=== PATIENT | female | born 1945 | race Caucasian/White ===

== ENCOUNTER 2016-03-29 01:28 | Inpatient (IN) | payer OTHER ==
--- NOTE | 2016-03-27 10:46 | History & Physical Pre-Op ---
General Information and HPI History of Present Illness: anatoly presents for scheduling laparoscopic cholecystectomy. She previously underwent percutaneous drainage of her gallbladder due to underlying comorbid problems. She has since convalesced and has been cleared by cardiology to undergo laparoscopic cholecystectomy. she also complains of increasing size of an incisional hernia just above the umbilicus. There is no nausea vomiting or change to bowel function. In regards to her gallbladder she continues to get intermittent epigastric abdominal pain following greasy meals. Operation was initially scheduled for February but was rescheduled due to medicall illness. Allergies/Medications Allergies: Coded Allergies: enalapril (Intermediate, PERSITENT COUGH. 06/28/15) Home Med list Atorvastatin Calcium (Lipitor) 40 MG TABLET 1 TAB PO DAILY CHOLESTEROL ( Reported) Cetirizine HCl (Zyrtec) 10 MG TABLET 1 TAB PO DAILY ALLERGIES (Reported) Furosemide (Lasix) 20 MG TABLET 1 TAB PO DAILY WATER RETENTION (Reported) Gabapentin (Gabapentin Tab 600MG) 600 MG TAB 2 TAB PO TID NEUROPATHY ( Reported) Insulin Aspart, Recombinant (Novolog) 100 U/ML MERE 0 UNITS SC TIDAC GLUCOSE CONTROL (Reported) BLOOD SUGAR # OF UNITS < 80 NONE 80-150 NONE 151-200 4 UNITS 201-250 6 UNITS 251-300 8 UNITS 301-350 10 UNITS 351-400 12 UNITS >400 14 UNITS and call Insulin Detemir (Levemir) 100 UNIT/1 ML VIAL 15 UNITS SQ AT BEDTIME diabetes Patient was previously on 25 units Levemir at bedtime. Dosage decreased due to hypoglycemia. Have provider increase Levemir dose based on the Accu-Cheks levels Lactobacillus Acidophilus (Probiotic) 1 EACH CAPSULE 1 CAP PO BID SUPPLEMENT (Reported) Levothyroxine Sodium (Synthroid) 50 MCG TABLET 1 TAB PO DAILY AC THYROID HEALTH (Reported) Lisinopril 10 MG TAB 1 TAB PO DAILY BLOOD PRESSURE (Reported) Metformin Hydochloride (Glucophage) 500 MG TABLET 1 TAB PO BID DIABETES ( Reported) Metoprolol Tartrate 50 MG TABLET 50 MG PO BID afib Multivitamin (Multivitamins) 1 EACH CAPSULE 1 TAB PO DAILY SUPPLEMENT ( Reported) Multivitamin With Minerals (Hair, Skin & Nails) 1 EACH TABLET 1 TAB PO DAILY HAIR AND NAILS (Reported) Nateglinide (Starlix) 120 MG TAB 1 TAB PO TIDAC DIABETES (Reported) Omeprazole 20 MG CAPSULE.DR 40 MG PO DAILY AC GERD Sennosides/Docusate Sodium (Senna S Tablet) 1 EACH TABLET 1 TAB PO BID CONSTIPATION (Reported) Past History Medical History Neurological: peripheral neuropathy EENT: allergies, hearing loss Cardiovascular: hypertension, hyperlipidemia, systolic CHF, mitral valve prolapse recent endocarditis Group G strep mitral valve endocarditis Respiratory: NONE Gastrointestinal: constipation, SLOW PERISTALSIS Hepatic: cholecystitis Renal: chronic kidney disease, urinary incontinence Musculoskeletal: chronic back pain, decubitis ulcer, falls, osteoarthritis, spinal stenosis, OSTEOMYELITIS Psychiatric: NONE Endocrine: diabetes, hypothyroidism, obesity Blood Disorders: NONE Cancer(s): NONE 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 , Age 56; Cause: Acute leukemia. Leukemia BROTHER, ; Cause: Heart attack. FATHER (hx colon polyps). , Age 70; Cause: CHF (congestive heart failure ). Psychosocial History Who Do You Live With? spouse (at ECF), self Services at Home Nursing Primary Language: Bengali Living Will? claims DNR/DNI, but Ok to intubate for temporary measures Power of Screen Tender/HCP? no Functional Ability ADLs Independent: dressing, eating, toileting, bathing. Ambulation: cane IADLs Independent: shopping, housework, finances, food prep, telephone, transportation , medication admin. Review of Systems Review of Systems: Patient reports change in appetite but reports no abdominal pain, no vomiting, no vomiting blood, no diarrhea, no constipation, no rectal bleeding, and no history of GERD. She reports muscle weakness but reports no muscle aches, no arthralgias/joint pain, and no back pain. She reports no fatigue, no fever, no night sweats, no significant weight gain, no significant weight loss, and no exercise intolerance. She reports no abnormal moles, no jaundice, no hives, no eczema, and no rashes. She reports no hearing loss, no ear pain, no sneezing, no frequent nosebleeds, no nose/sinus problems, no bleeding gums, no snoring, no dry mouth, no mouth ulcers, no oral abnormalities, no teeth problems, no headaches, and no sore throat. She reports no swollen glands and no neck stiffness. She reports no cough, no wheezing, no shortness of breath, and no coughing up blood. She reports no chest pain, no arm pain on exertion, no shortness of breath when lying down, no palpitations, and no leg swelling. She reports no incontinence, no difficulty urinating, no hematuria, and no increased frequency. She reports no gynecologic complaints. Exam & Diagnostic Data Physical Exam: Patient is a 70-year-old female. Constitutional: General Appearance: healthy-appearing and obese. Level of Distress: no acute distress. Ambulation: ambulating normally. Head: Head: normocephalic and atraumatic. Neck: Neck: supple, trachea midline, no masses, and full range of motion. Thyroid: no enlargement or nodules and non-tender. Lymph Nodes: no cervical LAD, supraclavicular LAD, axillary LAD, or inguinal LAD. Cardiovascular: Heart Auscultation: normal S1 and S2, no rubs or gallops, and regular rate and rhythm and murmur. Lungs: Respiratory effort: no dyspnea. Percussion: no dullness, flatness, or hyperresonance. Auscultation: no wheezing, rales/crackles, or rhonchi and breath sounds normal, good air movement, and clear to auscultation. Back: Thoracolumbar Appearance: normal curvature. Abdomen: Inspection and Palpation: no guarding, masses, rebound tenderness, or CVA tenderness and soft, non-distended, and epigastric tenderness. Bowel Sounds: normal. Liver: non-tender and no hepatomegaly. Spleen: non-tender and no splenomegaly. Hernia: incisional (reducible epigastric incisional hernia as well as separate umbilical defect). Skin: Inspection and palpation: no rash, lesions, ulcer, induration, nodules, jaundice, or abnormal nevi and good turgor. Musculoskeletal:: Extremities: no cyanosis, edema, varicosities, or palpable cord. Motor Strength and Tone: normal tone and motor strength. Joints, Bones, and Muscles: no contractures, malalignment, tenderness, or bony abnormalities and normal movement of all extremities; multiple missing digits of the bilateral hands. Protective boot right foot. Psychiatric: Insight: good judgement and insight. Mental Status: normal mood and affect and active and alert. Orientation: to time, place, and person. Memory: recent memory normal and remote memory normal. Assessment/Plan Assessment/Plan: Incisional hernia - She inquires re: concurrent laparoscopic incisional hernia repair. It is possible to combine these operations but only if cholecystectomy proceeds without contamination, otherwise the risk of mesh infection is too great. K43.2: Incisional hernia without obstruction or gangrene Cholecystitis - resolved status post percutaneous drainage. Recommend laparoscopic cholecystectomy. she's cleared by cardiology to undergo general anesthesia. They recommended keeping her overnight for monitoring on telemetry postoperatively. K81.0: Acute cholecystitis Discussion Notes Discussed outpatient laparoscopic cholecystectomy under general anesthesia. Discussed the side effects of cholecystectomy including diarrhea. Discussed the recovery period and complications including bleeding, infection, conversion to open and bile duct injury requiring reconstruction. Discussed the pathophysiology of hernias and the need for mesh repair. He understands the permanent nature of mesh. Discussed the risks of surgery including recurrence of the hernia, bleeding and infection. He understands that if mesh infection occurs, removal will necessary. He understands the need for general anesthesia. As Ranked By This Provider Problem List: 1. Acute cholecystitis
[~2016-03-29] VITALS: Ht 157.5 cm; Wt 90.7 kg
[~2016-03-29 01:28] MED LIST: ACETAMINOPHEN/O1 TAB PO; ASPIRIN EC81 M1 PO; AUGMENTIN 875 M1 TAB PO; BACTRIM DS TAB1 EACH PO; CHILDREN'S ASPI81 M1 PO; CLARITIN10 MG PO; COLACE100 M1 PO; COLACE100 MG PO; DESITIN CLEAR O99 GM TOP; GABAPENTIN TAB600 MG PO; GAS-X80 M1 PO; GLUCOPHAGE500 M1 PO; GLUCOPHAGE500 MG PO; HAIR, SKIN & N1 EACH PO; HYDRODIURIL 5050 MG PO; LASIX20 M1 PO; LEVEMIR100 U/ML SC; LEVEMIR100 UNIT/1 SQ; LIDODERM1 EACH TOP; LIPITOR40 M1 PO; LISINOPRIL10 MG PO; MAGNESIUM400 M1 PO; METOPROLOL TART50 M1 PO; MORPHINE SULFAT15 M4 PO; MUCINEX600 M1 PO; MULTIVITAMINS1 EAC8 PO; NOVOLOG100 U/ML SC; NYSTATIN15 G1 TOP; OMEPRAZOLE20 M2 PO; OMEPRAZOLE40 M1 PO; PERCOCET 325 MG1 TA2 PO; PROBIOTIC1 EACH PO; ROXICODONE5 M1 PO; SENNA S TABLET1 EACH PO; STARLIX120 MG PO; SYNTHROID0.05 MG PO; SYNTHROID50 MCG PO; TYLENOL #31 TAB PO; UNASYN 1.5 GM1.5 GM IV; UNASYN 3 GM VIAL3 GM IV; VANCO 1 GR1 GM/250 M IV; VITAMIN A & D56.7 GM TOP; ZYRTEC10 M3 PO
--- NOTE | 2016-03-29 15:11 | Operative Report ---
Operative/Inv Procedure Report Surgery Date: 03/29/16 Name of Procedure: 1. Laparoscopic converted to open cholecystectomy 2. Open incarcerated incisional hernia repair with primary closure Pre-Operative Diagnosis: Acute cholecystitis Incarcerated incisional hernia Post-Operative Diagnosis: Same same Estimated Blood Loss: less than 50ml Surgeon/Senior Biostatistician: RETA LAZARO,RENE Diaz/Edu KHAN Anesthesia: general endotracheal tube Implants: None Drains: 15 Dominican Kash-Bush round right upper quadrant Specimens: Gallbladder fragments Microbiology: Gallbladder Fluid for culture Operative Indication: Patient presents for in overall cholecystectomy after percutaneous drainage for severe acute cholecystitis. She has a growing and symptomatic incisional hernia which will be repaired concurrently Operative/Procedure Note Note: After consent patient brought to the operating room and laid supine. Gen. anesthesia was obtained and her abdomen was prepped and draped. We gained access through a supraumbilical port site, 10 mm. A longitudinal incision after local anesthesia was made. Came down to the fascia and grasped with Odalis's and a fasciotomy created sharply. Stay suture placed and a blunt Norman port was placed. Pneumoperitoneum was achieved. 3, 5 mm ports were placed in the right upper quadrant after local anesthesia instilled. There were numerous adhesions to the liver which are taken down with cautery and blunt dissection. The gallbladder was very difficult to identify. There is a fibrotic rind overlying it. Were able to peel it off painstakingly with cautery and blunt dissection. The gallbladder appeared to be gangrenous still. Eventually we're able to peel some the omentum off of it and in doing so opened up the gallbladder. There was creamy purulence emanating from it and the specimen was sent for culture. Removal to peel off the adhesions anteriorly. This was done with cautery and blunt dissection. At this point we attempted to dissect the triangle of Calot. Unfortunately there was severe fibrosis around the triangle making dissection prohibitive. There was Calot's node identified but no artery. We could not identify the duct. We attempted to find the duct from inside the gallbladder but or and able to do so. I then attempted to take the gallbladder off top down in it similar to an open fashion. This resulted in severe bruising and hemorrhage from the liver bed. Since we couldn't safely take it out laparoscopically and converted to an open operation. An incision was made and right upper quadrant to encompass the port sites. We came through the subcutaneous tissue fascia and muscle with cautery. [place] retraction was then attained. Packs are placed appeared delivered to bring the edge down. The gallbladder was then grasped and taken off of the liver bed with cautery. Again we couldn't identify major structures. We found what appeared to be the cystic duct from the inside. And removed all the gallbladder and left the cystic duct alone. I then suture ligated the cystic duct orifice with 3-0 Vicryl. Wound was then irrigated with saline. Hemostasis achieved with cautery and Surgicel. A 15 round Kash-Bush drain was then placed and secured to the skin with 2-0 nylon. The packs were removed and the fascia closed in 2 layers with 0 Maxon suture, running fashion. The subcutaneous tissues tissues were irrigated with saline and skin closed with sydni. The epigastric port site fascia was then closed with 0 Vicryl suture. Skin closed with sydni. Since there was contamination with active infection the gallbladder I felt that repair of her incisional hernia should not be performed with mesh due to the high incidence of mesh infection. However given the symptomatically nature of her hernia and her fragile medical status I felt that an attempt at repair should be made so that another operation could be avoided. So elected to repair the incisional hernia site in open fashion with primary closure. We made an incision in the periumbilical region came down to subcutaneous tissues tissues with cautery. There were 2 fascial defects one at the umbilicus and one superior to it both were dissected with cautery and the fascia between them connected. Were then able to reduce the contents back in the perineal cavity. The fascial edges were then excised of attenuated tissue with cutting cautery. We then closed the fascial defect with a running 0 Maxon suture. Wound was irrigated with saline and skin closed with sydni. Sterile dressings were applied. Sponge and needle counts are correct Findings: Severe chronic cholecystitis with purulence CC: Juan R CAN MD; JESSICA LAZARO,JOSE A
--- NOTE | 2016-03-29 15:34 | Admission Core Measures ---
Admission Meds I reviewed the following Meds: Current Medications Sig/Vandana Start time Last Medication Dose Stop Time Status Admin Atorvastatin Calcium 40 MG DAILY 03/30 1000 AC (Lipitor) Cefazolin Sodium 2,000 MG ONCE 03/29 0000 NR (Kefzol-Ancef Inj) 03/29 2359 Furosemide 20 MG DAILY 03/30 1000 AC (Lasix) Gabapentin 1,200 MG TID 03/29 1600 AC (Neurontin) Levothyroxine Sodium 0.05 MG DAILY AC 03/30 0700 AC (Synthroid) Lisinopril 10 MG DAILY 03/30 1000 AC (Prinivil) Loratadine 10 MG DAILY 03/30 1000 AC (Claritin) Metoprolol Tartrate 50 MG BID 03/29 2200 AC (Lopressor) Multivitamins 1 TAB DAILY 03/30 1000 AC (Theragran Vitamins) Omeprazole 40 MG DAILY AC 03/30 0700 AC (Prilosec) Senna/Docusate Sodium 1 TAB BID 03/29 2200 AC (Senokot S) Acute Coronary Syndrome Inclusion Criteria ACS Diagnosis No Inpatient Core Measures LDL Reminder: If No, please order W/I first 24hr of stay Congestive Heart Failure Inclusion Criteria CHF Diagnosis No Cerebrovascular accident Inclusion Criteria CVA/TIA Diagnosis No Inpatient Core Measures Bedside Swallow Eval Reminder: If BSE failed, place ST order Antithrombotic Reminder: Order Antithrombotic Medication by end of day 2 Antithrombotic Reminder: Document Reason Antithrombotic Not ordered by end of day 2 AFIB/Flutter Reminder: If Present, add to problem list AFIB/Flutter Reminder: Order Anticoag Medication for pts with AFIB/Flutter Atherosclerosis Reminder: If Present, add to problem list LDL Reminder: If No, please order W/I first 24hr of stay PT Order Reminder: If No, please order Venous thromboembolism Inpatient Core Measures VTE Risk Factors: Age > 40, Surgery VTE Prophylaxis Ordered Inpt Mec & Pharm No Mech VTE prophylaxis d/t No contraindications No VTE Pharm Prophylaxis d/t No contraindications Inclusion Criteria - Per Current guidelines, there needs to be overlap - treatment for the first 5 days of Warfarin therapy. - Parenteral Anticoagulation (IV or SC) needs to be - given along with Warfarin therapy. VTE Diagnosis No VTE Type NONE VTE Confirmed by (Test) NONE Problem List As ranked by this Provider includes Assessment & Plan 1. S/P cholecystectomy HOME MEDS Home Med List Atorvastatin Calcium (Lipitor) 40 MG TABLET 1 TAB PO DAILY CHOLESTEROL ( Reported) Cetirizine HCl (Zyrtec) 10 MG TABLET 1 TAB PO DAILY ALLERGIES (Reported) Furosemide (Lasix) 20 MG TABLET 1 TAB PO DAILY WATER RETENTION (Reported) Gabapentin (Gabapentin Tab 600MG) 600 MG TAB 2 TAB PO TID NEUROPATHY ( Reported) Insulin Aspart, Recombinant (Novolog) 100 U/ML MERE 0 UNITS SC TIDAC GLUCOSE CONTROL (Reported) Insulin Detemir (Levemir) 100 UNIT/1 ML VIAL 15 UNITS SQ AT BEDTIME diabetes Lactobacillus Acidophilus (Probiotic) 1 EACH CAPSULE 1 CAP PO BID SUPPLEMENT (Reported) Levothyroxine Sodium (Synthroid) 50 MCG TABLET 1 TAB PO DAILY AC THYROID HEALTH (Reported) Lisinopril 10 MG TAB 1 TAB PO DAILY BLOOD PRESSURE (Reported) Metformin Hydochloride (Glucophage) 500 MG TABLET 1 TAB PO BID DIABETES ( Reported) Metoprolol Tartrate 50 MG TABLET 50 MG PO BID afib Multivitamin (Multivitamins) 1 EACH CAPSULE 1 TAB PO DAILY SUPPLEMENT ( Reported) Multivitamin With Minerals (Hair, Skin & Nails) 1 EACH TABLET 1 TAB PO DAILY HAIR AND NAILS (Reported) Nateglinide (Starlix) 120 MG TAB 1 TAB PO TIDAC DIABETES (Reported) Omeprazole 20 MG CAPSULE.DR 40 MG PO DAILY AC GERD Sennosides/Docusate Sodium (Senna S Tablet) 1 EACH TABLET 1 TAB PO BID CONSTIPATION (Reported)
[2016-03-30 01:13] VITALS: BP 122/67
[2016-03-30 07:41] LABS: ABSOLUTE BASOPHIL COUNT 0 /CUMM (0.0-0.2); ABSOLUTE EOSINOPHIL COUNT 0 /CUMM (0.0-0.7); ABSOLUTE GRANULOCYTE CT 12.3 /CUMM (1.4-6.5); ABSOLUTE LYMPH COUNT 1.3 /CUMM (1.2-3.4); ABSOLUTE MONOCYTE COUNT 1.5 /CUMM (0.10-0.60); BASOPHIL % 0.1 % (0.0-2.0); EOSINOPHIL % 0 % (0-5); GRANULOCYTE % 81.4 % (42.2-75.2); HEMATOCRIT 33.6 % (37-47); MEAN CORPUSCULAR HGB CONC 32.5 G/DL (33.0-37.0); MEAN CORPUSCULAR VOLUME 80.1 FL (81.0-99.0); PLATELET COUNT 304 /CUMM (130-400); RBC DISTRIBUTION WIDTH 20.4 % (11.5-14.5); RED BLOOD CELL CT 4.19 /CUMM (4.20-5.40); WHITE BLOOD CELL COUNT 15.2 /CUMM (4.8-10.8)
[2016-03-30 08:00] VITALS: BP 120/60
--- NOTE | 2016-03-30 08:38 | Cons- Cardiology ---
General Information and HPI Consulting Request Date of Consult: 03/30/16 Requested By: RETA LAZARO,RENE Diaz Reason for Consult: Assistance with management of cardiac issues Source of Information: patient, old records Exam Limitations: no limitations History of Present Illness: The patient is a 70-year-old complicated, white female who is well-known to me. The patient is now day #1 post open cholecystectomy. From a cardiac standpoint, the patient has been stable recently. She does have a history of prior mitral valve endocarditis. Her mitral valve function, however, has remained reasonably normal. She has had no recent cardiac symptoms. As far as I can see, she seems to tolerate the surgery well. She has had no evidence of any arrhythmias since the procedure. This morning, she is sitting in a chair with no cardiac symptoms. She is tearful. Allergies/Medications Allergies: Coded Allergies: enalapril (Intermediate, PERSITENT COUGH. 06/28/15) Home Med List: Atorvastatin Calcium (Lipitor) 40 MG TABLET 1 TAB PO DAILY CHOLESTEROL ( Reported) Cetirizine HCl (Zyrtec) 10 MG TABLET 1 TAB PO DAILY ALLERGIES (Reported) Furosemide (Lasix) 20 MG TABLET 1 TAB PO DAILY WATER RETENTION (Reported) Gabapentin (Gabapentin Tab 600MG) 600 MG TAB 2 TAB PO TID NEUROPATHY ( Reported) Insulin Aspart, Recombinant (Novolog) 100 U/ML MERE 0 UNITS SC TIDAC GLUCOSE CONTROL (Reported) BLOOD SUGAR # OF UNITS < 80 NONE 80-150 NONE 151-200 4 UNITS 201-250 6 UNITS 251-300 8 UNITS 301-350 10 UNITS 351-400 12 UNITS >400 14 UNITS and call Insulin Detemir (Levemir) 100 UNIT/1 ML VIAL 15 UNITS SQ AT BEDTIME diabetes Patient was previously on 25 units Levemir at bedtime. Dosage decreased due to hypoglycemia. Have provider increase Levemir dose based on the Accu-Cheks levels Lactobacillus Acidophilus (Probiotic) 1 EACH CAPSULE 1 CAP PO BID SUPPLEMENT (Reported) Levothyroxine Sodium (Synthroid) 50 MCG TABLET 1 TAB PO DAILY AC THYROID HEALTH (Reported) Lisinopril 10 MG TAB 1 TAB PO DAILY BLOOD PRESSURE (Reported) Metformin Hydochloride (Glucophage) 500 MG TABLET 1 TAB PO BID DIABETES ( Reported) Metoprolol Tartrate 50 MG TABLET 50 MG PO BID afib Multivitamin (Multivitamins) 1 EACH CAPSULE 1 TAB PO DAILY SUPPLEMENT ( Reported) Multivitamin With Minerals (Hair, Skin & Nails) 1 EACH TABLET 1 TAB PO DAILY HAIR AND NAILS (Reported) Nateglinide (Starlix) 120 MG TAB 1 TAB PO TIDAC DIABETES (Reported) Omeprazole 20 MG CAPSULE.DR 40 MG PO DAILY AC GERD Sennosides/Docusate Sodium (Senna S Tablet) 1 EACH TABLET 1 TAB PO BID CONSTIPATION (Reported) Past History Medical History Blood Transfusion Hx: Yes Neurological: peripheral neuropathy EENT: allergies, hearing loss Cardiovascular: hypertension, hyperlipidemia, systolic CHF, mitral valve prolapse recent endocarditis Group G strep mitral valve endocarditis Respiratory: NONE Gastrointestinal: constipation, SLOW PERISTALSIS Hepatic: cholecystitis Renal: chronic kidney disease, urinary incontinence Musculoskeletal: chronic back pain, decubitis ulcer, falls, osteoarthritis, spinal stenosis, OSTEOMYELITIS Psychiatric: NONE Endocrine: diabetes, hypothyroidism, obesity Blood Disorders: NONE Cancer(s): NONE 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 , Age 56; Cause: Acute leukemia. Leukemia BROTHER, ; Cause: Heart attack. FATHER (hx colon polyps). , Age 70; Cause: CHF (congestive heart failure ). Psychosocial History Where Do You Live? Home Who Do You Live With? spouse (at ECF), self Services at Home: Nursing Primary Language: Kyrgyz Smoking Status: Never Smoked Living Will? claims DNR/DNI, but Ok to intubate for temporary measures Power of Fructose Loader/HCP? no Functional Ability ADLs Independent: dressing, eating, toileting, bathing. Ambulation: cane IADLs Independent: shopping, housework, finances, food prep, telephone, transportation , medication admin. Exam & Diagnostic Data Vital Signs and I&O Vital Signs Date Time Temp Pulse Resp B/P Pulse O2 O2 Flow FiO2 Ox Delivery Rate 03/30 0113 67 20 122/67 93 03/29 2214 77 132/70 Intake & Output 03/30 1600 03/30 0800 03/30 0000 03/29 1600 03/29 0800 03/29 0000 Intake Total 910 Output Total 455 210 Balance 455 -210 Intake, IV 850 Intake, Oral 60 Output, 5 10 Drainage Output, Urine 450 200 Patient 200 lb Weight Labs/Ammon Results: Laboratory Tests 03/30 0615 Chemistry Sodium (137 - 145 mmol/L) 142 Potassium (3.5 - 5.1 mmol/L) 5.1 Chloride (98 - 107 mmol/L) 100 Carbon Dioxide (22 - 30 mmol/L) 29 Anion Gap (5 - 16) 13 BUN (7 - 17 mg/dL) 35 H Creatinine (0.5 - 1.0 mg/dL) 1.1 H Estimated GFR (>60 ml/min) 49 L BUN/Creatinine Ratio (7 - 25 %) 31.8 H Hematology CBC w Diff NO MAN DIFF REQ WBC (4.8 - 10.8 /CUMM) 15.2 H RBC (4.20 - 5.40 /CUMM) 4.19 L Hgb (12.0 - 16.0 G/DL) 10.9 L Hct (37 - 47 %) 33.6 L MCV (81.0 - 99.0 FL) 80.1 L MCH (27.0 - 31.0 PG) 26.0 L RDW (11.5 - 14.5 %) 20.4 H Plt Count (130 - 400 /CUMM) 304 MPV (7.4 - 10.4 FL) 8.0 Gran % (42.2 - 75.2 %) 81.4 H Lymphocytes % (20.5 - 51.1 %) 8.6 L Monocytes % (1.7 - 9.3 %) 9.9 H Eosinophils % (0 - 5 %) 0 Basophils % (0.0 - 2.0 %) 0.1 Absolute Granulocytes (1.4 - 6.5 /CUMM) 12.3 H Absolute Lymphocytes (1.2 - 3.4 /CUMM) 1.3 Absolute Monocytes (0.10 - 0.60 /CUMM) 1.5 H Absolute Eosinophils (0.0 - 0.7 /CUMM) 0 Absolute Basophils (0.0 - 0.2 /CUMM) 0 PUBS MCHC (33.0 - 37.0 G/DL) 32.5 L Assessment/Plan Assessment/Plan Assessment: 1. Day one post cholecystectomy 2. History of mitral valve disease with prior mitral valve endocarditis 3. History of prior elevated troponin. 4. Potential 5. Hyperlipidemia 6. Hypothyroidism 7. Diabetes Recommendations: -Continue as per the medical and surgical teams. -If the patient remained stable and without arrhythmias for 24-36 hours, I believe she can be safely transferred to the general medical floor at that time. -Please check ECG today and again in the morning. -Further plans after the above. Consult Acknowledgment - Thank you for your consult request.
--- NOTE | 2016-03-30 09:36 | PN- General Surgery ---
ROXANN WOLFE 03/30/16 0932: Subjective Subjective: Late entry: POD #1 s/p lap converted to open cholecystectomy. Resting comfortably in bed. Minimal complaints of pain (only when moving). No CP/SOB, N/V, F/C. Ambulating with assistance. Objective Vital Signs and I&Os Vital Signs Date Time Temp Pulse Resp B/P Pulse O2 O2 Flow FiO2 Ox Delivery Rate 04/01 0843 69 138/80 04/01 0843 69 138/80 04/01 0833 97.9 69 18 128/72 94 Room Air 03/31 2353 98.2 68 18 102/60 93 Room Air 03/31 2116 70 98/60 03/31 1555 98.1 68 18 110/60 96 Intake & Output 04/01 1600 04/01 0800 04/01 0000 03/31 1600 03/31 0000 Intake Total 130 490 240 50 410 Output Total 350 Balance 130 490 240 50 60 Intake, IV 10 10 10 Intake, Oral 120 480 240 50 400 Number 0 Bowel Movements Output, Urine 350 Core Measures/Miscellaneous Venous Thromboembolism VTE Prophylaxis Ordered Inpt Mech & Pharm VTE Diagnosis: No VTE Type: NONE VTE Confirmed by (Test): NONE RETA LAZARO,RENE Diaz 03/31/16 0740: Objective Vital Signs and I&Os Vital Signs Date Time Temp Pulse Resp B/P Pulse O2 O2 Flow FiO2 Ox Delivery Rate 03/31 0053 98.2 69 20 120/62 93 Room Air 03/31 0000 Room Air 03/30 2249 69 100/50 03/30 1530 97.5 69 20 118/60 94 Room Air 03/30 0854 126/80 03/30 0853 126/80 03/30 0800 97.6 68 20 120/60 96 Room Air Intake & Output 03/31 0800 03/31 0000 03/30 1600 03/30 0800 03/30 0000 03/29 1600 Intake Total 410 1320 910 Output Total 350 800 455 210 Balance 60 520 455 -210 Intake, IV 10 600 850 Intake, Oral 400 720 60 Number 0 Bowel Movements Output, 5 10 Drainage Output, Urine 350 800 450 200 Patient 200 lb Weight Physical Exam: looks well. drain with scant bloody output Assessment/Plan Assessment/Plan pod 1 open susan and incisional hernia repair. doing well. advance diet. d/c 1-2 days pending clinical course. Core Measures/Miscellaneous Venous Thromboembolism VTE Risk Factors: Acute medical illness, Age > 40, Obesity VTE Contraindications: No Contraindications Beta Jazzmine Is Beta Jazzmine a Home Med? No Antibiotics Is Patient on Antibiotics? No
--- NOTE | 2016-03-30 10:28 | Patient Discharge Instructions ---
Discharge Instructions General Discharge Information You were seen/treated for: CHOLECYSTITIS You had these procedures: CHOLECYSTECTOMY Watch for these problems: INCREASED PAIN, REDNESS OR DRAINAGE FROM INCISION, FEVER GREATER THAN 101F, CHEST PAIN OR SHORTNESS OF BREATH Other wound care: YOUR DRAIN SITE MAY DRAIN SOME CLEAR TO SLIGHTLY BLOOD TINGED FLUID; THIS IS NORMAL. COVER WITH GAUZE AND CHANGE NEEDED UNTIL THE AREA IS NOT DRAINING ANYMORE. Diet Continue normal diet: Yes Activity Full Activity/No Limits: No Activity Self Limited: Yes Pounds, do NOT lift more than: 10 Acute Coronary Syndrome Inclusion Criteria At DC or during hospital stay patient has or had the following: ACS DIAGNOSIS No Discharge Core Measures Meds if any: Prescribed or Continued at Discharge Meds if any: NOT Prescribed or Continued at Discharge Congestive Heart Failure Inclusion Criteria At DC or during hospital stay patient has or had the following: CHF DIAGNOSIS No Discharge Core Measures Meds if any: Prescribed or Continued at Discharge Meds if any: NOT Prescribed or Continued at Discharge Cerebrovascular accident Inclusion Criteria At DC or during hospital stay patient has or had the following: CVA/TIA Diagnosis No Discharge Core Measures Meds if any: Prescribed or Continued at Discharge Meds if any: NOT Prescribed or Continued at Discharge Venous thromboembolism Inclusion Criteria VTE Diagnosis No VTE Type NONE VTE Confirmed by (Test) NONE Discharge Core Measures - Per Current guidelines, there needs to be overlap - treatment for the first 5 days of Warfarin therapy. - If discharged on Warfarin prior to 5 days of - overlap therapy, the patient will need to be - assessed for post discharge needs including - *Post discharge parental anticoagulation - *Warfarin and/or parental anticoagulation education - *Follow up date to check INR post discharge At least 5 days overlap therapy as Inpatient No Meds if any: Prescribed or Continued at Discharge Note: Overlap Therapy is Warfarin and Anticoagulant Meds if any: NOT Prescribed or Continued at Discharge
[2016-03-30 15:30] VITALS: BP 118/60
--- NOTE | 2016-03-30 20:21 | NUR ---
03/30/161933 PATIENT HAD 6 BEATS OF V-TACH RECORDED ON TELEMETRY, PATIENT ALERT AND ORIENTED, C/O ABD PAIN 09/25, BP 90/50, HR 66 NSR, RR 18 SPO2 95% ON RA, AFEBRILE. PATIENT DENIES SOB OR CP. RESTYNG IN CHAIR. SURGICAL BILL GUTIERREZ NOTIFIED, NO FURTHER INTERVENTIONS ORDERED AT THIS TIME, WILL CONTINUE TO MONITOR.
--- NOTE | 2016-03-30 20:54 | Event Note ---
Event Note Event Note: I was called by nursing staff because the patient had a 6 beat run of V. tach. The patient's vital signs remained stable and the patient was asymptomatic at the time. The case was discussed with Myah Isaac MD who recommended continuous telemetry monitoring and recheck electrolytes, troponin, and another echocardiogram in the morning.
[2016-03-31 00:53] VITALS: BP 120/62
[2016-03-31 08:00] LABS: ABSOLUTE BASOPHIL COUNT 0 /CUMM (0.0-0.2); ABSOLUTE EOSINOPHIL COUNT 0.3 /CUMM (0.0-0.7); ABSOLUTE GRANULOCYTE CT 6.3 /CUMM (1.4-6.5); ABSOLUTE LYMPH COUNT 1.6 /CUMM (1.2-3.4); ABSOLUTE MONOCYTE COUNT 0.9 /CUMM (0.10-0.60); BASOPHIL % 0.4 % (0.0-2.0); EOSINOPHIL % 3.3 % (0-5); GRANULOCYTE % 68.4 % (42.2-75.2); HEMATOCRIT 31.3 % (37-47); MEAN CORPUSCULAR HGB CONC 32.2 G/DL (33.0-37.0); MEAN CORPUSCULAR VOLUME 80.7 FL (81.0-99.0); PLATELET COUNT 276 /CUMM (130-400); RED BLOOD CELL CT 3.89 /CUMM (4.20-5.40); WHITE BLOOD CELL COUNT 9.2 /CUMM (4.8-10.8)
[2016-03-31 08:22] VITALS: BP 134/72
--- NOTE | 2016-03-31 09:51 | PN- General Surgery ---
See Addendum Subjective Subjective: No complaints. Tolerating clears. No nausea. No flatus or bm yet. 6 beat run of vtach last night - aware and coming to see her this morning. She's out of bed to chair. Admits to baseline shortness of breath with ambulation related to her pre-existing chf. No chest pains. No dizziness. No shortness of breath at rest. Voiding well. She seems to believe she should be on antibiotics despite multiple conversations with respect to her not needing it since the source has been removed. Objective Vital Signs and I&Os Vital Signs Date Time Temp Pulse Resp B/P Pulse O2 O2 Flow FiO2 Ox Delivery Rate 03/31 0906 75 120/66 03/31 0906 75 120/66 03/31 0822 97.7 71 16 134/72 94 Room Air 03/31 0053 98.2 69 20 120/62 93 Room Air 03/31 0000 Room Air 03/30 2249 69 100/50 03/30 1530 97.5 69 20 118/60 94 Room Air Intake & Output 03/31 1600 03/31 0800 03/31 0000 03/30 1600 03/30 0800 03/30 0000 Intake Total 50 410 1320 910 Output Total 350 800 455 210 Balance 50 60 520 455 -210 Intake, IV 10 600 850 Intake, Oral 50 400 720 60 Number 0 Bowel Movements Output, 5 10 Drainage Output, Urine 350 800 450 200 Patient 200 lb Weight Physical Exam: General - alert & oriented x 3. out of bed to chair. no acute distress. Lungs - clear bilaterally. Cardiac - s1s2 Abdomen - soft. bowel sounds appreciated. scant serosang drainage in MEET drain. no evidence of bile. dressings changed. incisions approximated with sydni. no erythema or exudates. Extremities - warm b/l. calves soft and nontender b/l. Assessment/Plan Assessment/Plan This 70 year old white female with multiple medical problems is POD#2 s/p laparoscopic converted to open cholecystectomy and open incarcerated incisional hernia repair with primary closure for acute cholecystitis and incarcerated incisional hernia tolerating clears. ?awaiting return of bowel function to advance diet pain controlled with tylenol#3 hep sc - dvt ppx f/u labs replete mag d/c echo. f/u ekg (d/w ) dressings changed ?remove MEET drain will d/w Core Measures/Miscellaneous Venous Thromboembolism VTE Risk Factors: Acute medical illness, Age > 40, Obesity VTE Contraindications: No Contraindications VTE Prophylaxis Ordered Inpt Mech & Pharm VTE Diagnosis: No VTE Type: NONE VTE Confirmed by (Test): NONE Beta Jazzmine Is Beta Jazzmine a Home Med? No Antibiotics Is Patient on Antibiotics? No
--- NOTE | 2016-03-31 13:09 | NUR ---
WOUND CARE: REPLACEMENT OF TCC EZ PER REQUEST OF DR CALLE - PT TOLERATED PROCEDURE WELL - STAGE 4 PRESSURE INJURY LEFT HEEL 3X3 CM PRESENT ON ADMISSION HEALING WELL WITHOUT EVIDENCE OF NECROTIC TISSUE - IMPROVEMENT NOTED SINCE PRIOR ASSESSMENT AT [facility] ADMISSION RECOMMENDATION: F/U AT [facility] SUNDAY FOR CAST REPLACEMENT PLEASE
[2016-03-31] MEDS ORDERED: TYLENOL WITH C1 EACH PO (14:32)
[2016-03-31 15:55] VITALS: BP 110/60
--- NOTE | 2016-03-31 16:56 | PN- Cardiology ---
Subjective Subjective: Doing well with no CV symptoms noted. Episode of brief non sustained VT and SVT noted on monitor overnight. Objective Vital Signs and I&Os Vital Signs Date Time Temp Pulse Resp B/P Pulse O2 O2 Flow FiO2 Ox Delivery Rate 03/31 1555 98.1 68 18 110/60 96 03/31 0906 75 120/66 03/31 0906 75 120/66 03/31 0822 97.7 71 16 134/72 94 Room Air 03/31 0053 98.2 69 20 120/62 93 Room Air 03/31 0000 Room Air 03/30 2249 69 100/50 Intake & Output 03/31 1600 03/31 0800 03/31 0000 03/30 1600 03/30 0800 03/30 0000 Intake Total 240 50 410 1320 910 Output Total 350 800 455 210 Balance 240 50 60 520 455 -210 Intake, IV 10 600 850 Intake, Oral 240 50 400 720 60 Number 0 Bowel Movements Output, 5 10 Drainage Output, Urine 350 800 450 200 Patient 200 lb Weight Current Medications: Current Medications Sig/Vandana Start time Last Medication Dose Route Stop Time Status Admin Alprazolam 0.5 MG TID PRN 03/29 2044 AC PO 04/05 2043 Atorvastatin Calcium 40 MG DAILY 03/30 1000 AC 03/31 PO 0906 Furosemide 20 MG DAILY 03/30 1000 AC 03/31 PO 0907 Gabapentin 1,200 MG TID 03/29 2199 AC 03/31 PO 0906 Heparin Sodium 5,000 UNIT Q8 03/29 2199 AC 03/31 (Porcine) SC 1402 Insulin Human Regular 0 TIDAC/HS 03/30 1200 AC 03/31 SC 1222 Levothyroxine Sodium 0.05 MG DAILY AC 03/30 0700 AC 03/31 PO 0619 Lisinopril 10 MG DAILY 03/30 1000 AC 03/31 PO 0906 Loratadine 10 MG DAILY 03/30 1000 AC 03/31 PO 0907 Magnesium Sulfate 1 GM ONCE ONE 03/31 0945 DC 03/31 Dextrose/Water 100 ML IV 03/31 1344 1114 Metoprolol Tartrate 50 MG BID 03/29 2200 AC 03/31 PO 0906 Morphine Sulfate 2 MG Q3P PRN 03/30 0815 AC 03/30 IV 0854 Multivitamins 1 TAB DAILY 03/30 1000 AC 03/31 PO 0906 Omeprazole 40 MG DAILY AC 03/30 0700 AC 03/31 PO 0619 Ondansetron HCl 4 MG Q6P PRN 03/29 2044 AC IV Polyethylene Glycol 17 GM DAILY 03/30 1000 AC 03/31 PO 0907 Promethazine HCl 12.5 MG Q6P PRN 03/29 2044 AC IV 04/05 1529 Ramelteon 8 MG AT BEDTIME NEED.. 03/29 2044 PO Senna/Docusate Sodium 1 TAB BID 03/29 2200 AC 03/31 PO 0906 Results Last 48 Hrs of Labs/Mics: Laboratory Tests 03/31/16 0600: Anion Gap 11, Estimated GFR 49 L, BUN/Creatinine Ratio 32.7 H, Phosphorus 3.9, Magnesium 1.7, Troponin I < 0.01, CBC w Diff NO MAN DIFF REQ, RBC 3.89 L, MCV 80.7 L, MCH 26.0 L, RDW 20.0 H, MPV 8.0, Gran % 68.4, Lymphocytes % 17.8 L, Monocytes % 10.1 H, Eosinophils % 3.3, Basophils % 0.4, Absolute Granulocytes 6.3, Absolute Lymphocytes 1.6, Absolute Monocytes 0.9 H, Absolute Eosinophils 0.3, Absolute Basophils 0, PUBS MCHC 32.2 L 03/30/16 0615: Anion Gap 13, Estimated GFR 49 L, BUN/Creatinine Ratio 31.8 H, CBC w Diff NO MAN DIFF REQ, RBC 4.19 L, MCV 80.1 L, MCH 26.0 L, RDW 20.4 H, MPV 8.0, Gran % 81.4 H, Lymphocytes % 8.6 L, Monocytes % 9.9 H, Eosinophils % 0, Basophils % 0.1, Absolute Granulocytes 12.3 H, Absolute Lymphocytes 1.3, Absolute Monocytes 1.5 H, Absolute Eosinophils 0, Absolute Basophils 0, PUBS MCHC 32.5 L Assessment/Plan Assessment/Plan Assessment: 1. Day one post cholecystectomy 2. History of mitral valve disease with prior mitral valve endocarditis 3. History of prior elevated troponin. 4. Potential 5. Hyperlipidemia 6. Hypothyroidism 7. Diabetes 8. Non sustained SVT and VT REcommendations. -Continue current medication regimen -Replete magnesium -Check followup labs in AM -Discharge planning as per surgery -Followup with me 4-6 week post discharge Continue telemetry? Yes
[2016-03-31 23:53] VITALS: BP 102/60
[2016-04-01 07:47] LABS: ABSOLUTE BASOPHIL COUNT 0 /CUMM (0.0-0.2); ABSOLUTE EOSINOPHIL COUNT 0.3 /CUMM (0.0-0.7); ABSOLUTE LYMPH COUNT 1.3 /CUMM (1.2-3.4); ABSOLUTE MONOCYTE COUNT 0.8 /CUMM (0.10-0.60); BASOPHIL % 0.4 % (0.0-2.0); EOSINOPHIL % 3.9 % (0-5); GRANULOCYTE % 70.5 % (42.2-75.2); HEMATOCRIT 30.2 % (37-47); MEAN CORPUSCULAR HGB 25.9 PG (27.0-31.0); MEAN CORPUSCULAR HGB CONC 32.3 G/DL (33.0-37.0); MEAN CORPUSCULAR VOLUME 80.3 FL (81.0-99.0); PLATELET COUNT 292 /CUMM (130-400); RBC DISTRIBUTION WIDTH 19.5 % (11.5-14.5); RED BLOOD CELL CT 3.76 /CUMM (4.20-5.40); WHITE BLOOD CELL COUNT 8.5 /CUMM (4.8-10.8)
[2016-04-01 08:33] VITALS: BP 128/72
--- NOTE | 2016-04-01 08:48 | PN- General Surgery ---
See Addendum Subjective Subjective: POD #3 s/p lap converted to open cholecystectomy. Voiding spontaneously. Tolerating a regular diet. Passing flatus, yet to have BM and concerned about it as she has a motility issue at home. Ambulating well. Objective Vital Signs and I&Os Vital Signs Date Time Temp Pulse Resp B/P Pulse O2 O2 Flow FiO2 Ox Delivery Rate 04/01 0843 69 138/80 04/01 0843 69 138/80 04/01 0833 97.9 69 18 128/72 94 Room Air 03/31 2353 98.2 68 18 102/60 93 Room Air 03/31 2116 70 98/60 03/31 1555 98.1 68 18 110/60 96 03/31 0906 75 120/66 03/31 0906 75 120/66 Intake & Output 04/01 1600 04/01 0800 04/01 0000 03/31 1600 03/31 0800 03/31 0000 Intake Total 130 490 240 50 410 Output Total 350 Balance 130 490 240 50 60 Intake, IV 10 10 10 Intake, Oral 120 480 240 50 400 Number 0 Bowel Movements Output, Urine 350 Physical Exam: Gen: AAox3 in NAD Cor: S1+S2+ Lungs: CTA alec Abd: soft, NT, ND, +BS x4. Incisional dressings removed. Incisions intact with sydni. No erythema or drainage noted from incisions. Drain site intact, no drainage. Results Last 48 Hours of Labs: Laboratory Tests 04/01 03/31 0635 0600 Chemistry Sodium (137 - 145 mmol/L) 140 140 Potassium (3.5 - 5.1 mmol/L) 5.0 4.8 Chloride (98 - 107 mmol/L) 99 101 Carbon Dioxide (22 - 30 mmol/L) 30 28 Anion Gap (5 - 16) 12 11 BUN (7 - 17 mg/dL) 41 H 36 H Creatinine (0.5 - 1.0 mg/dL) 1.2 H 1.1 H Estimated GFR (>60 ml/min) 45 L 49 L BUN/Creatinine Ratio (7 - 25 %) 34.2 H 32.7 H Phosphorus (2.5 - 4.5 mg/dL) 3.9 Magnesium (1.6 - 2.3 mg/dL) 1.7 1.7 Troponin I (< 0.11 ng/ml) < 0.01 Hematology CBC w Diff NO MAN DIFF REQ NO MAN DIFF REQ WBC (4.8 - 10.8 /CUMM) 8.5 9.2 RBC (4.20 - 5.40 /CUMM) 3.76 L 3.89 L Hgb (12.0 - 16.0 G/DL) 9.7 L 10.1 L Hct (37 - 47 %) 30.2 L 31.3 L MCV (81.0 - 99.0 FL) 80.3 L 80.7 L MCH (27.0 - 31.0 PG) 25.9 L 26.0 L RDW (11.5 - 14.5 %) 19.5 H 20.0 H Plt Count (130 - 400 /CUMM) 292 276 MPV (7.4 - 10.4 FL) 8.0 8.0 Gran % (42.2 - 75.2 %) 70.5 68.4 Lymphocytes % (20.5 - 51.1 %) 15.9 L 17.8 L Monocytes % (1.7 - 9.3 %) 9.3 10.1 H Eosinophils % (0 - 5 %) 3.9 3.3 Basophils % (0.0 - 2.0 %) 0.4 0.4 Absolute Granulocytes (1.4 - 6.5 /CUMM) 6.0 6.3 Absolute Lymphocytes (1.2 - 3.4 /CUMM) 1.3 1.6 Absolute Monocytes (0.10 - 0.60 /CUMM) 0.8 H 0.9 H Absolute Eosinophils (0.0 - 0.7 /CUMM) 0.3 0.3 Absolute Basophils (0.0 - 0.2 /CUMM) 0 0 PUBS MCHC (33.0 - 37.0 G/DL) 32.3 L 32.2 L Assessment/Plan Assessment/Plan A: POD #3 s/p lap converted to open cholecystectomy; AVSS. Plan: Dulcolax 20 mg x1 OOB and ambulate as tolerated. Leave dressings to abdomen off. Likely d/c today. Will discuss with fashion design professor surgeon. Core Measures/Miscellaneous Venous Thromboembolism VTE Risk Factors: Acute medical illness, Age > 40, Obesity VTE Contraindications: No Contraindications VTE Prophylaxis Ordered Inpt Mech & Pharm VTE Diagnosis: No VTE Type: NONE VTE Confirmed by (Test): NONE Beta Jazzmine Is Beta Jazzmine a Home Med? No Antibiotics Is Patient on Antibiotics? No
[2016-04-01 16:08] VITALS: BP 142/78
--- NOTE | 2016-04-01 16:18 | PN- Cardiology ---
Subjective Subjective: No complaints. Admits to chronic dyspnea on exertion, but states that she is at her baseline. Denies any chest discomfort or palpitations. On telemetry she has been in sinus rhythm with acceptable heart rates and no further significant ventricular/supraventricular dysrhythmias. Objective Vital Signs and I&Os Vital Signs Date Time Temp Pulse Resp B/P Pulse O2 O2 Flow FiO2 Ox Delivery Rate 04/01 0843 69 138/80 04/01 0843 69 138/80 04/01 0833 97.9 69 18 128/72 94 Room Air 03/31 2353 98.2 68 18 102/60 93 Room Air 03/31 2116 70 98/60 Intake & Output 04/01 1600 04/01 0800 04/01 0000 03/31 1600 03/31 0000 Intake Total 480 130 490 240 50 410 Output Total 350 Balance 480 130 490 240 50 60 Intake, IV 10 10 10 Intake, Oral 480 120 480 240 50 400 Number 1 0 Bowel Movements Output, Urine 350 Physical Exam: Well-developed, morbidly obese elderly female in no acute distress. Vital signs: See above. Lungs: Few crackles at the bases otherwise clear. Heart: S1, S2 with grade 1-2/6 systolic murmur. No gallop or rub appreciated. Extremities: Trace edema on right. Bandaged left lower extremity. Assessment/Plan Assessment/Plan Ms. Shafer is a morbidly obese 70-year-old female with a history of mitral valve disease with previous infective endocarditis, history of previous troponin I elevation, hypertension, dyslipidemia, hypothyroidism, diabetes mellitus who is hemodynamically and clinically stable postoperative day #3 laparoscopic converted to open cholecystectomy for acute cholecystitis (2016); open incarcerated incisional hernia repair with primary closure. Her cardiac rhythm has been stable and the plan is for discharge to home today for further outpatient evaluation and management with her attending rigger third (Myah Isaac M.D.). Continue telemetry? No (can discontinue telemetry.)
--- NOTE | 2016-04-12 10:14 | Surgical Discharge Summary ---
Visit Information Visit Dates Admission Date: 03/29/16 Discharge Date: 04/01/16 History of Present Illness Chief Complaint: cholecystitis and incisional hernia Medical History Blood Transfusion Hx: Yes Neurological: peripheral neuropathy EENT: allergies, hearing loss Cardiovascular: hypertension, hyperlipidemia, systolic CHF, mitral valve prolapse recent endocarditis Group G strep mitral valve endocarditis Respiratory: NONE Gastrointestinal: constipation, SLOW PERISTALSIS Hepatic: cholecystitis Renal: chronic kidney disease, urinary incontinence Musculoskeletal: chronic back pain, decubitis ulcer, falls, osteoarthritis, spinal stenosis, OSTEOMYELITIS Psychiatric: NONE Endocrine: diabetes, hypothyroidism, obesity Blood Disorders: NONE Cancer(s): NONE METAL SORTER/Reproductive: endometriosis Other Medical Hx: diabetic foot nonhealing ulcers History of MRSA: Yes History of VRE: No History of CDIFF: No Isolation History: Contact Pneumonia Vaccine: 10/09/14 Influenza Vaccine: 12/18/15 Surgical History Pertinent Surgical History: cholecystectomy, hernia repair-incisional, hip replacement (right ), hysterectomy, 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 , Age 56; Cause: Acute leukemia. Leukemia BROTHER, ; Cause: Heart attack. FATHER (hx colon polyps). , Age 70; Cause: CHF (congestive heart failure ). Psychosocial History Where Do You Live? Home Who Do You Live With? Patient/Self Services at Home: Nursing What is Your Primary Language? Yi Review of Systems: not assessed at discharge Hospital Course Course Attending Physician: RETA LAZARO,RENE Diaz Primary Care Physician: JESSICA LAZARO,[facility] Course: admitted to surgical survice after undergoing open cholecystectomy with incisional hernia repair. Short lived ileus. Diet initiated and advanced. Monitored on telemetry without complication and discharged to home. Allergies: Coded Allergies: enalapril (Intermediate, PERSITENT COUGH. 06/28/15) Significant Procedures: open cholecystectomy with open incisional hernia repair. Disposition Summary Disposition Principal Diagnosis: chronic cholecystitis Additional Diagnosis: incisional hernia Discharge Disposition: home or self care Discharge Instructions General Discharge Information Code Status: Full Code Patient's Diet: regular Patient's Activity: no lifting Follow-Up Instructions/Appts: 2 weeks Medications at Discharge Discharge Medications: Continue taking these medications: Atorvastatin Calcium (Lipitor) 40 MG TABLET 1 Tablet ORAL DAILY Comments: Last Taken:04/01/16 Time:9 AM Gabapentin (Gabapentin Tab 600MG) 600 MG TAB 2 Tablet ORAL THREE TIMES DAILY Qty = 30 Comments: Last Taken: 07/03/15 Time: 1:22P.M Nateglinide (Starlix) 120 MG TAB 1 Tablet ORAL 3 TIMES DAILY BEFORE MEALS Qty = 30 Comments: NOT GIVEN IN HOSPITAL Lisinopril (Lisinopril) 10 MG TAB 1 Tablet ORAL DAILY Qty = 30 Comments: Last Taken: 06/12/15 Time: 9:30 AM NOT GIVEN THIS ADMISSION Insulin Aspart, Recombinant (Novolog) 100 U/ML MERE 0 Units Inject into fatty tissue 3 TIMES DAILY BEFORE MEALS Instructions: BLOOD SUGAR # OF UNITS < 80 NONE 80-150 NONE 151-200 4 UNITS 201-250 6 UNITS 251-300 8 UNITS 301-350 10 UNITS 351-400 12 UNITS >400 14 UNITS and call MD Comments: Last Taken: 07/03/15 Time: 11:42A.M Cetirizine HCl (Zyrtec) 10 MG TABLET 1 Tablet ORAL DAILY Comments: Last Taken:NOT GIVEN IN THE HOSPITAL Time: Levothyroxine Sodium (Synthroid) 50 MCG TABLET 1 Tablet ORAL DAILY BEFORE BREAKFAST Comments: Last Taken:04/01/16 Time:7 AM Sennosides/Docusate Sodium (Senna S Tablet) 1 EACH TABLET 1 Tablet ORAL TWICE DAILY Qty = 30 Comments: Last Taken: 12/16/15 Time: 10:10P.M Insulin Detemir (Levemir) 100 UNIT/1 ML VIAL 15 Units SUB-Q AT BEDTIME Days = 30 Instructions: Patient was previously on 25 units Levemir at bedtime. Dosage decreased due to hypoglycemia. Have provider increase Levemir dose based on the Accu-Cheks levels Comments: Last Taken:12/16/15 Time:2200 Lactobacillus Acidophilus (Probiotic) 1 EACH CAPSULE 1 Capsule ORAL TWICE DAILY Comments: did not take in hospital Multivitamin (Multivitamins) 1 EACH CAPSULE 1 Tablet ORAL DAILY Comments: Last Taken:04/01/16 Time:9 AM Metoprolol Tartrate (Metoprolol Tartrate) 50 MG TABLET 50 Milligram ORAL TWICE DAILY Qty = 60 Comments: Last Taken:04/01/16 Time:0900 Omeprazole (Omeprazole) 20 MG CAPSULE.DR 40 Milligram ORAL DAILY BEFORE BREAKFAST Qty = 30 Comments: Last Taken:04/01/16 Time:0700 Multivitamin With Minerals (Hair, Skin & Nails) 1 EACH TABLET 1 Tablet ORAL DAILY Furosemide (Lasix) 20 MG TABLET 1 Tablet ORAL DAILY Comments: Last Taken:04/01/16 Time:9 AM Metformin Hydochloride (Glucophage) 500 MG TABLET 1 Tablet ORAL TWICE DAILY Start taking the following new medications: Tylenol With Codeine (Tylenol With Codeine #3 Tablet) 300 MG-30 MG TABLET 1-2 Tablet ORAL EVERY 4-6 HOURS NEEDED as needed for pain control Qty = 30 No Refills Instructions: take as directed. do not combine with tylenol. Copies To: JESSICA LAZARO,JOSE A
[2016-07-17] MEDS ORDERED: BETHANECHOL CHL25 M1 PO (11:43)
[2016-07-17] MEDS ORDERED: MIRALAX17 G1 PO (11:43)
== END 2016-04-01 16:45 | disposition home health service (06) | DRG 415 ==
LOC: CANRESERV → ENRESERVTM → ENRESERVDT → STS 01:28 → PACUH 12:40 → ENPENDDIS 12:40 → 1NO 12:40 → CANBEDREQ 15:19 → EDBEDREQ 15:29 → 1NO 19:42
PROVIDERS: Physician Assistant; Physician Assistant Surgical; ADMIT Surgery
DX: K81.0 Acute cholecystitis (principal); I13.0 Hypertensive heart and chronic kidney disease with heart failure and stage 1 through stage 4 chronic kidney disease, or unspecified chronic kidney disease; E11.42 Type 2 diabetes mellitus with diabetic polyneuropathy; I50.22 Chronic systolic (congestive) heart failure; K43.0 Incisional hernia with obstruction, without gangrene; I47.1 Supraventricular tachycardia; N18.9 Chronic kidney disease, unspecified; Z79.84 Long term (current) use of oral hypoglycemic drugs; E78.5 Hyperlipidemia, unspecified; I34.1 Nonrheumatic mitral (valve) prolapse; E03.9 Hypothyroidism, unspecified; E66.9 Obesity, unspecified; Z68.36 Body mass index [BMI] 36.0-36.9, adult
CPT/HCPCS: 1NP; 36415; 82436; 87147; 88304; 93005; 93010; J0131; J0690; J1644; J2405; J2550

== ENCOUNTER 2016-07-18 04:27 | Inpatient (IN) | payer OTHER ==
--- NOTE | 2016-07-17 13:28 | History & Physical Pre-Op ---
General Information and HPI History of Present Illness: Dayan is a 70-year-old diabetic with a history of a nonhealing ulcer to the plantar aspect of her left heel. The patient has a history of osteomyelitis to her left heel, with recent imaging suggesting either persistence or recurrent episode of bone infection. At this point, the patient was unwilling to consider a below-knee amputation and would like one further attempt at limb salvage. Allergies/Medications Allergies: Coded Allergies: enalapril (Intermediate, PERSITENT COUGH. 06/28/15) Home Med list Atorvastatin Calcium (Lipitor) 40 MG TABLET 1 TAB PO DAILY CHOLESTEROL ( Reported) Bethanechol Chloride 25 MG TABLET 1 TAB PO BID URINARY INCONTINENCE (Reported ) Cetirizine HCl (Zyrtec) 10 MG TABLET 1 TAB PO DAILY ALLERGIES (Reported) Gabapentin (Gabapentin Tab 600MG) 600 MG TAB 2 TAB PO TID NEUROPATHY ( Reported) Lactobacillus Acidophilus (Probiotic) 1 EACH CAPSULE 1 CAP PO BID SUPPLEMENT (Reported) Levothyroxine Sodium (Synthroid) 50 MCG TABLET 1 TAB PO DAILY AC THYROID HEALTH (Reported) Metformin Hydochloride (Glucophage) 500 MG TABLET 1 TAB PO BID DIABETES ( Reported) Metoprolol Tartrate 50 MG TABLET 50 MG PO BID afib Multivitamin (Multivitamins) 1 EACH CAPSULE 1 TAB PO DAILY SUPPLEMENT ( Reported) Multivitamin With Minerals (Hair, Skin & Nails) 1 EACH TABLET 1 TAB PO DAILY HAIR AND NAILS (Reported) Nateglinide (Starlix) 120 MG TAB 1 TAB PO TIDAC DIABETES (Reported) Omeprazole 20 MG CAPSULE.DR 40 MG PO DAILY AC GERD Polyethylene Glycol 3350 (Miralax) 17 GRAM POWD.PACK 1 PAC PO DAILY OPIOD CONSTIPATION (Reported) dissolve in water Sennosides/Docusate Sodium (Senna S Tablet) 1 EACH TABLET 1 TAB PO BID CONSTIPATION (Reported) Tylenol With Codeine (Tylenol With Codeine #3 Tablet) 300 MG-30 MG TABLET 1-2 TAB PO Q4-6 PRN PRN pain control take as directed. do not combine with tylenol. 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 , Age 56; Cause: Acute leukemia. Leukemia BROTHER, ; Cause: Heart attack. FATHER (hx colon polyps). , Age 70; Cause: CHF (congestive heart failure ). Psychosocial History Who Do You Live With? spouse (at ECF), self Services at Home Nursing Primary Language: Albanian Living Will? claims DNR/DNI, but Ok to intubate for temporary measures Power of Master Merchandiser/HCP? no Functional Ability ADLs Independent: dressing, eating, toileting, bathing. Ambulation: cane IADLs Independent: shopping, housework, finances, food prep, telephone, transportation , medication admin. Review of Systems Review of Systems: Unremarkable except for that noted in history of present illness Exam & Diagnostic Data Physical Exam: Lungs clear bilaterally. Heart sounds rate and rhythm regular. Lower extremity physical exam demonstrates intact pedal pulses bilaterally. Both dorsalis pedis and posterior tibial arteries are palpable bilaterally. Patient with a sensory deficit noted to the plantar foot in a moccasin type distribution. Patient noted to have a 3 cm x 4 cm Fonseca grade 3 ulceration to the plantar foot. There is hyperkeratosis surrounding a mixed granular and fibrotic wound bed. No probing or undermining identified. Minimal serous drainage noted. Assessment/Plan Assessment/Plan: Left heel osteomyelitis. A lengthy discussion reviewing both surgical and conservative options was held the patient at bedside and the patient elects to go forward with surgery despite the risks. As Ranked By This Provider Problem List: 1. Osteomyelitis Attending MD Review Statement Attending Statement Attending MD Statement: examined this patient
[~2016-07-18] VITALS: Ht 157.5 cm; Wt 103.9 kg
[~2016-07-18 04:27] MED LIST changes: +BETHANECHOL CHL25 M1 PO; +MIRALAX17 G1 PO; +TYLENOL WITH C1 EACH PO
--- NOTE | 2016-07-18 11:24 | Operative Report ---
Operative/Inv Procedure Report Surgery Date: 07/18/16 Name of Procedure: 1 open incision and drainage deep to the D fashion with exposure of the flexor tendon and tendon sheath multiple sites left heel 2 debridement of infected left calcaneus 3 intraoperative administration of ankle block anesthesia 4 excisional debridement Pre-Operative Diagnosis: 1 open necrotic wound left heel 2 osteomyelitis left heel 3 diabetic peripheral neuropathy Post-Operative Diagnosis: The same Estimated Blood Loss: less than 50ml Surgeon/Retail Center Receptionist: ALLIE CALLE DPM Anesthesia: moderate sedation, block Operative/Procedure Note Note: After obtaining informed consent the patient was brought to the operating room and placed on the operating table in the supine position. The patient isn't securely fastened to the operating table utilizing safety belt. After administration of IV sedation, 10 mL of 0.5% Marcaine plain was infiltrated about the patient's left ankle. Left foot and ankle then scrubbed prepped and draped in usual aseptic manner. Attention directed plantar aspect the left heel where a full-thickness Fonseca grade 3 ulceration was identified. A 15 blade was utilized sharply revised skin margins. The dissection was then carried down deep to the fashion with exposure of the flexor tendon and tendon sheath multiple sites, both proximally and distally. All necrotic nonviable infected tissue sharply evacuated from the wound bed. Dissection was then carried down to the periosteum overlying the calcaneus was incised reflected. A rongeur and curet was utilized to debride the calcaneus of all necrotic bone. Specimen was harvested for both microbiologic and pathologic inspection. Nipple was then irrigated with 3 L normal sterile saline fissure 50,000 units of bacitracin. This the foot was redraped and the surgeon's top gloves were changed clean gloves. Any bleeding vessels identified were cauterized or ligated as encountered. Nipple was then packed with iodoform and 3-0 nylon retention sutures were placed. The foot was then dressed with 4 x 4's EBD pad Kerlix and an Buzz wrap. The patient was noted tolerate both procedure and anesthesia well and the patient was transported from the operating room to recovery with vital signs stable.
--- NOTE | 2016-07-18 13:03 | Cons- Medical ---
MARILOU MUNOZ 07/18/16 1302: General Information and HPI Consulting Request Date of Consult: 07/18/16 Requested By: ALLIE CALLE DPM Reason for Consult: DM, HL, Diatolic heart failure Source of Information: patient Exam Limitations: no limitations History of Present Illness: Ms. Shafer [id number] female with past medical history of multiple comorbidities including hypertension, hyperlipidemia, diabetes mellitus, systolic congestive heart failure, mitral valve prolapse, previous endocarditis 2/2 to group G streptococcal, paroxysmal atrial fibrillation not on anticoagulation, previous cholecystitis, chronic kidney disease, osteoarthritis, spinal stenosis, hypothyroidism, previous osteomyelitis status post amputation of the second and third digit of the right hand was seen by podiatry for nonhealing ulcer to the plantar aspect of the left heel, with recent imaging suggesting either persistent or recurrent episode of bone infection. She is now status post open incision and drainage of the necrotic left heel wound, with debridement of the infected left calcaneus, which most likely secondary to diabetic peripheral neuropathy. Allergies/Medications Allergies: Coded Allergies: enalapril (Intermediate, PERSITENT COUGH. 06/28/15) Home Med List: Atorvastatin Calcium (Lipitor) 40 MG TABLET 1 TAB PO DAILY CHOLESTEROL ( Reported) Bethanechol Chloride 25 MG TABLET 1 TAB PO BID URINARY INCONTINENCE (Reported ) Cetirizine HCl (Zyrtec) 10 MG TABLET 1 TAB PO DAILY ALLERGIES (Reported) Gabapentin (Gabapentin Tab 600MG) 600 MG TAB 2 TAB PO TID NEUROPATHY ( Reported) Lactobacillus Acidophilus (Probiotic) 1 EACH CAPSULE 1 CAP PO BID SUPPLEMENT (Reported) Levothyroxine Sodium (Synthroid) 50 MCG TABLET 1 TAB PO DAILY AC THYROID HEALTH (Reported) Metformin Hydochloride (Glucophage) 500 MG TABLET 1 TAB PO BID DIABETES ( Reported) Metoprolol Tartrate 50 MG TABLET 50 MG PO BID afib Multivitamin (Multivitamins) 1 EACH CAPSULE 1 TAB PO DAILY SUPPLEMENT ( Reported) Multivitamin With Minerals (Hair, Skin & Nails) 1 EACH TABLET 1 TAB PO DAILY HAIR AND NAILS (Reported) Nateglinide (Starlix) 120 MG TAB 1 TAB PO TIDAC DIABETES (Reported) Omeprazole 20 MG CAPSULE.DR 40 MG PO DAILY AC GERD Polyethylene Glycol 3350 (Miralax) 17 GRAM POWD.PACK 1 PAC PO DAILY OPIOD CONSTIPATION (Reported) dissolve in water Sennosides/Docusate Sodium (Senna S Tablet) 1 EACH TABLET 1 TAB PO BID CONSTIPATION (Reported) Tylenol With Codeine (Tylenol With Codeine #3 Tablet) 300 MG-30 MG TABLET 1-2 TAB PO Q4-6 PRN PRN pain control take as directed. do not combine with tylenol. Current Medications: Current Medications Sig/Vandana Start time Last Medication Dose Route Stop Time Status Admin Ampicillin Sodium/ 3,000 MG Q6H 07/18 1400 AC Sulbactam Sodium IV Sodium Chloride 100 ML Atorvastatin Calcium 40 MG 1700 07/18 1700 AC PO Bethanechol Chloride 25 MG BID 07/18 2200 AC PO Gabapentin 600 MG Q8 07/18 1400 AC PO Heparin Sodium 5,000 UNIT Q8 07/18 2200 AC (Porcine) SC Levothyroxine Sodium 0.05 MG DAILY AC 07/19 0700 AC PO Loratadine 10 MG DAILY 07/19 1000 AC PO Metformin HCl 500 MG 0800,1700 07/18 1700 AC PO Nateglinide 120 MG TIDAC 07/18 1700 AC PO Omeprazole 20 MG DAILY AC 07/19 0700 AC PO Review of Systems Review of Systems Constitutional: Reports: see HPI. Denies: chills, diaphoresis, fever, malaise. EENTM: Denies: blurred vision, double vision, visual changes, eye pain. Cardiovascular: Denies: chest pain, edema, orthopena, palpitations. Respiratory: Denies: cough, hemoptysis, orthopnea, short of breath. GI: Reports: no symptoms. Genitourinary: Reports: no symptoms. Musculoskeletal: Reports: joint pain, joint swelling. Denies: back pain, gout, muscle pain, muscle stiffness. Skin: Reports: no symptoms. Neurological/Psychological: Reports: no symptoms. Hematologic/Endocrine: Reports: no symptoms. All Other Systems: Reviewed and Negative Past History Medical History Neurological: peripheral neuropathy EENT: allergies, hearing loss Cardiovascular: hypertension, hyperlipidemia, systolic CHF, mitral valve prolapse recent endocarditis Group G strep mitral valve endocarditis Respiratory: NONE Gastrointestinal: constipation, SLOW PERISTALSIS Hepatic: cholecystitis Renal: chronic kidney disease, urinary incontinence Musculoskeletal: chronic back pain, decubitis ulcer, falls, osteoarthritis, spinal stenosis, OSTEOMYELITIS Psychiatric: NONE Endocrine: diabetes, hypothyroidism, obesity Blood Disorders: NONE Cancer(s): NONE 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 , Age 56; Cause: Acute leukemia. Leukemia BROTHER, ; Cause: Heart attack. FATHER (hx colon polyps). , Age 70; Cause: CHF (congestive heart failure ). Psychosocial History Who Do You Live With? spouse (at ECF), self Services at Home: Nursing Primary Language: Malagasy Living Will? claims DNR/DNI, but Ok to intubate for temporary measures Power of Clinical Account Executive/HCP? no Functional Ability ADLs Independent: dressing, eating, toileting, bathing. Ambulation: cane IADLs Independent: shopping, housework, finances, food prep, telephone, transportation , medication admin. Exam & Diagnostic Data Last 24 Hrs of Vital Signs/I&O stable. Physical Exam General Appearance: well developed/nourished, no apparent distress, alert, awake Head: atraumatic, normal appearance Eyes: Right: PERRL, EOMI. Ears, Nose, Throat: normal pharynx Neck: normal inspection, supple Respiratory: normal breath sounds Cardiovascular: regular rate/rhythm Peripheral Pulses: 2+ radial (R), 2+ radial (L) Gastrointestinal: normal bowel sounds, soft, non-tender, chronic constipation Back: normal inspection Extremities: dressing present around left heel Neurologic/Psych: awake, alert, oriented x 3 Last 24 Hrs of Labs/Ammon: none Assessment/Plan Assessment/Plan In summary this is a 70-year-old female with past medical history of hypertension, hyperlipidemia, diabetes mellitus, systolic congestive heart failure, mitral valve prolapse, previous endocarditis secondary to group G streptococcal infection, paroxysmal atrial fibrillation on anticoagulation, previous cholecystitis, chronic kidney disease, osteoarthritis, spinal stenosis, hypothyroidism, previous osteomyelitis, now status post open incision and drainage of the left necrotic heel wound with debridement of the infected left calcaneus. Medicine was consulted for management of the chronic medical issues. List along with assessment and plan. Problem #1 history of hyperlipidemia. * Continue statin 40 mg daily. Problem #2 history of hypothyroidism. * Continue Synthroid 50 g daily. Problem #3 diabetes mellitus. * Hold diabetic medications. * Continue NovoLog sliding scale. * Continue monitoring fingerstick back and chest. * Consistent carbohydrate diet. * LEvemir at home dosage in am. * Ct gabapentin for tmrw Problem #4 HTN. * continue metoprolol 50 twice a day. Problem #5 GERD. * Continue proton pump inhibitors, resolved at home dosage for gastroesophageal reflux disease. * Ct oxybutinin from am tmrw for incontinence Pain management, tylenol #3 works better. DVT prophylaxis of the time. Consult Acknowledgment - Thank you for your consult request. YE LAZARO,[facility] 07/18/16 1458: Assessment/Plan Consult Acknowledgment - Thank you for your consult request. Attending MD Review Statement Attending Statement Attending MD Statement: examined this patient, discuss w/resident/PA/TEST WORKER, agreed w/resident/PA/TEST WORKER, reviewed EMR data (avail)
[2016-07-18 15:07] VITALS: BP 136/70
--- NOTE | 2016-07-18 19:30 | PN- Att Addend ---
Attending Addendum Attending Brief Note 70-year-old white female with many comorbidities. Patient is a diabetic dealing with a nonhealing ulcer in the left heel, seeing Dr. Altamirano podiatry frequently being treated but this hasn't improved her patient comes in and had a biopsy and drainage of the area. Will check the cultures the patient on Unasyn IV to continue local care of the wound monitor blood sugars closely and other lab tests appreciate my need some other treatments see the resident's note treatment was discussed with them Current Medications Sig/Vandana Start time Last Medication Dose Route Stop Time Status Admin Ampicillin Sodium/ 3,000 MG Q6H 07/18 1400 AC 07/18 Sulbactam Sodium IV 1525 Sodium Chloride 100 ML Atorvastatin Calcium 40 MG 1700 07/18 1700 AC 05 PO 1713 Bethanechol Chloride 25 MG BID 07/18 2200 AC PO Bethanechol Chloride 25 MG BID 07/18 2200 CAN PO Gabapentin 600 MG Q8 07/18 1400 AC 07/18 PO 1525 Heparin Sodium 5,000 UNIT Q8 07/18 2200 AC (Porcine) SC Insulin Aspart 0 TIDAC 07/18 1700 AC SC Levothyroxine Sodium 0.05 MG DAILY AC 07/19 0700 AC PO Loratadine 10 MG DAILY 07/19 1000 AC PO Metformin HCl 500 MG 0800,1700 07/18 1700 CAN PO Metoprolol Tartrate 50 MG BID 07/18 2200 AC PO Nateglinide 120 MG TIDAC 07/18 1700 CAN PO Omeprazole 20 MG DAILY AC 07/19 0700 AC PO Omeprazole 40 MG DAILY AC 07/19 0700 CAN PO Polyethylene Glycol 17 GM DAILY 07/19 1000 AC PO Senna/Docusate Sodium 1 TAB BID 07/18 2200 AC PO Microbiology Date/Time Procedure - Status Source Growth 07/18 1040 Gross Specimen Examination - RES EXTREMITIE 07/18 1040 Gram Stain - RES EXTREMITIE Vital Signs Date Time Temp Pulse Resp B/P B/P Pulse O2 O2 Flow FiO2 Mean Ox Delivery Rate 07/18 1507 98.0 70 20 136/70 96 Room Air 07/18 1336 Room Air Room Air Intake & Output 07/18 1600 07/18 0800 05/ 0000 Intake Total 200 Output Total Balance 200 Intake, IV 0 Intake, Oral 200 Patient 230 lb Weight Weight Reported by Patient Measurement Method
[2016-07-18 22:17] VITALS: BP 134/70
[2016-07-19 06:45] VITALS: BP 140/70
--- NOTE | 2016-07-19 09:47 | PN- Medicine Consult ---
Assessment/Plan Assessment/Plan Assessment: I have seen and examined the patient today morning, she seems to be doing fine, no new complaints, slept well overnight, vitals stable, status post surgery day 1 today. Plan: Ellen is a 70-year-old female with past medical history of hypertension, hyperlipidemia, diabetes mellitus, systolic congestive heart failure, mitral valve prolapse, previous endocarditis secondary to group G streptococcal infection, paroxysmal atrial fibrillation on anticoagulation, previous cholecystitis, chronic kidney disease, osteoarthritis, spinal stenosis, hypothyroidism, previous osteomyelitis, now status post open incision and drainage of the left necrotic heel wound with debridement of the infected left calcaneus. Medicine was consulted for management of the chronic medical issues. List along with assessment and plan. Problem #1 history of hyperlipidemia. * Continue statin 40 mg daily. Problem #2 history of hypothyroidism. * Continue Synthroid 50 g daily. Problem #3 diabetes mellitus. * Hold diabetic medications. * Continue NovoLog sliding scale. * Continue monitoring fingerstick back and chest. * Consistent carbohydrate diet. * LEvemir at 15 units in am * Ct gabapentin for tmrw Problem #4 HTN. * continue metoprolol 50 twice a day. Problem #5 GERD. * Continue proton pump inhibitors, resolved at home dosage for gastroesophageal reflux disease. * Ct oxybutinin from am tmrw for incontinence. Problem #6 chronic constipation. * Continue MiraLAX, Colace and senna when necessary as the patient takes these combination at home and this is what works for her. Pain management, tylenol #3 works better. DVT prophylaxis of the time. Problem List: 1. Diabetes mellitus 2. Dyslipidemia 3. Osteomyelitis 4. Hypertension Subjective Subjective: I have seen and examined the patient today, sitting on the chair relaxing,, complain of constipation and states that she takes MiraLAX senna and Colace at home will give her the same regimen while in the hospital, no other complaints. Patient is status post surgery day 1 today. Review of Systems Constitutional: Reports: see HPI. Objective Last 24 Hrs of Vital Signs/I&O Vital Signs Date Time Temp Pulse Resp B/P B/P Pulse O2 O2 Flow FiO2 Mean Ox Delivery Rate 07/19 0645 98.4 67 20 140/70 93 Room Air 07/18 2218 70 134/70 05 2217 98.0 71 20 134/70 95 Room Air 05 1507 98.0 70 20 136/70 96 Room Air 07/18 1336 Room Air Room Air Intake & Output 07/19 1600 05/ 0800 05/ 0000 Intake Total 240 1130 Output Total Balance 240 1130 Intake, IV 130 Intake, Oral 240 1000 Physical Exam General Appearance: alert, awake Head: atraumatic, normal appearance Cardiovascular: regular rate/rhythm Respiratory: normal breath sounds, chest non-tender Peripheral Pulses: 2+ radial (R), 2+ radial (L) Abdomen: normal bowel sounds, soft, non-tender Extremities: dressing present around left heel, dry Current Medications: Current Medications Sig/Vandana Start time Last Medication Dose Route Stop Time Status Admin Ampicillin Sodium/ 3,000 MG Q6H 05/ 1400 AC 05 Sulbactam Sodium IV 0855 Sodium Chloride 100 ML Atorvastatin Calcium 40 MG 1700 07/18 1700 AC 05/ PO 1713 Bethanechol Chloride 25 MG BID 07/18 2200 AC / PO 0900 Bethanechol Chloride 25 MG BID 07/18 2200 CAN PO Gabapentin 600 MG Q8 / 1400 AC 05/ PO 0553 Heparin Sodium 5,000 UNIT Q8 07/18 2200 AC (Porcine) SC Hydromorphone HCl 2 MG .STK-MED ONE 07/18 1300 DC IM 05/ 1301 Insulin Aspart 0 TIDAC 07/18 1700 AC SC Insulin Detemir 15 UNITS QAM 07/19 1000 AC SC Levothyroxine Sodium 0.05 MG DAILY AC 07/19 0700 AC 05/ PO 0552 Loratadine 10 MG DAILY 07/19 1000 AC PO Metformin HCl 500 MG 0800,1700 07/18 1700 CAN PO Metoprolol Tartrate 50 MG BID / 2200 AC /03 PO 0858 Nateglinide 120 MG TIDAC 07/18 1700 CAN PO Omeprazole 20 MG DAILY AC 07/19 0700 AC 07/19 PO 0553 Omeprazole 40 MG DAILY AC 07/19 0700 CAN PO Polyethylene Glycol 17 GM DAILY 07/19 1000 AC 05/ PO 0900 Senna/Docusate Sodium 1 TAB BID 07/18 2200 AC 07/19 PO 0859 Results Last 24 Hrs Lab/Ammon Results: Microbiology 07/18 104 EXTREMITIE: Gross Specimen Examination - RES 07/19 1039 EXTREMITIE: Gram Stain - RES
--- NOTE | 2016-07-19 10:00 | PN- Att Addend ---
Attending Addendum Attending Brief Note Sitting in the chair with legs elevated. Having some pain in that foot. Biosense are stable she's had febrile no major changes on physical will check cultures. Check with Dr. Altamirano to see if he has to check the wound. Will restart her insulin, monitor her sugars and also put her back on her bowel regimen with history of constipation and analgesic use. Current Medications Sig/Vandana Start time Last Medication Dose Route Stop Time Status Admin Ampicillin Sodium/ 3,000 MG Q6H 07/18 1400 AC 07/19 Sulbactam Sodium IV 0855 Sodium Chloride 100 ML Atorvastatin Calcium 40 MG 1700 07/18 1700 AC 07/18 PO 1713 Bethanechol Chloride 25 MG BID 07/18 2200 AC 07/19 PO 0900 Bethanechol Chloride 25 MG BID 07/18 2200 CAN PO Docusate Sodium 100 MG DAILY NEEDED PRN 07/19 1000 AC PO Gabapentin 600 MG Q8 07/18 1400 AC 07/19 PO 0553 Heparin Sodium 5,000 UNIT Q8 07/18 2200 AC (Porcine) SC Hydromorphone HCl 2 MG .STK-MED ONE 07/18 1300 DC IM 07/18 1301 Insulin Aspart 0 TIDAC 07/18 1700 AC SC Insulin Detemir 15 UNITS QAM 07/19 1000 AC SC Levothyroxine Sodium 0.05 MG DAILY AC 07/19 0700 AC 07/19 PO 0552 Loratadine 10 MG DAILY 07/19 1000 AC PO Metformin HCl 500 MG 0800,1700 07/18 1700 CAN PO Metoprolol Tartrate 50 MG BID 07/18 2200 AC 07/19 PO 0858 Nateglinide 120 MG TIDAC 07/18 1700 CAN PO Omeprazole 20 MG DAILY AC 07/19 0700 AC 07/19 PO 0553 Omeprazole 40 MG DAILY AC 07/19 0700 CAN PO Polyethylene Glycol 17 GM DAILY 07/19 1000 AC 07/19 PO 0900 Senna/Docusate Sodium 1 TAB BID 07/18 2200 AC 07/19 PO 0859 Microbiology Date/Time Procedure - Status Source Growth 07/18 1040 Gross Specimen Examination - RES EXTREMITIE 07/18 1040 Gram Stain - RES EXTREMITIE Vital Signs Date Time Temp Pulse Resp B/P B/P Pulse O2 O2 Flow FiO2 Mean Ox Delivery Rate 07/19 644 98.4 67 20 140/70 93 Room Air
[2016-07-19 14:12] VITALS: BP 122/70
--- NOTE | 2016-07-19 17:08 | Cons- Infect Disease ---
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 She was taken to the OR on July 18 for debridement of the left calcaneus. She was placed on Unasyn postoperatively, which has been continued. She has been afebrile since admission. Her white blood cell count on admission was 12,000 and has not been repeated. She does report mild pain in the left heel but is otherwise without complaints. Allergies/Medications Allergies: Coded Allergies: enalapril (Intermediate, PERSITENT COUGH. 06/28/15) Home Med List: Atorvastatin Calcium (Lipitor) 40 MG TABLET 1 TAB PO DAILY CHOLESTEROL ( Reported) Bethanechol Chloride 25 MG TABLET 1 TAB PO BID URINARY INCONTINENCE (Reported ) Cetirizine HCl (Zyrtec) 10 MG TABLET 1 TAB PO DAILY ALLERGIES (Reported) Gabapentin (Gabapentin Tab 600MG) 600 MG TAB 2 TAB PO TID NEUROPATHY ( Reported) Lactobacillus Acidophilus (Probiotic) 1 EACH CAPSULE 1 CAP PO BID SUPPLEMENT (Reported) Levothyroxine Sodium (Synthroid) 50 MCG TABLET 1 TAB PO DAILY AC THYROID HEALTH (Reported) Metformin Hydochloride (Glucophage) 500 MG TABLET 1 TAB PO BID DIABETES ( Reported) Metoprolol Tartrate 50 MG TABLET 50 MG PO BID afib Multivitamin (Multivitamins) 1 EACH CAPSULE 1 TAB PO DAILY SUPPLEMENT ( Reported) Multivitamin With Minerals (Hair, Skin & Nails) 1 EACH TABLET 1 TAB PO DAILY HAIR AND NAILS (Reported) Nateglinide (Starlix) 120 MG TAB 1 TAB PO TIDAC DIABETES (Reported) Omeprazole 20 MG CAPSULE.DR 40 MG PO DAILY AC GERD Polyethylene Glycol 3350 (Miralax) 17 GRAM POWD.PACK 1 PAC PO DAILY OPIOD CONSTIPATION (Reported) dissolve in water Sennosides/Docusate Sodium (Senna S Tablet) 1 EACH TABLET 1 TAB PO BID CONSTIPATION (Reported) Tylenol With Codeine (Tylenol With Codeine #3 Tablet) 300 MG-30 MG TABLET 1-2 TAB PO Q4-6 PRN PRN pain control take as directed. do not combine with tylenol. 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 , Age 56; Cause: Acute leukemia. Leukemia BROTHER, ; Cause: Heart attack. FATHER (hx colon polyps). , Age 70; Cause: CHF (congestive heart failure ). Psychosocial History Where Do You Live? Home Who Do You Live With? spouse (at [facility]CF), self Services at Home: Nursing Primary Language: Tam[place] Smoking Status: Never Smoked Living Will? claims DNR/DNI, but Ok to intubate for temporary measures Power of Tarp Repairer/HCP? no Functional Ability ADLs Independent: dressing, eating, toileting, bathing. Ambulation: cane IADLs Independent: shopping, housework, finances, food prep, telephone, transportation , medication admin. Review of Systems Review of Systems All Other Systems: Reviewed and Negative Exam & Diagnostic Data Last 24 Hrs of Vital Signs/I&O Vital Signs Date Time Temp Pulse Resp B/P B/P Pulse O2 O2 Flow FiO2 Mean Ox Delivery Rate 07/19 1412 98.2 62 20 122/70 95 Room Air 07/19 0645 98.4 67 20 140/70 93 Room Air 07/18 2218 70 134/70 05/ 2217 98.0 71 20 134/70 95 Room Air Intake & Output 07/19 1600 07/19 0800 07/19 0000 Intake Total 723 384 2697 Output Total Balance 410 237 0223 Intake, IV 200 130 Intake, Oral 242 623 1657 Physical Exam Other Physical Findings: She is awake and alert in no acute distress. She is afebrile. Skin reveals no rash. HEENT exam is negative. Neck is supple with no adenopathy. Lungs crackles at the left base. Heart regular rhythm with no murmur. Abdomen is soft, nontender with positive bowel sounds. Back no CVA tenderness. Extremities status post amputations of the left third finger, right second finger and partial right third finger; left foot dressing intact; mild erythema of the left leg, with minimal tenderness to palpation; right foot with no ulcerations; no cyanosis, clubbing or edema of the right leg. Neuro neuropathy both feet. Last 24 Hours of Lab Results: CBC July 17 reveals a white blood cell count 12,000, H&H 11 and 35 and platelet count 323,000 Chemistries July 17 revealed a BUN/creatinine 30 and 1.2 Last 24 Hours of Ammon Results: OR culture July 18 labeled left heel bone positive for scant growth of gram- negative rods and moderate growth of gram-positive cocci Diagnostic Data Recent Imaging Findings: Chest x-ray July 17 stable mild cardiomegaly with no acute pulmonary infiltrate Assessment/Plan Assessment/Plan Impression: This is a 70-year-old woman with diabetes, peripheral neuropathy and peripheral vascular disease, with a chronic osteomyelitis of the left heel, treated with a 4 week course of IV antibiotics over one year prior to admission, with nonhealing of the wound, admitted on July 17, after an MRI revealed changes consistent with osteomyelitis, for further debridement and another course of IV antibiotics for osteomyelitis. It is doubtful that she will heal this wound and suspect that she will require a BKA, which has been recommended to her in the past. She was apparently evaluated by Vascular surgery in the past, and reevaluation may be helpful to determine if her vascular status can be optimized. She was placed empirically on Unasyn, which can be continued pending OR cultures, but suspect that her culture may reveal organisms resistant to this antibiotic. Suggestion: 1. Consider Vascular surgery reevaluation 2. Follow-up OR cultures 3. Further management of her left heel wound, with reconsideration of BKA, particularly if she does not heal, per Podiatry 4. Can continue Unasyn 3 g IV every 6 hours pending above Consult Acknowledgment - Thank you for your consult request.
--- NOTE | 2016-07-19 17:27 | PN- Podiatry ---
Subjective Subjective: Patient seen at bedside with no new complaints. Patient denies nausea vomiting fever chills. Objective Vital Signs and I&Os Vital Signs Date Time Temp Pulse Resp B/P B/P Pulse O2 O2 Flow FiO2 Mean Ox Delivery Rate 07/19 1412 98.2 62 20 122/70 95 Room Air 07/19 0645 98.4 67 20 140/70 93 Room Air 07/18 2218 70 134/70 / 2217 98.0 71 20 134/70 95 Room Air Intake & Output 07/19 1600 07/19 0800 07/19 0000 07/18 1600 07/18 0800 07/18 0000 Intake Total 887 548 6546 200 Output Total Balance 267 363 4068 200 Intake, IV 200 130 0 Intake, Oral 481 729 2537 200 Patient 230 lb Weight Weight Reported by Patient Measurement Method Physical Exam: Dressing left foot clean dry and intact. No strikethrough identified. No pain with deep palpation bilateral lower extremity's. Assessment/Plan Assessment/Plan Left heel osteomyelitis. Follow-up cultures and sensitivities. Patient will likely require PICC line placed through interventional radiology. Patient to the OR Sunday for revision and closure versus wound VAC. Core Measures/Miscellaneous Venous Thromboembolism VTE Risk Factors: Age > 40, Immobility, paresis, Surgery VTE Contraindications: No Contraindications VTE Diagnosis: No Beta Jazzmine Is Beta Jazzmine a Home Med? No Antibiotics Is Patient on Antibiotics? Yes If Yes: infection Attending MD Review Statement Attending Statement Attending MD Statement: examined this patient
[2016-07-19 22:48] VITALS: BP 138/60
[2016-07-20 06:14] VITALS: BP 142/88
--- NOTE | 2016-07-20 08:10 | PN- Medicine Consult ---
Assessment/Plan Assessment/Plan Assessment: I have seen and examined the patient today morning, she seems to be doing fine, no new complaints, slept well overnight, vitals stable, status post debridement, to go to OR for revision again tomorrow. Plan: Ellen is a 70-year-old female with past medical history of hypertension, hyperlipidemia, diabetes mellitus, systolic congestive heart failure, mitral valve prolapse, previous endocarditis secondary to group G streptococcal infection, paroxysmal atrial fibrillation on anticoagulation, previous cholecystitis, chronic kidney disease, osteoarthritis, spinal stenosis, hypothyroidism, previous osteomyelitis, now status post open incision and drainage of the left necrotic heel wound with debridement of the infected left calcaneus. Medicine was consulted for management of the chronic medical issues. List along with assessment and plan. Problem #1 history of hyperlipidemia. * Continue statin 40 mg daily. Problem #2 history of hypothyroidism. * Continue Synthroid 50 g daily. Problem #3 diabetes mellitus. * Hold diabetic medications. * Continue NovoLog sliding scale. * Continue monitoring fingerstick back and chest. * Consistent carbohydrate diet. * LEvemir at 15 units in am * Ct gabapentin for tmrw Problem #4 HTN. * continue metoprolol 50 twice a day. Problem #5 GERD. * Continue proton pump inhibitors, resolved at home dosage for gastroesophageal reflux disease. * Ct oxybutinin from am tmrw for incontinence. Problem #6 chronic constipation. * Continue MiraLAX, Colace and senna when necessary as the patient takes these combination at home and this is what works for her. Pain management, tylenol #3 works better. DVT prophylaxis of the time. Subjective Subjective: I have seen and examined the patient today morning.She is doign well, no pain, no new complaints. Review of Systems Constitutional: Reports: see HPI. Objective Last 24 Hrs of Vital Signs/I&O Vital Signs Date Time Temp Pulse Resp B/P B/P Pulse O2 O2 Flow FiO2 Mean Ox Delivery Rate 07/20 1404 98.0 61 20 120/68 94 07/20 0614 98.2 65 20 142/88 93 Room Air 07/19 2248 98.6 66 18 138/60 94 Room Air 07/19 2129 138/60 Intake & Output 07/20 1600 07/20 0800 07/20 0000 Intake Total 390 450 Output Total Balance 390 450 Intake, IV 150 Intake, Oral 240 450 Number 1 Bowel Movements Physical Exam General Appearance: well developed/nourished, no apparent distress, alert Head: atraumatic, normal appearance Neck: normal inspection Cardiovascular: regular rate/rhythm Respiratory: normal breath sounds, chest non-tender, no respiratory distress Peripheral Pulses: 2+ radial (R), 2+ radial (L) Abdomen: normal bowel sounds, soft, non-tender Back: normal inspection Extremities: normal inspection Current Medications: Current Medications Sig/Vandana Start time Last Medication Dose Route Stop Time Status Admin Ampicillin Sodium/ 3,000 MG Q6H 05/ 1400 AC 05/04 Sulbactam Sodium IV 1407 Sodium Chloride 100 ML Atorvastatin Calcium 40 MG 1700 05/ 1700 AC 05/03 PO 1753 Bethanechol Chloride 25 MG BID 07/18 2200 AC 07/20 PO 0825 Docusate Sodium 100 MG DAILY NEEDED PRN 07/19 1000 AC 05 PO 2136 Gabapentin 600 MG Q8 05/ 1400 AC 05/ PO 1407 Heparin Sodium 5,000 UNIT Q8 / 2200 AC 07/19 (Porcine) SC 1333 Insulin Aspart 0 TIDAC 07/18 1700 AC 07/20 SC 1203 Insulin Detemir 15 UNITS QAM / 1000 AC 07/20 SC 0826 Levothyroxine Sodium 0.05 MG DAILY AC 07/19 0700 AC 07/20 PO 0525 Loratadine 10 MG DAILY 07/19 1000 AC PO Lorazepam 1 MG AT BEDTIME 07/19 2030 DC 07/19 PO 07/19 2031 2214 Metoprolol Tartrate 50 MG BID 07/18 2200 AC 07/20 PO 0826 Omeprazole 20 MG DAILY AC 07/19 0700 AC 07/20 PO 0525 Polyethylene Glycol 17 GM DAILY 07/19 1000 AC 07/20 PO 0826 Senna/Docusate Sodium 1 TAB BID 07/18 2200 AC 07/20 PO 0826 Results Last 24 Hrs Lab/Ammon Results: ..
--- NOTE | 2016-07-20 08:54 | PN- Podiatry ---
Subjective Subjective: Patient seen at bedside with no new complaints. Patient denies nausea vomiting fever chills. Objective Vital Signs and I&Os Vital Signs Date Time Temp Pulse Resp B/P B/P Pulse O2 O2 Flow FiO2 Mean Ox Delivery Rate 07/20 613 98.2 65 20 142/88 93 Room Air 07/19 2248 98.6 66 18 138/60 94 Room Air 07/19 2129 138/60 07/19 1412 98.2 62 20 122/70 95 Room Air Intake & Output 07/20 0807/20 0000 07/19 1600 07/19 0807/19 0000 Intake Total 390 450 094 841 6267 Output Total Balance 390 450 568 147 9283 Intake, IV 150 200 130 Intake, Oral 240 450 897 586 0775 Number 1 Bowel Movements Physical Exam: Dressing left foot clean dry and intact. No strikethrough identified. No pain with deep palpation bilateral lower extremity's. Assessment/Plan Assessment/Plan Left heel osteomyelitis. Patient to the OR tomorrow for revision and closure versus wound VAC. Patient will require PICC line placement with IR. Core Measures/Miscellaneous Venous Thromboembolism VTE Risk Factors: Age > 40, Immobility, paresis, Surgery VTE Contraindications: No Contraindications VTE Diagnosis: No Beta Jazzmine Is Beta Jazzmine a Home Med? No Antibiotics Is Patient on Antibiotics? Yes If Yes: infection Attending MD Review Statement Attending Statement Attending MD Statement: examined this patient
--- NOTE | 2016-07-20 12:34 | PN- Att Addend ---
Attending Addendum Attending Brief Note Patient sitting in the chair, vital signs are stable has no fever. No major changes on physical with Dr. Altamirano check the wound. It seemed clean at this time. Culture results noted patient to return to the OR in the near future. Patient also needs a PICC line for continued antibiotic treatment. We'll monitor labs and sugars. Continue IV antibiotics. Current Medications Sig/Vandana Start time Last Medication Dose Route Stop Time Status Admin Ampicillin Sodium/ 3,000 MG Q6H 05/ 1400 AC 05 Sulbactam Sodium IV 0825 Sodium Chloride 100 ML Atorvastatin Calcium 40 MG 1700 / 1700 AC 05/03 PO 1753 Bethanechol Chloride 25 MG BID 07/18 2200 AC 07/20 PO 0825 Docusate Sodium 100 MG DAILY NEEDED PRN 07/19 1000 AC 07/19 PO 2136 Gabapentin 600 MG Q8 / 1400 AC / PO 0525 Heparin Sodium 5,000 UNIT Q8 07/18 2200 AC 07/19 (Porcine) SC 1333 Insulin Aspart 0 TIDAC 07/18 1700 AC 07/20 SC 1203 Insulin Detemir 15 UNITS QAM 07/19 1000 AC 05/ SC 0826 Levothyroxine Sodium 0.05 MG DAILY AC 07/19 0700 AC 07/20 PO 0525 Loratadine 10 MG DAILY 07/19 1000 AC PO Lorazepam 1 MG AT BEDTIME 07/19 2030 DC / PO 07/19 2031 2214 Metoprolol Tartrate 50 MG BID / 2200 AC 07/20 PO 0826 Omeprazole 20 MG DAILY AC 07/19 0700 AC 07/20 PO 0525 Patient Medication 1 ED .STK-MED ONE 07/19 1359 DC Teaching ED 07/19 1400 Polyethylene Glycol 17 GM DAILY / 1000 AC 05/04 PO 0826 Senna/Docusate Sodium 1 TAB BID 07/18 2200 AC 07/20 PO 0826 Vital Signs Date Time Temp Pulse Resp B/P B/P Pulse O2 O2 Flow FiO2 Mean Ox Delivery Rate 07/20 613 98.2 65 20 142/88 93 Room Air
[2016-07-20 14:04] VITALS: BP 120/68
--- NOTE | 2016-07-20 14:26 | PN- Infect Dx ---
Subjective Subjective: Afebrile. She notes minimal discomfort in the left foot. Objective Last 24 Hrs of Vital Signs/I&O Vital Signs Date Time Temp Pulse Resp B/P B/P Pulse O2 O2 Flow FiO2 Mean Ox Delivery Rate 07/20 1404 98.0 61 20 120/68 94 / 0614 98.2 65 20 142/88 93 Room Air 07/19 2248 98.6 66 18 138/60 94 Room Air 07/19 2129 138/60 Intake & Output 07/20 1600 07/20 0800 07/20 0000 Intake Total 390 450 Output Total Balance 390 450 Intake, IV 150 Intake, Oral 240 450 Number 1 Bowel Movements Physical Exam Other Physical Findings: She appears comfortable in no acute distress Extremities left foot dressing intact Results Last 24 Hours of Lab Results: No labs from today Last 24 Hours of Ammon Results: OR culture left heel May 2 positive for Enterococcus, Proteus resistant to Gentamicin and Staph aureus sensitivities pending Assessment/Plan Impression: Stable status post debridement of the left calcaneus 2 days ago for chronic osteomyelitis, which appears to be polymicrobial, with Enterococcus, Proteus and Staph aureus isolated from the OR culture. She remains afebrile on Unasyn, which can be continued pending final OR cultures. She is scheduled for a return to the OR in the a.m. for revision with possible placement of a wound VAC. She will require a PICC in anticipation of a four-week course of IV antibiotics though, as discussed and previously noted, am not convinced that her infection will heal and suspect she will ultimately require a BKA. Suggestion: 1. Vascular surgery reevaluation 2. Follow-up final OR culture 3. Repeat CBC in the a.m. 4. Await return to the OR in the a.m. 5. Will need to pursue a PICC 6. Continue Unasyn pending above
[2016-07-20 22:00] VITALS: BP 146/76
[2016-07-21 06:58] VITALS: BP 152/68
--- NOTE | 2016-07-21 08:37 | PN- Medicine Consult ---
See Addendum Assessment/Plan Assessment/Plan Assessment: I have seen and examined the patient today morning, she seems to be doing fine, no new complaints, slept well overnight, vitals stable, status post debridement, to go to OR for revision again today, she is NPO, therefore will hold long acting insulin and will change novologue to novolin. 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 Medicine was consulted for management of the chronic medical issues alongwith DM.She is to go ot OR for revision again today. List along with assessment and plan. Problem #1 history of hyperlipidemia. * Continue statin 40 mg daily. Problem #2 history of hypothyroidism. * Continue Synthroid 50 g daily. Problem #3 diabetes mellitus. * Hold diabetic medications. * Change novologue to novolin as she is NPO to go to OR today. * Continue monitoring fingerstick Q6 ( chage ot q6 from tidac /HS) * Hold levemir at 15 units in am * Ct gabapentin for tmrw * Once patient is eating again, will need to change FS to tidac /hs, restart levemir at 15 units Qam and change novolin to novolgue. Problem #4 HTN. * continue metoprolol 50 twice a day. Problem #5 GERD. * Continue proton pump inhibitors, resolved at home dosage for gastroesophageal reflux disease. * Ct oxybutinin. Problem #6 chronic constipation. * Continue MiraLAX, Colace and senna when necessary as the patient takes these combination at home and this is what works for her. Problem #7 LEft heel osteomyelitis s/p debridement. * OR cx growing - proteus ,mostly sensitive, only resistant to gentamycin, moderate staph aureud and light enterococci, sensitivities pending * Ct iv unasyn pending final Cx. Pain management, tylenol #3 works better. DVT prophylaxis of the time. Problem List: 1. Diabetes mellitus 2. Dyslipidemia 3. Incontinence 4. Osteomyelitis 5. Chronic kidney disease 6. Pain management 7. DVT prophylaxis 8. Hypothyroidism Subjective Subjective: I have seen and examined the patient today morning, She was lying on the bed comfortable, npo for repeat ORtoday, couldnot have conversation as her daughter wasn't around and she doesnot speak brazilian, but she didnot have any discomfort, pain.vitals have mostly been stable.FS noted to 188,166. Review of Systems Constitutional: Reports: see HPI. Objective Last 24 Hrs of Vital Signs/I&O Vital Signs Date Time Temp Pulse Resp B/P B/P Pulse O2 O2 Flow FiO2 Mean Ox Delivery Rate 07/21 0810 88 150/70 05/ 0658 99.0 64 18 152/68 91 Room Air 05/ 2200 98.4 68 20 146/76 94 Room Air 07/20 2104 68 146/76 05/ 1404 98.0 61 20 120/68 94 Intake & Output / 1600 / 0800 05/05 0000 Intake Total 100 600 Output Total 300 Balance 100 300 Intake, IV 100 Intake, Oral 0 600 Number 2 Bowel Movements Output, Drainage Output, Urine 300 Physical Exam General Appearance: well developed/nourished, no apparent distress, alert, awake Head: atraumatic, normal appearance Cardiovascular: regular rate/rhythm Respiratory: normal breath sounds Peripheral Pulses: 2+ radial (R), 2+ radial (L) Abdomen: normal bowel sounds, soft, non-tender Current Medications: Current Medications Sig/Vandana Start time Last Medication Dose Route Stop Time Status Admin Ampicillin Sodium/ 3,000 MG Q6H 05/02 1400 AC 05/ Sulbactam Sodium IV 0810 Sodium Chloride 100 ML Atorvastatin Calcium 40 MG 1700 05/02 1700 AC 05/04 PO 1601 Bethanechol Chloride 25 MG BID 05/ 2200 AC 05/05 PO 0812 Dextrose/Sodium 1,000 ML Q13H / 0600 AC 05/05 Chloride IV 0608 Docusate Sodium 100 MG DAILY NEEDED PRN 05/03 1000 AC 05/03 PO 2136 Gabapentin 600 MG Q8 05/02 1400 AC 05/05 PO 0608 Heparin Sodium 5,000 UNIT Q8 05/02 2200 AC 05/03 (Porcine) SC 1333 Insulin Aspart 0 Q6 /04 2359 DC 05 SC 0609 Insulin Aspart 0 TIDAC 05/ 1700 DC 05/04 SC 1203 Insulin Detemir 15 UNITS QAM 07/19 1000 DC 07/20 SC 0826 Insulin Human Regular 0 Q6 07/21 1200 AC SC Levothyroxine Sodium 0.05 MG DAILY AC 07/19 0700 AC 07/21 PO 0608 Loratadine 10 MG DAILY 07/19 1000 AC PO Metoprolol Tartrate 50 MG BID 07/18 2200 AC 07/21 PO 0810 Omeprazole 20 MG DAILY AC 07/19 0700 AC 07/21 PO 0608 Polyethylene Glycol 17 GM DAILY 07/19 1000 AC 07/20 PO 0826 Senna/Docusate Sodium 1 TAB BID 07/18 2200 AC 07/20 PO 2101 Results Last 24 Hrs Lab/Ammon Results: ..
--- NOTE | 2016-07-21 10:58 | PN- Infect Dx ---
Subjective Subjective: Afebrile without complaints Objective Last 24 Hrs of Vital Signs/I&O Vital Signs Date Time Temp Pulse Resp B/P B/P Pulse O2 O2 Flow FiO2 Mean Ox Delivery Rate 07/21 0810 88 150/70 07/21 0658 99.0 64 18 152/68 91 Room Air 07/20 2200 98.4 68 20 146/76 94 Room Air 07/20 2104 68 146/76 05 1404 98.0 61 20 120/68 94 Intake & Output 07/21 1600 07/21 0800 07/21 0000 Intake Total 100 600 Output Total 300 Balance 100 300 Intake, IV 100 Intake, Oral 0 600 Number 2 Bowel Movements Output, Drainage Output, Urine 300 Physical Exam Other Physical Findings: She appears comfortable in no acute distress Extremities left foot dressing intact Results Last 24 Hours of Lab Results: No labs from today Last 24 Hours of Ammon Results: OR culture left heel bone May 2 positive for Proteus resistant to Gentamicin, Enterococcus sensitive to Ampicillin and MRSA Assessment/Plan Impression: Stable status post debridement of the left calcaneus 3 days ago for chronic osteomyelitis, 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 She remains afebrile on Unasyn, but, given the culture results, her antibiotics will need to be changed. She is scheduled for a return to the OR later today for wound revision with possible placement of a wound VAC. She will require a PICC in anticipation of a four-week course of IV antibiotics though, as discussed and previously noted, am not convinced that her infection will heal and suspect she will ultimately require a BKA. Suggestion: 1. Vascular surgery reevaluation 2. Repeat CBC 3. Will need a baseline ESR and x-ray of the left heel postop 4. Await return to the OR later today 5. Would pursue placement of a PICC 6. Discontinue Unasyn 7. Begin Vancomycin 1.25 g IV every 24 hours and Ciprofloxacin 750 mg po every 12 hours to plan on a four-week course of treatment from today (until August 18) 8. Will need a weekly CBC, ESR, BUN/creatinine and Vancomycin trough level
[2016-07-21 12:42] LABS: ABSOLUTE BASOPHIL COUNT 0 /CUMM (0.0-0.2); ABSOLUTE EOSINOPHIL COUNT 0.3 /CUMM (0.0-0.7); ABSOLUTE GRANULOCYTE CT 7.8 /CUMM (1.4-6.5); ABSOLUTE LYMPH COUNT 1.1 /CUMM (1.2-3.4); ABSOLUTE MONOCYTE COUNT 0.7 /CUMM (0.10-0.60); BASOPHIL % 0.3 % (0.0-2.0); EOSINOPHIL % 2.8 % (0-5); GRANULOCYTE % 78.3 % (42.2-75.2); MEAN CORPUSCULAR HGB CONC 32.5 G/DL (33.0-37.0); MEAN CORPUSCULAR VOLUME 83.1 FL (81.0-99.0); MEAN PLATELET VOLUME 7.7 FL (7.4-10.4); PLATELET COUNT 392 /CUMM (130-400); RBC DISTRIBUTION WIDTH 17.7 % (11.5-14.5); RED BLOOD CELL CT 3.85 /CUMM (4.20-5.40); WHITE BLOOD CELL COUNT 9.9 /CUMM (4.8-10.8)
[2016-07-21 14:38] VITALS: BP 146/72
--- NOTE | 2016-07-21 14:40 | RADIOLOGY REPORT ---
EXAMINATION: XR PORTABLE CHEST CLINICAL INFORMATION: Status post PICC line placement. COMPARISON: Chest done on 07/17/2016. TECHNIQUE: Portable frontal view of the chest was obtained. FINDINGS: Interval placement of a right-sided PICC line is noted with its tip seen projecting in the region of the cavoatrial junction. Both lung baldwin are symmetrically expanded and appear clear. The cardiomediastinal silhouette is mildly enlarged, unchanged. There is no pleural effusion present. Osteoarthrosis is noted at both shoulders (right greater than left). The visualized upper abdomen is unremarkable. IMPRESSION: Interval placement of a right-sided PICC line with its tip seen projecting at the cavoatrial junction.
--- NOTE | 2016-07-21 20:43 | Operative Report ---
Operative/Inv Procedure Report Surgery Date: 07/21/16 Name of Procedure: 1 open incision and drainage deep to the D fashion with exposure of the flexor tendon and tendon sheath multiple sites left foot 2 debridement of necrotic infected bone left heel 3 intraoperative administration of ankle block anesthesia 4 excisional debridement Pre-Operative Diagnosis: 1 open necrotic wound left foot 2 osteomyelitis left foot 3 diabetic peripheral neuropathy Post-Operative Diagnosis: The same Estimated Blood Loss: less than 50ml Surgeon/Certified Surgical Tech/First Assistant: ALLIE CALLE DPM Anesthesia: moderate sedation, block Operative/Procedure Note Note: After obtaining informed consent the patient was brought to the operating room and placed on the operating table in the supine position. The patient was then securely fastened to the operating table utilizing safety belt. After administration of IV sedation, 10 mL of 0.5% Marcaine plain was infiltrated about the patient's left ankle. The left foot and ankle then scrubbed prepped and draped in usual aseptic manner. A 15 blade was utilized to sharply revise the skin margins. Dissection was then carried down deep to the D fashion with exposure of the flexor tendon and tendon sheath multiple sites left heel. All necrotic nonviable infected tissue sharply evacuated from the wound bed. Any necrotic bone identified centrally was debrided with a curet toleration and a rongeur. Nipple was then irrigated with 3 L normal sterile saline fissure 50, 000 units of bacitracin. Following this the foot was redraped and the surgeon's top gloves were changed clean gloves. Any bleeding vessels identified were cauterized or ligated as encountered. Nipple was then packed with Gelfoam and topical thrombin to achieve hemostasis. The foot was then dressed with 4 x 4's Kerlix and Coban. Patient was noted tolerate both procedure and anesthesia well and the patient was transported from the operating room to recovery with vital signs stable.
[2016-07-22 06:33] VITALS: BP 146/68
[2016-07-22 08:46] LABS: ABSOLUTE BASOPHIL COUNT 0.1 /CUMM (0.0-0.2); ABSOLUTE EOSINOPHIL COUNT 0.4 /CUMM (0.0-0.7); ABSOLUTE GRANULOCYTE CT 8.2 /CUMM (1.4-6.5); ABSOLUTE LYMPH COUNT 0.8 /CUMM (1.2-3.4); ABSOLUTE MONOCYTE COUNT 0.4 /CUMM (0.10-0.60); BASOPHIL % 0.6 % (0.0-2.0); EOSINOPHIL % 3.6 % (0-5); GRANULOCYTE % 82.9 % (42.2-75.2); HEMATOCRIT 28.6 % (37-47); MEAN CORPUSCULAR HGB 27.1 PG (27.0-31.0); MEAN CORPUSCULAR HGB CONC 32.4 G/DL (33.0-37.0); MEAN CORPUSCULAR VOLUME 83.9 FL (81.0-99.0); MEAN PLATELET VOLUME 8.1 FL (7.4-10.4); PLATELET COUNT 332 /CUMM (130-400); RBC DISTRIBUTION WIDTH 18.5 % (11.5-14.5); RED BLOOD CELL CT 3.41 /CUMM (4.20-5.40); WHITE BLOOD CELL COUNT 9.9 /CUMM (4.8-10.8)
--- NOTE | 2016-07-22 12:08 | PN- Podiatry ---
Subjective Subjective: Patient at bedside with no new complaints. Patient denies nausea vomiting fever chills. Objective Vital Signs and I&Os Vital Signs Date Time Temp Pulse Resp B/P B/P Pulse O2 O2 Flow FiO2 Mean Ox Delivery Rate 07/22 857 68 146/80 07/22 0633 98.5 65 20 146/68 92 07/21 2154 78 146/60 07/21 1438 98.1 62 20 146/72 93 Room Air Intake & Output 07/22 0807/22 0000 07/21 1600 07/21 0807/21 0000 Intake Total 500 925 720 100 600 Output Total 500 600 300 Balance 500 425 120 100 300 Intake, IV 20 600 600 100 Intake, Oral 480 325 120 0 600 Number 2 Bowel Movements Output, Drainage Output, Urine 500 600 300 Patient 229 lb Weight Physical Exam: Dressing left foot clean dry and intact. No strikethrough identified. No pain with deep palpation bilateral lower extremities. Assessment/Plan Assessment/Plan Left heel osteomyelitis. Will place wound VAC at bedside tomorrow. Anticipate discharge early next week. Core Measures/Miscellaneous Venous Thromboembolism VTE Risk Factors: Age > 40, Immobility, paresis, Surgery VTE Contraindications: No Contraindications VTE Diagnosis: No Beta Jazzmine Is Beta Jazzmine a Home Med? No Antibiotics Is Patient on Antibiotics? Yes If Yes: infection
[2016-07-22 15:27] VITALS: BP 130/70
--- NOTE | 2016-07-22 17:02 | PN- Att Addend ---
Attending Addendum Attending Brief Note Patient had podiatry surgical procedure yesterday by Dr. Altamirano. Also has a PICC line now for her antibiotic treatment vital signs are stable no fever and no major changes on physical her to continue antibiotic therapy as per ID and podiatry. Monitor labs patient will get the VAC to the wound 24 TOTALS 05/ 0000 05/ 0000 Intake Total 1745 1440 Output Total 1100 550 Balance 645 890 Intake, IV 1300 150 Intake, Oral 445 1290 Number 2 1 Bowel Movements Output, Drainage Output, Urine 1100 550 Current Medications Sig/Vandana Start time Last Medication Dose Route Stop Time Status Admin Atorvastatin Calcium 40 MG 1700 / 1700 AC 07/20 PO 1601 Bethanechol Chloride 25 MG BID 07/18 2200 AC 07/22 PO 0859 Ciprofloxacin 750 MG Q12 07/21 1230 AC 07/22 PO 07/25 1229 0859 Dextrose/Sodium 1,000 ML Q13H 07/21 0600 DC 07/21 Chloride IV 1934 Docusate Sodium 100 MG DAILY NEEDED PRN / 1000 AC 07/19 PO 2136 Fentanyl Citrate 100 MCG .STK-MED ONE 07/21 1909 DC IM 07/21 191 Gabapentin 600 MG Q8 / 1400 AC 07/22 PO 1412 Heparin Sodium 5,000 UNIT Q8 07/18 2200 AC 07/19 (Porcine) SC 1333 Insulin Aspart 0 TIDAC 07/22 0800 AC 07/22 SC 1412 Insulin Aspart 0 Q6 07/21 2359 CAN SC Insulin Human Regular 0 Q6 / 1200 DC 07/21 SC 1257 Levothyroxine Sodium 0.05 MG DAILY AC 07/19 0700 AC 07/22 PO 0541 Loratadine 10 MG DAILY 07/19 1000 AC / PO 0858 Metoprolol Tartrate 50 MG BID 07/18 2200 AC 07/22 PO 0858 Midazolam HCl 2 MG .STK-MED ONE 07/21 1909 DC IM 07/21 191 Omeprazole 20 MG DAILY AC 07/19 0700 AC 05/ PO 0541 Polyethylene Glycol 17 GM DAILY / 1000 AC 05/ PO 0858 Senna/Docusate Sodium 1 TAB BID 07/18 2200 AC / PO 0858 Vancomycin HCl 1,250 MG Q24H / 1200 AC 05/06 Sodium Chloride 250 ML IV 1250 Laboratory Tests 07/22/16 0540: Anion Gap 12, Estimated GFR 41 L, BUN/Creatinine Ratio 28.5 H, CBC w Diff NO MAN DIFF REQ, RBC 3.41 L, MCV 83.9, MCH 27.1, RDW 18.5 H, MPV 8.1, Gran % 82.9 H, Lymphocytes % 8.4 L, Monocytes % 4.5, Eosinophils % 3.6, Basophils % 0.6, Absolute Granulocytes 8.2 H, Absolute Lymphocytes 0.8 L, Absolute Monocytes 0.4, Absolute Eosinophils 0.4, Absolute Basophils 0.1, PUBS MCHC 32.4 L, ESR Westergren 96 H 07/21/16 1228: ESR Westergren 122 H 07/21/16 1228: CBC w Diff NO MAN DIFF REQ, RBC 3.85 L, MCV 83.1, MCH 27.0, RDW 17.7 H, MPV 7.7, Gran % 78.3 H, Lymphocytes % 11.3 L, Monocytes % 7.3, Eosinophils % 2.8, Basophils % 0.3, Absolute Granulocytes 7.8 H, Absolute Lymphocytes 1.1 L, Absolute Monocytes 0.7 H, Absolute Eosinophils 0.3, Absolute Basophils 0, PUBS MCHC 32.5 L
[2016-07-22 22:52] VITALS: BP 138/70
[2016-07-23 06:51] VITALS: BP 152/70
[2016-07-23 14:32] VITALS: BP 147/68
[2016-07-23 22:41] VITALS: BP 130/60
[2016-07-24 06:34] VITALS: BP 140/64
[2016-07-24 08:45] LABS: ABSOLUTE BASOPHIL COUNT 0.1 /CUMM (0.0-0.2); ABSOLUTE EOSINOPHIL COUNT 0.4 /CUMM (0.0-0.7); ABSOLUTE LYMPH COUNT 1.8 /CUMM (1.2-3.4); ABSOLUTE MONOCYTE COUNT 0.8 /CUMM (0.10-0.60); BASOPHIL % 0.6 % (0.0-2.0); EOSINOPHIL % 3.6 % (0-5); GRANULOCYTE % 70.2 % (42.2-75.2); HEMATOCRIT 30.3 % (37-47); MEAN CORPUSCULAR HGB 26.9 PG (27.0-31.0); MEAN CORPUSCULAR HGB CONC 32.4 G/DL (33.0-37.0); MEAN PLATELET VOLUME 7.9 FL (7.4-10.4); PLATELET COUNT 381 /CUMM (130-400); RBC DISTRIBUTION WIDTH 18.1 % (11.5-14.5); RED BLOOD CELL CT 3.65 /CUMM (4.20-5.40)
--- NOTE | 2016-07-24 10:50 | PN- Att Addend ---
Attending Addendum Attending Brief Note Patient sitting in the chair no new complaints vital signs are stable no fever. The leg redness has decreased so is the swelling patient waiting for the VAC, and then might be able to go home with home care unit she states has some irritation in the coccyx area from sitting, will address that before she goes home too. Continue the IV antibiotics Current Medications Sig/Vandana Start time Last Medication Dose Route Stop Time Status Admin Atorvastatin Calcium 40 MG 1700 05 1700 AC 07/23 PO 1848 Bethanechol Chloride 25 MG BID 07/18 2200 AC 07/24 PO 0859 Ciprofloxacin 750 MG Q12 07/21 1230 AC 07/24 PO 07/25 1229 0859 Docusate Sodium 100 MG DAILY NEEDED PRN 07/19 1000 AC 07/19 PO 2136 Gabapentin 600 MG Q8 07/18 1400 AC 07/24 PO 0617 Heparin Sodium 5,000 UNIT Q8 07/18 2200 AC 07/23 (Porcine) SC 2253 Insulin Aspart 0 TIDAC 07/22 0800 AC 07/23 SC 1849 Insulin Detemir 15 UNITS QAM 07/24 1000 AC 07/24 SC 0900 Levothyroxine Sodium 0.05 MG DAILY AC 07/19 0700 AC 07/24 PO 0617 Loratadine 10 MG DAILY 07/19 1000 AC 07/23 PO 0949 Metoprolol Tartrate 50 MG BID 07/18 2200 AC 07/24 PO 0903 Omeprazole 20 MG DAILY AC 07/19 0700 AC 07/24 PO 0617 Polyethylene Glycol 17 GM DAILY 07/19 1000 AC 07/24 PO 0858 Senna/Docusate Sodium 1 TAB BID 07/18 2200 AC 07/24 PO 0859 Sodium Chloride 1,000 ML Q13H 07/24 0745 AC IV 07/24 2044 Vancomycin HCl 1,250 MG Q24H 07/21 1200 AC 07/23 Sodium Chloride 250 ML IV 1405 Laboratory Tests 07/24/16 0815: Anion Gap 11, Estimated GFR 49 L, BUN/Creatinine Ratio 29.1 H, CBC w Diff NO MAN DIFF REQ, RBC 3.65 L, MCV 83.0, MCH 26.9 L, RDW 18.1 H, MPV 7.9, Gran % 70.2, Lymphocytes % 18.0 L, Monocytes % 7.6, Eosinophils % 3.6, Basophils % 0.6 , Absolute Granulocytes 7.0 H, Absolute Lymphocytes 1.8, Absolute Monocytes 0.8 H, Absolute Eosinophils 0.4, Absolute Basophils 0.1, PUBS MCHC 32.4 L
--- NOTE | 2016-07-24 14:07 | PN- Infect Dx ---
Subjective Subjective: Afebrile. She notes minimal discomfort in the left foot. Objective Last 24 Hrs of Vital Signs/I&O Vital Signs Date Time Temp Pulse Resp B/P B/P Pulse O2 O2 Flow FiO2 Mean Ox Delivery Rate 07/24 902 63 163/82 07/24 0634 98.2 56 20 140/64 95 07/23 2252 60 130/60 07/23 2241 98.5 59 21 130/60 94 Room Air 07/23 1432 97.8 68 20 147/68 97 Room Air 07/23 1405 60 147/68 Intake & Output 07/24 1600 07/24 0800 07/24 0000 Intake Total 480 Output Total 500 Balance 480 -500 Intake, Oral 480 Number 2 Bowel Movements Output, Urine 500 Physical Exam Other Physical Findings: She appears comfortable in no acute distress Extremities left foot dressing intact; PICC in the right upper extremity with no inflammation at the site Results Last 24 Hours of Lab Results: Laboratory Tests 07/24 814 Chemistry Sodium (137 - 145 mmol/L) 141 Potassium (3.5 - 5.1 mmol/L) 4.6 Chloride (98 - 107 mmol/L) 104 Carbon Dioxide (22 - 30 mmol/L) 26 Anion Gap (5 - 16) 11 BUN (7 - 17 mg/dL) 32 H Creatinine (0.5 - 1.0 mg/dL) 1.1 H Estimated GFR (>60 ml/min) 49 L BUN/Creatinine Ratio (7 - 25 %) 29.1 H Hematology CBC w Diff NO MAN DIFF REQ WBC (4.8 - 10.8 /CUMM) 10.0 RBC (4.20 - 5.40 /CUMM) 3.65 L Hgb (12.0 - 16.0 G/DL) 9.8 L Hct (37 - 47 %) 30.3 L MCV (81.0 - 99.0 FL) 83.0 MCH (27.0 - 31.0 PG) 26.9 L RDW (11.5 - 14.5 %) 18.1 H Plt Count (130 - 400 /CUMM) 381 MPV (7.4 - 10.4 FL) 7.9 Gran % (42.2 - 75.2 %) 70.2 Lymphocytes % (20.5 - 51.1 %) 18.0 L Monocytes % (1.7 - 9.3 %) 7.6 Eosinophils % (0 - 5 %) 3.6 Basophils % (0.0 - 2.0 %) 0.6 Absolute Granulocytes (1.4 - 6.5 /CUMM) 7.0 H Absolute Lymphocytes (1.2 - 3.4 /CUMM) 1.8 Absolute Monocytes (0.10 - 0.60 /CUMM) 0.8 H Absolute Eosinophils (0.0 - 0.7 /CUMM) 0.4 Absolute Basophils (0.0 - 0.2 /CUMM) 0.1 PUBS MCHC (33.0 - 37.0 G/DL) 32.4 L Last 24 Hours of Ammon Results: No new cultures Assessment/Plan Impression: Stable status post further debridement of the left calcaneus 3 days ago for chronic polymicrobial osteomyelitis, with Enterococcus, Proteus and MRSA isolated from the initial OR culture. She remains afebrile with white blood cell count now normal on Vancomycin and Ciprofloxacin. Suggestion: 1. Vascular surgery reevaluation 2. Baseline postop x-ray of the left heel 3. Vancomycin trough level with her next dose 4. Continue Vancomycin and Cipro to plan on a four-week course of treatment ( until August 18) 5. Will need a weekly CBC, ESR, BUN/creatinine and Vancomycin trough level
[2016-07-24 14:19] VITALS: BP 161/85; BP 162/68
--- NOTE | 2016-07-24 18:18 | PN- Podiatry ---
Subjective Subjective: Patient at bedside with no new complaints. Patient denies nausea vomiting fever chills. Objective Vital Signs and I&Os Vital Signs Date Time Temp Pulse Resp B/P B/P Pulse O2 O2 Flow FiO2 Mean Ox Delivery Rate 07/24 1419 98.1 56 20 162/68 98 Room Air 07/24 0903 63 163/82 07/24 0634 98.2 56 20 140/64 95 07/23 2252 60 130/60 07/23 2241 98.5 59 21 130/60 94 Room Air Intake & Output 07/24 1600 07/24 0800 07/24 0000 07/23 1600 07/23 0800 07/23 0000 Intake Total 480 2110 480 480 Output Total 500 600 Balance 480 -500 1510 480 480 Intake, IV 250 Intake, Oral 480 1860 480 480 Number 2 0 Bowel Movements Output, Urine 500 600 Physical Exam: 4 cm x 6 cm Fonseca grade 4 ulceration noted to the plantar left heel. No cellulitis noted. Minimal serous drainage identified. Some minimal granulation tissue noted at the margins. Assessment/Plan Assessment/Plan Left heel osteomyelitis. Continue IV antibiotics per ID recommendations. Wound VAC place left heel. Nonweightbearing left lower extremity. Core Measures/Miscellaneous Venous Thromboembolism VTE Risk Factors: Age > 40, Immobility, paresis, Surgery VTE Contraindications: No Contraindications VTE Diagnosis: No Beta Jazzmine Is Beta Jazzmine a Home Med? No Antibiotics Is Patient on Antibiotics? Yes If Yes: infection Attending MD Review Statement Attending Statement Attending MD Statement: examined this patient
[2016-07-24 23:20] VITALS: BP 134/62
[2016-07-25 06:11] VITALS: BP 138/64
--- NOTE | 2016-07-25 07:42 | Event Note ---
Event Note Event Note: Baseline Left knee postop xray was ordered twice but was cancelled per Dr lovett, will touch base with DR lovett for the reason to cancel. Addendum Disucssed with Dr lovett. The patient was not stable enough postop for the xray. Will get one today.
--- NOTE | 2016-07-25 07:44 | Patient Discharge Instructions ---
Discharge Instructions General Discharge Information Special Instructions: Continue Vancomycin and Cipro to plan on a four-week course of treatment (until August 18) You Will need a weekly CBC, ESR, BUN/creatinine and Vancomycin trough level Acute Coronary Syndrome Inclusion Criteria At DC or during hospital stay patient has or had the following: ACS DIAGNOSIS No Discharge Core Measures Meds if any: Prescribed or Continued at Discharge Meds if any: NOT Prescribed or Continued at Discharge Congestive Heart Failure Inclusion Criteria At DC or during hospital stay patient has or had the following: CHF DIAGNOSIS No Discharge Core Measures Meds if any: Prescribed or Continued at Discharge Meds if any: NOT Prescribed or Continued at Discharge Cerebrovascular accident Inclusion Criteria At DC or during hospital stay patient has or had the following: CVA/TIA Diagnosis No Discharge Core Measures Meds if any: Prescribed or Continued at Discharge Meds if any: NOT Prescribed or Continued at Discharge Venous thromboembolism Inclusion Criteria VTE Diagnosis No VTE Type NONE VTE Confirmed by (Test) NONE Discharge Core Measures - Per Current guidelines, there needs to be overlap - treatment for the first 5 days of Warfarin therapy. - If discharged on Warfarin prior to 5 days of - overlap therapy, the patient will need to be - assessed for post discharge needs including - *Post discharge parental anticoagulation - *Warfarin and/or parental anticoagulation education - *Follow up date to check INR post discharge At least 5 days overlap therapy as Inpatient No Meds if any: Prescribed or Continued at Discharge Note: Overlap Therapy is Warfarin and Anticoagulant Meds if any: NOT Prescribed or Continued at Discharge
--- NOTE | 2016-07-25 10:07 | PN- Att Addend ---
Attending Addendum Attending Brief Note Patient in the chair, no new complaints the VAC suctioning small amounts of fluid urine she is a febrile, no other changes on physical. PICC line in place IV antibiotics continue. Arrangements being made for special equipment needed for home once this is available there was start disposition plans. Current Medications Sig/Vandana Start time Last Medication Dose Route Stop Time Status Admin Atorvastatin Calcium 40 MG 1700 05/02 1700 AC 05/08 PO 1653 Bethanechol Chloride 25 MG BID 07/18 2200 AC 07/25 PO 0931 Ciprofloxacin 750 MG Q12 07/21 1230 AC 05/ PO 05 1229 0931 Docusate Sodium 100 MG DAILY NEEDED PRN 07/19 1000 AC 07/19 PO 2136 Gabapentin 600 MG Q8 07/18 1400 AC 07/25 PO 0601 Heparin Sodium 5,000 UNIT Q8 07/18 2200 AC 07/25 (Porcine) SC 0601 Insulin Aspart 0 TIDAC 07/22 0800 AC 07/25 SC 0912 Insulin Detemir 15 UNITS QAM 07/24 1000 AC 07/24 SC 0900 Levothyroxine Sodium 0.05 MG DAILY AC 07/19 0700 AC 07/25 PO 0601 Loratadine 10 MG DAILY 07/19 1000 AC / PO 0949 Metoprolol Tartrate 50 MG BID 07/18 2200 AC 07/25 PO 0929 Omeprazole 20 MG DAILY AC 07/19 0700 AC / PO 0601 Polyethylene Glycol 17 GM DAILY / 1000 AC / PO 0928 Senna/Docusate Sodium 1 TAB BID 07/18 2200 AC 07/25 PO 0929 Sodium Chloride 1,000 ML Q13H / 0745 DC IV 07/24 2044 Vancomycin HCl 1,250 MG Q24H / 1200 AC / Sodium Chloride 250 ML IV 1231 Vital Signs Date Time Temp Pulse Resp B/P B/P Pulse O2 O2 Flow FiO2 Mean Ox Delivery Rate 07/25 928 52 138/64 07/25 0611 97.6 52 20 138/64 97 Room Air
--- NOTE | 2016-07-25 12:07 | PN- Medicine Consult ---
Assessment/Plan Assessment/Plan Assessment: I have seen and examined the patient today morning, she seems to be doing fine, no new complaints, slept well overnight, vitals stable. 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 Medicine was consulted for management of the chronic medical issues alongwith DM.She is to go ot OR for revision again today. List along with assessment and plan. Problem #1 history of hyperlipidemia. * Continue statin 40 mg daily. Problem #2 history of hypothyroidism. * Continue Synthroid 50 g daily. Problem #3 diabetes mellitus. * Hold diabetic medications. * Ct novlogue SS. * Continue monitoring fingerstick TIDAC.HS * Ct levemir at 15 units in am * Ct gabapentin * On d/c restart oral antdiabetic medications. Problem #4 HTN. * continue metoprolol 50 twice a day. Problem #5 GERD. * Continue proton pump inhibitors, resolved at home dosage for gastroesophageal reflux disease. * Ct oxybutinin. Problem #6 chronic constipation. * Continue MiraLAX, Colace and senna when necessary as the patient takes these combination at home and this is what works for her. Problem #7 LEft heel osteomyelitis s/p debridement. * Ct cipro and vanco per ID. Pain management, tylenol #3 works better. DVT prophylaxis of the time. Problem List: 1. Osteomyelitis Subjective Subjective: I have seen and examined the patient today morning, she seems to be doing fine, no new complaints, slept well overnight, vitals stable, status post debridement. Review of Systems Constitutional: Reports: see HPI. Objective Last 24 Hrs of Vital Signs/I&O Vital Signs Date Time Temp Pulse Resp B/P B/P Pulse O2 O2 Flow FiO2 Mean Ox Delivery Rate 07/25 0929 52 138/64 07/25 0611 97.6 52 20 138/64 97 Room Air 07/24 2320 98.1 62 18 134/62 95 Room Air 07/24 2124 65 140/72 07/24 1419 98.1 56 20 162/68 98 Room Air Intake & Output 07/25 1600 05/ 0800 05/ 0000 Intake Total 300 420 Output Total 430 400 Balance -130 20 Intake, IV 300 300 Intake, Oral 120 Number 2 Bowel Movements Output, 30 Drainage Output, Urine 400 400 Physical Exam General Appearance: well developed/nourished, no apparent distress, alert, awake Head: atraumatic, normal appearance Cardiovascular: regular rate/rhythm Respiratory: normal breath sounds, chest non-tender Peripheral Pulses: 2+ radial (R), 2+ radial (L) Abdomen: normal bowel sounds, soft, non-tender, no organomegaly Back: normal inspection Current Medications: Current Medications Sig/Vandana Start time Last Medication Dose Route Stop Time Status Admin Atorvastatin Calcium 40 MG 1700 07/18 1700 AC 07/24 PO 1653 Bethanechol Chloride 25 MG BID 07/18 2200 AC 07/25 PO 0931 Ciprofloxacin 750 MG Q12 07/21 1230 AC 07/25 PO 05 1229 0931 Docusate Sodium 100 MG DAILY NEEDED PRN 07/19 1000 AC 07/19 PO 2136 Gabapentin 600 MG Q8 / 1400 AC 07/25 PO 0601 Heparin Sodium 5,000 UNIT Q8 07/18 2200 AC 07/25 (Porcine) SC 0601 Insulin Aspart 0 TIDAC 07/22 0800 AC 07/25 SC 0912 Insulin Detemir 15 UNITS QAM 07/24 1000 AC 07/25 SC 1040 Levothyroxine Sodium 0.05 MG DAILY AC 07/19 0700 AC 07/25 PO 0601 Loratadine 10 MG DAILY 07/19 1000 AC 07/23 PO 0949 Metoprolol Tartrate 50 MG BID 07/18 2200 AC 07/25 PO 0929 Omeprazole 20 MG DAILY AC 07/19 0700 AC / PO 0601 Polyethylene Glycol 17 GM DAILY / 1000 AC 07/25 PO 0928 Senna/Docusate Sodium 1 TAB BID 07/18 2200 AC 07/25 PO 0929 Sodium Chloride 1,000 ML Q13H 07/24 0745 DC IV 07/24 2044 Vancomycin HCl 1,250 MG Q24H 05/05 1200 DC 05/ Sodium Chloride 250 ML IV 1231 Vitamin A/Vitamin D 1 AURELIA BID 07/25 1152 AC TOP Results Last 24 Hrs Lab/Ammon Results: .. ..
--- NOTE | 2016-07-25 12:52 | PN- Podiatry ---
Subjective Subjective: Patient seen at bedside with no new complaints. Patient denies nausea vomiting fever chills. Patient denies left foot pain. Objective Vital Signs and I&Os Vital Signs Date Time Temp Pulse Resp B/P B/P Pulse O2 O2 Flow FiO2 Mean Ox Delivery Rate 07/25 928 52 138/64 07/25 0611 97.6 52 20 138/64 97 Room Air 07/24 2320 98.1 62 18 134/62 95 Room Air 07/24 2124 65 140/72 07/24 1419 98.1 56 20 162/68 98 Room Air Intake & Output 07/25 1600 07/25 0807/25 0000 07/24 1600 07/24 0000 Intake Total 427 737 7435 480 Output Total 430 400 500 Balance -316 45 2301 480 -500 Intake, IV 300 300 400 Intake, Oral 120 1860 480 Number 2 0 2 Bowel Movements Output, 30 Drainage Output, Urine 400 400 500 Physical Exam: Dressing left foot clean dry and intact. Wound VAC in place to left heel, with approximately 25 mL of serosanguineous drainage noted to the canister. No pain with deep palpation bilateral lower extremities. Assessment/Plan Assessment/Plan Left heel osteomyelitis. Continue IV antibiotics per ID recommendations. Continue negative pressure wound therapy. Strict nonweightbearing left lower extremity. Will change wound VAC at bedside tomorrow. Core Measures/Miscellaneous Venous Thromboembolism VTE Risk Factors: Age > 40, Immobility, paresis, Surgery VTE Contraindications: No Contraindications VTE Diagnosis: No Beta Jazzmine Is Beta Jazzmine a Home Med? No Antibiotics Is Patient on Antibiotics? Yes If Yes: infection
[2016-07-25 14:20] VITALS: BP 163/68
--- NOTE | 2016-07-25 15:54 | RADIOLOGY REPORT ---
EXAMINATION: XR CALCANEUS, LEFT CLINICAL INFORMATION: Baseline x-ray post op. Osteomyelitis. COMPARISON: Left foot films dated 06/12/2016. TECHNIQUE: Lateral and axial views of the left calcaneus were obtained. FINDINGS: Again seen is marked deformity and likely osteotomy involving the posterior calcaneus. The calcaneal margins appear irregular and indistinct. There is now some radiopaque density seen projected over the calcaneus on the lateral view, likely related to packing material. An overlying large skin ulceration, diffuse soft tissue swelling, and single cutaneous staple are noted. Prominent vascular calcifications are also seen in the distal ankle and foot. Marked osteopenia is seen. The ankle joint on the lateral view appears unremarkable. No significant ankle joint effusion is seen. No acute fracture or dislocation is noted. IMPRESSION: 1. Irregular margins of the calcaneus are noted status post osteotomy. Associated packing material is seen, obscuring assessment. 2. Overlying subcutaneous deep ulcer and cutaneous vascular calcifications again seen.
[2016-07-25 22:40] VITALS: BP 132/70
[2016-07-26 05:04] VITALS: BP 136/80
[2016-07-26 06:50] VITALS: BP 128/58
[2016-07-26] MEDS ORDERED: VANCOMYCIN1 GM/1001 IV (08:20)
[2016-07-26] MEDS ORDERED: CIPROFLOXACIN250 M1 PO (08:20)
--- NOTE | 2016-07-26 08:27 | PN- Medicine Consult ---
See Addendum Assessment/Plan Assessment/Plan Assessment: I have seen and examined the patient today morning, she seems to be doing fine, no new complaints, slept well overnight, vitals stable. 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 Medicine was consulted for management of the chronic medical issues alongwith DM.She is to go ot OR for revision again today. 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 2.H/o DM 3.H/O HLD 4.H/O hypothyroidism 5.H/O HTN Plan Patient has no complaints Remained afebrile on IV antibiotics through the PICC line Plan is to continue PO ciprofloxacin and IV vancomycin for a total of 4 more weeks((until August 18) Postop he's x-ray showsIrregular margins of the calcaneus, no evidence of chronic osteomyelitis. ACCU checks well controlled with Levemir 15 units and NovoLog sliding scale Continue with Synthroid Continue with other hypertensive medications pAIN C.W TYELONOL Weekly CBC and ESR with vanco trough levels DVT PPX at all times Problem List: 1. Cellulitis Subjective Subjective: Patient has no complaints. She is awake alert oriented in no distress. Pain well controlled Review of Systems Constitutional: Reports: see HPI. Objective Last 24 Hrs of Vital Signs/I&O Vital Signs Date Time Temp Pulse Resp B/P B/P Pulse O2 O2 Flow FiO2 Mean Ox Delivery Rate 07/26 0650 97.5 57 20 128/58 95 Room Air 07/26 0504 98.3 93 18 136/80 98 Nasal Cannula 07/25 2241 60 132/60 07/25 2240 98.5 60 20 132/70 96 Room Air 07/25 1420 98.1 53 20 163/68 98 Room Air 07/25 0929 52 138/64 Intake & Output 05/10 1600 05/10 0800 05/ 0000 Intake Total 480 480 Output Total Balance 480 480 Intake, Oral 480 480 Physical Exam General Appearance: well developed/nourished, no apparent distress, alert, obese Head: atraumatic, normal appearance Ears, Nose, Throat: normal pharynx, normal ENT inspection, hearing grossly normal Extremities: normal inspection, no drainage or foul smelling Current Medications: Current Medications Sig/Vandana Start time Last Medication Dose Route Stop Time Status Admin Atorvastatin Calcium 40 MG 1700 05 1700 AC 07/25 PO 1649 Bethanechol Chloride 25 MG BID 07/18 2200 AC 07/25 PO 2241 Ciprofloxacin 750 MG Q12 07/25 2200 AC 07/25 PO 07/29 2158 2242 Ciprofloxacin 750 MG Q12 07/21 1230 DC 07/25 PO 07/25 1229 0931 Docusate Sodium 100 MG DAILY NEEDED PRN 07/19 1000 AC 07/19 PO 2136 Gabapentin 1,200 MG TID 07/25 2200 AC 07/25 PO 2240 Gabapentin 600 MG Q8 / 1400 DC 07/25 PO 1412 Heparin Sodium 5,000 UNIT Q8 07/18 2200 AC 07/26 (Porcine) SC 0638 Insulin Aspart 0 TIDAC 07/22 0800 AC 07/25 SC 0912 Insulin Detemir 15 UNITS QAM 07/24 1000 AC 07/25 SC 1040 Levothyroxine Sodium 0.05 MG DAILY AC 07/19 0700 AC 07/26 PO 0638 Loratadine 10 MG DAILY / 1000 AC 07/23 PO 0949 Metoprolol Tartrate 50 MG BID 07/18 2200 AC 07/25 PO 2241 Omeprazole 20 MG DAILY AC 07/19 0700 AC 07/26 PO 0638 Polyethylene Glycol 17 GM DAILY / 1000 AC / PO 0928 Senna/Docusate Sodium 1 TAB BID / 2200 AC 07/25 PO 2241 Vancomycin HCl 1,250 MG Q24H / 1330 AC 05/ Sodium Chloride 250 ML IV 1413 Vancomycin HCl 1,250 MG Q24H /05 1200 DC 05/ Sodium Chloride 250 ML IV 1527 Vitamin A/Vitamin D 1 AURELIA BID 07/25 1152 AC 07/25 TOP 2250 Results Last 24 Hrs Lab/Ammon Results: Laboratory Tests 07/25/16 1137: Vancomycin Trough 17.6
--- NOTE | 2016-07-26 13:03 | PN- Infect Dx ---
Subjective Subjective: Afebrile. She has minimal discomfort in the left foot. Objective Last 24 Hrs of Vital Signs/I&O Vital Signs Date Time Temp Pulse Resp B/P B/P Pulse O2 O2 Flow FiO2 Mean Ox Delivery Rate 07/26 0927 57 128/58 07/26 0650 97.5 57 20 128/58 95 Room Air 07/26 0504 98.3 93 18 136/80 98 Nasal Cannula 07/25 2241 60 132/60 07/25 2240 98.5 60 20 132/70 96 Room Air 07/25 1420 98.1 53 20 163/68 98 Room Air Intake & Output 07/26 1600 07/26 0800 07/26 0000 Intake Total 480 480 Output Total Balance 480 480 Intake, Oral 480 480 Physical Exam Other Physical Findings: She appears comfortable in no acute distress Extremities left foot wound VAC in place with no surrounding inflammation; PICC in the right upper extremity with no inflammation at the site Results Last 24 Hours of Lab Results: Laboratory Tests 07/25 1137 Toxicology Vancomycin Trough (10.0 - 20.0 ug/mL) 17.6 Last 24 Hours of Ammon Results: No new cultures Recent Imaging Studies: X-ray of the left heel July 25 reveals irregular margins of the calcaneus status post osteotomy Assessment/Plan Impression: Stable status post further debridement of the left calcaneus 5 days ago for chronic polymicrobial osteomyelitis, with Enterococcus, Proteus and MRSA isolated from the initial OR culture. She remains afebrile with white blood cell count normal on Vancomycin and Ciprofloxacin, with Vancomycin trough level therapeutic. Suggestion: 1. Vascular surgery reevaluation 2. Continue Vancomycin and Cipro to plan on a four-week course of treatment ( until August 18) 3. Will need a weekly CBC, ESR, BUN/creatinine and Vancomycin trough level
[2016-07-26 14:28] VITALS: BP 153/53
--- NOTE | 2016-07-26 18:03 | PN- Podiatry ---
Subjective Subjective: Patient seen at bedside with no new complaints. Patient denies nausea vomiting fever chills. Objective Vital Signs and I&Os Vital Signs Date Time Temp Pulse Resp B/P B/P Pulse O2 O2 Flow FiO2 Mean Ox Delivery Rate 07/26 1428 97.4 60 20 153/53 99 Room Air 07/26 0927 57 128/58 07/26 0650 97.5 57 20 128/58 95 Room Air 07/26 0504 98.3 93 18 136/80 98 Nasal Cannula 07/25 2241 60 132/60 07/25 2240 98.5 60 20 132/70 96 Room Air Intake & Output 07/26 1600 07/26 0800 07/26 0000 07/25 1600 07/25 0800 07/25 0000 Intake Total 480 480 980 300 420 Output Total 430 400 Balance 480 480 980 -130 20 Intake, IV 280 300 300 Intake, Oral 480 480 700 120 Number 1 2 Bowel Movements Output, 30 Drainage Output, Urine 400 400 Physical Exam: Dressing left foot clean dry and intact. Wound VAC in place with approximately 30 mL of serosanguineous drainage noted to the canister. No pain with deep palpation bilateral lower extremities. Assessment/Plan Assessment/Plan Left heel osteomyelitis. Continue IV antibiotics per ID recommendations. Continue negative pressure wound therapy. Continue strict nonweightbearing. Anticipate discharge tomorrow. Core Measures/Miscellaneous Venous Thromboembolism VTE Risk Factors: Age > 40, Immobility, paresis, Surgery VTE Contraindications: No Contraindications VTE Diagnosis: No Beta Jazzmine Is Beta Jazzmine a Home Med? No Antibiotics Is Patient on Antibiotics? Yes If Yes: infection Attending MD Review Statement Attending Statement Attending MD Statement: examined this patient
[2016-07-26 23:03] VITALS: BP 140/68
[2016-07-27 06:50] VITALS: BP 150/70
--- NOTE | 2016-07-27 12:21 | PN- Att Addend ---
See Addendum Attending Addendum Attending Brief Note Patient sitting in the chair VAC to the wound continues patient is a febrile no new changes on physical will monitor that right heel as an outpatient too, going home today on IV antibiotics and wound care and visiting nurses. Prescription for Tylenol No. 3 for pain were called into [facility] [place]. Continue antibiotics as per ID recommendations, needs close follow-up by podiatry and the wound Center. Intake & Output 07/27 1600 07/27 0800 07/27 0000 07/26 1600 07/26 0800 07/26 0000 Intake Total 129 878 1067 480 480 Output Total Balance 232 060 7524 480 480 Intake, IV 300 Intake, Oral 240 800 700 480 480 Number 1 1 Bowel Movements Current Medications Sig/Vandana Start time Last Medication Dose Route Stop Time Status Admin Atorvastatin Calcium 40 MG 1700 07/18 1700 AC 07/26 PO 1751 Bethanechol Chloride 25 MG BID 07/18 2200 AC 07/27 PO 1042 Ciprofloxacin 750 MG Q12 07/25 2200 AC 07/27 PO 07/29 2159 1041 Docusate Sodium 100 MG DAILY NEEDED PRN 07/19 1000 AC 07/19 PO 2136 Gabapentin 1,200 MG TID 07/25 2200 AC 07/27 PO 1043 Heparin Sodium 5,000 UNIT Q8 07/18 2200 AC 07/27 (Porcine) SC 0650 Insulin Aspart 0 TIDAC 07/22 0800 AC 07/25 SC 0912 Insulin Detemir 15 UNITS QAM 07/24 1000 AC 07/27 SC 1042 Levothyroxine Sodium 0.05 MG DAILY AC 07/19 0700 AC 07/27 PO 0650 Loratadine 10 MG DAILY 07/19 1000 AC 07/26 PO 0927 Metoprolol Tartrate 50 MG BID 07/18 2200 AC 07/27 PO 1043 Omeprazole 20 MG DAILY AC 07/19 0700 AC 07/27 PO 0650 Patient Medication 1 ED .STK-MED ONE 07/26 1402 MO Teaching ED 07/26 1403 Polyethylene Glycol 17 GM DAILY 07/19 1000 AC 07/27 PO 1044 Senna/Docusate Sodium 1 TAB BID 07/18 2200 AC 07/27 PO 1044 Vancomycin HCl 1,250 MG Q24H 07/25 1330 AC 07/26 Sodium Chloride 250 ML IV 1424 Vitamin A/Vitamin D 1 AURELIA BID 07/25 1152 AC 07/27 [facility] 1044
[2016-07-27 15:04] VITALS: BP 138/72
--- NOTE | 2016-07-28 08:44 | Surgical Discharge Summary ---
Visit Information Visit Dates Admission Date: 07/18/16 Discharge Date: 07/27/16 History of Present Illness Chief Complaint: Dayan is a 70-year-old diabetic female with a history of a long-standing nonhealing ulceration to her left heel. The patient was noted on MRI findings to have changes consistent with either a persistent or recurrent left heel osteomyelitis. Of note, the patient underwent a 4 week course of IV antibiotics to treat a left heel osteomyelitis last year. In the interim, the patient's left heel was noted to break down and despite an extended course of periodic debridement and total contact Casting she failed to heal. Medical History Neurological: peripheral neuropathy EENT: allergies, hearing loss Cardiovascular: CHF, hypertension, hyperlipidemia, systolic CHF, mitral valve prolapse Group G strep mitral valve endocarditis Respiratory: NONE Gastrointestinal: constipation, SLOW PERISTALSIS Hepatic: cholecystitis Renal: chronic kidney disease, urinary incontinence Musculoskeletal: chronic back pain, decubitis ulcer, falls, osteoarthritis, spinal stenosis, OSTEOMYELITIS left heel Psychiatric: NONE Endocrine: diabetes, hypothyroidism, obesity Blood Disorders: NONE Cancer(s): NONE TOP CLEANER/Reproductive: endometriosis Other Medical Hx: diabetic foot nonhealing ulcers History of MRSA: Yes History of VRE: No History of CDIFF: No Isolation History: Contact Pneumonia Vaccine: 10/09/14 Influenza Vaccine: 12/18/15 Surgical History Pertinent Surgical History: hip replacement (right ), hysterectomy, 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 , Age 56; Cause: Acute leukemia. Leukemia BROTHER, ; Cause: Heart attack. FATHER (hx colon polyps). , Age 70; Cause: CHF (congestive heart failure ). Psychosocial History Where Do You Live? Home Who Do You Live With? Patient/Self Services at Home: Nursing What is Your Primary Language? Beninese Review of Systems: Unremarkable except for that noted history of present illness Hospital Course Course Attending Physician: ALLIE CALLE DPM Primary Care Physician: JESSICA LAZARO,[place] Hospital Course: Dayan was admitted for staged debridements of her left heel, culture directed antibiotic coverage and PICC line placement. The patient tolerated both procedures well. She was stable and afebrile for the duration of her admission. Allergies: Coded Allergies: enalapril (Intermediate, PERSITENT COUGH. 06/28/15) Disposition Summary Disposition Principal Diagnosis: Left heel osteomyelitis Additional Diagnosis: Diabetic peripheral neuropathy Discharge Disposition: home or self care Discharge Instructions General Discharge Information Code Status: Full Code Patient's Diet: 2200 kcal ADA diet Patient's Activity: Strict nonweightbearing left lower extremity Follow-Up Instructions/Appts: Follow-up with Dr. Calle within 1 week of discharge Medications at Discharge Discharge Medications: Continue taking these medications: Atorvastatin Calcium (Lipitor) 40 MG TABLET 1 Tablet ORAL DAILY Comments: Last Taken: 07/27/16 Time: 4:00 PM Gabapentin (Gabapentin Tab 600MG) 600 MG TAB 2 Tablet ORAL THREE TIMES DAILY Qty = 30 Comments: Last Taken: 07/03/15 Time: 1:22P.M Nateglinide (Starlix) 120 MG TAB 1 Tablet ORAL 3 TIMES DAILY BEFORE MEALS Qty = 30 Comments: NOT GIVEN IN HOSPITAL Cetirizine HCl (Zyrtec) 10 MG TABLET 1 Tablet ORAL DAILY Comments: Last Taken:NOT GIVEN IN THE HOSPITAL Time: Levothyroxine Sodium (Synthroid) 50 MCG TABLET 1 Tablet ORAL DAILY BEFORE BREAKFAST Comments: Last Taken:07/27/16 Time:7 AM Sennosides/Docusate Sodium (Senna S Tablet) 1 EACH TABLET 1 Tablet ORAL TWICE DAILY Qty = 30 Comments: Last Taken: 07/27/16 Time: 10:45 am Lactobacillus Acidophilus (Probiotic) 1 EACH CAPSULE 1 Capsule ORAL TWICE DAILY Comments: did not take in hospital Multivitamin (Multivitamins) 1 EACH CAPSULE 1 Tablet ORAL DAILY Comments: Last Taken:04/01/16 Time:9 AM Metoprolol Tartrate (Metoprolol Tartrate) 50 MG TABLET 50 Milligram ORAL TWICE DAILY Qty = 60 Comments: Last Taken:07/27/16 Time:10:45 am Omeprazole (Omeprazole) 20 MG CAPSULE.DR 40 Milligram ORAL DAILY BEFORE BREAKFAST Qty = 30 Comments: Last Taken:04/01/16 Time:0700 Multivitamin With Minerals (Hair, Skin & Nails) 1 EACH TABLET 1 Tablet ORAL DAILY Comments: not given in hospital Metformin Hydochloride (Glucophage) 500 MG TABLET 1 Tablet ORAL TWICE DAILY Comments: not given in hospital Tylenol With Codeine (Tylenol With Codeine #3 Tablet) 300 MG-30 MG TABLET 1-2 Tablet ORAL EVERY 4-6 HOURS NEEDED as needed for pain control Qty = 30 Instructions: take as directed. do not combine with tylenol. Comments: Last Taken:07/27/16 Time:7:45 am Bethanechol Chloride (Bethanechol Chloride) 25 MG TABLET 1 Tablet ORAL TWICE DAILY Comments: Last Taken: 07/27/16 Time: 1030 AM Polyethylene Glycol 3350 (Miralax) 17 GRAM POWD.PACK 1 Packet ORAL DAILY Instructions: dissolve in water Comments: Last Taken:07/27/16 Time:7:00 am Start taking the following new medications: Ciprofloxacin HCl (Ciprofloxacin HCl) 250 MG TABLET 750 Milligram ORAL EVERY 12 HOURS Days = 28 No Refills Instructions: till 08/18 Comments: Last Taken:07/27/16 Time:10:40 am Vancomycin/0.9 % Sod Chloride (Vancomycin 1 G/100ML-0.9% NaCl) 1 GRAM/100 ML PLAST..BAG 1 G INTRAVEN DAILY Days = 28 No Refills Instructions: TILL 08/18 Comments: Last Taken:07/27/16 Time:12:30 pm Attending MD Review Statement Attending Statement Attending MD Statement: examined this patient
== END 2016-07-27 21:11 | disposition home health service (06) | DRG 629 ==
LOC: STS 04:27 → PACUH 11:15 → 2NB 11:15 → ENRESERV 11:48 → 2NB 13:12 → ENPENDDIS 07-27 08:51 → 2NB 07-27 21:11
PROVIDERS: Internal Medicine; ADMIT Podiatrist Foot & Ankle Surgery
PROC: 0QBM0ZZ Excision of Left Tarsal, Open Approach (ICD-10-PCS; principal; 2016-07-18)
PROC: 0QBM0ZZ Excision of Left Tarsal, Open Approach (ICD-10-PCS; 2016-07-21)
DX: E11.69 Type 2 diabetes mellitus with other specified complication (principal); L89.152 Pressure ulcer of sacral region, stage 2; E11.22 Type 2 diabetes mellitus with diabetic chronic kidney disease; E11.621 Type 2 diabetes mellitus with foot ulcer; I13.0 Hypertensive heart and chronic kidney disease with heart failure and stage 1 through stage 4 chronic kidney disease, or unspecified chronic kidney disease; I50.22 Chronic systolic (congestive) heart failure; E11.40 Type 2 diabetes mellitus with diabetic neuropathy, unspecified; L89.610 Pressure ulcer of right heel, unstageable; Z68.41 Body mass index [BMI] 40.0-44.9, adult; L97.429 Non-pressure chronic ulcer of left heel and midfoot with unspecified severity; I48.0 Paroxysmal atrial fibrillation; M86.172 Other acute osteomyelitis, left ankle and foot; M86.672 Other chronic osteomyelitis, left ankle and foot; E66.9 Obesity, unspecified; Z79.84 Long term (current) use of oral hypoglycemic drugs; E78.5 Hyperlipidemia, unspecified; I34.1 Nonrheumatic mitral (valve) prolapse; N18.9 Chronic kidney disease, unspecified; K59.09 Other constipation; K21.9 Gastro-esophageal reflux disease without esophagitis; E03.9 Hypothyroidism, unspecified
CPT/HCPCS: 2NBP; 87070; 87075; 87184; 73650-LT; 82436; 87147; 88304; 88307; C1769; J1642; J1644; J1815; J2001; J3370; J7040; J7042

== ENCOUNTER 2017-04-07 11:26 | Inpatient (IN) | payer OTHER ==
[~2017-04-07] VITALS: Ht 157.5 cm; Wt 108.9 kg
[~2017-04-07 11:26] MED LIST changes: +CIPROFLOXACIN250 M1 PO; -GABAPENTIN TAB600 MG PO; +GABAPENTIN600 M1 PO; +VANCOMYCIN1 GM/1001 IV
--- NOTE | 2017-04-07 12:04 | ED UPPER/LOWER EXTREMITY COMPL ---
History of Present Illness General Chief Complaint: Lower Extremity Problems Stated Complaint: LEFT LEG EDEMA X 1DAY Source: patient Exam Limitations: no limitations Vital Signs & Intake/Output Vital Signs & Intake/Output Vital Signs Date Time Temp Pulse Resp B/P B/P Pulse O2 O2 Flow FiO2 Mean Ox Delivery Rate 04/07 1605 98.6 76 16 144/80 95 Room Air 04/07 1128 98.8 73 18 152/79 97 Room Air Room Air Allergies Coded Allergies: enalapril (Intermediate, PERSITENT COUGH. 06/28/15) Reconcile Medications Alprazolam 0.5 MG TABLET 1 TAB PO PRN ANXIETY (Reported) Ascorbic Acid (Vitamin C) 1,000 MG TABLET 1 TAB PO DAILY SUPPLEMENT (Reported ) Atorvastatin Calcium (Lipitor) 40 MG TABLET 1 TAB PO DAILY CHOLESTEROL ( Reported) Cetirizine HCl (Zyrtec) 10 MG TABLET 1 TAB PO DAILY ALLERGIES (Reported) Cholecalciferol (Vitamin D3) (Vitamin D) (Unknown Strength) TABLET (Unknown Dose) PO DAILY SUPPLEMENT (Reported) Ciprofloxacin HCl 500 MG TABLET 1 TAB PO BID ANTIBIOTIC (Reported) Gabapentin 600 MG TABLET 2 TAB PO TID NEUROPATHY (Reported) Insulin Detemir (Levemir Flextouch) 100 UNIT/ML (3 ML) INSULN.PEN 20 UNIT SC QHS DM (Reported) Insulin NPH Human Isophane (Humulin N Kwikpen) 100 UNIT/ML (3 ML) INSULN.PEN DM (Reported) Levothyroxine Sodium (Synthroid) 50 MCG TABLET 1 TAB PO DAILY AC THYROID HEALTH (Reported) Magnesium Oxide (Magnesium) (Unknown Strength) CAPSULE (Unknown Dose) PO DAILY SUPPLEMENT (Reported) Metformin Hydochloride (Glucophage) 500 MG TABLET 1 TAB PO BID DIABETES ( Reported) Metoprolol Tartrate 50 MG TABLET 50 MG PO BID afib Multivitamin (Multivitamins) 1 EACH CAPSULE 1 TAB PO DAILY SUPPLEMENT ( Reported) Nateglinide (Starlix) 120 MG TABLET 1 TAB PO DAILY DM (Reported) Omeprazole 20 MG CAPSULE.DR 40 MG PO DAILY AC GERD Polyethylene Glycol 3350 (Miralax) 17 GRAM POWD.PACK 1 PAC PO DAILY OPIOD CONSTIPATION (Reported) dissolve in water Sennosides/Docusate Sodium (Senna S Tablet) 1 EACH TABLET 1 TAB PO BID CONSTIPATION (Reported) Tylenol With Codeine (Tylenol With Codeine #3 Tablet) 300 MG-30 MG TABLET 1-2 TAB PO Q4-6 PRN PRN pain control take as directed. do not combine with tylenol. Vitamin B Complex 1 EACH CAPSULE 1 CAP PO DAILY SUPPLEMENT (Reported) ZINC (Unknown Strength) TABLET (Unknown Dose) PO DAILY SUPPLEMENT (Reported) Triage Note: PT TO ED WITH C/O "MY LEFT FOOT AND LEG IS SWOLLEN, I HAVE A NON-HEALING ULCER FOREVER AND NOW I HAVE PAIN". PT IS A PATIENT OF THE WOUND CLINIC. FROM INNER LEFT FOOT UP TO GROIN Triage Nurses Notes Reviewed? yes Onset: Abrupt Duration: day(s):, constant, getting worse Timing: recent history Severity: moderate, severe Pain/Injury Location: Left: Leg. No Modifying Factors: none HPI: 71-year-old female comes into the emergency room with increased swelling and pain to left leg. Patient has a open wound on her left foot that's been a chronic issue being managed by the wound care center. She goes weekly and gets a cast placed. Patient has a remote history of fever of 102 the other day. She denies any other symptoms such as cough congestion runny nose. She has some increased swelling to her left lower leg and some redness spreading up her legs. (Pj Santoyo) Past History Travel History Traveled to [place] past 21 day No Medical History Any Pertinent Medical History? see below for history Neurological: peripheral neuropathy EENT: allergies, hearing loss Cardiovascular: CHF, hypertension, hyperlipidemia, systolic CHF, mitral valve prolapse Group G strep mitral valve endocarditis Respiratory: NONE Gastrointestinal: constipation, SLOW PERISTALSIS Hepatic: cholecystitis Renal: chronic kidney disease, urinary incontinence Musculoskeletal: chronic back pain, decubitis ulcer, falls, osteoarthritis, spinal stenosis, OSTEOMYELITIS left heel Psychiatric: NONE Endocrine: diabetes, hypothyroidism, obesity Blood Disorders: NONE Cancer(s): NONE AUTO TESTER/Reproductive: endometriosis Other Medical Hx: diabetic foot nonhealing ulcers History of MRSA: Yes History of VRE: No History of CDIFF: No Pneumonia Vaccine: 10/09/14 Influenza Vaccine: 12/18/15 Surgical History Surgical History: hip replacement (right ), hysterectomy, 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 , Age 56; Cause: Acute leukemia. Leukemia BROTHER, ; Cause: Heart attack. FATHER (hx colon polyps). , Age 70; Cause: CHF (congestive heart failure ). Hx Contributory? No (Pj Santoyo) Review of Systems Review of Systems Constitutional: Reports: no symptoms. EENTM: Reports: no symptoms. Respiratory: Reports: no symptoms. Cardiovascular: Reports: no symptoms. Gastrointestinal/Abdominal: Reports: no symptoms. Genitourinary: Reports: no symptoms. Musculoskeletal: Reports: see HPI. Skin: Reports: see HPI. Neurological/Psychological: Reports: no symptoms. Hematologic/Endocrine: Reports: no symptoms. Immunological: Reports: no symptoms. All Other Systems: Reviewed and Negative (Pj Santoyo) Physical Exam Physical Exam General Appearance: well developed/nourished, mild distress Head: atraumatic Eyes: Bilateral: normal appearance. Ears, Nose, Throat: normal ENT inspection, hearing grossly normal Neck: normal inspection Cardiovascular/Respiratory: no respiratory distress Back: normal inspection Leg Left: swelling, limited range of motion Foot Left: ERYTHEMA TO LEFT FOOT, OPEN WOUND BASE OF FOOT, NO PURULENT DRAINAGE APPRECIATED, ERYTHEMA SPREADS UP ANKLE, HOT TO TOUCH, Neurologic/Tendon: DECREASED SENSATION Skin: intact, normal color, warm/dry (Pj Santoyo) Progress Differential Diagnosis: arterial insufficiency, cellulitis, gout, septic arthritis, OSTEOMYELITIS, DVT Plan of Care: Orders Procedure Date/time Status Regular Diet 04/08 B Active CBC WITHOUT DIFFERENTIAL 04/08 0600 Active BASIC ELECTROLYTES PLUS BUN&CR 04/08 0600 Active Heart Healthy Diet 04/07 D Complete Pathway - chart 04/07 1615 Active Patient Data 04/07 1615 Active Code Status 04/07 1615 Active Patient Data 04/07 1612 Active FingerStick- Glucose 04/07 1524 Active Patient Data 04/07 1518 Active ED Holding Orders 04/07 1511 Active Admit to inpatient 04/07 1511 Active Vital Signs 04/07 1511 Active Code Status 04/07 1511 Complete BLOOD CULTURE 04/07 1203 Active LACTIC ACID 04/07 1203 Complete WESTERGREN SED RATE 04/07 1203 Complete C-REACTIVE PROTEIN 04/07 1203 Complete COMPREHENSIVE METABOLIC PANEL 04/07 1203 Complete CBC WITHOUT DIFFERENTIAL 04/07 1203 Complete House Staff 04/07 UNK Active Wound Care/Dressing 04/07 UNK Active VTE Mechanical Prophylaxis 04/07 UNK Active Vital Signs 04/07 UNK Active Intake & Output 04/07 UNK Active Elevate 04/07 UNK Active Activity/Ambulation 04/07 UNK Active Current Medications Sig/Vandana Start time Last Medication Dose Stop Time Status Admin Insulin Detemir 20 UNITS AT BEDTIME 04/07 2200 AC (Levemir) Insulin Aspart 0 TIDAC 04/07 1700 AC (NovoLOG) Levothyroxine Sodium 0.05 MG DAILY AC 04/07 1635 AC (Synthroid) Laboratory Tests 04/07/17 1503: Lactic Acid Cancelled 04/07/17 1205: Anion Gap 15, Estimated GFR 34 L, BUN/Creatinine Ratio 27.3 H, Glucose 227 H, Lactic Acid 1.7, Calcium 8.8, Total Bilirubin 0.3, AST 31, ALT 41, Alkaline Phosphatase 141 H, C-Reactive Prot, Quant > 9.0 H, Total Protein 6.5, Albumin 3.4 L, Globulin 3.1, Albumin/Globulin Ratio 1.1, CBC w Diff MAN DIFF ORDERED, RBC 4.19 L, MCV 87.5, MCH 28.0, RDW 16.4 H, MPV 8.7, Gran % 87.0 H, Lymphocytes % 5.9 L, Monocytes % 7.0, Eosinophils % 0, Basophils % 0.1, Absolute Granulocytes 15.0 H, Segmented Neutrophils 73, Band Neutrophils 14 H, Absolute Lymphocytes 1.0 L, Lymphocytes 6 L, Monocytes 7, Absolute Monocytes 1.2 H, Absolute Eosinophils 0, Absolute Basophils 0, Platelet Estimate ADEQUATE , Hypochromic-Microcytic 1+, Anisocytosis 1+, PUBS MCHC 32.0 L, ESR Westergren 76 H Microbiology 04/07 1220 BLOOD: Blood Culture - RECD 04/07 1204 BLOOD: Blood Culture - RECD Diagnostic Imaging: Viewed by Me: Radiology Read, Ultrasound. Discussed w/RAD: Radiology Read, Ultrasound. Radiology Impression: PATIENT: PHANI MESSINA PRESENT AGE: 71 PATIENT ACCOUNT NO: [id number] : 47 LOCATION: ER ORDERING PHYSICIAN: Pj KHAN SERVICE DATE: 04/07/17 EXAM TYPE : US - US-UNILATERAL VENOUS DOPPLER EXAMINATION: US TRIPLEX LOWER EXTREMITY, LEFT CLINICAL INFORMATION: Left leg pain, edema. COMPARISON: None TECHNIQUE: Color-flow triplex imaging with spectral analysis and compression Doppler were performed on the left lower extremity. FINDINGS: Respiratory variation, normal compression and augmented flow are noted throughout the left lower extremity. The visualized common femoral vein, superficial femoral vein, profunda femoral vein, popliteal vein and midcalf peroneal and posterior tibial venous segments show no evidence of deep venous thrombosis. There is no Reynoso's cyst. IMPRESSION : Normal triplex scan without evidence of deep venous thrombosis involving left the lower extremity. DICTATED BY: Cornell Rodriguez MD DATE/TIME DICTATED:04/07/171444 ACCESSORIES REPAIRER:YESSENIA DATE/TIME TRANSCRIBED:04/07/171444 CONFIDENTIAL, DO NOT COPY WITHOUT APPROPRIATE AUTHORIZATION. <Electronically signed in Other Vendor System> SIGNED BY: Cornell Rodriguez MD 04/07/179, PATIENT: PHANI MESSINA PRESENT AGE: 71 PATIENT ACCOUNT NO: [id number] : 47 LOCATION: [facility] ORDERING PHYSICIAN: Pj KHAN SERVICE DATE: 04/07/17 EXAM TYPE: RAD - XRY-FOOT COMPLETE, LEFT EXAMINATION: XR FOOT, LEFT CLINICAL INFORMATION: A 71-year-old female presented with open wound, redness. Suspected osteomyelitis. COMPARISON: Left foot done on 06/12/2016. TECHNIQUE: AP, lateral, and oblique views of the left foot. FINDINGS: Marked diffuse osteopenia is noted involving all the visualized bones, similar to prior study. Significant vascular, arterial calcifications are also noted, unchanged. Cortical irregularities, sclerosis as well as deformity of the plantar surface of the calcaneus are noted, may represent chronic osteomyelitis, similar to prior study. There is an overlying cutaneous ulcer identified. There is no soft tissue gas visualized. Overall, there is no significant change present. IMPRESSION: Stable radiographic appearance of the left foot, unchanged since 06/12/2016. DICTATED BY: Cornell Rodriguez MD DATE/TIME DICTATED:04/07/171247 ACCESSORIES REPAIRER:YESSENIA DATE/TIME TRANSCRIBED:01/20/ 18 / 1248 CONFIDENTIAL, DO NOT COPY WITHOUT APPROPRIATE AUTHORIZATION. < Electronically signed in Other Vendor System> SIGNED BY: Cornell Rodriguez MD 04/07/17 1311 (Pj Santoyo) Departure Departure Disposition: STILL A PATIENT Condition: Stable Clinical Impression Primary Impression: Cellulitis of left lower extremity Referrals: Luigi Mary MD (PCP/Family) Departure Forms: Customer Survey General Discharge Information Admission Note Spoke With: Luigi Mary MD Documentation of Exam: Documentation of any treatments & extenuating circumstances including Concerns Regarding Discharge (functional status, medication knowledge or non-compliance, living conditions, etc.) that warrant an admission rather than observation: Patient require IV antibiotics. Wound care consultation. Podiatry consultation. MRI of foot. Elevated white blood cell count. Elevated sedimentation rate. Intermittent fevers. Cellulitis is tracking up the left leg. She has been on oral antibiotics and failed outpatient treatment. (Pj Santoyo) PA/NEWSPAPER OR PERIODICAL EDITOR Co-Sign Statement Statement: ED Attending supervision documentation- [X] I saw and evaluated the patient. I have also reviewed all the pertinent lab results and diagnostic results. I agree with the findings and the plan of care as documented in the PA's/NEWSPAPER OR PERIODICAL EDITOR's documentation. [X] I have reviewed the ED Record and agree with the PA's/NEWSPAPER OR PERIODICAL EDITOR's documentation. [] Additions or exceptions (if any) to the PAs/NEWSPAPER OR PERIODICAL EDITOR's note and plan are summarized below: [ADMIT FOR IV ABX, CELLULITIS] (Antonio LAZARO,Chang Craig)
[2017-04-07] MEDS ORDERED: CIPROFLOXACIN500 M2 PO (12:12)
[2017-04-07] MEDS ORDERED: HUMULIN N100 UNIT/2 SC (12:13)
[2017-04-07] MEDS ORDERED: ALPRAZOLAM0.5 M4 PO (12:13)
[2017-04-07] MEDS ORDERED: LEVEMIR FL100 UNIT/1 SC (12:14)
[2017-04-07] MEDS ORDERED: STARLIX120 M1 PO (12:14)
[2017-04-07] MEDS ORDERED: VITAMIN B COMP1 EACH PO (12:15)
[2017-04-07] MEDS ORDERED: VITAMIN D1000 UNIT PO (12:15)
[2017-04-07] MEDS ORDERED: VITAMIN C1000 M4 PO (12:15)
[2017-04-07] MEDS ORDERED: ZINC50 M2 PO (12:16)
[2017-04-07] MEDS ORDERED: MAGNESIUM500 M2 PO (12:16)
[2017-04-07 12:30] LABS: ABSOLUTE BASOPHIL COUNT 0 /CUMM (0.0-0.2); ABSOLUTE EOSINOPHIL COUNT 0 /CUMM (0.0-0.7); ABSOLUTE MONOCYTE COUNT 1.2 /CUMM (0.10-0.60); BASOPHIL % 0.1 % (0.0-2.0); EOSINOPHIL % 0 % (0-5); HEMATOCRIT 36.6 % (37-47); MEAN CORPUSCULAR VOLUME 87.5 FL (81.0-99.0); MEAN PLATELET VOLUME 8.7 FL (7.4-10.4); PLATELET COUNT 227 /CUMM (130-400); RBC DISTRIBUTION WIDTH 16.4 % (11.5-14.5); RED BLOOD CELL CT 4.19 /CUMM (4.20-5.40); WHITE BLOOD CELL COUNT 17.3 /CUMM (4.8-10.8)
--- NOTE | 2017-04-07 13:11 | RADIOLOGY REPORT ---
EXAMINATION: XR FOOT, LEFT CLINICAL INFORMATION: A 71-year-old female presented with open wound, redness. Suspected osteomyelitis. COMPARISON: Left foot done on 06/12/2016. TECHNIQUE: AP, lateral, and oblique views of the left foot. FINDINGS: Marked diffuse osteopenia is noted involving all the visualized bones, similar to prior study. Significant vascular, arterial calcifications are also noted, unchanged. Cortical irregularities, sclerosis as well as deformity of the plantar surface of the calcaneus are noted, may represent chronic osteomyelitis, similar to prior study. There is an overlying cutaneous ulcer identified. There is no soft tissue gas visualized. Overall, there is no significant change present. IMPRESSION: Stable radiographic appearance of the left foot, unchanged since 06/12/2016.
--- NOTE | 2017-04-07 14:49 | ULTRASOUND REPORT ---
EXAMINATION: US TRIPLEX LOWER EXTREMITY, LEFT CLINICAL INFORMATION: Left leg pain, edema. COMPARISON: None TECHNIQUE: Color-flow triplex imaging with spectral analysis and compression Doppler were performed on the left lower extremity. FINDINGS: Respiratory variation, normal compression and augmented flow are noted throughout the left lower extremity. The visualized common femoral vein, superficial femoral vein, profunda femoral vein, popliteal vein and midcalf peroneal and posterior tibial venous segments show no evidence of deep venous thrombosis. There is no Reynoso's cyst. IMPRESSION: Normal triplex scan without evidence of deep venous thrombosis involving left the lower extremity.
--- NOTE | 2017-04-07 16:23 | History & Physical ---
General Information and HPI MD Statement: I have seen and personally examined PHANI MESSINA and documented this H&P. The patient is a 71 year old F who presented with a patient stated chief complaint of [erythema of the left leg]. 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 Patient started to feel weak for the past 1 week with increased tiredness. She had a chronic nonhealing wound on the left foot for which she follows with wound care every week and on Prilosec cast placement. Last she had a fever of 102 when she went to the wound center. She was started on Cipro 500 twice a day at the time by Dr. Altamirano and sent home. Next day she started noticing erythema over the left foot extending all through the groin region with increased swelling. She was concerned and called Dr. Mary recommended her to come to the ER. Review of systems is negative Patient is not compliant with her oral hypoglycemics and lab work. Kiln Setter is Dr. Isaac Allergies/Medications Allergies: Coded Allergies: enalapril (Intermediate, PERSITENT COUGH. 06/28/15) Home Med list Alprazolam 0.5 MG TABLET 1 TAB PO PRN ANXIETY (Reported) Ascorbic Acid (Vitamin C) 1,000 MG TABLET 1 TAB PO DAILY SUPPLEMENT (Reported ) Atorvastatin Calcium (Lipitor) 40 MG TABLET 1 TAB PO DAILY CHOLESTEROL ( Reported) Cetirizine HCl (Zyrtec) 10 MG TABLET 1 TAB PO DAILY ALLERGIES (Reported) Cholecalciferol (Vitamin D3) (Vitamin D) (Unknown Strength) TABLET (Unknown Dose) PO DAILY SUPPLEMENT (Reported) Ciprofloxacin HCl 500 MG TABLET 1 TAB PO BID ANTIBIOTIC (Reported) Gabapentin 600 MG TABLET 2 TAB PO TID NEUROPATHY (Reported) Insulin Detemir (Levemir Flextouch) 100 UNIT/ML (3 ML) INSULN.PEN 20 UNIT SC QHS DM (Reported) Insulin NPH Human Isophane (Humulin N Kwikpen) 100 UNIT/ML (3 ML) INSULN.PEN DM (Reported) Levothyroxine Sodium (Synthroid) 50 MCG TABLET 1 TAB PO DAILY AC THYROID HEALTH (Reported) Magnesium Oxide (Magnesium) (Unknown Strength) CAPSULE (Unknown Dose) PO DAILY SUPPLEMENT (Reported) Metformin Hydochloride (Glucophage) 500 MG TABLET 1 TAB PO BID DIABETES ( Reported) Metoprolol Tartrate 50 MG TABLET 50 MG PO BID afib Multivitamin (Multivitamins) 1 EACH CAPSULE 1 TAB PO DAILY SUPPLEMENT ( Reported) Nateglinide (Starlix) 120 MG TABLET 1 TAB PO DAILY DM (Reported) Omeprazole 20 MG CAPSULE.DR 40 MG PO DAILY AC GERD Polyethylene Glycol 3350 (Miralax) 17 GRAM POWD.PACK 1 PAC PO DAILY OPIOD CONSTIPATION (Reported) dissolve in water Sennosides/Docusate Sodium (Senna S Tablet) 1 EACH TABLET 1 TAB PO BID CONSTIPATION (Reported) Tylenol With Codeine (Tylenol With Codeine #3 Tablet) 300 MG-30 MG TABLET 1-2 TAB PO Q4-6 PRN PRN pain control take as directed. do not combine with tylenol. Vitamin B Complex 1 EACH CAPSULE 1 CAP PO DAILY SUPPLEMENT (Reported) ZINC (Unknown Strength) TABLET (Unknown Dose) PO DAILY SUPPLEMENT (Reported) Compliance With Home Meds: POOR Past History Travel History Traveled to [place] past 21 day No Medical History Neurological: peripheral neuropathy EENT: allergies, hearing loss Cardiovascular: CHF, hypertension, hyperlipidemia, systolic CHF, mitral valve prolapse Group G strep mitral valve endocarditis Respiratory: NONE Gastrointestinal: constipation, SLOW PERISTALSIS Hepatic: cholecystitis Renal: chronic kidney disease, urinary incontinence Musculoskeletal: chronic back pain, decubitis ulcer, falls, osteoarthritis, spinal stenosis, OSTEOMYELITIS left heel Psychiatric: NONE Endocrine: diabetes, hypothyroidism, obesity Blood Disorders: NONE Cancer(s): NONE 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 , Age 56; Cause: Acute leukemia. Leukemia BROTHER, ; Cause: Heart attack. FATHER (hx colon polyps). , Age 70; Cause: CHF (congestive heart failure ). Psychosocial History Where do you live? Home Who Do You Live With? self Services at Home: None Primary Language: Lebanese ETOH Use: denies use Illicit Drug Use: denies illicit drug use Power of Assembler Hydraulic Backhoe/HCP? no Functional Ability ADLs Independent: dressing, eating, toileting, bathing. Ambulation: cane IADLs Independent: shopping, housework, finances, food prep, telephone, transportation , medication admin. Review of Systems Review of Systems Constitutional: Reports: see HPI, malaise, weakness. EENTM: Reports: see HPI. Cardiovascular: Reports: see HPI. Respiratory: Reports: see HPI. GI: Reports: see HPI. Genitourinary: Reports: see HPI. Exam & Diagnostic Data Last 24 Hrs of Vital Signs/I&O Vital Signs Date Time Temp Pulse Resp B/P B/P Pulse O2 O2 Flow FiO2 Mean Ox Delivery Rate 04/07 1128 98.8 73 18 152/79 97 Room Air Room Air Intake & Output 04/07 1600 04/07 0800 04/07 0000 Intake Total Output Total Balance Patient 108.862 kg Weight Weight Reported by Patient Measurement Method Physical Exam General Appearance Alert, Oriented X3, Cooperative, No Acute Distress Skin erythema from the left foot extending TO the groin, upon pressing with the probe on the chronic left foot ulcer it hits the soft tissue Skin Temp/Moisture Exam: Warm/Dry Sepsis Skin Exam (color): Normal for Ethnicity HEENT Atraumatic, PERRLA Neck Supple, No JVD Cardiovascular Normal S1, Normal S2, systolic click Lungs Clear to Auscultation, Normal Air Movement Abdomen Normal Bowel Sounds, Soft, No Tenderness Neurological Normal Speech, Strength at 5/5 X4 Ext, Normal Tone Extremities No Clubbing, No Cyanosis, 2+ edema on the left leg, no edema on the right leg Vascular Normal Pulses, Pulses Symmetrical Body Front and Back (Adult) 1) Erythema with inflammation 2) Chronic left heel ulcer Last 24 Hrs of Labs/Ammon: Laboratory Tests 04/07/17 1503: Lactic Acid Cancelled 04/07/17 1205: Anion Gap 15, Estimated GFR 34 L, BUN/Creatinine Ratio 27.3 H, Glucose 227 H, Lactic Acid 1.7, Calcium 8.8, Total Bilirubin 0.3, AST 31, ALT 41, Alkaline Phosphatase 141 H, C-Reactive Prot, Quant > 9.0 H, Total Protein 6.5, Albumin 3.4 L, Globulin 3.1, Albumin/Globulin Ratio 1.1, CBC w Diff MAN DIFF ORDERED, RBC 4.19 L, MCV 87.5, MCH 28.0, RDW 16.4 H, MPV 8.7, Gran % 87.0 H, Lymphocytes % 5.9 L, Monocytes % 7.0, Eosinophils % 0, Basophils % 0.1, Absolute Granulocytes 15.0 H, Segmented Neutrophils 73, Band Neutrophils 14 H, Absolute Lymphocytes 1.0 L, Lymphocytes 6 L, Monocytes 7, Absolute Monocytes 1.2 H, Absolute Eosinophils 0, Absolute Basophils 0, Platelet Estimate ADEQUATE , Hypochromic-Microcytic 1+, Anisocytosis 1+, PUBS MCHC 32.0 L, ESR Westergren 76 H Microbiology 04/07 1220 BLOOD: Blood Culture - RECD 04/07 1205 BLOOD: Blood Culture - RECD Assessment/Plan Assessment: Patient is a 71-year-old noncompliant diabetic female with previous history of group G strep, MRSA osteomyelitis presented with sudden onset left leg erythema, fever, increased tiredness. Vital signs at admission are unremarkable, physical examination is significant for erythema extending from left heel till the left groin with swelling. Left lower extremity ulcer measuring 3.5 X 1 cm open area with surrounding chronic inflammation 4.5 and 3.5 cm. Labs are significant for white count of 17.3, ESR 76, CRP 9, lactic acid 1.7. Foot x-ray did show osteopenia with stable radiographic findings. Venous Doppler ruled out DVT. Differentials Nonpurulent Cellulitis of left lower extremity vs necrotizing fasciitis Osteomyelitis Deep vein thrombosis (ruled out by negative Dopplers) Plan Admitted to general medicine floor Left lower extremity edema with swelling - probable cellulitis/osteomyelitis Patient was given a single dose of Unasyn the ER. Started patient on Unasyn consult and probable streptococcal cellulitis. If her erythema progresses or white count worsens consider broadening. She comes to wound center every week. It is important to rule out osteomyelitis with an MRI on Sunday. In case if there are any signs of bone involvement we will proceed with debridement on Sunday. Follow-up with cultures. Uncontrolled diabetes mellitus Patient is noncompliant with her oral regimen. Reportedly, taking insulin. We will start the patient on insulin holding oral hypoglycemics. Continue Levemir 20 units at bedtime. Check HbA1c, urine microalbumin. History of hypothyroidism Continue levothyroxine 50 g daily History of hypertension Continue metoprolol tartrate 50 twice a day History of diabetic neuropathy Continue Neurontin 1200 mg 3 times a day History of ?GERD Continue Zyrtec, or malaise 40 mg daily DVT prophylaxis Subcutaneous heparin CODE STATUS DNR/DNI As Ranked By This Provider Problem List: 1. Diabetes mellitus 2. Open wound of left foot 3. Cellulitis of left lower extremity Core Measures/Misc (12/03) Acute Coronary Syndrome ACS Diagnosis: No Congestive Heart Failure Congestive Heart Failure Diagnosis No Cerebrovascular Accident CVA/TIA Diagnosis: No VTE (View Protocol) VTE Risk Factors Acute Medical Illness No Mechanical VTE Prophylaxis d/t N/A MechProphylax Ordered No VTE Pharm Prophylaxis d/t NA PharmProphylax ordered Sepsis (View protocol) Sepsis Present: No Resident Review Statement Resident Statement: examined this patient, discussed with recruiting internship, agreed with recruiting internship, discussed with family, reviewed EMR data (avail), discussed with nursing , discussed with case mgmt, reviewed images, amended to note
[2017-04-07 17:10] VITALS: BP 134/86
--- NOTE | 2017-04-07 17:54 | Admission Certification ---
Admission Certification Certification Statement - As attending physician, I certify that at the time of - admission, based on clinical presentation, severity of - symptoms, need for further diagnostic testing and - therapeutic interventions, and risk of adverse outcomes - without in-hospital treatment, in my clinical assessment, - this patient requires an acute hospital stay for a minimum - of two nights or longer. I have also considered psychsocial - factors such as support system, advanced age, financial - issues, cognitive issues, and failed out-patient treatments, - past re-admission history, safety of patient, and lack of - compliance as applicable. Specific rationale supporting this admission is: Left leg cellulitis, ulcer in leg pain, and had fever a few days ago
--- NOTE | 2017-04-07 17:59 | PN- Att Addend ---
Attending Addendum Attending Brief Note 71-year-old white female diabetic with several diabetic complications. And is not going for her routine blood work. That has been following with the wound Center couple of times a week has a cast which may change urine still treating an open ulcer in the left leg. The last time she went to the clinic stated she had a fever and apparently she had been on an antibiotic and patient called me this morning concerned that the leg was red and was painful To the thigh and I advised her to come to the emergency room he was check she had x-rays and she had an ultrasound which showed no DVT but the patient's white count is elevated 17,000 and elevated sedimentation rate patient was admitted will need IV antibiotics again, will check with infectious diseases to make sure we panic the proper one. Also check blood cultures. Also notify the wound Center so they can follow the patient was is in the hospital. Also in need to check her hemoglobin A1c and her microalbumin which hasn't been checked in a while Laboratory Tests 04/07/17 1503: Lactic Acid Cancelled 04/07/17 1205: Anion Gap 15, Estimated GFR 34 L, BUN/Creatinine Ratio 27.3 H, Glucose 227 H, Hemoglobin A1c Pending, Lactic Acid 1.7, Calcium 8.8, Total Bilirubin 0.3, AST 31, ALT 41, Alkaline Phosphatase 141 H, C-Reactive Prot, Quant > 9.0 H, Total Protein 6.5, Albumin 3.4 L, Globulin 3.1, Albumin/Globulin Ratio 1.1, CBC w Diff MAN DIFF ORDERED, RBC 4.19 L, MCV 87.5, MCH 28.0, RDW 16.4 H, MPV 8.7, Gran % 87.0 H, Lymphocytes % 5.9 L, Monocytes % 7.0, Eosinophils % 0, Basophils % 0.1, Absolute Granulocytes 15.0 H, Segmented Neutrophils 73, Band Neutrophils 14 H, Absolute Lymphocytes 1.0 L, Lymphocytes 6 L, Monocytes 7, Absolute Monocytes 1.2 H, Absolute Eosinophils 0, Absolute Basophils 0, Platelet Estimate ADEQUATE, Hypochromic-Microcytic 1+, Anisocytosis 1+, PUBS MCHC 32.0 L, ESR Westergren 76 H Vital Signs Date Time Temp Pulse Resp B/P B/P Pulse O2 O2 Flow FiO2 Mean Ox Delivery Rate 04/07 1605 98.6 76 16 144/80 95 Room Air 04/07 1128 98.8 73 18 152/79 97 Room Air Room Air Intake & Output 04/07 1600 Intake Total Output Total Balance Patient 240 lb Weight Weight Reported by Patient Measurement Method
[2017-04-07 23:27] VITALS: BP 116/62
[2017-04-08 06:15] VITALS: BP 114/64
[2017-04-08 08:23] LABS: ABSOLUTE BASOPHIL COUNT 0 /CUMM (0.0-0.2); ABSOLUTE EOSINOPHIL COUNT 0.2 /CUMM (0.0-0.7); ABSOLUTE GRANULOCYTE CT 10.1 /CUMM (1.4-6.5); ABSOLUTE LYMPH COUNT 1.2 /CUMM (1.2-3.4); ABSOLUTE MONOCYTE COUNT 1.5 /CUMM (0.10-0.60); BASOPHIL % 0.1 % (0.0-2.0); EOSINOPHIL % 1.6 % (0-5); GRANULOCYTE % 77.3 % (42.2-75.2); HEMATOCRIT 32.5 % (37-47); MEAN CORPUSCULAR HGB 28.5 PG (27.0-31.0); MEAN CORPUSCULAR HGB CONC 32.7 G/DL (33.0-37.0); MEAN CORPUSCULAR VOLUME 87.4 FL (81.0-99.0); MEAN PLATELET VOLUME 8.9 FL (7.4-10.4); PLATELET COUNT 210 /CUMM (130-400); RBC DISTRIBUTION WIDTH 17.2 % (11.5-14.5); RED BLOOD CELL CT 3.72 /CUMM (4.20-5.40); WHITE BLOOD CELL COUNT 13.1 /CUMM (4.8-10.8)
--- NOTE | 2017-04-08 10:07 | PN- Housestaff ---
Subjective Follow-up For: LEFT FOOT CELLULITIS Subjective: Patient states she is having some pain in the left foot and is scared about what will happen re: finding of osteomyelitis since she has had this problem before. other than this no concerns. patient was given probiotic bc recounts yeast infections when on abx. Review of Systems Constitutional: Reports: no symptoms. Respiratory: Reports: no symptoms. Gastrointestinal: Reports: no symptoms. Musculoskeletal: Reports: muscle pain. Skin: Reports: lesions. Objective Last 24 Hrs of Vital Signs/I&O Vital Signs Date Time Temp Pulse Resp B/P B/P Pulse O2 O2 Flow FiO2 Mean Ox Delivery Rate 04/08 1506 98.1 63 20 140/78 96 Room Air 04/08 1026 64 118/58 04/08 0615 98.6 63 20 114/64 94 04/08 0214 76 122/60 04/07 2327 98.3 71 20 116/62 95 Room Air 04/07 1710 98.7 84 18 134/86 97 Room Air Room Air Intake & Output 04/08 1600 04/08 0800 04/08 0000 Intake Total 720 360 Output Total 100 300 Balance -100 420 360 Intake, IV 600 120 Intake, Oral 120 240 Number 0 Bowel Movements Output, Urine 100 300 Patient 240 lb Weight Weight Reported by Patient Measurement Method Physical Exam General Appearance: Alert, Oriented X3, Cooperative Skin: No Rashes Cardiovascular: Regular Rate, Normal S1, Normal S2 Lungs: Clear to Auscultation Abdomen: Normal Bowel Sounds, Soft, No Tenderness Extremities: No Clubbing, No Cyanosis, Normal Pulses Current Medications: Current Medications Sig/Vandana Start time Last Medication Dose Route Stop Time Status Admin Acetaminophen 650 MG Q6P PRN 04/07 2129 AC PO Acetaminophen 1,000 MG Q6P PRN 04/07 213 AC IV Acetaminophen/ 1 TAB .STK-MED ONE 04/08 0018 DC Codeine Phosphate PO 04/08 0019 Acetaminophen/ 1 TAB ONCE ONE 04/07 2100 DC 04/08 Codeine Phosphate PO 04/07 2100 0027 Ampicillin Sodium/ 1,500 MG Q6H 04/07 2200 AC 04/08 Sulbactam Sodium IV 1026 Sodium Chloride 100 ML Ascorbic Acid 1,000 MG DAILY 04/08 1000 AC 04/08 PO 1027 Atorvastatin Calcium 40 MG DAILY@1700 04/07 1813 AC 04/07 PO 2105 Cholecalciferol 1,000 IU DAILY 04/08 1000 AC 04/08 PO 1026 Gabapentin 1,200 MG Q8 04/07 1757 AC 04/08 PO 1457 Heparin Sodium 5,000 UNIT Q8 04/07 2330 AC 04/08 (Porcine) SC 1457 Insulin Aspart 0 TIDAC 04/07 1700 AC 04/08 SC 1230 Insulin Detemir 20 UNITS AT BEDTIME 04/07 2200 AC 04/07 SC 2216 Lactobacillus 1 CAP BID 04/08 1107 AC 04/08 Acidophilus PO 1230 Levothyroxine Sodium 0.05 MG DAILY AC 04/07 1635 AC 04/08 PO 0639 Loratadine 10 MG DAILY 04/08 1000 AC 04/08 PO 1026 Magnesium Oxide 400 MG DAILY 04/08 1000 AC 04/08 PO 1027 Metoprolol Tartrate 50 MG BID 04/07 2330 AC 04/08 PO 1026 Multivitamins 1 TAB DAILY 04/08 1000 AC 04/08 PO 1027 Omeprazole 40 MG DAILY AC 04/08 0700 AC 04/08 PO 0639 Polyethylene Glycol 17 GM DAILY 04/08 1000 AC 04/08 PO 1027 Ramelteon 8 MG .STK-MED ONE 04/08 0017 DC PO 04/08 0018 Ramelteon 8 MG ONCE ONE 04/07 2100 DC 04/08 PO 04/07 2101 0027 Sodium Chloride 1,000 ML Q13H 04/07 2230 AC 04/08 IV 1457 Sodium Chloride 1,000 ML Q13H 04/07 2230 DC IV 04/08 1129 Last 24 Hrs of Lab/Ammon Results Last 24 Hrs of Labs/Mics: Laboratory Tests 04/08/17 0728: Anion Gap 13, Estimated GFR 34 L, BUN/Creatinine Ratio 29.3 H, CBC w Diff NO MAN DIFF REQ, RBC 3.72 L, MCV 87.4, MCH 28.5, RDW 17.2 H, MPV 8.9, Gran % 77.3 H, Lymphocytes % 9.5 L, Monocytes % 11.5 H, Eosinophils % 1.6, Basophils % 0.1, Absolute Granulocytes 10.1 H, Absolute Lymphocytes 1.2, Absolute Monocytes 1.5 H, Absolute Eosinophils 0.2, Absolute Basophils 0, PUBS MCHC 32.7 L 04/08/17 0025: Urinalysis MOD H, Urine Color YEL, Urine Clarity CLEAR, Urine pH 6.0, Ur Specific [place] >= 1.030, Urine Protein >=300 H, Urine Ketones NEG, Urine Nitrite NEG, Urine Bilirubin NEG, Urine Urobilinogen 0.2, Ur Leukocyte Esterase NEG, Ur Microscopic SEDIMENT EXAMINED, Urine RBC 5-10 H, Urine WBC 10-15 H, Ur Epithelial Cells MOD H, Urine Bacteria FEW H, Hyaline Casts RARE H, Urine Hemoglobin MOD H, Urine Glucose NEG Assessment/Plan Assessment: Assessment: Patient is a 71-year-old noncompliant diabetic female with previous history of group G strep, MRSA osteomyelitis presented with sudden onset left leg erythema, fever, increased tiredness. Vital signs at admission are unremarkable, physical examination is significant for erythema extending from left heel till the left groin with swelling. Left lower extremity ulcer measuring 3.5 X 1 cm open area with surrounding chronic inflammation 4.5 and 3.5 cm. Labs are significant for white count of 17.3, ESR 76, CRP 9, lactic acid 1.7. Foot x-ray did show osteopenia with stable radiographic findings. Venous Doppler ruled out DVT. Differentials Nonpurulent Cellulitis of left lower extremity Osteomyelitis Deep vein thrombosis (ruled out by negative Dopplers) Plan Admitted to general medicine floor Left lower extremity edema with swelling - probable cellulitis/osteomyelitis Patient was given a single dose of Unasyn the ER. Started patient on unasyn now day 2 for probable streptococcal cellulitis. If her erythema progresses or white count worsens (it is now better) consider broadening. She comes to wound center every week. It is important to rule out osteomyelitis with an MRI on Sunday. In case if there are any signs of bone involvement we will proceed with debridement on Sunday. Follow-up with blood cultures. LA normal. ESR high. PER ID: an MRI could be considered though it is unlikely to change her management. Given previous discussion with and recommendations from Podiatry feel that a left BKA will be necessary, but she continues to refuse this. PODIATRY TOMORROW [facility]G Uncontrolled diabetes mellitus Patient is noncompliant with her oral regimen. Reportedly, taking insulin. We will start the patient on insulin holding oral hypoglycemics. Continue Levemir 20 units at bedtime. -Check HbA1c: pending -urine microalbumin is high as well as u random total protein and prot/cr ratio. Cr. 1.5. BASELINE IS LOW 1.0's. UA also shows mod hb and some wbcs and few bacteria. pt has no urinary symptoms. blood glucose today was high at 272. -Patient should be on HETAL-I for proteinuria for high blood pressure instead of metoprolol? History of hypothyroidism Continue levothyroxine 50 g daily History of hypertension - MAYBE SWITCH TO HETAL-I/ARB? Continue metoprolol tartrate 50 twice a day History of diabetic neuropathy Continue Neurontin 1200 mg 3 times a day History of ?GERD Continue Zyrtec, or malaise 40 mg daily DVT prophylaxis Subcutaneous heparin CODE STATUS DNR/DNI Problem List: 1. Cellulitis of left lower extremity Pain Ratin Pain Location: LEFT FOOT Pain Goal: Pain 4 or less Pain Plan: PRN Tomorrow's Labs & Rationales: CBC BEP
--- NOTE | 2017-04-08 13:50 | Cons- Infect Disease ---
General Information and HPI Consulting Request Date of Consult: 04/08/17 Requested By: Luigi Mary MD Reason for Consult: Cellulitis of the left leg/nonhealing left heel wound Source of Information: patient, old records History of Present Illness: This is a 71-year-old woman with hypertension, CHF, mitral prolapse, with a history of Group G strep mitral valve endocarditis nearly 2 years prior to admission, diabetes, with a peripheral neuropathy and peripheral vascular disease, with a chronic, nonhealing left heel ulcer for nearly 2 years, treated with several courses of antibiotics for osteomyelitis, most recently 8 months prior to admission, at which time she was treated with a 4 week course of Vancomycin and Ciprofloxacin, for MRSA, Enterococcus and Proteus isolated from the bone culture, and debridement of the left calcaneus, with left BKA recommended several times by Podiatry but refused by patient and with continued treatment of the nonhealing ulcer by Podiatry as an outpatient since then, apparently begun on Ciprofloxacin 2 days prior to admission Podiatry after she was found to be febrile, admitted on April 07 after she presented to the emergency room with a one-week history of fatigue and a 2 day history of left foot and leg swelling and erythema, extending from the ankle to the groin, with chills. On admission she was afebrile. Laboratory data revealed a white blood cell count of 17,000, with 73 segs and 14 bands, BUN/creatinine 41 and 1.5, alkaline phosphatase 141. Urinalysis 5-10 RBCs/10-15 WBCs. X-ray of the left foot revealed cortical irregularities, sclerosis and a deformity of the plantar surface of the calcaneus, felt to possibly represent chronic osteomyelitis. Doppler of the left leg was negative for DVT. She was begun on Unasyn and has remained afebrile overnight. She has had no further chills and offers no other complaints at this time. Allergies/Medications Allergies: Coded Allergies: enalapril (Intermediate, PERSITENT COUGH. 06/28/15) Home Med List: Alprazolam 0.5 MG TABLET 1 TAB PO PRN ANXIETY (Reported) Ascorbic Acid (Vitamin C) 1,000 MG TABLET 1 TAB PO DAILY SUPPLEMENT (Reported ) Atorvastatin Calcium (Lipitor) 40 MG TABLET 1 TAB PO DAILY CHOLESTEROL ( Reported) Cetirizine HCl (Zyrtec) 10 MG TABLET 1 TAB PO DAILY ALLERGIES (Reported) Cholecalciferol (Vitamin D3) (Vitamin D) (Unknown Strength) TABLET (Unknown Dose) PO DAILY SUPPLEMENT (Reported) Ciprofloxacin HCl 500 MG TABLET 1 TAB PO BID ANTIBIOTIC (Reported) Gabapentin 600 MG TABLET 2 TAB PO TID NEUROPATHY (Reported) Insulin Detemir (Levemir Flextouch) 100 UNIT/ML (3 ML) INSULN.PEN 20 UNIT SC QHS DM (Reported) Insulin NPH Human Isophane (Humulin N Kwikpen) 100 UNIT/ML (3 ML) INSULN.PEN DM (Reported) Levothyroxine Sodium (Synthroid) 50 MCG TABLET 1 TAB PO DAILY AC THYROID HEALTH (Reported) Magnesium Oxide (Magnesium) (Unknown Strength) CAPSULE (Unknown Dose) PO DAILY SUPPLEMENT (Reported) Metformin Hydochloride (Glucophage) 500 MG TABLET 1 TAB PO BID DIABETES ( Reported) Metoprolol Tartrate 50 MG TABLET 50 MG PO BID afib Multivitamin (Multivitamins) 1 EACH CAPSULE 1 TAB PO DAILY SUPPLEMENT ( Reported) Nateglinide (Starlix) 120 MG TABLET 1 TAB PO DAILY DM (Reported) Omeprazole 20 MG CAPSULE.DR 40 MG PO DAILY AC GERD Polyethylene Glycol 3350 (Miralax) 17 GRAM POWD.PACK 1 PAC PO DAILY OPIOD CONSTIPATION (Reported) dissolve in water Sennosides/Docusate Sodium (Senna S Tablet) 1 EACH TABLET 1 TAB PO BID CONSTIPATION (Reported) Tylenol With Codeine (Tylenol With Codeine #3 Tablet) 300 MG-30 MG TABLET 1-2 TAB PO Q4-6 PRN PRN pain control take as directed. do not combine with tylenol. Vitamin B Complex 1 EACH CAPSULE 1 CAP PO DAILY SUPPLEMENT (Reported) ZINC (Unknown Strength) TABLET (Unknown Dose) PO DAILY SUPPLEMENT (Reported) Past History Travel History Traveled to [place] past 21 day No Medical History Blood Transfusion Hx: Yes Neurological: peripheral neuropathy EENT: allergies, hearing loss Cardiovascular: CHF, hypertension, hyperlipidemia, systolic CHF, mitral valve prolapse Group G strep mitral valve endocarditis, Group G strep endocarditis Respiratory: NONE Gastrointestinal: constipation, SLOW PERISTALSIS Hepatic: cholecystitis Renal: chronic kidney disease, urinary incontinence Musculoskeletal: chronic back pain, decubitis ulcer, falls, osteoarthritis, spinal stenosis, OSTEOMYELITIS left heel Psychiatric: NONE Endocrine: diabetes, hypothyroidism, obesity Blood Disorders: NONE Cancer(s): NONE COREMAKER BENCH/Reproductive: endometriosis Other Medical Hx: diabetic foot nonhealing ulcers History of MRSA: Yes History of VRE: No History of CDIFF: No Isolation History: Contact Pneumonia Vaccine: 10/09/14 Influenza Vaccine: 02/16/17 Surgical History Surgical History: cholecystectomy, hernia repair-incisional, hip replacement ( right ), hysterectomy, status post right second finger amputation s/p right partial 3rd finger amputation s/p left 3rd finger amputation, status post left heel calcanectomies Family History Relations & Conditions If Any: MOTHER ([facility] for sx gallstones). , Age 56; Cause: Acute leukemia. Leukemia BROTHER, ; Cause: Heart attack. FATHER (hx colon polyps). , Age 70; Cause: CHF (congestive heart failure ). Psychosocial History Where Do You Live? Home Who Do You Live With? self Services at Home: None Primary Language: Bangladeshi Smoking Status: Never Smoked ETOH Use: denies use Illicit Drug Use: denies illicit drug use Power of Aoc Director Intelligence Officer/HCP? no Functional Ability ADLs Independent: dressing, eating, toileting, bathing. Ambulation: cane IADLs Independent: shopping, housework, finances, food prep, telephone, transportation , medication admin. Review of Systems Review of Systems All Other Systems: Reviewed and Negative Exam & Diagnostic Data Last 24 Hrs of Vital Signs/I&O Vital Signs Date Time Temp Pulse Resp B/P B/P Pulse O2 O2 Flow FiO2 Mean Ox Delivery Rate 04/08 1026 64 118/58 04/08 0615 98.6 63 20 114/64 94 04/08 0214 76 122/60 04/07 2327 98.3 71 20 116/62 95 Room Air 04/07 1710 98.7 84 18 134/86 97 Room Air Room Air 04/07 1605 98.6 76 16 144/80 95 Room Air Intake & Output 04/08 1600 04/08 0800 04/08 0000 Intake Total 720 360 Output Total 300 Balance 420 360 Intake, IV 600 120 Intake, Oral 120 240 Number 0 Bowel Movements Output, Urine 300 Patient 240 lb Weight Weight Reported by Patient Measurement Method Physical Exam Other Physical Findings: Afebrile. She is awake and alert in no acute distress. Skin reveals no rash. HEENT negative. Neck is supple with no adenopathy. Lungs bibasilar crackles. Heart regular rhythm with no murmur. Abdomen is soft, nontender with positive bowel sounds. Back no CVA tenderness. Extremities left heel plantar ulcer, with purulent drainage, with erythema extending from the heel on the medial aspect of her leg towards the groin, slightly tender to palpation, with edema of the left lower extremity; status post amputation of the left third finger and right second finger and partial amputation of the right third finger. Neuro neuropathy both feet. Last 24 Hours of Lab Results: Laboratory Tests 04/08 04/08 0728 0025 Chemistry Sodium (137 - 145 mmol/L) 143 Potassium (3.5 - 5.1 mmol/L) 4.1 Chloride (98 - 107 mmol/L) 106 Carbon Dioxide (22 - 30 mmol/L) 24 Anion Gap (5 - 16) 13 BUN (7 - 17 mg/dL) 44 H Creatinine (0.5 - 1.0 mg/dL) 1.5 H Estimated GFR (>60 ml/min) 34 L BUN/Creatinine Ratio (7 - 25 %) 29.3 H Hematology CBC w Diff NO MAN DIFF REQ WBC (4.8 - 10.8 /CUMM) 13.1 H RBC (4.20 - 5.40 /CUMM) 3.72 L Hgb (12.0 - 16.0 G/DL) 10.6 L Hct (37 - 47 %) 32.5 L MCV (81.0 - 99.0 FL) 87.4 MCH (27.0 - 31.0 PG) 28.5 RDW (11.5 - 14.5 %) 17.2 H Plt Count (130 - 400 /CUMM) 210 MPV (7.4 - 10.4 FL) 8.9 Gran % (42.2 - 75.2 %) 77.3 H Lymphocytes % (20.5 - 51.1 %) 9.5 L Monocytes % (1.7 - 9.3 %) 11.5 H Eosinophils % (0 - 5 %) 1.6 Basophils % (0.0 - 2.0 %) 0.1 Absolute Granulocytes (1.4 - 6.5 /CUMM) 10.1 H Absolute Lymphocytes (1.2 - 3.4 /CUMM) 1.2 Absolute Monocytes (0.10 - 0.60 /CUMM) 1.5 H Absolute Eosinophils (0.0 - 0.7 /CUMM) 0.2 Absolute Basophils (0.0 - 0.2 /CUMM) 0 PUBS MCHC (33.0 - 37.0 G/DL) 32.7 L Urines Urinalysis MOD H Urine Color (YEL,AMB,STR) YEL Urine Clarity (CLEAR) CLEAR Urine pH (5.0 - 8.0) 6.0 Ur Specific [place] (1.001 - 1.035) >= 1.030 Urine Protein (NEG,<30 MG/DL) >=300 H Urine Ketones (NEG) NEG Urine Nitrite (NEG) NEG Urine Bilirubin (NEG) NEG Urine Urobilinogen (0.1 - 1.0 EU/dl) 0.2 Ur Leukocyte Esterase (NEG) NEG Ur Microscopic SEDIMENT EXAMINED Urine RBC (0 - 5 /HPF) 5-10 H Urine WBC (0 - 2 /HPF) 10-15 H Ur Epithelial Cells (NONE,FEW) MOD H Urine Bacteria (NEG/NONE) FEW H Hyaline Casts (0/LPF) RARE H Urine Hemoglobin (NEG) MOD H Urine Glucose (N MG/DL) NEG 04/07 1503 Chemistry Lactic Acid Cancelled Last 24 Hours of Ammon Results: Blood cultures 2 April 07 negative Diagnostic Data Recent Imaging Findings: X-ray of the left foot revealed cortical irregularities, sclerosis and a deformity of the plantar surface of the calcaneus, felt to possibly represent chronic osteomyelitis. Doppler of the left leg was negative for DVT. Assessment/Plan Assessment/Plan Impression: This is a 71-year-old woman with hypertension, CHF, diabetes, with a peripheral neuropathy and peripheral vascular disease, with a chronic, nonhealing left heel ulcer for nearly 2 years, treated with several courses of antibiotics for osteomyelitis, most recently 8 months prior to admission, with left BKA recommended several times by Podiatry but refused by patient, begun on Ciprofloxacin 2 days prior to admission for a fever, admitted on April 07 with a one-week history of fatigue and a 2 day history of left foot and leg swelling and erythema, found to be afebrile with a leukocytosis and with an x-ray of the left heel suggestive of chronic osteomyelitis. She appears to have a cellulitis of the left leg, which is presumably secondary to her nonhealing ulcer and which appears to be responding to Unasyn. She likely has chronic osteomyelitis but do not feel that another course of antibiotics is indicated unless her vascular status can be optimized. An MRI could be considered though it is unlikely to change her management. Given previous discussion with and recommendations from Podiatry feel that a left BKA will be necessary, but she continues to refuse this. Suggestion: 1. Await Podiatry evaluation 2. Vascular surgery evaluation 3. Could consider MRI of the left heel but would defer to Podiatry 4. Elevation of the left leg 5. Continue Unasyn Consult Acknowledgment - Thank you for your consult request.
[2017-04-08 15:06] VITALS: BP 140/78
--- NOTE | 2017-04-08 16:02 | PN- Att Addend ---
Attending Addendum Attending Brief Note Appreciate consultants input and recommendations patient is sitting in the chair, with elevated legs. Chronic ulcer in the foot was not checked but the redness in the lower extremity much less today maybe less swelling and less pain Patient is afebrile vital signs are stable with no other changes on physical exam White count is down to 13,100, blood cultures are negative so far IV Unasyn for now and follow infectious diseases recommendations, 24 TOTALS 04/08 0000 04/07 0000 Intake Total 360 Output Total Balance 360 Intake, IV 120 Intake, Oral 240 Number 0 Bowel Movements Patient 240 lb Weight Weight Reported by Patient Measurement Method Current Medications Sig/Vandana Start time Last Medication Dose Route Stop Time Status Admin Acetaminophen 650 MG Q6P PRN 04/07 2130 AC PO Acetaminophen 1,000 MG Q6P PRN 04/07 2130 AC IV Acetaminophen/ 1 TAB .STK-MED ONE 04/08 0018 DC Codeine Phosphate PO 04/08 0019 Acetaminophen/ 1 TAB ONCE ONE 04/07 2100 DC 04/08 Codeine Phosphate PO 04/07 2101 0027 Ampicillin Sodium/ 1,500 MG Q6H 04/07 2200 AC 04/08 Sulbactam Sodium IV 1026 Sodium Chloride 100 ML Ascorbic Acid 1,000 MG DAILY 04/08 1000 AC 04/08 PO 1027 Atorvastatin Calcium 40 MG DAILY@1700 04/07 1813 AC 04/07 PO 2105 Cholecalciferol 1,000 IU DAILY 04/08 1000 AC 04/08 PO 1026 Gabapentin 1,200 MG Q8 04/07 1757 AC 04/08 PO 1457 Heparin Sodium 5,000 UNIT Q8 04/07 2330 AC 04/08 (Porcine) SC 1457 Insulin Aspart 0 TIDAC 04/07 1700 AC 04/08 SC 1230 Insulin Detemir 20 UNITS AT BEDTIME 04/07 2200 AC 04/07 SC 2216 Lactobacillus 1 CAP BID 04/08 1107 AC 04/08 Acidophilus PO 1230 Levothyroxine Sodium 0.05 MG DAILY AC 04/07 1635 AC 04/08 PO 0639 Loratadine 10 MG DAILY 04/08 1000 AC 04/08 PO 1026 Magnesium Oxide 400 MG DAILY 04/08 1000 AC 04/08 PO 1027 Metoprolol Tartrate 50 MG BID 04/07 2330 AC 04/08 PO 1026 Multivitamins 1 TAB DAILY 04/08 1000 AC 04/08 PO 1027 Omeprazole 40 MG DAILY AC 04/08 0700 AC 04/08 PO 0639 Polyethylene Glycol 17 GM DAILY 04/08 1000 AC 04/08 PO 1027 Ramelteon 8 MG .STK-MED ONE 04/08 0017 DC PO 04/08 0018 Ramelteon 8 MG ONCE ONE 04/07 2100 DC 04/08 PO 04/07 2101 0027 Sodium Chloride 1,000 ML Q13H 04/07 2230 AC 04/08 IV 1457 Sodium Chloride 1,000 ML Q13H 04/07 2230 DC IV 04/08 1129 Laboratory Tests 04/08/17 0728: Anion Gap 13, Estimated GFR 34 L, BUN/Creatinine Ratio 29.3 H, CBC w Diff NO MAN DIFF REQ, RBC 3.72 L, MCV 87.4, MCH 28.5, RDW 17.2 H, MPV 8.9, Gran % 77.3 H, Lymphocytes % 9.5 L, Monocytes % 11.5 H, Eosinophils % 1.6, Basophils % 0.1, Absolute Granulocytes 10.1 H, Absolute Lymphocytes 1.2, Absolute Monocytes 1.5 H, Absolute Eosinophils 0.2, Absolute Basophils 0, PUBS MCHC 32.7 L 04/08/17 0025: Urinalysis MOD H, Urine Color YEL, Urine Clarity CLEAR, Urine pH 6.0, Ur Specific [place] >= 1.030, Urine Protein >=300 H, Urine Ketones NEG, Urine Nitrite NEG, Urine Bilirubin NEG, Urine Urobilinogen 0.2, Ur Leukocyte Esterase NEG, Ur Microscopic SEDIMENT EXAMINED, Urine RBC 5-10 H, Urine WBC 10-15 H, Ur Epithelial Cells MOD H, Urine Bacteria FEW H, Hyaline Casts RARE H, Urine Hemoglobin MOD H, Urine Glucose NEG 04/07/17 1503: Lactic Acid Cancelled 04/07/17 1205: Anion Gap 15, Estimated GFR 34 L, BUN/Creatinine Ratio 27.3 H, Glucose 227 H, Hemoglobin A1c Pending, Lactic Acid 1.7, Calcium 8.8, Total Bilirubin 0.3, AST 31, ALT 41, Alkaline Phosphatase 141 H, C-Reactive Prot, Quant > 9.0 H, Total Protein 6.5, Albumin 3.4 L, Globulin 3.1, Albumin/Globulin Ratio 1.1, CBC w Diff MAN DIFF ORDERED, RBC 4.19 L, MCV 87.5, MCH 28.0, RDW 16.4 H, MPV 8.7, Gran % 87.0 H, Lymphocytes % 5.9 L, Monocytes % 7.0, Eosinophils % 0, Basophils % 0.1, Absolute Granulocytes 15.0 H, Segmented Neutrophils 73, Band Neutrophils 14 H, Absolute Lymphocytes 1.0 L, Lymphocytes 6 L, Monocytes 7, Absolute Monocytes 1.2 H, Absolute Eosinophils 0, Absolute Basophils 0, Platelet Estimate ADEQUATE, Hypochromic-Microcytic 1+, Anisocytosis 1+, PUBS MCHC 32.0 L, ESR Westergren 76 H 04/07/17 0025: Ur Random Creatinine 104.0, Ur Random Microalbumin > 114.0 H, U Random Total Protein 340 H, Protein/Creatinin Ratio 3.2 H, U Cystine/Creat Ratio Vital Signs Date Time Temp Pulse Resp B/P B/P Pulse O2 O2 Flow FiO2 Mean Ox Delivery Rate 04/08 1506 98.1 63 20 140/78 96 Room Air 04/08 1026 64 118/58 04/08 0615 98.6 63 20 114/64 94 04/08 0214 76 122/60 04/07 2327 98.3 71 20 116/62 95 Room Air 04/07 1710 98.7 84 18 134/86 97 Room Air Room Air 04/07 1605 98.6 76 16 144/80 95 Room Air
[2017-04-08 21:57] VITALS: BP 132/78
[2017-04-09 06:41] VITALS: BP 144/66
--- NOTE | 2017-04-09 08:58 | Patient Discharge Instructions ---
Acute Coronary Syndrome Inclusion Criteria At DC or during hospital stay patient has or had the following: Discharge Core Measures Meds if any: Prescribed or Continued at Discharge Meds if any: NOT Prescribed or Continued at Discharge Congestive Heart Failure Inclusion Criteria At DC or during hospital stay patient has or had the following: Discharge Core Measures Meds if any: Prescribed or Continued at Discharge Meds if any: NOT Prescribed or Continued at Discharge Cerebrovascular accident Inclusion Criteria At DC or during hospital stay patient has or had the following: CVA/TIA Diagnosis No Discharge Core Measures Meds if any: Prescribed or Continued at Discharge Meds if any: NOT Prescribed or Continued at Discharge Venous thromboembolism Discharge Core Measures - Per Current guidelines, there needs to be overlap - treatment for the first 5 days of Warfarin therapy. - If discharged on Warfarin prior to 5 days of - overlap therapy, the patient will need to be - assessed for post discharge needs including - *Post discharge parental anticoagulation - *Warfarin and/or parental anticoagulation education - *Follow up date to check INR post discharge Meds if any: Prescribed or Continued at Discharge Note: Overlap Therapy is Warfarin and Anticoagulant Meds if any: NOT Prescribed or Continued at Discharge
--- NOTE | 2017-04-09 10:55 | RADIOLOGY REPORT ---
EXAMINATION: XR PORTABLE CHEST CLINICAL INFORMATION: Wheezing COMPARISON: 07/23/2016 TECHNIQUE: Portable frontal view of the chest was obtained. FINDINGS: Hypoinflation and central vascular congestion with no overt edema. No focal consolidation or pleural effusion. Stable cardiomediastinal silhouette. IMPRESSION: Central vascular congestion. Hypoinflation.
[2017-04-09 10:57] LABS: ABSOLUTE BASOPHIL COUNT 0 /CUMM (0.0-0.2); ABSOLUTE EOSINOPHIL COUNT 0.2 /CUMM (0.0-0.7); ABSOLUTE GRANULOCYTE CT 9.1 /CUMM (1.4-6.5); ABSOLUTE LYMPH COUNT 1.1 /CUMM (1.2-3.4); ABSOLUTE MONOCYTE COUNT 1.2 /CUMM (0.10-0.60); BASOPHIL % 0.1 % (0.0-2.0); EOSINOPHIL % 1.3 % (0-5); GRANULOCYTE % 78.7 % (42.2-75.2); HEMATOCRIT 32.8 % (37-47); MEAN CORPUSCULAR HGB 28.7 PG (27.0-31.0); MEAN CORPUSCULAR HGB CONC 32.8 G/DL (33.0-37.0); MEAN CORPUSCULAR VOLUME 87.5 FL (81.0-99.0); MEAN PLATELET VOLUME 8.9 FL (7.4-10.4); PLATELET COUNT 221 /CUMM (130-400); RBC DISTRIBUTION WIDTH 16.7 % (11.5-14.5); RED BLOOD CELL CT 3.74 /CUMM (4.20-5.40); WHITE BLOOD CELL COUNT 11.6 /CUMM (4.8-10.8)
--- NOTE | 2017-04-09 11:00 | PN- Att Addend ---
Attending Addendum Attending Brief Note Patient feeling better, vital signs are stable patient has no fever. Her leg the redness and the swelling has decreased with the chronic ulcer in the foot is about the same area no other changes on physical to continue the antibiotic treatment as per infectious diseases recommendations continue wound care of the ulcer, obtain an endocrine consultation regarding the use of metformin and some mild renal insufficiency and also the fact that she needs kidney protection and seems unable to take an HETAL inhibitor. Intake & Output 04/09 1600 04/09 0400 04/08 1600 04/08 0400 04/07 1600 04/07 0400 Intake Total 226 361 2217 360 Output Total 400 600 400 Balance 169 613 7451 360 Intake, IV 300 342 9097 120 Intake, Oral 240 480 840 240 Number 0 0 0 Bowel Movements Output, Urine 400 600 400 Patient 240 lb 240 lb Weight Weight Reported by Patient Reported by Patient Measurement Method Current Medications Sig/Vandana Start time Last Medication Dose Route Stop Time Status Admin Acetaminophen 650 MG Q6P PRN 04/07 2130 AC PO Acetaminophen 1,000 MG Q6P PRN 04/07 2130 AC IV Ampicillin Sodium/ 1,500 MG Q6H 04/07 2200 AC 04/09 Sulbactam Sodium IV 1021 Sodium Chloride 100 ML Ascorbic Acid 1,000 MG DAILY 04/08 1000 AC 04/09 PO 1021 Atorvastatin Calcium 40 MG DAILY@1700 04/07 1813 AC 04/08 PO 1750 Cholecalciferol 1,000 IU DAILY 04/08 1000 AC 04/09 PO 1021 Gabapentin 1,200 MG Q8 04/07 1757 AC 04/09 PO 0550 Heparin Sodium 5,000 UNIT Q8 04/07 2330 AC 04/09 (Porcine) SC 0551 Insulin Aspart 0 TIDAC 04/07 1700 AC 04/08 FL 1909 Insulin Detemir 20 UNITS AT BEDTIME 04/07 2200 AC 04/08 FL 2151 Lactobacillus 1 CAP BID 04/08 1107 AC 04/09 Acidophilus PO 1021 Levothyroxine Sodium 0.05 MG DAILY AC 04/07 1635 AC 04/09 PO 0550 Loratadine 10 MG DAILY 04/08 1000 AC 04/09 PO 1021 Magnesium Oxide 400 MG DAILY 04/08 1000 AC 04/09 PO 1021 Metoprolol Tartrate 50 MG BID 04/07 2330 AC 04/09 PO 1021 Multivitamins 1 TAB DAILY 04/08 1000 AC 04/09 PO 1021 Omeprazole 40 MG DAILY AC 04/08 0700 AC 04/09 PO 0550 Polyethylene Glycol 17 GM DAILY 04/08 1000 AC 04/09 PO 1020 Sodium Chloride 1,000 ML Q13H 04/07 2230 DC 04/09 IV 0413 Laboratory Tests 04/09/17 0745: CBC w Diff Pending, WBC Pending, RBC Pending, Hgb Pending, Hct Pending, MCV Pending, MCH Pending, RDW Pending, Plt Count Pending, MPV Pending, PUBS MCHC Pending 04/09/17 0735: Sodium Pending, Potassium Pending, Chloride Pending, Carbon Dioxide Pending, Anion Gap Pending, BUN Pending, Creatinine Pending, BUN/Creatinine Ratio Pending 04/08/17 0728: Anion Gap 13, Estimated GFR 34 L, BUN/Creatinine Ratio 29.3 H, CBC w Diff NO MAN DIFF REQ, RBC 3.72 L, MCV 87.4, MCH 28.5, RDW 17.2 H, MPV 8.9, Gran % 77.3 H, Lymphocytes % 9.5 L, Monocytes % 11.5 H, Eosinophils % 1.6, Basophils % 0.1, Absolute Granulocytes 10.1 H, Absolute Lymphocytes 1.2, Absolute Monocytes 1.5 H, Absolute Eosinophils 0.2, Absolute Basophils 0, PUBS MCHC 32.7 L 04/08/17 0025: Urinalysis MOD H, Urine Color YEL, Urine Clarity CLEAR, Urine pH 6.0, Ur Specific [place] >= 1.030, Urine Protein >=300 H, Urine Ketones NEG, Urine Nitrite NEG, Urine Bilirubin NEG, Urine Urobilinogen 0.2, Ur Leukocyte Esterase NEG, Ur Microscopic SEDIMENT EXAMINED, Urine RBC 5-10 H, Urine WBC 10-15 H, Ur Epithelial Cells MOD H, Urine Bacteria FEW H, Hyaline Casts RARE H, Urine Hemoglobin MOD H, Urine Glucose NEG 04/07/17 1503: Lactic Acid Cancelled 04/07/17 1205: Anion Gap 15, Estimated GFR 34 L, BUN/Creatinine Ratio 27.3 H, Glucose 227 H, Hemoglobin A1c 8.7 H, Lactic Acid 1.7, Calcium 8.8, Total Bilirubin 0.3, AST 31 , ALT 41, Alkaline Phosphatase 141 H, C-Reactive Prot, Quant > 9.0 H, Total Protein 6.5, Albumin 3.4 L, Globulin 3.1, Albumin/Globulin Ratio 1.1, CBC w Diff MAN DIFF ORDERED, RBC 4.19 L, MCV 87.5, MCH 28.0, RDW 16.4 H, MPV 8.7, Gran % 87.0 H, Lymphocytes % 5.9 L, Monocytes % 7.0, Eosinophils % 0, Basophils % 0.1, Absolute Granulocytes 15.0 H, Segmented Neutrophils 73, Band Neutrophils 14 H, Absolute Lymphocytes 1.0 L, Lymphocytes 6 L, Monocytes 7, Absolute Monocytes 1.2 H, Absolute Eosinophils 0, Absolute Basophils 0, Platelet Estimate ADEQUATE, Hypochromic-Microcytic 1+, Anisocytosis 1+, PUBS MCHC 32.0 L, ESR Westergren 76 H 04/07/17 0025: Ur Random Creatinine 104.0, Ur Random Microalbumin > 114.0 H, U Random Total Protein 340 H, Protein/Creatinin Ratio 3.2 H, U Cystine/Creat Ratio Microbiology 04/07 1220 BLOOD: Blood Culture - RES 04/07 1205 BLOOD: Blood Culture - RES Microbiology 04/07 122 BLOOD: Blood Culture - RES 04/07 120 BLOOD: Blood Culture - RES Vital Signs Date Time Temp Pulse Resp B/P B/P Pulse O2 O2 Flow FiO2 Mean Ox Delivery Rate 04/09 1021 144/74 04/09 0800 Room Air 04/09 0641 98.7 73 20 144/66 95 04/09 0000 Room Air 04/08 2157 97.9 70 20 132/78 96 Room Air 04/08 1506 98.1 63 20 140/78 96 Room Air
--- NOTE | 2017-04-09 11:17 | PN- Housestaff ---
Subjective Follow-up For: LEFT FOOT CELLULITIS Subjective: PATIENT HAS LESS PAIN. no complaints and no overnight events. Review of Systems Constitutional: Reports: no symptoms. Skin: Reports: lesions. Objective Last 24 Hrs of Vital Signs/I&O Vital Signs Date Time Temp Pulse Resp B/P B/P Pulse O2 O2 Flow FiO2 Mean Ox Delivery Rate 04/09 1523 98.4 93 18 144/60 93 04/09 1021 144/74 04/09 0800 Room Air 04/09 0641 98.7 73 20 144/66 95 04/09 0000 Room Air 04/08 2157 97.9 70 20 132/78 96 Room Air Intake & Output 04/09 1600 04/09 0800 04/09 0000 Intake Total 1250 840 985 Output Total 550 400 600 Balance 700 440 385 Intake, IV 250 600 505 Intake, Oral 1000 240 480 Number 0 0 0 Bowel Movements Output, Urine 550 400 600 Physical Exam General Appearance: Alert, Oriented X3, Cooperative, No Acute Distress Skin: left leg cellulitis well demarcated, subsiding. Skin Temp/Moisture Exam: Warm/Dry Cardiovascular: Regular Rate, Normal S1, Normal S2, No Murmurs Lungs: Clear to Auscultation, Normal Air Movement Abdomen: Normal Bowel Sounds, Soft, No Tenderness, No Hepatospenomegaly Neurological: Normal Speech Extremities: No Clubbing, No Cyanosis, Normal Pulses Current Medications: Current Medications Sig/Vandana Start time Last Medication Dose Route Stop Time Status Admin Acetaminophen 650 MG Q6P PRN 04/07 2130 AC PO Acetaminophen 1,000 MG Q6P PRN 04/07 2130 DC IV Acetaminophen/ 1 TAB Q6P PRN 04/09 1415 AC 04/09 Codeine Phosphate PO 1407 Ampicillin Sodium/ 1,500 MG Q6H 04/07 2200 AC 04/09 Sulbactam Sodium IV 1726 Sodium Chloride 100 ML Ascorbic Acid 1,000 MG DAILY 04/08 1000 AC 04/09 PO 1021 Atorvastatin Calcium 40 MG DAILY@1700 04/07 1813 AC 04/09 PO 1726 Cholecalciferol 1,000 IU DAILY 04/08 1000 AC 04/09 PO 1021 Gabapentin 1,200 MG Q8 04/07 1757 AC 04/09 PO 1316 Heparin Sodium 5,000 UNIT Q8 04/07 2330 AC 04/09 (Porcine) SC 1316 Insulin Aspart 0 TIDAC 04/07 1700 AC 04/09 SC 1225 Insulin Detemir 20 UNITS AT BEDTIME 04/07 2200 AC 04/08 SC 2151 Lactobacillus 1 CAP BID 04/08 1107 AC 04/09 Acidophilus PO 1021 Levothyroxine Sodium 0.05 MG DAILY AC 04/07 1635 AC 04/09 PO 0550 Loratadine 10 MG DAILY 04/08 1000 AC 04/09 PO 1021 Losartan Potassium 25 MG DAILY 04/09 1151 AC 04/09 PO 1225 Magnesium Oxide 400 MG DAILY 04/08 1000 AC 04/09 PO 1021 Metoprolol Tartrate 50 MG BID 04/07 2330 AC 04/09 PO 1021 Multivitamins 1 TAB DAILY 04/08 1000 AC 04/09 PO 1021 Omeprazole 40 MG DAILY AC 04/08 0700 AC 04/09 PO 0550 Polyethylene Glycol 17 GM DAILY 04/08 1000 AC 04/09 PO 1020 Sodium Chloride 1,000 ML Q13H 04/07 2230 DC 04/09 IV 0413 Last 24 Hrs of Lab/Ammon Results Last 24 Hrs of Labs/Mics: Laboratory Tests 04/09/17 1506: Hepatitis A IgM Ab Pending, Hep Bs Antigen Pending, Hep B Core IgM Ab Conf Pending, Hepatitis C Antibody Pending 04/09/17 0745: CBC w Diff NO MAN DIFF REQ, RBC 3.74 L, MCV 87.5, MCH 28.7, RDW 16.7 H, MPV 8.9, Gran % 78.7 H, Lymphocytes % 9.6 L, Monocytes % 10.3 H, Eosinophils % 1.3, Basophils % 0.1, Absolute Granulocytes 9.1 H, Absolute Lymphocytes 1.1 L, Absolute Monocytes 1.2 H, Absolute Eosinophils 0.2, Absolute Basophils 0, PUBS MCHC 32.8 L 04/09/17 0735: Anion Gap 17 H, Estimated GFR 37 L, BUN/Creatinine Ratio 28.6 H, Phosphorus 4.5 04/09/17 0600: Prot Electrophoresis Pending, Total Protein (PEP) Pending, Albumin % (PEP) Pending, Mdemw-5-Afgwhejvx Pending, Unnos-2-Jjhuwnwwe Pending, Pbac-3-Sdtzaeok Pending, Sakt-6-Fijzwzmy Pending, Gamma Globulins Pending, Abnorm Protein Band 1 Pending, Abnorm Protein Band 2 Pending, Abnorm Protein Band 3 Pending, Complement C3 Pending, Complement C4 Pending Assessment/Plan Assessment: Assessment: Patient is a 71-year-old noncompliant diabetic female with previous history of group G strep, MRSA osteomyelitis presented with sudden onset left leg erythema, fever, increased tiredness. Vital signs at admission are unremarkable, physical examination is significant for erythema extending from left heel till the left groin with swelling. Left lower extremity ulcer measuring 3.5 X 1 cm open area with surrounding chronic inflammation 4.5 and 3.5 cm. Labs are significant for white count of 17.3, ESR 76, CRP 9, lactic acid 1.7. Foot x-ray did show osteopenia with stable radiographic findings. Venous Doppler ruled out DVT. Differentials Nonpurulent Cellulitis of left lower extremity Osteomyelitis Deep vein thrombosis (ruled out by negative Dopplers) Plan Admitted to general medicine floor Left lower extremity edema with swelling - probable cellulitis/osteomyelitis Patient was given a single dose of Unasyn the ER. Started patient on unasyn now day 3 for QUESTIONABLE streptococcal cellulitis, CULTURES SO FAR NEGATIVE. If her erythema progresses or white count worsens (it is now better) consider broadening. She comes to wound center every week. Follow-up with blood cultures. LA normal. ESR high. MRI DONE TODAY SHOWED EVIDENCE OF OSTEOMYELITIS. PATIENT WILL GO TO OR TOMORROW FOR DEBRIDEMENT. vasc surgery consult placed ELEVATE LEG TYLENOL 3 FOR PAIN Uncontrolled diabetes mellitus Patient is noncompliant with her oral regimen. Reportedly, taking insulin. We will start the patient on insulin holding oral hypoglycemics. Continue Levemir 20 units at bedtime. -urine microalbumin is high as well as u random total protein and prot/cr ratio. Cr. 1.4. BASELINE IS LOW 1.0's. UA also shows mod hb and some wbcs and few bacteria. pt has no urinary symptoms. -urine 24 hour protein collection pending -Patient should be on HETAL-I for proteinuria for high blood pressure instead of metoprolol SO WAS PLACED ON ARB -ENDO CONSULT PLACED -hba1c 8.7 -f/u SPEP, C3, C4, HEP PANEL -PHOS 4.5 History of hypothyroidism Continue levothyroxine 50 g daily History of hypertension Continue metoprolol tartrate 50 twice a day ADDED LOSARTAN History of diabetic neuropathy Continue Neurontin 1200 mg 3 times a day History of ?GERD Continue Zyrtec, or malaise 40 mg daily DVT prophylaxis Subcutaneous heparin CODE STATUS DNR/DNI Problem List: 1. Cellulitis of left lower extremity Pain Ratin Pain Location: left leg Pain Goal: Pain 4 or less Pain Plan: tylenol 3 prn q6 Tomorrow's Labs & Rationales: cbc bep
--- NOTE | 2017-04-09 14:55 | PN- Infect Dx ---
Subjective Subjective: Afebrile. She notes some discomfort in the left heel. Objective Last 24 Hrs of Vital Signs/I&O Vital Signs Date Time Temp Pulse Resp B/P B/P Pulse O2 O2 Flow FiO2 Mean Ox Delivery Rate 04/09 1021 144/74 04/09 0800 Room Air 04/09 0641 98.7 73 20 144/66 95 04/09 0000 Room Air 04/08 2157 97.9 70 20 132/78 96 Room Air 04/08 1506 98.1 63 20 140/78 96 Room Air Intake & Output 04/09 1600 04/09 0800 04/09 0000 Intake Total 1250 840 985 Output Total 550 400 600 Balance 700 440 385 Intake, IV 250 600 505 Intake, Oral 1000 240 480 Number 0 0 0 Bowel Movements Output, Urine 550 400 600 Physical Exam Other Physical Findings: She appears comfortable in no acute distress Extremities decreased erythema of the left leg, with persistent swelling of both lower extremities, left greater than right; left foot dressing intact Results Last 24 Hours of Lab Results: Laboratory Tests 04/09 04/09 04/09 0745 0735 0600 Chemistry Sodium (137 - 145 mmol/L) 145 Potassium (3.5 - 5.1 mmol/L) 4.4 Chloride (98 - 107 mmol/L) 106 Carbon Dioxide (22 - 30 mmol/L) 22 Anion Gap (5 - 16) 17 H BUN (7 - 17 mg/dL) 40 H Creatinine (0.5 - 1.0 mg/dL) 1.4 H Estimated GFR (>60 ml/min) 37 L BUN/Creatinine Ratio (7 - 25 %) 28.6 H Prot Electrophoresis Pending Total Protein (PEP) Pending Albumin % (PEP) Pending Jxkmm-9-Dfjjptsns Pending Ijcjm-7-Irgytbihn Pending Egrs-1-Abhqbkma Pending Hnjo-3-Fkgvntfz Pending Gamma Globulins Pending Abnorm Protein Band 1 Pending Abnorm Protein Band 2 Pending Abnorm Protein Band 3 Pending Hematology CBC w Diff NO MAN DIFF REQ WBC (4.8 - 10.8 /CUMM) 11.6 H RBC (4.20 - 5.40 /CUMM) 3.74 L Hgb (12.0 - 16.0 G/DL) 10.7 L Hct (37 - 47 %) 32.8 L MCV (81.0 - 99.0 FL) 87.5 MCH (27.0 - 31.0 PG) 28.7 RDW (11.5 - 14.5 %) 16.7 H Plt Count (130 - 400 /CUMM) 221 MPV (7.4 - 10.4 FL) 8.9 Gran % (42.2 - 75.2 %) 78.7 H Lymphocytes % (20.5 - 51.1 %) 9.6 L Monocytes % (1.7 - 9.3 %) 10.3 H Eosinophils % (0 - 5 %) 1.3 Basophils % (0.0 - 2.0 %) 0.1 Absolute Granulocytes (1.4 - 6.5 /CUMM) 9.1 H Absolute Lymphocytes (1.2 - 3.4 /CUMM) 1.1 L Absolute Monocytes (0.10 - 0.60 /CUMM) 1.2 H Absolute Eosinophils (0.0 - 0.7 /CUMM) 0.2 Absolute Basophils (0.0 - 0.2 /CUMM) 0 PUBS MCHC (33.0 - 37.0 G/DL) 32.8 L Immunology Complement C3 Pending Complement C4 Pending Last 24 Hours of Ammon Results: Blood cultures April 07 negative Recent Imaging Studies: Chest x-ray April 09 central vascular congestion Assessment/Plan Impression: Improving, with temperatures remaining normal and white blood cell count continuing to decrease, on Unasyn now Day 2 of treatment for a left leg cellulitis secondary to a nonhealing ulcer on the left heel, which likely is secondary to chronic osteomyelitis. She is apparently scheduled for the OR in the a.m. but, given the fact that her wound has not healed despite several courses of antibiotics for osteomyelitis, am not inclined to commit her to another course. Of note a left BKA has been recommended on several occasions in the past, and she continues to refuse this. Suggestion: 1. Await OR in the a.m. for debridement of the left heel 2. Vascular surgery evaluation 3. Elevation of the left leg 4. Continue Unasyn
[2017-04-09 15:23] VITALS: BP 144/60
--- NOTE | 2017-04-09 17:17 | MRI REPORT ---
EXAMINATION: MRI FOOT, LEFT NONCONTRAST CLINICAL INFORMATION: Cellulitis with nonhealing wound on left foot. COMPARISON: 06/29/2016 TECHNIQUE: Multisequence multidimensional MR acquisition of the left hindfoot done without IV contrast. FINDINGS: There is soft tissue irregularity overlying the plantar aspect of the hindfoot at the level of the calcaneus. There is abnormal bone marrow signal within the plantar aspect of the calcaneus, demonstrating a focal cortical erosion with adjacent increased T2 signal and decreased T1 signal. There are no additional bone marrow signal abnormalities. Small amount of fluid at the ankle. There is a 0.4 cm intra-articular body at the anterior joint line of the ankle. Prominent spurring at the Achilles insertion to the calcaneus. Thickening of the Achilles tendon noted with no significant signal abnormality. The ankle tendons appear unremarkable along their course. No evidence of collection within the soft tissues. Diffuse soft tissue edema both superficially and within the deep musculature of the foot. IMPRESSION: Soft tissue defect overlying the plantar aspect of the hindfoot. Underlying erosion of the calcaneus with additional bone marrow signal changes, consistent with osteomyelitis. No fluid collection. Small intra-articular body at the anterior joint line of the ankle, similar to prior.
--- NOTE | 2017-04-09 19:18 | Cons- Vascular Surgery ---
General Information and HPI Consulting Request Date of Consult: 04/09/17 Requested By: Luigi Mary MD Reason for Consult: chronic osteo Left foot with recent cellulitis and non healing wound Source of Information: patient Exam Limitations: dressing over left ankle History of Present Illness: 71-year-old woman with a chronic, nonhealing left heel ulcer for nearly 2 years - treated with several courses of antibiotics for osteomyelitis as well as extensive wound care and debridements by podiatry. Left BKA recommended several times by Podiatry but refused by patient She has a history of hypertension, CHF, mitral prolapse, history of Group G strep mitral valve endocarditis nearly 2 years prior to admission, uncontrolled diabetes, with a peripheral neuropathy and peripheral vascular disease She presented to her PCP Dr Mary with an extending cellulitis from the left ankle to the groin and was from there sent to [facility] for evaluation. She was admitted and begun on unasyn and seen by ID. On admission she was afebrile with a wbc of 17k X-ray of the left foot revealed cortical irregularities, sclerosis and a deformity of the plantar surface of the calcaneus, felt to possibly represent chronic osteomyelitis. Doppler of the left leg was negative for DVT. Today she had an MRI which revealed: Soft tissue defect overlying the plantar aspect of the hindfoot. Underlying erosion of the calcaneus with additional bone marrow signal changes, consistent with osteomyelitis. No fluid collection. She is apparantly scheduled for further debridement by podiatry tomorrow although she isn't officially on the schedule at this time. She is NPO after midnight. Allergies/Medications Allergies: Coded Allergies: enalapril (Intermediate, PERSITENT COUGH. 06/28/15) Home Med List: Alprazolam 0.5 MG TABLET 1 TAB PO PRN ANXIETY (Reported) Ascorbic Acid (Vitamin C) 1,000 MG TABLET 1 TAB PO DAILY SUPPLEMENT (Reported ) Atorvastatin Calcium (Lipitor) 40 MG TABLET 1 TAB PO DAILY CHOLESTEROL ( Reported) Cetirizine HCl (Zyrtec) 10 MG TABLET 1 TAB PO DAILY ALLERGIES (Reported) Cholecalciferol (Vitamin D3) (Vitamin D) (Unknown Strength) TABLET (Unknown Dose) PO DAILY SUPPLEMENT (Reported) Gabapentin 600 MG TABLET 2 TAB PO TID NEUROPATHY (Reported) Insulin Detemir (Levemir Flextouch) 100 UNIT/ML (3 ML) INSULN.PEN 20 UNIT SC QHS DM (Reported) Insulin NPH Human Isophane (Humulin N Kwikpen) 100 UNIT/ML (3 ML) INSULN.PEN DM (Reported) Levothyroxine Sodium (Synthroid) 50 MCG TABLET 1 TAB PO DAILY AC THYROID HEALTH (Reported) Magnesium Oxide (Magnesium) (Unknown Strength) CAPSULE (Unknown Dose) PO DAILY SUPPLEMENT (Reported) Metformin Hydochloride (Glucophage) 500 MG TABLET 1 TAB PO BID DIABETES ( Reported) Metoprolol Tartrate 50 MG TABLET 50 MG PO BID afib Multivitamin (Multivitamins) 1 EACH CAPSULE 1 TAB PO DAILY SUPPLEMENT ( Reported) Nateglinide (Starlix) 120 MG TABLET 1 TAB PO DAILY DM (Reported) Omeprazole 20 MG CAPSULE.DR 40 MG PO DAILY AC GERD Polyethylene Glycol 3350 (Miralax) 17 GRAM POWD.PACK 1 PAC PO DAILY OPIOD CONSTIPATION (Reported) dissolve in water Sennosides/Docusate Sodium (Senna S Tablet) 1 EACH TABLET 1 TAB PO BID CONSTIPATION (Reported) Tylenol With Codeine (Tylenol With Codeine #3 Tablet) 300 MG-30 MG TABLET 1-2 TAB PO Q4-6 PRN PRN pain control take as directed. do not combine with tylenol. Vitamin B Complex 1 EACH CAPSULE 1 CAP PO DAILY SUPPLEMENT (Reported) ZINC (Unknown Strength) TABLET (Unknown Dose) PO DAILY SUPPLEMENT (Reported) Past History Medical History Blood Transfusion Hx: Yes Neurological: peripheral neuropathy EENT: allergies, hearing loss Cardiovascular: CHF, hypertension, hyperlipidemia, systolic CHF, mitral valve prolapse Group G strep mitral valve endocarditis Group G strep endocarditis Respiratory: NONE Gastrointestinal: constipation, SLOW PERISTALSIS Hepatic: cholecystitis Renal: chronic kidney disease, urinary incontinence Musculoskeletal: chronic back pain, decubitis ulcer, falls, osteoarthritis, spinal stenosis, OSTEOMYELITIS left heel Psychiatric: NONE Endocrine: diabetes, hypothyroidism, obesity Blood Disorders: NONE Cancer(s): NONE [employer]/Reproductive: endometriosis Other Medical Hx: diabetic foot nonhealing ulcers Surgical History Pertinent Surgical History: cholecystectomy, hernia repair-incisional, hip replacement (right ), hysterectomy, 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 , Age 56; Cause: Acute leukemia. Leukemia BROTHER, ; Cause: Heart attack. FATHER (hx colon polyps). , Age 70; Cause: CHF (congestive heart failure ). Psychosocial History Where Do You Live? Home Who Do You Live With? self Services at Home: None Primary Language: Kyrgyz Smoking Status: Never Smoked ETOH Use: denies use Illicit Drug Use: denies illicit drug use Power of Baker [employer]/HCP? no Functional Ability ADLs Independent: dressing, eating, toileting, bathing. Ambulation: cane IADLs Independent: shopping, housework, finances, food prep, telephone, transportation , medication admin. Exam & Diagnostic Data Vital Signs and I&O Vital Signs Date Time Temp Pulse Resp B/P B/P Pulse O2 O2 Flow FiO2 Mean Ox Delivery Rate 04/09 1523 98.4 93 18 144/60 93 04/09 1021 144/74 04/09 0800 Room Air 04/09 0641 98.7 73 20 144/66 95 04/09 0000 Room Air 04/08 2157 97.9 70 20 132/78 96 Room Air Intake & Output 04/09 1600 04/09 0800 04/09 0000 04/08 1600 04/08 0800 04/08 0000 Intake Total 1250 912 646 3189 720 360 Output Total 550 400 600 100 300 Balance 700 446 062 6482 420 360 Intake, IV 250 600 505 450 600 120 Intake, Oral 1000 240 480 720 120 240 Number 0 0 0 0 Bowel Movements Output, Urine 550 400 600 100 300 Patient 240 lb Weight Weight Reported by Patient Measurement Method Physical Exam: afebrile, vss General: alert and oriented times three Chest; clear anteriorly bilaterally Abd: soft, obese, good bs Ext: 2-3+ edema of LLE, there is a pen soto outlining the cellulitis from admission which is greatly improved. Cellulitis at this time is circumferential from the ankle to the mid calf. Nontender although she has chronic decreased sensation. THere is a dry dressing at the ankly which I am not removing as she is a podiatry patient with chronic wound care by them. Non palpable pulses although likely due to edema. Foot is warm with no cyanosis. Strong dopplerable pulse at DP. Assessment/Plan Assessment/Plan 71yo female with multiple medical issues including uncontrolled diabetes and PVD with a chronic non healing ulcer of the left ankle and chronic osteo. Now on unasyn with improvemend of the cellulitis and apparantly scheduled for further debridement tomorrow by podiatry. Discussed with Vascular surgery Dr Grigsby Recommend arterial duplex - non urgent - ordered for tomorrow Pt may need an angiogram in the future Further plan per medical team and podiatry Dr Will to see in am Consult Acknowledgment - Thank you for your consult request.
[2017-04-09 22:59] VITALS: BP 132/60
[2017-04-10 06:53] VITALS: BP 126/60
--- NOTE | 2017-04-10 07:39 | PN- Housestaff ---
Subjective Follow-up For: cellulitis osteomyelitis Subjective: patient feeling ok, still with pain in the left lower extremity. eager to go to surgery. Review of Systems Constitutional: Reports: no symptoms. Musculoskeletal: Reports: muscle pain. Skin: Reports: erythema. Objective Last 24 Hrs of Vital Signs/I&O Vital Signs Date Time Temp Pulse Resp B/P B/P Pulse O2 O2 Flow FiO2 Mean Ox Delivery Rate 04/10 0832 56 110/60 04/10 0832 56 110/60 04/10 0653 98.2 56 20 126/60 94 Room Air 04/09 2259 98.0 62 20 132/60 93 Room Air 04/09 2238 62 132/60 04/09 1523 98.4 93 18 144/60 93 Intake & Output 04/10 1600 04/10 0800 04/10 0000 Intake Total 200 Output Total 725 120 300 Balance -725 80 -300 Intake, IV 200 Output, Urine 725 120 300 Patient 250 lb Weight Weight Bed scale Measurement Method Physical Exam General Appearance: Alert, Oriented X3, Cooperative, No Acute Distress Skin: No Rashes, well demarcated lower left leg cellulitis that is receding since beginning antibiotics Cardiovascular: Regular Rate, Normal S1, Normal S2, No Murmurs Lungs: Clear to Auscultation, Normal Air Movement Abdomen: Normal Bowel Sounds, Soft, No Tenderness, No Hepatospenomegaly, No Masses Current Medications: Current Medications Sig/Vandana Start time Last Medication Dose Route Stop Time Status Admin Acetaminophen 650 MG Q6P PRN 04/07 2130 AC PO Acetaminophen/ 1 TAB Q6P PRN 04/09 1415 04/09 Codeine Phosphate PO 1407 Ampicillin Sodium/ 1,500 MG Q6H 04/07 2200 AC 04/10 Sulbactam Sodium IV 0938 Sodium Chloride 100 ML Ascorbic Acid 1,000 MG DAILY 04/08 1000 AC 04/09 PO 1021 Atorvastatin Calcium 40 MG DAILY@1700 04/07 1813 AC 04/09 PO 1726 Cholecalciferol 1,000 IU DAILY 04/08 1000 AC 04/09 PO 1021 Gabapentin 1,200 MG Q8 04/07 1757 AC 04/10 PO 0536 Heparin Sodium 5,000 UNIT Q8 04/07 2330 DC 04/10 (Porcine) SC 0535 Heparin Sodium/ 25,000 UNIT Q24H 04/10 1015 AC Dextrose IV Dextrose/Water 500 ML Insulin Aspart 0 TIDAC/HS 04/10 1700 AC SC Insulin Aspart 0 TIDAC 04/07 1700 DC 04/09 SC 1225 Insulin Detemir 20 UNITS AT BEDTIME 04/07 2200 AC 04/09 SC 2257 Insulin Human Regular 0 TIDAC/HS 04/10 1200 DC 04/10 SC 1205 Insulin Human Regular 4 UNITS .STK-MED ONE 04/10 0005 DC IV 04/10 0006 Insulin Human Regular 0 Q6 04/09 2359 DC 04/10 SC 0544 Lactobacillus 1 CAP BID 04/08 1107 AC 04/09 Acidophilus PO 2238 Levothyroxine Sodium 0.05 MG DAILY AC 04/07 1635 AC 04/10 PO 0535 Loratadine 10 MG DAILY 04/08 1000 AC 04/09 PO 1021 Losartan Potassium 25 MG DAILY 04/09 1151 AC 04/09 PO 1225 Magnesium Oxide 400 MG DAILY 04/08 1000 AC 04/09 PO 1021 Metoprolol Tartrate 50 MG BID 04/07 2330 AC 04/09 PO 2238 Multivitamins 1 TAB DAILY 04/08 1000 AC 04/09 PO 1021 Omeprazole 40 MG DAILY AC 04/08 0700 AC 04/10 PO 0536 Polyethylene Glycol 17 GM DAILY 04/08 1000 AC 04/09 PO 1020 Ramelteon 8 MG .STK-MED ONE 04/10 0006 DC PO 04/10 0007 Ramelteon 8 MG ONCE ONE 04/09 2345 DC 04/10 PO 04/09 2346 0006 Last 24 Hrs of Lab/Ammon Results Last 24 Hrs of Labs/Mics: Laboratory Tests 04/10/17 0720: Anion Gap 15, Estimated GFR 37 L, BUN/Creatinine Ratio 31.4 H, CBC w Diff NO MAN DIFF REQ, RBC 3.65 L, MCV 87.9, MCH 28.7, RDW 16.9 H, MPV 9.1, Gran % 75.2 , Lymphocytes % 11.5 L, Monocytes % 10.0 H, Eosinophils % 3.0, Basophils % 0.3 , Absolute Granulocytes 9.0 H, Absolute Lymphocytes 1.4, Absolute Monocytes 1.2 H, Absolute Eosinophils 0.4, Absolute Basophils 0, PUBS MCHC 32.6 L 04/09/17 1506: Hepatitis A IgM Ab NONREACTIVE, Hep Bs Antigen NONREACTIVE, Hep B Core IgM Ab Conf NONREACTIVE, Hepatitis C Antibody NONREACTIVE Assessment/Plan Assessment: Assessment: Patient is a 71-year-old noncompliant diabetic female with previous history of group G strep, MRSA osteomyelitis presented with sudden onset left leg erythema, fever, increased tiredness. Vital signs at admission are unremarkable, physical examination is significant for erythema extending from left heel till the left groin with swelling. Left lower extremity ulcer measuring 3.5 X 1 cm open area with surrounding chronic inflammation 4.5 and 3.5 cm. Labs are significant for white count of 17.3, ESR 76, CRP 9, lactic acid 1.7. Foot x-ray did show osteopenia with stable radiographic findings. Venous Doppler ruled out DVT. ARTERIAL DOPPLER TODAY SHOWED MILD PVD. Problems Nonpurulent Cellulitis of left lower extremity Osteomyelitis Plan Admitted to general medicine floor Left lower extremity edema with swelling - probable cellulitis/osteomyelitis Patient was given a single dose of Unasyn the ER. Started patient on unasyn now day 4 for QUESTIONABLE streptococcal cellulitis, CULTURES SO FAR NEGATIVE. If her erythema progresses or white count worsens (it is now better) consider broadening. She comes to wound center every week. Follow-up with blood cultures. LA normal. ESR high. MRI DONE yesterday SHOWED EVIDENCE OF OSTEOMYELITIS. PATIENT WILL GO TO OR today FOR DEBRIDEMENT. PATIENT WAS SET FOR SURGERY TODAY BUT WAS FOUND TO HAVE AFIB ON PRE-OP EKG. WE TRANSFERRED THE PATIENT TO TELE AND TALKED TO DR. CALLE WHO ADVISED TO POSTPONE SURGERY. DR. SANCHEZ WILL SEE PATIENT IN TELE. SHE HAS BEEN SEEN BY DR. CAN AND DALLIN IN THE PAST FOR SVT WHICH RESOLVED EACH TIME AND WAS NEVER TREATED BEAD TRIMMER. WE WILL HOLD OFF HEPARIN UNTIL HE SEES HER. [facility] surgery consult placed and suggested that we get arterial doppler which was ordered for today ELEVATE LEG TYLENOL 3 FOR PAIN Uncontrolled diabetes mellitus Patient is noncompliant with her oral regimen. Reportedly, taking insulin. We will start the patient on insulin holding oral hypoglycemics. Continue Levemir 20 units at bedtime. -urine microalbumin is high as well as u random total protein and prot/cr ratio. Cr. 1.4. BASELINE IS LOW 1.0's. UA also shows mod hb and some wbcs and few bacteria. pt has no urinary symptoms. -urine 24 hour protein collection STILL IN PROCESS. -Patient should be on HETAL-I for proteinuria for high blood pressure instead of metoprolol SO WAS PLACED ON ARB COUGH NOTED ON HETAL -ENDO CONSULT PLACED -hba1c 8.7 -f/u SPEP, C3, C4, PENDING - HEP PANEL NEG -PHOS 4.5 History of hypothyroidism Continue levothyroxine 50 g daily History of hypertension Continue metoprolol tartrate 50 twice a day ADDED LOSARTAN HOLDING COZAAR FOR LOW BP AND LOW HR THIS AM History of diabetic neuropathy Continue Neurontin 1200 mg 3 times a day History of ?GERD Continue Zyrtec, or malaise 40 mg daily DVT prophylaxis Subcutaneous heparin CODE STATUS DNR/DNI Problem List: 1. Cellulitis of left lower extremity 2. Osteomyelitis Pain Ratin Pain Location: LOWER LEFT LEG Pain Goal: Pain 4 or less Pain Plan: PRN TYLENOL 3 Tomorrow's Labs & Rationales: CBC BEP
[2017-04-10 09:04] LABS: ABSOLUTE BASOPHIL COUNT 0 /CUMM (0.0-0.2); ABSOLUTE EOSINOPHIL COUNT 0.4 /CUMM (0.0-0.7); ABSOLUTE LYMPH COUNT 1.4 /CUMM (1.2-3.4); ABSOLUTE MONOCYTE COUNT 1.2 /CUMM (0.10-0.60); BASOPHIL % 0.3 % (0.0-2.0); GRANULOCYTE % 75.2 % (42.2-75.2); HEMATOCRIT 32.1 % (37-47); MEAN CORPUSCULAR HGB 28.7 PG (27.0-31.0); MEAN CORPUSCULAR HGB CONC 32.6 G/DL (33.0-37.0); MEAN CORPUSCULAR VOLUME 87.9 FL (81.0-99.0); MEAN PLATELET VOLUME 9.1 FL (7.4-10.4); PLATELET COUNT 252 /CUMM (130-400); RBC DISTRIBUTION WIDTH 16.9 % (11.5-14.5); RED BLOOD CELL CT 3.65 /CUMM (4.20-5.40)
--- NOTE | 2017-04-10 11:06 | PN- Podiatry ---
Subjective Subjective: Patient seen at bedside with no new acute events overnight. Patient was, however, noted to have new onset atrial fibrillation with routine preoperative EKG. Discussed the findings with the patient and the medical team and decided to consult cardiology. We will tentatively schedule the patient for debridement tomorrow. Objective Vital Signs and I&Os Vital Signs Date Time Temp Pulse Resp B/P B/P Pulse O2 O2 Flow FiO2 Mean Ox Delivery Rate 04/10 0832 56 110/60 04/10 0832 56 110/60 04/10 0653 98.2 56 20 126/60 94 Room Air 04/09 2259 98.0 62 20 132/60 93 Room Air 04/09 2238 62 132/60 04/09 1523 98.4 93 18 144/60 93 Intake & Output 04/10 1600 04/10 0800 04/10 0000 04/09 1600 04/09 0800 04/09 0000 Intake Total 200 1250 840 985 Output Total 175 120 300 550 400 600 Balance -175 80 -300 700 440 385 Intake, IV 200 250 600 505 Intake, Oral 1000 240 480 Number 0 0 0 Bowel Movements Output, Urine 175 120 300 550 400 600 Physical Exam: Dressing left heel clean dry and intact. Assessment/Plan Assessment/Plan Suspected left calcaneal osteomyelitis. Patient nothing by mouth past midnight pending cardiology findings for OR tomorrow. Attending MD Review Statement Attending Statement Attending MD Statement: examined this patient
--- NOTE | 2017-04-10 13:05 | Cons- Endocrinology ---
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 At home, she was on Levemir 20 units daily, metformin 500 mg twice a day, starlix on some occasions and Humulin NPH according to the scale. In hospital, she has been NPO for procedure today. She received Levemir 20 units last night. Now she is on RISS every 6 hours. Her FSGs were 182, 148 and 131. Metformin was held due to elevated Cr of 1.4. Allergies/Medications Allergies: Coded Allergies: enalapril (Intermediate, PERSITENT COUGH. 06/28/15) Home Med List: Alprazolam 0.5 MG TABLET 1 TAB PO PRN ANXIETY (Reported) Ascorbic Acid (Vitamin C) 1,000 MG TABLET 1 TAB PO DAILY SUPPLEMENT (Reported ) Atorvastatin Calcium (Lipitor) 40 MG TABLET 1 TAB PO DAILY CHOLESTEROL ( Reported) Cetirizine HCl (Zyrtec) 10 MG TABLET 1 TAB PO DAILY ALLERGIES (Reported) Cholecalciferol (Vitamin D3) (Vitamin D) (Unknown Strength) TABLET (Unknown Dose) PO DAILY SUPPLEMENT (Reported) Gabapentin 600 MG TABLET 2 TAB PO TID NEUROPATHY (Reported) Insulin Detemir (Levemir Flextouch) 100 UNIT/ML (3 ML) INSULN.PEN 20 UNIT SC QHS DM (Reported) Insulin NPH Human Isophane (Humulin N Kwikpen) 100 UNIT/ML (3 ML) INSULN.PEN DM (Reported) Levothyroxine Sodium (Synthroid) 50 MCG TABLET 1 TAB PO DAILY AC THYROID HEALTH (Reported) Magnesium Oxide (Magnesium) (Unknown Strength) CAPSULE (Unknown Dose) PO DAILY SUPPLEMENT (Reported) Metformin Hydochloride (Glucophage) 500 MG TABLET 1 TAB PO BID DIABETES ( Reported) Metoprolol Tartrate 50 MG TABLET 50 MG PO BID afib Multivitamin (Multivitamins) 1 EACH CAPSULE 1 TAB PO DAILY SUPPLEMENT ( Reported) Nateglinide (Starlix) 120 MG TABLET 1 TAB PO DAILY DM (Reported) Omeprazole 20 MG CAPSULE.DR 40 MG PO DAILY AC GERD Polyethylene Glycol 3350 (Miralax) 17 GRAM POWD.PACK 1 PAC PO DAILY OPIOD CONSTIPATION (Reported) dissolve in water Sennosides/Docusate Sodium (Senna S Tablet) 1 EACH TABLET 1 TAB PO BID CONSTIPATION (Reported) Tylenol With Codeine (Tylenol With Codeine #3 Tablet) 300 MG-30 MG TABLET 1-2 TAB PO Q4-6 PRN PRN pain control take as directed. do not combine with tylenol. Vitamin B Complex 1 EACH CAPSULE 1 CAP PO DAILY SUPPLEMENT (Reported) ZINC (Unknown Strength) TABLET (Unknown Dose) PO DAILY SUPPLEMENT (Reported) Review of Systems Review of Systems Constitutional: Reports: see HPI. Cardiovascular: Denies: chest pain. Respiratory: Denies: short of breath. GI: Denies: abdominal pain. Genitourinary: Denies: dysuria. Skin: Reports: see HPI. Hematologic/Endocrine: Denies: polyuria, polydipsia. Past History Travel History Traveled to [place] past 21 day No Medical History Blood Transfusion Hx: Yes Neurological: peripheral neuropathy EENT: allergies, hearing loss Cardiovascular: CHF, hypertension, hyperlipidemia, systolic CHF, mitral valve prolapse Group G strep mitral valve endocarditis Group G strep endocarditis Respiratory: NONE Gastrointestinal: constipation, SLOW PERISTALSIS Hepatic: cholecystitis Renal: chronic kidney disease, urinary incontinence Musculoskeletal: chronic back pain, decubitis ulcer, falls, osteoarthritis, spinal stenosis, OSTEOMYELITIS left heel Psychiatric: NONE Endocrine: diabetes, hypothyroidism, obesity Blood Disorders: NONE Cancer(s): NONE FURNACE ATTENDANT/Reproductive: endometriosis Other Medical Hx: diabetic foot nonhealing ulcers Surgical History Surgical History: cholecystectomy, hernia repair-incisional, hip replacement ( right ), hysterectomy, status post right second finger amputation s/p right partial 3rd finger amputation s/p left 3rd finger amputation status post left heel calcanectomies Family History Relations & Conditions If Any: MOTHER ([facility] for sx gallstones). , Age 56; Cause: Acute leukemia. Leukemia BROTHER, ; Cause: Heart attack. FATHER (hx colon polyps). , Age 70; Cause: CHF (congestive heart failure ). Psychosocial History Where Do You Live? Home Who Do You Live With? self Services at Home: None Primary Language: Bengali Smoking Status: Never Smoked ETOH Use: denies use Illicit Drug Use: denies illicit drug use Power of Automatic Spinning Lathe Operator/HCP? no Functional Ability ADLs Independent: dressing, eating, toileting, bathing. Ambulation: cane IADLs Independent: shopping, housework, finances, food prep, telephone, transportation , medication admin. Exam & Diagnostic Data Last 24 Hrs of Vital Signs/I&O Vital Signs Date Time Temp Pulse Resp B/P B/P Pulse O2 O2 Flow FiO2 Mean Ox Delivery Rate 04/10 0832 56 110/60 04/10 0832 56 110/60 04/10 0653 98.2 56 20 126/60 94 Room Air 04/09 2259 98.0 62 20 132/60 93 Room Air 04/09 2238 62 132/60 04/09 1523 98.4 93 18 144/60 93 Intake & Output 04/10 1600 04/10 0800 04/10 0000 Intake Total 200 Output Total 175 120 300 Balance -175 80 -300 Intake, IV 200 Output, Urine 175 120 300 Physical Exam General Appearance: no apparent distress, obese Respiratory: decreased breath sounds (left base) Cardiovascular: regular rate/rhythm Gastrointestinal: non-tender, distention Extremities: swelling, tenderness (left LE) Labs/Ammon Results: Laboratory Tests 04/10 04/09 0720 1506 Chemistry Sodium (137 - 145 mmol/L) 143 Potassium (3.5 - 5.1 mmol/L) 4.6 Chloride (98 - 107 mmol/L) 106 Carbon Dioxide (22 - 30 mmol/L) 23 Anion Gap (5 - 16) 15 BUN (7 - 17 mg/dL) 44 H Creatinine (0.5 - 1.0 mg/dL) 1.4 H Estimated GFR (>60 ml/min) 37 L BUN/Creatinine Ratio (7 - 25 %) 31.4 H Hematology CBC w Diff NO MAN DIFF REQ WBC (4.8 - 10.8 /CUMM) 12.0 H RBC (4.20 - 5.40 /CUMM) 3.65 L Hgb (12.0 - 16.0 G/DL) 10.5 L Hct (37 - 47 %) 32.1 L MCV (81.0 - 99.0 FL) 87.9 MCH (27.0 - 31.0 PG) 28.7 RDW (11.5 - 14.5 %) 16.9 H Plt Count (130 - 400 /CUMM) 252 MPV (7.4 - 10.4 FL) 9.1 Gran % (42.2 - 75.2 %) 75.2 Lymphocytes % (20.5 - 51.1 %) 11.5 L Monocytes % (1.7 - 9.3 %) 10.0 H Eosinophils % (0 - 5 %) 3.0 Basophils % (0.0 - 2.0 %) 0.3 Absolute Granulocytes (1.4 - 6.5 /CUMM) 9.0 H Absolute Lymphocytes (1.2 - 3.4 /CUMM) 1.4 Absolute Monocytes (0.10 - 0.60 /CUMM) 1.2 H Absolute Eosinophils (0.0 - 0.7 /CUMM) 0.4 Absolute Basophils (0.0 - 0.2 /CUMM) 0 PUBS MCHC (33.0 - 37.0 G/DL) 32.6 L Serology Hepatitis A IgM Ab (NONREACTIVE) NONREACTIVE Hep Bs Antigen (NONREACTIVE) NONREACTIVE Hep B Core IgM Ab Conf (NONREACTIVE) NONREACTIVE Hepatitis C Antibody (NONREACTIVE) NONREACTIVE 04/09 04/09 04/09 0745 0735 0600 Chemistry Sodium (137 - 145 mmol/L) 145 Potassium (3.5 - 5.1 mmol/L) 4.4 Chloride (98 - 107 mmol/L) 106 Carbon Dioxide (22 - 30 mmol/L) 22 Anion Gap (5 - 16) 17 H BUN (7 - 17 mg/dL) 40 H Creatinine (0.5 - 1.0 mg/dL) 1.4 H Estimated GFR (>60 ml/min) 37 L BUN/Creatinine Ratio (7 - 25 %) 28.6 H Phosphorus (2.5 - 4.5 mg/dL) 4.5 Prot Electrophoresis Pending Total Protein (PEP) Pending Albumin % (PEP) Pending [id number] Pending Drghi-1-Wiloaaprb Pending [id number] Pending [id number] Pending Gamma Globulins Pending Abnorm Protein Band 1 Pending Abnorm Protein Band 2 Pending Abnorm Protein Band 3 Pending Hematology CBC w Diff NO MAN DIFF REQ WBC (4.8 - 10.8 /CUMM) 11.6 H RBC (4.20 - 5.40 /CUMM) 3.74 L Hgb (12.0 - 16.0 G/DL) 10.7 L Hct (37 - 47 %) 32.8 L MCV (81.0 - 99.0 FL) 87.5 MCH (27.0 - 31.0 PG) 28.7 RDW (11.5 - 14.5 %) 16.7 H Plt Count (130 - 400 /CUMM) 221 MPV (7.4 - 10.4 FL) 8.9 Gran % (42.2 - 75.2 %) 78.7 H Lymphocytes % (20.5 - 51.1 %) 9.6 L Monocytes % (1.7 - 9.3 %) 10.3 H Eosinophils % (0 - 5 %) 1.3 Basophils % (0.0 - 2.0 %) 0.1 Absolute Granulocytes (1.4 - 6.5 /CUMM) 9.1 H Absolute Lymphocytes (1.2 - 3.4 /CUMM) 1.1 L Absolute Monocytes (0.10 - 0.60 /CUMM) 1.2 H Absolute Eosinophils (0.0 - 0.7 /CUMM) 0.2 Absolute Basophils (0.0 - 0.2 /CUMM) 0 PUBS MCHC (33.0 - 37.0 G/DL) 32.8 L Immunology Complement C3 Pending Complement C4 Pending Assessment/Plan Assessment/Plan 71-year-old female with past medical history significant for diabetes type 2, chronic back pain, constipation, urinary incontinence, hypothyroidism, hypertension, osteomyelitis status post amputation 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 At home, she was on Levemir 20 units daily, metformin 500 mg twice a day, starlix on some occasions and Humulin NPH according to the scale. In hospital, she has been NPO for procedure today. She received Levemir 20 units last night. Now she is on RISS every 6 hours. Her FSGs were 182, 148 and 131. Metformin was held due to elevated Cr of 1.4. After she is back from procedure and when she is ready to eat, she will continue the Levemir 20 units daily at bedtime. I will start her on Novolog coverage before meals and Novolog coverage at bedtime; detail see the inpatient DM orders. will follow and adjust her DM regimen accordingly. Inpatient Diabetes Orders Before Each Meal: Bolus Insulin: Novolog < 80 mg/dl: no coverage 80-100 mg/dl: 4 units 101-120 mg/dl: 4 units 121-150 mg/dl: 4 units 151-200 mg/dl: 5 units 201-250 mg/dl: 6 units 251-300 mg/dl: 7 units 301-350 mg/dl: 8 units 351-400 mg/dl: 9 units > 400 mg/dl: 10 units Bedtime: Bolus Insulin: Novolog < 80 mg/dl: no coverage 80-100 mg/dl: no coverage 101-120 mg/dl: no coverage 121-150 mg/dl: no coverage 151-200 mg/dl: no coverage 201-250 mg/dl: no coverage 251-300 mg/dl: 2 units 301-350 mg/dl: 3 units 351-400 mg/dl: 4 units > 400 mg/dl: 5 units Consult Acknowledgment - Thank you for your consult request.
--- NOTE | 2017-04-10 13:30 | PN- Att Addend ---
Attending Addendum Attending Brief Note Patient overall feeling better with sitting in the chair. Was going to go for debridement of her foot but in the preop evaluation she had an EKG which showed atrial fibrillation, patient has no symptoms. Patient's vital signs otherwise are stable no fever the white count is 12,000. Patient will be transferred to telemetry, start heparin and have cardiology evaluate the patient so she can be cleared to go tomorrow for her debridement and otherwise continue antibiotic treatment as per Dr. Tiwari recommendations. Intake & Output 04/10 1600 04/10 0400 04/09 1600 04/09 0400 04/08 1600 04/08 0400 Intake Total 200 2090 985 1890 360 Output Total 295 300 950 600 400 Balance -95 -300 8615 050 5544 360 Intake, IV 200 496 370 2556 120 Intake, Oral 1240 480 840 240 Number 0 0 0 Bowel Movements Output, Urine 295 300 950 600 400 Patient 250 lb 240 lb Weight Weight Bed scale Reported by Patient Measurement Method Current Medications Sig/Vandana Start time Last Medication Dose Route Stop Time Status Admin Acetaminophen 650 MG Q6P PRN 04/07 2130 AC PO Acetaminophen 1,000 MG Q6P PRN 04/07 2130 DC IV Acetaminophen/ 1 TAB Q6P PRN 04/09 1415 AC 04/09 Codeine Phosphate PO 1407 Ampicillin Sodium/ 1,500 MG Q6H 04/07 2200 AC 04/10 Sulbactam Sodium IV 0938 Sodium Chloride 100 ML Ascorbic Acid 1,000 MG DAILY 04/08 1000 AC 04/09 PO 1021 Atorvastatin Calcium 40 MG DAILY@1700 04/07 1813 AC 04/09 PO 1726 Cholecalciferol 1,000 IU DAILY 04/08 1000 AC 04/09 PO 1021 Gabapentin 1,200 MG Q8 04/07 1757 AC 04/10 PO 0536 Heparin Sodium 5,000 UNIT Q8 04/07 2330 DC 04/10 (Porcine) SC 0535 Heparin Sodium/ 25,000 UNIT Q24H 04/10 1015 AC Dextrose IV Dextrose/Water 500 ML Insulin Aspart 0 TIDAC/HS 04/10 1700 AC SC Insulin Aspart 0 TIDAC 04/07 1700 DC 04/09 SC 1225 Insulin Detemir 20 UNITS AT BEDTIME 04/07 2200 AC 04/09 SC 2257 Insulin Human Regular 0 TIDAC/HS 04/10 1200 DC 04/10 RI 1205 Insulin Human Regular 4 UNITS .STK-MED ONE 04/10 0005 DC IV 04/10 0006 Insulin Human Regular 0 Q6 04/09 2359 PA 04/10 SC 0544 Lactobacillus 1 CAP BID 04/08 1107 AC 04/09 Acidophilus PO 2238 Levothyroxine Sodium 0.05 MG DAILY AC 04/07 1635 AC 04/10 PO 0535 Loratadine 10 MG DAILY 04/08 1000 AC 04/09 PO 1021 Losartan Potassium 25 MG DAILY 04/09 1151 AC 04/09 PO 1225 Magnesium Oxide 400 MG DAILY 04/08 1000 AC 04/09 PO 1021 Metoprolol Tartrate 50 MG BID 04/07 2330 AC 04/09 PO 2238 Multivitamins 1 TAB DAILY 04/08 1000 AC 04/09 PO 1021 Omeprazole 40 MG DAILY AC 04/08 0700 AC 04/10 PO 0536 Polyethylene Glycol 17 GM DAILY 04/08 1000 AC 04/09 PO 1020 Ramelteon 8 MG .STK-MED ONE 04/10 0006 DC PO 04/10 0007 Ramelteon 8 MG ONCE ONE 04/09 2345 PA 04/10 PO 04/09 2346 0006 Laboratory Tests 04/10/17 0720: Anion Gap 15, Estimated GFR 37 L, BUN/Creatinine Ratio 31.4 H, CBC w Diff NO MAN DIFF REQ, RBC 3.65 L, MCV 87.9, MCH 28.7, RDW 16.9 H, MPV 9.1, Gran % 75.2 , Lymphocytes % 11.5 L, Monocytes % 10.0 H, Eosinophils % 3.0, Basophils % 0.3 , Absolute Granulocytes 9.0 H, Absolute Lymphocytes 1.4, Absolute Monocytes 1.2 H, Absolute Eosinophils 0.4, Absolute Basophils 0, PUBS MCHC 32.6 L 04/09/17 1506: Hepatitis A IgM Ab NONREACTIVE, Hep Bs Antigen NONREACTIVE, Hep B Core IgM Ab Conf NONREACTIVE, Hepatitis C Antibody NONREACTIVE 04/09/17 0745: CBC w Diff NO MAN DIFF REQ, RBC 3.74 L, MCV 87.5, MCH 28.7, RDW 16.7 H, MPV 8.9, Gran % 78.7 H, Lymphocytes % 9.6 L, Monocytes % 10.3 H, Eosinophils % 1.3, Basophils % 0.1, Absolute Granulocytes 9.1 H, Absolute Lymphocytes 1.1 L, Absolute Monocytes 1.2 H, Absolute Eosinophils 0.2, Absolute Basophils 0, PUBS MCHC 32.8 L 04/09/17 0735: Anion Gap 17 H, Estimated GFR 37 L, BUN/Creatinine Ratio 28.6 H, Phosphorus 4.5 04/09/17 0600: Prot Electrophoresis Pending, Total Protein (PEP) Pending, Albumin % (PEP) Pending, [id number] Pending, [id number]-[id number] Pending, Wkzl-0-Enxpdwut Pending, Ahgl-5-Iwmtyadg Pending, Gamma Globulins Pending, Abnorm Protein Band 1 Pending, Abnorm Protein Band 2 Pending, Abnorm Protein Band 3 Pending, Complement C3 Pending, Complement C4 Pending 04/08/17 0728: Anion Gap 13, Estimated GFR 34 L, BUN/Creatinine Ratio 29.3 H, CBC w Diff NO MAN DIFF REQ, RBC 3.72 L, MCV 87.4, MCH 28.5, RDW 17.2 H, MPV 8.9, Gran % 77.3 H, Lymphocytes % 9.5 L, Monocytes % 11.5 H, Eosinophils % 1.6, Basophils % 0.1, Absolute Granulocytes 10.1 H, Absolute Lymphocytes 1.2, Absolute Monocytes 1.5 H, Absolute Eosinophils 0.2, Absolute Basophils 0, PUBS MCHC 32.7 L 04/08/17 0025: Urinalysis MOD H, Urine Color YEL, Urine Clarity CLEAR, Urine pH 6.0, Ur Specific [place] >= 1.030, Urine Protein >=300 H, Urine Ketones NEG, Urine Nitrite NEG, Urine Bilirubin NEG, Urine Urobilinogen 0.2, Ur Leukocyte Esterase NEG, Ur Microscopic SEDIMENT EXAMINED, Urine RBC 5-10 H, Urine WBC 10-15 H, Ur Epithelial Cells MOD H, Urine Bacteria FEW H, Hyaline Casts RARE H, Urine Hemoglobin MOD H, Urine Glucose NEG 04/07/17 1503: Lactic Acid Cancelled Vital Signs Date Time Temp Pulse Resp B/P B/P Pulse O2 O2 Flow FiO2 Mean Ox Delivery Rate 04/10 0832 56 110/60 04/10 0832 56 110/60 04/10 0653 98.2 56 20 126/60 94 Room Air 04/099 98.0 62 20 132/60 93 Room Air 04/098 62 132/60 04/09 1523 98.4 93 18 144/60 93 Also follow endocrine and recommendations.
--- NOTE | 2017-04-10 14:57 | Cons- Cardiology ---
General Information and HPI Consulting Request Date of Consult: 04/10/17 Requested By: Luigi Mary MD Reason for Consult: Atrial fibrillation History of Present Illness: The patient is a 71-year-old female with prior history of mitral valve endocarditis, diabetes mellitus, hypertension, and osteomyelitis who is followed by Dr. Isaac. She has a history of chronic nonhealing left heel ulcer for the past 2 years, which was treated with several courses of antibiotics for osteomyelitis, and multiple debridements. She presented with cellulitis extending from the left ankle to the left groin, and was admitted for IV antibiotic therapy. She is planned for debridement of the left foot, however an EKG which was performed for preoperative evaluation revealed atrial fibrillation which is a new finding for her. She has been noted admissions to have episodes of paroxysmal SVT and nonsustained ventricular tachycardia. She reports that she is feeling well from a cardiac standpoint. No chest pain. No palpitations. No diaphoresis. No orthopnea. No lightheadedness or dizziness. No nausea or vomiting. After the EKG showing atrial fibrillation, and she was transferred to telemetry, and she is now noted to be in sinus rhythm. Allergies/Medications Allergies: Coded Allergies: enalapril (Intermediate, PERSITENT COUGH. 06/28/15) Home Med List: Alprazolam 0.5 MG TABLET 1 TAB PO PRN ANXIETY (Reported) Ascorbic Acid (Vitamin C) 1,000 MG TABLET 1 TAB PO DAILY SUPPLEMENT (Reported ) Atorvastatin Calcium (Lipitor) 40 MG TABLET 1 TAB PO DAILY CHOLESTEROL ( Reported) Cetirizine HCl (Zyrtec) 10 MG TABLET 1 TAB PO DAILY ALLERGIES (Reported) Cholecalciferol (Vitamin D3) (Vitamin D) (Unknown Strength) TABLET (Unknown Dose) PO DAILY SUPPLEMENT (Reported) Gabapentin 600 MG TABLET 2 TAB PO TID NEUROPATHY (Reported) Insulin Detemir (Levemir Flextouch) 100 UNIT/ML (3 ML) INSULN.PEN 20 UNIT SC QHS DM (Reported) Insulin NPH Human Isophane (Humulin N Kwikpen) 100 UNIT/ML (3 ML) INSULN.PEN DM (Reported) Levothyroxine Sodium (Synthroid) 50 MCG TABLET 1 TAB PO DAILY AC THYROID HEALTH (Reported) Magnesium Oxide (Magnesium) (Unknown Strength) CAPSULE (Unknown Dose) PO DAILY SUPPLEMENT (Reported) Metformin Hydochloride (Glucophage) 500 MG TABLET 1 TAB PO BID DIABETES ( Reported) Metoprolol Tartrate 50 MG TABLET 50 MG PO BID afib Multivitamin (Multivitamins) 1 EACH CAPSULE 1 TAB PO DAILY SUPPLEMENT ( Reported) Nateglinide (Starlix) 120 MG TABLET 1 TAB PO DAILY DM (Reported) Omeprazole 20 MG CAPSULE.DR 40 MG PO DAILY AC GERD Polyethylene Glycol 3350 (Miralax) 17 GRAM POWD.PACK 1 PAC PO DAILY OPIOD CONSTIPATION (Reported) dissolve in water Sennosides/Docusate Sodium (Senna S Tablet) 1 EACH TABLET 1 TAB PO BID CONSTIPATION (Reported) Tylenol With Codeine (Tylenol With Codeine #3 Tablet) 300 MG-30 MG TABLET 1-2 TAB PO Q4-6 PRN PRN pain control take as directed. do not combine with tylenol. Vitamin B Complex 1 EACH CAPSULE 1 CAP PO DAILY SUPPLEMENT (Reported) ZINC (Unknown Strength) TABLET (Unknown Dose) PO DAILY SUPPLEMENT (Reported) Current Medications: Current Medications Sig/Vandana Start time Last Medication Dose Route Stop Time Status Admin Acetaminophen 650 MG Q6P PRN 04/07 2130 AC PO Acetaminophen/ 1 TAB Q6P PRN 04/09 1415 AC 04/09 Codeine Phosphate PO 1407 Ampicillin Sodium/ 1,500 MG Q6H 04/07 2200 AC 04/10 Sulbactam Sodium IV 0938 Sodium Chloride 100 ML Ascorbic Acid 1,000 MG DAILY 04/08 1000 AC 04/09 PO 1021 Atorvastatin Calcium 40 MG DAILY@1700 04/07 1813 AC 04/09 PO 1726 Cholecalciferol 1,000 IU DAILY 04/08 1000 AC 04/09 PO 1021 Gabapentin 1,200 MG Q8 04/07 1757 AC 04/10 PO 0536 Heparin Sodium 5,000 UNIT Q8 04/07 2330 DC 04/10 (Porcine) SC 0535 Heparin Sodium/ 25,000 UNIT Q24H 04/10 1015 AC Dextrose IV Dextrose/Water 500 ML Insulin Aspart 0 TIDAC/HS 04/10 1700 AC SC Insulin Aspart 0 TIDAC 04/07 1700 DC 04/09 SC 1225 Insulin Detemir 20 UNITS AT BEDTIME 04/07 2200 AC 04/09 SC 2257 Insulin Human Regular 0 TIDAC/HS 04/10 1200 DC 04/10 SC 1205 Insulin Human Regular 4 UNITS .STK-MED ONE 04/10 0005 DC IV 04/10 0006 Insulin Human Regular 0 Q6 04/09 2359 DC 04/10 SC 0544 Lactobacillus 1 CAP BID 04/08 1107 AC 04/09 Acidophilus PO 2238 Levothyroxine Sodium 0.05 MG DAILY AC 04/07 1635 AC 04/10 PO 0535 Loratadine 10 MG DAILY 04/08 1000 AC 04/09 PO 1021 Losartan Potassium 25 MG DAILY 04/09 1151 AC 04/09 PO 1225 Magnesium Oxide 400 MG DAILY 04/08 1000 AC 04/09 PO 1021 Metoprolol Tartrate 50 MG BID 04/07 2330 AC 04/09 PO 2238 Multivitamins 1 TAB DAILY 04/08 1000 AC 04/09 PO 1021 Omeprazole 40 MG DAILY AC 04/08 0700 AC 04/10 PO 0536 Polyethylene Glycol 17 GM DAILY 04/08 1000 AC 04/09 PO 1020 Ramelteon 8 MG .STK-MED ONE 04/10 0006 DC PO 04/10 0007 Ramelteon 8 MG ONCE ONE 04/09 2345 DC 04/10 PO 04/09 2346 0006 Review of Systems Review of Systems: No rash. No tremor. No melena. No hemoptysis. No hematemesis. All other systems were reviewed, and were noted to be negative. Past History Travel History Traveled to [place] past 21 day No Medical History Blood Transfusion Hx: Yes Neurological: peripheral neuropathy EENT: allergies, hearing loss Cardiovascular: CHF, hypertension, hyperlipidemia, systolic CHF, mitral valve prolapse Group G strep mitral valve endocarditis Group G strep endocarditis Respiratory: NONE Gastrointestinal: constipation, SLOW PERISTALSIS Hepatic: cholecystitis Renal: chronic kidney disease, urinary incontinence Musculoskeletal: chronic back pain, decubitis ulcer, falls, osteoarthritis, spinal stenosis, OSTEOMYELITIS left heel Psychiatric: NONE Endocrine: diabetes, hypothyroidism, obesity Blood Disorders: NONE Cancer(s): NONE 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 , Age 56; Cause: Acute leukemia. Leukemia BROTHER, ; Cause: Heart attack. FATHER (hx colon polyps). , Age 70; Cause: CHF (congestive heart failure ). Psychosocial History Where Do You Live? Home Who Do You Live With? self Services at Home: None Primary Language: Marshallese Smoking Status: Never Smoked ETOH Use: denies use Illicit Drug Use: denies illicit drug use Power of Rn Midwife/HCP? no Functional Ability ADLs Independent: dressing, eating, toileting, bathing. Ambulation: cane IADLs Independent: shopping, housework, finances, food prep, telephone, transportation , medication admin. Exam & Diagnostic Data Vital Signs and I&O Vital Signs Date Time Temp Pulse Resp B/P B/P Pulse O2 O2 Flow FiO2 Mean Ox Delivery Rate 04/10 831 56 110/60 04/10 08 56 110/60 04/10 0653 98.2 56 20 126/60 94 Room Air 04/09 2259 98.0 62 20 132/60 93 Room Air 04/09 2238 62 132/60 04/09 1523 98.4 93 18 144/60 93 Intake & Output 04/10 1600 04/10 0800 04/10 0000 04/09 1600 04/09 0800 04/09 0000 Intake Total 200 1250 840 985 Output Total 725 120 300 550 400 600 Balance -725 80 -300 700 440 385 Intake, IV 200 250 600 505 Intake, Oral 1000 240 480 Number 0 0 0 Bowel Movements Output, Urine 725 120 300 550 400 600 Patient 250 lb Weight Weight Bed scale Measurement Method Physical Exam: Gen: The patient is in no acute distress HEENT: Normal nose, ears, and oropharynx. Pupils equal bilaterally. Conjunctiva normal. Neck: Supple with no JVD, no masses, and no thyromegaly Lungs: Clear to auscultation with normal respiratory effort Heart: RRR, S1, S2, 2/6 systolic murmur at the apex. 1-2+ peripheral edema, 1+ pulses in the lower extremities bilaterally Abdomen: Soft, nontender, no masses. No hepatomegaly. No splenomegaly Extremities: No clubbing or cyanosis. Normal muscle strength in the upper and lower extremities Skin: Cellulitis of the left lower extremity as noted. Normal skin turgor. Neuro: Cranial nerves intact. Sensation intact Psych: Alert and oriented 3 with appropriate affect Labs/Ammon Results: Laboratory Tests 04/10 04/09 0720 1506 Chemistry Sodium (137 - 145 mmol/L) 143 Potassium (3.5 - 5.1 mmol/L) 4.6 Chloride (98 - 107 mmol/L) 106 Carbon Dioxide (22 - 30 mmol/L) 23 Anion Gap (5 - 16) 15 BUN (7 - 17 mg/dL) 44 H Creatinine (0.5 - 1.0 mg/dL) 1.4 H Estimated GFR (>60 ml/min) 37 L BUN/Creatinine Ratio (7 - 25 %) 31.4 H Hematology CBC w Diff NO MAN DIFF REQ WBC (4.8 - 10.8 /CUMM) 12.0 H RBC (4.20 - 5.40 /CUMM) 3.65 L Hgb (12.0 - 16.0 G/DL) 10.5 L Hct (37 - 47 %) 32.1 L MCV (81.0 - 99.0 FL) 87.9 MCH (27.0 - 31.0 PG) 28.7 RDW (11.5 - 14.5 %) 16.9 H Plt Count (130 - 400 /CUMM) 252 MPV (7.4 - 10.4 FL) 9.1 Gran % (42.2 - 75.2 %) 75.2 Lymphocytes % (20.5 - 51.1 %) 11.5 L Monocytes % (1.7 - 9.3 %) 10.0 H Eosinophils % (0 - 5 %) 3.0 Basophils % (0.0 - 2.0 %) 0.3 Absolute Granulocytes (1.4 - 6.5 /CUMM) 9.0 H Absolute Lymphocytes (1.2 - 3.4 /CUMM) 1.4 Absolute Monocytes (0.10 - 0.60 /CUMM) 1.2 H Absolute Eosinophils (0.0 - 0.7 /CUMM) 0.4 Absolute Basophils (0.0 - 0.2 /CUMM) 0 PUBS MCHC (33.0 - 37.0 G/DL) 32.6 L Serology Hepatitis A IgM Ab (NONREACTIVE) NONREACTIVE Hep Bs Antigen (NONREACTIVE) NONREACTIVE Hep B Core IgM Ab Conf (NONREACTIVE) NONREACTIVE Hepatitis C Antibody (NONREACTIVE) NONREACTIVE 04/09 04/09 04/09 0745 0735 0600 Chemistry Sodium (137 - 145 mmol/L) 145 Potassium (3.5 - 5.1 mmol/L) 4.4 Chloride (98 - 107 mmol/L) 106 Carbon Dioxide (22 - 30 mmol/L) 22 Anion Gap (5 - 16) 17 H BUN (7 - 17 mg/dL) 40 H Creatinine (0.5 - 1.0 mg/dL) 1.4 H Estimated GFR (>60 ml/min) 37 L BUN/Creatinine Ratio (7 - 25 %) 28.6 H Phosphorus (2.5 - 4.5 mg/dL) 4.5 Prot Electrophoresis Pending Total Protein (PEP) Pending Albumin % (PEP) Pending [id number] Pending Rigtk-[id number] Pending Sivu-9-Sxadmixp Pending Gtkh-6-Kuhttozz Pending Gamma Globulins Pending Abnorm Protein Band 1 Pending Abnorm Protein Band 2 Pending Abnorm Protein Band 3 Pending Hematology CBC w Diff NO MAN DIFF REQ WBC (4.8 - 10.8 /CUMM) 11.6 H RBC (4.20 - 5.40 /CUMM) 3.74 L Hgb (12.0 - 16.0 G/DL) 10.7 L Hct (37 - 47 %) 32.8 L MCV (81.0 - 99.0 FL) 87.5 MCH (27.0 - 31.0 PG) 28.7 RDW (11.5 - 14.5 %) 16.7 H Plt Count (130 - 400 /CUMM) 221 MPV (7.4 - 10.4 FL) 8.9 Gran % (42.2 - 75.2 %) 78.7 H Lymphocytes % (20.5 - 51.1 %) 9.6 L Monocytes % (1.7 - 9.3 %) 10.3 H Eosinophils % (0 - 5 %) 1.3 Basophils % (0.0 - 2.0 %) 0.1 Absolute Granulocytes (1.4 - 6.5 /CUMM) 9.1 H Absolute Lymphocytes (1.2 - 3.4 /CUMM) 1.1 L Absolute Monocytes (0.10 - 0.60 /CUMM) 1.2 H Absolute Eosinophils (0.0 - 0.7 /CUMM) 0.2 Absolute Basophils (0.0 - 0.2 /CUMM) 0 PUBS MCHC (33.0 - 37.0 G/DL) 32.8 L Immunology Complement C3 Pending Complement C4 Pending Diagnostic Data EKG Results EKG tracings are independently reviewed. EKG from 0956 today reveals atrial fibrillation with response of 105, left atrial hypertrophy, inferior infarct age undetermined EKG from 1259 today reveals normal sinus rhythm at 85 with super ventricular bigeminy, left atrial hypertrophy, inferior infarct age undetermined, possible anterior infarct age undetermined CXR Results Hypoinflation and central vascular congestion with no overt edema. No focal consolidation or pleural effusion. Stable cardiomediastinal silhouette. Other Results Left lower extremity venous Doppler study: Normal triplex scan without evidence of deep venous thrombosis involving left the lower extremity. Echocardiogram 10/20/15: 1. This was a technically difficult and limited examination due to the patient's body habitus 2. Moderate aortic sclerosis is present with minimal aortic insufficiency 3. Mitral leaflet thickening is present with moderate to severe anular calcification and mild to moderate mitral insufficiency with mild to moderate left atrial enlargement. No vegetative lesions were appreciated on this examination. 4. A very small pericardial effusion is present which is hemodynamically insignificant. 5. The left ventricular chamber size and systolic function are normal. Mild concentric hypertrophy is present with no obvious resting wall motion abnormalities. 6. The right heart structures are grossly normal but were not optimally visualized. Mild to moderate tricuspid insufficiency is present with minimal to mild pulmonic insufficiency and no evidence of pulmonary hypertension. 7. The patient's prior study was not available for comparison at the time of this reading. 8. If clinically indicated, a LIAT would be necessary to better exclude the possibility of vegetative lesions. Assessment/Plan Assessment/Plan The patient is a 71-year-old female with history of diabetes mellitus, hypertension, osteomyelitis, and prior history of mitral valve endocarditis. She presents with left lower extremity cellulitis and possible osteomyelitis, and is planned for debridement. An EKG was performed for preoperative evaluation which revealed atrial fibrillation with controlled ventricular rate. Atrial fibrillation is a new finding for her. She was transferred to telemetry, and she is now noted to be in sinus rhythm with frequent supraventricular ectopy. Recommendations: * IV heparin for stroke prevention given evidence of paroxysmal atrial fibrillation. The heparin may be held prior to surgery, and restarted postoperatively. Will consider changing to a NOAC prior to discharge * Echocardiogram * Continue current dose of metoprolol. If atrial fibrillation with rapid ventricular rate develops, then the metoprolol dose may be increased. * Consult Acknowledgment - Thank you for your consult request.
--- NOTE | 2017-04-10 15:16 | PN- Infect Dx ---
Subjective Subjective: Afebrile. She notes some discomfort in the left foot. She was moved to Telemetry because of new onset of atrial fibrillation on her preop EKG. Her surgery has been deferred. Objective Last 24 Hrs of Vital Signs/I&O Vital Signs Date Time Temp Pulse Resp B/P B/P Pulse O2 O2 Flow FiO2 Mean Ox Delivery Rate 04/10 0832 56 110/60 04/10 0832 56 110/60 04/10 0653 98.2 56 20 126/60 94 Room Air 04/09 2259 98.0 62 20 132/60 93 Room Air 04/09 2238 62 132/60 04/09 1523 98.4 93 18 144/60 93 Intake & Output 04/10 1600 04/10 0800 04/10 0000 Intake Total 200 Output Total 725 120 300 Balance -725 80 -300 Intake, IV 200 Output, Urine 725 120 300 Patient 250 lb Weight Weight Bed scale Measurement Method Physical Exam Other Physical Findings: She appears comfortable in no acute distress Extremities decreased erythema of the medial aspect of her left leg; bilateral lower extremity edema, left greater than right; left foot dressing intact Results Last 24 Hours of Lab Results: Laboratory Tests 04/10 0720 Chemistry Sodium (137 - 145 mmol/L) 143 Potassium (3.5 - 5.1 mmol/L) 4.6 Chloride (98 - 107 mmol/L) 106 Carbon Dioxide (22 - 30 mmol/L) 23 Anion Gap (5 - 16) 15 BUN (7 - 17 mg/dL) 44 H Creatinine (0.5 - 1.0 mg/dL) 1.4 H Estimated GFR (>60 ml/min) 37 L BUN/Creatinine Ratio (7 - 25 %) 31.4 H Hematology CBC w Diff NO MAN DIFF REQ WBC (4.8 - 10.8 /CUMM) 12.0 H RBC (4.20 - 5.40 /CUMM) 3.65 L Hgb (12.0 - 16.0 G/DL) 10.5 L Hct (37 - 47 %) 32.1 L MCV (81.0 - 99.0 FL) 87.9 MCH (27.0 - 31.0 PG) 28.7 RDW (11.5 - 14.5 %) 16.9 H Plt Count (130 - 400 /CUMM) 252 MPV (7.4 - 10.4 FL) 9.1 Gran % (42.2 - 75.2 %) 75.2 Lymphocytes % (20.5 - 51.1 %) 11.5 L Monocytes % (1.7 - 9.3 %) 10.0 H Eosinophils % (0 - 5 %) 3.0 Basophils % (0.0 - 2.0 %) 0.3 Absolute Granulocytes (1.4 - 6.5 /CUMM) 9.0 H Absolute Lymphocytes (1.2 - 3.4 /CUMM) 1.4 Absolute Monocytes (0.10 - 0.60 /CUMM) 1.2 H Absolute Eosinophils (0.0 - 0.7 /CUMM) 0.4 Absolute Basophils (0.0 - 0.2 /CUMM) 0 PUBS MCHC (33.0 - 37.0 G/DL) 32.6 L Last 24 Hours of Ammon Results: Blood cultures April 07 negative Recent Imaging Studies: MRI of the left foot April 09 reveals a soft tissue irregularity overlying the plantar aspect of the hindfoot at the level of the calcaneus, with abnormal bone marrow signal within the plantar aspect of the calcaneus, consistent with osteomyelitis Assessment/Plan Impression: Improved, with temperatures remaining normal and white blood cell count overall decreased on Unasyn now Day 3 of treatment for a left leg cellulitis secondary to a nonhealing ulcer on the left heel, with her MRI confirming the clinical and plain x-ray suspicion of osteomyelitis. She was scheduled for the OR today for debridement of the heel, but this has been deferred because of the new onset of atrial fibrillation. As her wound has not healed despite several courses of antibiotics for osteomyelitis, am not inclined to commit her to another course unless her vascular status can be improved. Of note a left BKA has been recommended on several occasions in the past, but she continues to refuse this. Suggestion: 1. Follow-up arterial Dopplers and await Vascular surgery evaluation 2. Await debridement of the left heel per Podiatry 3. Elevation of the left leg 4. Continue Unasyn
--- NOTE | 2017-04-10 15:21 | ULTRASOUND REPORT ---
EXAMINATION: US ARTERIAL DOPPLER LOWER EXTREMITY, LEFT CLINICAL INFORMATION: Non-healing ulcer. COMPARISON: 04/21/2015 CT abdomen pelvis 10/08/2015 TECHNIQUE: Left lower extremity duplex ultrasound was performed with velocity measurements and waveform analysis in the common femoral arteries, profunda femoris arteries, proximal mid and distal superficial femoral arteries, popliteal arteries and tibial vessels. This study was performed only at rest. FINDINGS: Velocities in cm/sec and phasicity as well as the presence of plaque are reported below. LEFT LEG: Common Femoral: 155 (211) cm/s Profunda Femoris: 61.6 (181) cm/s Proximal SFA: 158 cm/s, not measured previously Mid SFA: 149 (140) cm/s Distal SFA: 88.8 (114) cm/s Popliteal: 148 (280) cm/s Anterior Tibial: 74.5 (99) cm/s Doppler waveforms remain monophasic. IMPRESSION: Since the previous study, there appears to have been some improvement in appearances with decrease in the popliteal velocities indicating less of a degree of stenosis. Has this is patient undergone any interval therapy? CT angiography could be performed for better anatomic evaluation.
--- NOTE | 2017-04-10 15:32 | ULTRASOUND REPORT ---
EXAMINATION: US RETROPERITONEAL COMPLETE (RENAL) CLINICAL INFORMATION: Proteinuria. Uncontrolled diabetes.. COMPARISON: CT abdomen pelvis 11/05/2015 and abdominal ultrasound 08/15/2015 TECHNIQUE: Real-time imaging of the kidneys and bladder. Examination significantly limited secondary to patient body habitus and overlying bowel gas. FINDINGS: RIGHT KIDNEY: 9.8 x 5.6 x 5.6 cm (SAG x AP x TRV). The kidney is normal in size, contour, and echogenicity. Renal cortical thickness is within normal limits. Prominence of the midpole cortex is nonspecific but potentially represents a column of Jarod. No hydronephrosis. LEFT KIDNEY: 11.5 x 6.2 x 6.0 cm (SAG x AP x TRV). The kidney is normal in size, contour, and echogenicity. Renal cortical thickness is normal. No renal calculi or hydronephrosis. BLADDER: The bladder is decompressed and therefore cannot be evaluated. IMPRESSION: 1. Limited examination secondary to patient body habitus and overlying bowel gas. 2. No gross renal calculi or hydronephrosis of either kidney. Cross-sectional imaging would provide a more diagnostic evaluation of the kidneys given limitations from overlying bowel gas and large body habitus. 3. The bladder is decompressed and therefore cannot be evaluated.
--- NOTE | 2017-04-10 17:38 | PN- Vascular Surgery ---
Surgical Brief Attending Note Brief Attending Note: 71-year-old lady with long-standing left heel osteomyelitis was undergone multiple debridement and wound care by Dr. Altamirano. She was admitted with cellulitis of the left lower extremity. MRI was consistent with possible mild esophagitis left calcaneus. The plan was to go to the OR for debridement, but the patient was found to be in new A. fib. Cholagogic consultation was called. Vascular surgery was consulted regarding adequacy of blood flow to the left foot. She has palpable femoral pulses bilaterally. Arterial ultrasound did not show any evidence of significant arterial stenosis. The graft standard is a angiography of the left lower extremity. I will discuss timing of angiography with operating room tomorrow and plan accordingly once the patient is cleared from the medical/cardiac standpoint. Thank you
[2017-04-10 21:43] VITALS: BP 138/78
[2017-04-11 06:47] VITALS: BP 122/82
--- NOTE | 2017-04-11 07:27 | PN- Housestaff ---
Subjective Follow-up For: Cellulitis of left foot Complaints: no complaints Tele-Events Since Last Visit: Sinus rhythm, sinus bradycardia, heart rate ranging from 59-60 Subjective: Follow-up the patient today complains overnight, vital signs stable, patient is currently nothing by mouth awaiting her surgery today. Review of Systems Constitutional: Reports: no symptoms. Objective Last 24 Hrs of Vital Signs/I&O Vital Signs Date Time Temp Pulse Resp B/P B/P Pulse O2 O2 Flow FiO2 Mean Ox Delivery Rate 04/11 1434 98.2 55 20 160/70 96 Room Air 04/11 0953 122/80 04/11 0952 122/82 04/11 0647 98.4 60 18 122/82 95 Room Air 04/10 2155 64 138/78 04/10 2143 98.3 64 18 138 95 Room Air Intake & Output 04/11 1600 04/11 0800 04/11 0000 Intake Total 1000 700 200 Output Total 600 400 Balance 400 700 -200 Intake, IV 800 600 Intake, Oral 200 100 200 Number 1 Bowel Movements Output, Urine 600 400 Patient 107.671 kg 107.671 kg Weight Weight Chair scale Measurement Method Physical Exam General Appearance: Alert, Oriented X3, Cooperative, No Acute Distress, morbidly obese Other Physical Findings: Skin: No Rashes, well demarcated lower left leg cellulitis that is receding , dressing in situ Cardiovascular: Regular Rate, Normal S1, Normal S2, No Murmurs Lungs: Clear to Auscultation, Normal Air Movement Abdomen: Normal Bowel Sounds, Soft, No Tenderness Neuro: grossly intact Current Medications: Current Medications Sig/Vandana Start time Last Medication Dose Route Stop Time Status Admin Acetaminophen 650 MG Q6P PRN 04/07 2130 AC PO Acetaminophen/ 1 TAB Q6P PRN 04/09 1415 AC 04/09 Codeine Phosphate PO 1407 Ampicillin Sodium/ 1,500 MG Q6H 04/07 2200 AC 04/11 Sulbactam Sodium IV 0445 Sodium Chloride 100 ML Ascorbic Acid 1,000 MG DAILY 04/08 1000 AC 04/09 PO 1021 Atorvastatin Calcium 40 MG DAILY@1700 04/07 1813 04/10 PO 1802 Cholecalciferol 1,000 IU DAILY 04/08 1000 AC 04/09 PO 1021 Gabapentin 1,200 MG Q8 04/07 1757 AC 04/11 PO 0640 Heparin Sodium 5,000 UNIT Q8 04/07 2330 DC 04/10 (Porcine) PR 0535 Heparin Sodium/ 25,000 UNIT Q24H 04/10 1015 AC Dextrose IV Dextrose/Water 500 ML Insulin Aspart 0 TIDAC/HS 04/10 1700 DC SC 04/11 0000 Insulin Detemir 20 UNITS AT BEDTIME 04/07 2200 AC 04/10 SC 2153 Insulin Human Regular 0 Q6 04/11 0600 AC 04/11 PR 0640 Insulin Human Regular 0 TIDAC/HS 04/10 1200 DC 04/10 PR 1205 Insulin Human Regular 0 Q6 04/09 2359 DC 04/10 PR 0544 Lactobacillus 1 CAP BID 04/08 1107 AC 04/10 Acidophilus PO 2155 Levothyroxine Sodium 0.05 MG DAILY AC 04/07 1635 AC 04/11 PO 0640 Loratadine 10 MG DAILY 04/08 1000 AC 04/09 PO 1021 Losartan Potassium 25 MG DAILY 04/09 1151 AC 04/09 PO 1225 Magnesium Oxide 400 MG DAILY 04/08 1000 AC 04/09 PO 1021 Metoprolol Tartrate 50 MG BID 04/07 2330 AC 04/10 PO 2155 Multivitamins 1 TAB DAILY 04/08 1000 AC 04/09 PO 1021 Omeprazole 40 MG DAILY AC 04/08 0700 AC 04/11 PO 0640 Polyethylene Glycol 17 GM DAILY 04/08 1000 AC 04/09 PO 1020 Ramelteon 8 MG ONCE ONE 04/11 0245 DC 04/11 PO 04/11 0246 0250 Sodium Chloride 1,000 ML Q13H 04/11 0030 AC 04/11 IV 0033 Last 24 Hrs of Lab/Ammon Results Last 24 Hrs of Labs/Mics: Laboratory Tests 04/11/17 0615: Sodium Pending, Potassium Pending, Chloride Pending, Carbon Dioxide Pending, Anion Gap Pending, BUN Pending, Creatinine Pending, BUN/Creatinine Ratio Pending , CBC w Diff Pending, WBC Pending, RBC Pending, Hgb Pending, Hct Pending, MCV Pending, MCH Pending, RDW Pending, Plt Count Pending, MPV Pending, PUBS MCHC Pending 04/10/17 2253: Ur Random Creatinine 66.0, Urine Total Volume 1750 H, Urine Creatinine 1.2, Ur Total Protein 24 Hr Pending Assessment/Plan Assessment: Assessment: Patient is a 71-year-old noncompliant diabetic female with previous history of group G strep, MRSA osteomyelitis presented with sudden onset left leg erythema, fever, increased tiredness. Vital signs at admission are unremarkable, physical examination is significant for erythema extending from left heel till the left groin with swelling. Left lower extremity ulcer measuri ng 3.5 X 1 cm open area with surrounding chronic inflammation 4.5 and 3.5 cm. Labs are significant for white count of 17.3, ESR 76, CRP 9, lactic acid 1.7. Foot x-ray did show osteopenia with stable radiographic findings. Venous Doppler ruled out DVT. ARTERIAL DOPPLER TODAY SHOWED MILD PVD. Patient was initially admitted to the general medical floor and was transferred to telemetry floor on 04/10/2017 for the management of following issues: Left lower extremity edema with swelling - probable cellulitis/osteomyelitis * Radiologically proven osteomyelitis, currently on IV antibiotics * Currently nothing by mouth for debridement and bone biopsy/culture data today by podiatry service * We'll continue IV antibiotics until we get the results from bone biopsy * Continue to elevate leg, which she is not very compliant as she stays in her recliner most of the time * Adequate pain management. Paroxysmal atrial fibrillation Patient has paroxysmal atrial fibrillation, overnight was in sinus rhythm. Rate controlled. Patient was ordered IV heparin yesterday, but somehow it was not started until this morning. We are holding IV heparin prior to surgery, and will restart after the surgery. Uncontrolled diabetes mellitus * Patient is currently nothing by mouth thus has IV fluids with dextrose in it, with Accu-Cheks every 6 hours and regular insulin ordered. * Which is still diabetic diet, and Accu-Cheks, insulin 3 times a day /AC and at bedtime after the surgery Proteinuria: Patient is having nephrotic range proteinuria as evident from the protein/ creatinine ratio, workup pending. -urine 24 hour protein collection STILL IN PROCESS. -Patient should be on HETAL-I for proteinuria for high blood pressure instead of metoprolol SO WAS PLACED ON ARB COUGH NOTED ON HETAL -ENDO CONSULT PLACED -hba1c 8.7 -f/u SPEP, C3, C4, PENDING - HEP PANEL NEG -PHOS 4.5 History of hypothyroidism Continue levothyroxine 50 g daily History of hypertension Continue metoprolol tartrate 50 twice a day ADDED [place] History of diabetic neuropathy Continue Neurontin 1200 mg 3 times a day History of ?GERD Continue Zyrtec, or malaise 40 mg daily DVT prophylaxis: IV heparin for a fib CODE STATUS: DNR/DNI Problem List: 1. Osteomyelitis 2. Paroxysmal atrial fibrillation Pain Ratin Pain Location: leg Pain Goal: Pain 4 or less Pain Plan: prn Tomorrow's Labs & Rationales: CBC, BEP, f/u cx
[2017-04-11 08:00] LABS: ABSOLUTE BASOPHIL COUNT 0 /CUMM (0.0-0.2); ABSOLUTE EOSINOPHIL COUNT 0.3 /CUMM (0.0-0.7); ABSOLUTE LYMPH COUNT 1.3 /CUMM (1.2-3.4); ABSOLUTE MONOCYTE COUNT 0.9 /CUMM (0.10-0.60); BASOPHIL % 0 % (0.0-2.0); GRANULOCYTE % 81.6 % (42.2-75.2); HEMATOCRIT 32.2 % (37-47); MEAN CORPUSCULAR HGB 28.5 PG (27.0-31.0); MEAN CORPUSCULAR HGB CONC 32.5 G/DL (33.0-37.0); MEAN CORPUSCULAR VOLUME 87.8 FL (81.0-99.0); MEAN PLATELET VOLUME 8.9 FL (7.4-10.4); PLATELET COUNT 293 /CUMM (130-400); RBC DISTRIBUTION WIDTH 16.7 % (11.5-14.5); RED BLOOD CELL CT 3.67 /CUMM (4.20-5.40); WHITE BLOOD CELL COUNT 13.4 /CUMM (4.8-10.8)
--- NOTE | 2017-04-11 10:06 | PN- Student ---
Laura Estrada 04/11/17 0956: Subjective Subjective: 71 yo F hospital day 5 for cellulitis of L leg. PMHx of DM2, chronic back pain, constipation, urinary incontinence, hypothyroidism, HTN, and osteomyelitis s/p amuptation. Presented to ED with CC of non-healing L foot ulcer and erythema and pain that extended to the groin. Patient is currently NPO, she is due back in the OR today for further debridement. Patient states she did not sleep well last night but denies any headaches, dizziness, n/v, change of appetite, chest pain, SOB, or abdominal pain. Objective Objective: Vital Signs Date Time Temp Pulse Resp B/P B/P Pulse O2 O2 Flow FiO2 Mean Ox Delivery Rate 04/11 0953 122/80 04/11 0952 122/82 04/11 0647 98.4 60 18 122/82 95 Room Air 04/10 2155 64 138/78 04/10 2143 98.3 64 18 138/78 95 Room Air Intake & Output 04/11 1600 04/11 0800 04/11 0000 Intake Total 700 200 Output Total 400 Balance 700 -200 Intake, IV 600 Intake, Oral 100 200 Number 1 Bowel Movements Output, Urine 400 Patient 237 lb Weight Weight Chair scale Measurement Method Appearance: AxO, no acute distress Cardiovascular: RRR, systolic murmur 2/6 Pulmonary: Clear to asucultation Abdomen: PRotuberant abdomen with normoactive bowel sounds. Soft with no TTP or rigidity Skin: Areas of erythema on the left leg and thigh appear to be receding from previously drawn marker line. Area is still warm to the touch. Extremities: 3+ pitting edema bilaterally, no TTP of the calves bilaterally. 1+ distal pulses present. Results Results: Laboratory Tests 04/11/17 0615: Anion Gap 15, Estimated GFR 49 L, BUN/Creatinine Ratio 37.3 H, CBC w Diff NO MAN DIFF REQ, RBC 3.67 L, MCV 87.8, MCH 28.5, RDW 16.7 H, MPV 8.9, Gran % 81.6 H, Lymphocytes % 9.4 L, Monocytes % 7.0, Eosinophils % 2.0, Basophils % 0, Absolute Granulocytes 11.0 H, Absolute Lymphocytes 1.3, Absolute Monocytes 0.9 H, Absolute Eosinophils 0.3, Absolute Basophils 0, PUBS MCHC 32.5 L 04/10/17 2253: Ur Random Creatinine 66.0, Urine Total Volume 1750 H, Urine Creatinine 1.2, Ur Total Protein 24 Hr 2362.5 H 04/10/17 0720: Anion Gap 15, Estimated GFR 37 L, BUN/Creatinine Ratio 31.4 H, CBC w Diff NO MAN DIFF REQ, RBC 3.65 L, MCV 87.9, MCH 28.7, RDW 16.9 H, MPV 9.1, Gran % 75.2 , Lymphocytes % 11.5 L, Monocytes % 10.0 H, Eosinophils % 3.0, Basophils % 0.3 , Absolute Granulocytes 9.0 H, Absolute Lymphocytes 1.4, Absolute Monocytes 1.2 H, Absolute Eosinophils 0.4, Absolute Basophils 0, PUBS MCHC 32.6 L 04/09/17 1506: Hepatitis A IgM Ab NONREACTIVE, Hep Bs Antigen NONREACTIVE, Hep B Core IgM Ab Conf NONREACTIVE, Hepatitis C Antibody NONREACTIVE 04/09/17 0745: CBC w Diff NO MAN DIFF REQ, RBC 3.74 L, MCV 87.5, MCH 28.7, RDW 16.7 H, MPV 8.9, Gran % 78.7 H, Lymphocytes % 9.6 L, Monocytes % 10.3 H, Eosinophils % 1.3, Basophils % 0.1, Absolute Granulocytes 9.1 H, Absolute Lymphocytes 1.1 L, Absolute Monocytes 1.2 H, Absolute Eosinophils 0.2, Absolute Basophils 0, PUBS MCHC 32.8 L 04/09/17 0735: Anion Gap 17 H, Estimated GFR 37 L, BUN/Creatinine Ratio 28.6 H, Phosphorus 4.5 04/09/17 0600: Prot Electrophoresis Pending, Total Protein (PEP) Pending, Albumin % (PEP) Pending, [id number]-8-Cfwhhttfp Pending, Ufjbg-5-Iksgselue Pending, Qmaq-4-Ehsvhydj Pending, Topo-2-Msanhzmh Pending, Gamma Globulins Pending, Abnorm Protein Band 1 Pending, Abnorm Protein Band 2 Pending, Abnorm Protein Band 3 Pending, Complement C3 Pending, Complement C4 Pending Assessment/Plan Assessment: 71 yo F hospital day 5 for cellulitis of L leg. PMHx of DM2, chronic back pain, constipation, urinary incontinence, hypothyroidism, THN, and osteomyelitis s/p amuptation. Presented to ED with CC of non-healing L foot ulcer and erythema and pain that extended to the groin. Plan: Acute conditions 1. Celluliutis * Abx: Unasyn 1.5g q6h IV * Return to OR for debridement 2. DVT prophylaxis/Afib * Heparin 25,000 units daily 3. Constipation: Miralax 17 grams Chronic conditions 4. Uncontrolled DM2 (HbA1c = 8.7%) * Novolin q6 SC * Novolog TIDAC/HS sc * Levemir 60 u qHS * Diabetic neuropathy: Gabapentin 1.2g q8 PO 5. Hypothyroidism: Synthroid .05mg daily PO 6. HTN: * Metoprolol 50 mg BID PO * Losartan 25 mg daily PO 7. GERD: Omeprazole 40 mg PO daily 8. HLD: Atorvastatin 40 mg daily PO Sriram Christianson MD 04/11/17 9808: Resident Review Statement Resident Statement: amended to note Other Findings: DIAGNOSIS: radiologicall proven osteomyelitis of left foot, undergoing surgery today. atrial fib parosxysmal, on IV heparin, on hold for surgery. will restart after surgery.
--- NOTE | 2017-04-11 13:50 | PN- Cardiology ---
Subjective Subjective: Stable with no cardiac symptoms. Remains in sinus rhythm. Objective Vital Signs and I&Os Vital Signs Date Time Temp Pulse Resp B/P B/P Pulse O2 O2 Flow FiO2 Mean Ox Delivery Rate 04/11 0953 122/80 04/11 0952 122/82 04/11 0647 98.4 60 18 122/82 95 Room Air 04/10 2155 64 138/78 04/10 2143 98.3 64 18 138/78 95 Room Air Intake & Output 04/11 1600 04/11 0800 04/11 0000 04/10 1600 04/10 0800 04/10 0000 Intake Total 700 200 200 Output Total 400 725 120 300 Balance 700 -200 -725 80 -300 Intake, IV 600 200 Intake, Oral 100 200 Number 1 Bowel Movements Output, Urine 400 725 120 300 Patient 237 lb 250 lb Weight Weight Chair scale Bed scale Measurement Method Physical Exam: General Appearance: Alert, Oriented X3, Cooperative, No Acute Distress Skin: No Rashes, well demarcated lower left leg cellulitis that is receding since beginning antibiotics Cardiovascular: Regular Rate, Normal S1, Normal S2, 2/6 systolic murmur of mitral insufficiency Lungs: Clear to Auscultation,and percussion bilaterally Abdomen: Normal Bowel Sounds, Soft, No Tenderness, No Hepatospenomegaly, No Masses Current Medications: Current Medications Sig/Vandana Start time Last Medication Dose Route Stop Time Status Admin Acetaminophen 650 MG Q6P PRN 04/07 2130 AC PO Acetaminophen/ 1 TAB Q6P PRN 04/09 1415 AC 04/09 Codeine Phosphate PO 1407 Ampicillin Sodium/ 1,500 MG Q6H 04/07 2200 04/11 Sulbactam Sodium IV 1153 Sodium Chloride 100 ML Ascorbic Acid 1,000 MG DAILY 04/08 1000 AC 04/11 PO 0952 Atorvastatin Calcium 40 MG DAILY@1700 04/07 1813 AC 04/10 PO 1802 Cholecalciferol 1,000 IU DAILY 04/08 1000 04/11 PO 0952 Gabapentin 1,200 MG Q8 04/07 1757 AC 04/11 PO 1312 Heparin Sodium/ 25,000 UNIT Q24H 04/10 1015 AC 04/11 Dextrose IV 0808 Dextrose/Water 500 ML Insulin Aspart 0 TIDAC/HS 04/10 1700 DC SC 04/11 0000 Insulin Detemir 20 UNITS AT BEDTIME 04/07 2200 AC 04/10 WI 2153 Insulin Human Regular 0 Q6 04/11 0600 AC 04/11 SC 1240 Lactobacillus 1 CAP BID 04/08 1107 AC 04/11 Acidophilus PO 0952 Levothyroxine Sodium 0.05 MG DAILY AC 04/07 1635 AC 04/11 PO 0640 Loratadine 10 MG DAILY 04/08 1000 AC 04/11 PO 0952 Losartan Potassium 25 MG DAILY 04/09 1151 AC 04/11 PO 0953 Magnesium Oxide 400 MG DAILY 04/08 1000 AC 04/11 PO 0952 Metoprolol Tartrate 50 MG BID 04/07 2330 AC 04/11 PO 0952 Multivitamins 1 TAB DAILY 04/08 1000 AC 04/11 PO 0952 Omeprazole 40 MG DAILY AC 04/08 0700 AC 04/11 PO 0640 Polyethylene Glycol 17 GM DAILY 04/08 1000 AC 04/11 PO 0951 Ramelteon 8 MG ONCE ONE 04/11 0245 DC 04/11 PO 04/11 0246 0250 Sodium Chloride 1,000 ML Q13H 04/11 0030 AC 04/11 IV 0033 Results Last 48 Hrs of Labs/Mics: Laboratory Tests 04/11/17 0615: Anion Gap 15, Estimated GFR 49 L, BUN/Creatinine Ratio 37.3 H, CBC w Diff NO MAN DIFF REQ, RBC 3.67 L, MCV 87.8, MCH 28.5, RDW 16.7 H, MPV 8.9, Gran % 81.6 H, Lymphocytes % 9.4 L, Monocytes % 7.0, Eosinophils % 2.0, Basophils % 0, Absolute Granulocytes 11.0 H, Absolute Lymphocytes 1.3, Absolute Monocytes 0.9 H, Absolute Eosinophils 0.3, Absolute Basophils 0, PUBS MCHC 32.5 L 04/10/17 2253: Ur Random Creatinine 66.0, Urine Total Volume 1750 H, Urine Creatinine 1.2, Ur Total Protein 24 Hr 2362.5 H 04/10/17 0720: Anion Gap 15, Estimated GFR 37 L, BUN/Creatinine Ratio 31.4 H, CBC w Diff NO MAN DIFF REQ, RBC 3.65 L, MCV 87.9, MCH 28.7, RDW 16.9 H, MPV 9.1, Gran % 75.2 , Lymphocytes % 11.5 L, Monocytes % 10.0 H, Eosinophils % 3.0, Basophils % 0.3 , Absolute Granulocytes 9.0 H, Absolute Lymphocytes 1.4, Absolute Monocytes 1.2 H, Absolute Eosinophils 0.4, Absolute Basophils 0, PUBS MCHC 32.6 L 04/09/17 1506: Hepatitis A IgM Ab NONREACTIVE, Hep Bs Antigen NONREACTIVE, Hep B Core IgM Ab Conf NONREACTIVE, Hepatitis C Antibody NONREACTIVE Assessment/Plan Assessment/Plan Assessment: 1. Paroxysmal atrial fibrillation 2. Hypertension 3. Osteomyelitis/lower extremity cellulitis 4. 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 Recommendations: * IV heparin was not instituted when the patient arrived on telemetry monitoring. She is now on IV heparin which was started this morning. The IV heparin will have to be interrupted at the time of the surgical procedure. Depending on further discussions with podiatry, the patient should either be restarted on IV heparin post procedure or, possibly started on a novel anticoagulant at that time. * Echocardiogram pending * Continue current dose of metoprolol. If atrial fibrillation with rapid ventricular rate develops, then the metoprolol dose may be increased. Continue telemetry? Yes
--- NOTE | 2017-04-11 14:19 | PN- Att Addend ---
Attending Addendum Attending Brief Note Patient sitting in the chair. Seems in normal sinus rhythm today. Patient going to the OR for debridement of the foot today Her vital signs are stable she has no fever. Her last white count is 13,400 unit patient was started on heparin which will be held before the procedure. Continue antibiotic therapy as per infectious diseases and depending on the results of the tissue cultures. Intake & Output 04/11 1600 04/11 0400 04/10 1600 04/10 0400 04/09 1600 04/09 0400 Intake Total 700 720 024 7609 985 Output Total 400 845 300 950 600 Balance 700 -200 -645 -300 1140 385 Intake, IV 600 200 850 505 Intake, Oral 236 073 9831 480 Number 1 0 0 Bowel Movements Output, Urine 400 845 300 950 600 Patient 237 lb 250 lb Weight Weight Chair scale Bed scale Measurement Method Current Medications Sig/Vandana Start time Last Medication Dose Route Stop Time Status Admin Acetaminophen 650 MG Q6P PRN 04/07 2130 AC PO Acetaminophen/ 1 TAB Q6P PRN 04/09 1415 AC 04/09 Codeine Phosphate PO 1407 Ampicillin Sodium/ 1,500 MG Q6H 04/07 2200 AC 04/11 Sulbactam Sodium IV 1153 Sodium Chloride 100 ML Ascorbic Acid 1,000 MG DAILY 04/08 1000 AC 04/11 PO 0952 Atorvastatin Calcium 40 MG DAILY@1700 04/07 1813 AC 04/10 PO 1802 Cholecalciferol 1,000 IU DAILY 04/08 1000 AC 04/11 PO 0952 Gabapentin 1,200 MG Q8 04/07 1757 AC 04/11 PO 1312 Heparin Sodium/ 25,000 UNIT Q24H 04/10 1015 AC 04/11 Dextrose IV 0808 Dextrose/Water 500 ML Insulin Aspart 0 TIDAC/HS 04/10 1700 DC SC 04/11 0000 Insulin Detemir 20 UNITS AT BEDTIME 04/07 2200 AC 04/10 SC 2153 Insulin Human Regular 0 Q6 04/11 0600 AC 04/11 SC 1240 Lactobacillus 1 CAP BID 04/08 1107 AC 04/11 Acidophilus PO 0952 Levothyroxine Sodium 0.05 MG DAILY AC 04/07 1635 AC 04/11 PO 0640 Loratadine 10 MG DAILY 04/08 1000 AC 04/11 PO 0952 Losartan Potassium 25 MG DAILY 04/09 1151 AC 04/11 PO 0953 Magnesium Oxide 400 MG DAILY 04/08 1000 AC 04/11 PO 0952 Metoprolol Tartrate 50 MG BID 04/07 2330 AC 04/11 PO 0952 Multivitamins 1 TAB DAILY 04/08 1000 AC 04/11 PO 0952 Omeprazole 40 MG DAILY AC 04/08 0700 AC 04/11 PO 0640 Polyethylene Glycol 17 GM DAILY 04/08 1000 AC 04/11 PO 0951 Ramelteon 8 MG ONCE ONE 04/11 0245 DC 04/11 PO 04/11 0246 0250 Sodium Chloride 1,000 ML Q13H 04/11 0030 AC 04/11 IV 0033 Laboratory Tests 04/11/17 0615: Anion Gap 15, Estimated GFR 49 L, BUN/Creatinine Ratio 37.3 H, CBC w Diff NO MAN DIFF REQ, RBC 3.67 L, MCV 87.8, MCH 28.5, RDW 16.7 H, MPV 8.9, Gran % 81.6 H, Lymphocytes % 9.4 L, Monocytes % 7.0, Eosinophils % 2.0, Basophils % 0, Absolute Granulocytes 11.0 H, Absolute Lymphocytes 1.3, Absolute Monocytes 0.9 H, Absolute Eosinophils 0.3, Absolute Basophils 0, PUBS MCHC 32.5 L 04/10/17 2253: Ur Random Creatinine 66.0, Urine Total Volume 1750 H, Urine Creatinine 1.2, Ur Total Protein 24 Hr 2362.5 H 04/10/17 0720: Anion Gap 15, Estimated GFR 37 L, BUN/Creatinine Ratio 31.4 H, CBC w Diff NO MAN DIFF REQ, RBC 3.65 L, MCV 87.9, MCH 28.7, RDW 16.9 H, MPV 9.1, Gran % 75.2 , Lymphocytes % 11.5 L, Monocytes % 10.0 H, Eosinophils % 3.0, Basophils % 0.3 , Absolute Granulocytes 9.0 H, Absolute Lymphocytes 1.4, Absolute Monocytes 1.2 H, Absolute Eosinophils 0.4, Absolute Basophils 0, PUBS MCHC 32.6 L 04/09/17 1506: Hepatitis A IgM Ab NONREACTIVE, Hep Bs Antigen NONREACTIVE, Hep B Core IgM Ab Conf NONREACTIVE, Hepatitis C Antibody NONREACTIVE 04/09/17 0745: CBC w Diff NO MAN DIFF REQ, RBC 3.74 L, MCV 87.5, MCH 28.7, RDW 16.7 H, MPV 8.9, Gran % 78.7 H, Lymphocytes % 9.6 L, Monocytes % 10.3 H, Eosinophils % 1.3, Basophils % 0.1, Absolute Granulocytes 9.1 H, Absolute Lymphocytes 1.1 L, Absolute Monocytes 1.2 H, Absolute Eosinophils 0.2, Absolute Basophils 0, PUBS MCHC 32.8 L 04/09/17 0735: Anion Gap 17 H, Estimated GFR 37 L, BUN/Creatinine Ratio 28.6 H, Phosphorus 4.5 04/09/17 0600: Prot Electrophoresis Pending, Total Protein (PEP) Pending, Albumin % (PEP) Pending, [id number]-[id number] Pending, Ckxbb-3-Lucgyeiqb Pending, Pcuj-6-Mevagxmv Pending, Aulr-1-Dsewdsmx Pending, Gamma Globulins Pending, Abnorm Protein Band 1 Pending, Abnorm Protein Band 2 Pending, Abnorm Protein Band 3 Pending, Complement C3 Pending, Complement C4 Pending Vital Signs Date Time Temp Pulse Resp B/P B/P Pulse O2 O2 Flow FiO2 Mean Ox Delivery Rate 04/11 0953 122/80 04/11 0952 122/82 04/11 0647 98.4 60 18 122 95 Room Air 04/10 2154 64 13878 04/10 2142 98.3 64 18 95 Room Air
[2017-04-11 14:34] VITALS: BP 160/70
--- NOTE | 2017-04-11 16:29 | PN- Vascular Surgery ---
Surgical Brief Attending Note Brief Attending Note: The patient is tentatively on the OR schedule for left leg angiogram on Sunday if cleared from medical standpoint. Thank you
--- NOTE | 2017-04-11 17:50 | Operative Report ---
Operative/Inv Procedure Report Surgery Date: 04/11/17 Name of Procedure: 1 open incision and drainage deep to the deep fascia with exposure of the flexor tendon and tendon sheath multiple sites left heel 2 bone biopsy left calcaneus 3 intraoperative administration of ankle block anesthesia 4 excisional debridement Pre-Operative Diagnosis: 1 open necrotic wound left heel 2 osteomyelitis left heel Post-Operative Diagnosis: The same Estimated Blood Loss: less than 50ml Surgeon/[employer] Docent: ALLIE CALLE DPM Anesthesia: moderate sedation, block Operative/Procedure Note Note: After obtaining informed consent the patient was brought to the operating room and placed on the operating table in the supine position. The patient isn't securely fastened to the operating table utilizing safety belt. After administration of IV sedation, 10 mL of 0.5% Marcaine plain was obtained about the patient's left ankle. The left foot and ankle then scrubbed prepped and draped in usual aseptic manner. Attention directed the plantar heel, where a large full-thickness necrotic was identified. A 15 blade visualized sharply revised skin margins. Dissection was then carried down deep to the D fashion with exposure of the flexor tendon and tendon sheath multiple sites left heel. All necrotic nonviable infected tissue sharply evacuated from the wound bed. Necrotic bone was identified centrally and specimen was harvested for microbiologic inspection. Nipple was then irrigated with 3 L of normal sterile saline infusion 50,000 units of bacitracin. Bone this, the foot was redraped and the surgeon's top was changed clean gloves. Any bleeding vessels identified were cauterized or ligated as encountered. The wound was then packed with a wet -to-dry dressing followed by the application of 4 x 4's Kerlix and Buzz wrap. The patient was noted tolerate both procedure and anesthesia well and the patient was transported from the operating room to recovery with vital signs stable.
[2017-04-11 20:15] LABS: PTT 35 SEC (25-37)
[2017-04-11 22:32] VITALS: BP 140/78
[2017-04-12 03:18] LABS: PTT 113 SEC (25-37)
--- NOTE | 2017-04-12 07:43 | PN- Housestaff ---
Subjective Follow-up For: OM of L foot Complaints: no complaints Tele-Events Since Last Visit: sinus rhythm overnight Subjective: pt followed up today. post op d1. no complaints other than mild left foot discomfort. no cardiac events overnight. Review of Systems Constitutional: Reports: no symptoms. Objective Last 24 Hrs of Vital Signs/I&O Vital Signs Date Time Temp Pulse Resp B/P B/P Pulse O2 O2 Flow FiO2 Mean Ox Delivery Rate 04/12 1428 97.8 57 16 132/78 96 04/12 0906 140/82 04/12 0905 140/82 04/11 2232 97.7 60 20 140/78 95 Room Air Intake & Output 04/12 1600 04/12 0800 04/12 0000 Intake Total 750 520 370 Output Total 550 400 350 Balance 200 120 20 Intake, IV 350 400 250 Intake, Oral 400 120 120 Output, Urine 550 400 350 Physical Exam General Appearance: Alert, Oriented X3, Cooperative, No Acute Distress, morbidly obese Other Physical Findings: Skin: No Rashes, left leg has dressing in situ- no discharge/drainage/soakage Cardiovascular: Regular Rate, Normal S1, Normal S2, No Murmurs Lungs: Clear to Auscultation, Normal Air Movement Abdomen: Normal Bowel Sounds, Soft, No Tenderness Neuro: grossly intact Current Medications: Current Medications Sig/Vandana Start time Last Medication Dose Route Stop Time Status Admin Acetaminophen 650 MG Q6P PRN 04/07 2130 AC PO Acetaminophen/ 1 TAB Q6P PRN 04/09 1415 AC 04/12 Codeine Phosphate PO 1758 Alprazolam 0.5 MG ONCE ONE 04/11 2315 DC 04/12 PO 04/11 2316 0101 Ampicillin Sodium/ 3,000 MG Q6H 04/12 1730 AC Sulbactam Sodium IV Sodium Chloride 100 ML Ampicillin Sodium/ 1,500 MG Q6H 04/11 2330 DC 04/12 Sulbactam Sodium IV 04/12 1729 1605 Sodium Chloride 100 ML Ampicillin Sodium/ 1,500 MG Q6H 04/07 2200 DC 04/11 Sulbactam Sodium IV 1553 Sodium Chloride 100 ML Ascorbic Acid 1,000 MG DAILY 04/08 1000 AC 04/12 PO 0904 Atorvastatin Calcium 40 MG DAILY@1700 04/07 1813 AC 04/12 PO 1606 Cetirizine HCl 10 MG DAILY 04/13 1000 AC PO Cholecalciferol 1,000 IU DAILY 04/08 1000 AC 04/12 PO 0905 Gabapentin 1,200 MG Q8 04/07 1757 AC 04/12 PO 1331 Heparin Sodium 4,308 UNIT ONCE ONE 04/12 2044 DC (Porcine) IV 04/12 204 Heparin Sodium 5,000 UNIT .STK-MED ONE 04/12 1229 DC (Porcine) IV 04/12 1230 Heparin Sodium 5,000 UNIT .STK-MED ONE 04/12 1205 DC (Porcine) IV 04/12 1206 Heparin Sodium/ 25,000 UNIT Q24H 04/11 2000 AC 04/12 Dextrose IV 0527 Dextrose/Water 500 ML Heparin Sodium/ 25,000 UNIT Q24H 04/11 1730 CAN Dextrose IV Dextrose/Water 500 ML Insulin Aspart 0 TIDAC/HS 04/11 2100 AC 04/12 SC 1632 Insulin Detemir 20 UNITS AT BEDTIME 04/07 2200 04/11 [place] 2111 Lactobacillus 1 CAP BID 04/08 1107 AC 04/12 Acidophilus PO 0902 Levothyroxine Sodium 0.05 MG DAILY AC 04/07 1635 AC 04/12 PO 0525 Loratadine 10 MG DAILY 04/13 1000 AC PO Loratadine 10 MG DAILY 04/08 1000 ID 04/11 PO 0952 Losartan Potassium 25 MG DAILY 04/09 1151 AC 04/12 PO 0905 Magnesium Oxide 400 MG DAILY 04/08 1000 AC 04/12 PO 0904 Metoprolol Tartrate 50 MG BID 04/07 2330 AC 04/12 PO 0906 Multivitamins 1 TAB DAILY 04/08 1000 AC 04/12 PO 0904 Non-Formulary 0 SEE ADMIN CRITERIA 04/12 1930 CAN Medication ANY Non-Formulary 0 SEE ADMIN CRITERIA 04/12 1345 DC Medication ANY Omeprazole 40 MG DAILY AC 04/08 0700 AC 04/12 PO 0525 Polyethylene Glycol 17 GM DAILY 04/08 1000 AC 04/12 PO 0905 Last 24 Hrs of Lab/Ammon Results Last 24 Hrs of Labs/Mics: Laboratory Tests 04/12/17 1910: APTT 58 H 04/12/17 1215: Anion Gap 12, Estimated GFR 49 L, BUN/Creatinine Ratio 26.4 H, CBC w Diff NO MAN DIFF REQ, RBC 3.66 L, MCV 88.0, MCH 27.6, MCHC 31.4 L, RDW 16.6 H, MPV 8.7, Gran % 75.5 H, Lymphocytes % 12.8 L, Monocytes % 8.4, Eosinophils % 2.8, Basophils % 0.5, Absolute Granulocytes 10.2 H, Absolute Lymphocytes 1.7, Absolute Monocytes 1.1 H, Absolute Eosinophils 0.4, Absolute Basophils 0.1 04/12/17 1030: APTT 48 H 04/12/17 0235: APTT 113 *H Assessment/Plan Assessment: Assessment: Patient is a 71-year-old noncompliant diabetic female with previous history of group G strep, MRSA osteomyelitis presented with sudden onset left leg erythema, fever, increased tiredness. Vital signs at admission are unremarkable, physical examination is significant for erythema extending from left heel till the left groin with swelling. Left lower extremity ulcer measuri ng 3.5 X 1 cm open area with surrounding chronic inflammation 4.5 and 3.5 cm. Labs are significant for white count of 17.3, ESR 76, CRP 9, lactic acid 1.7. Foot x-ray did show osteopenia with stable radiographic findings. Venous Doppler ruled out DVT. ARTERIAL DOPPLER TODAY SHOWED MILD PVD. Patient was initially admitted to the general medical floor and was transferred to telemetry floor on 04/10/2017 for the management of following issues: Left lower extremity edema with swelling -cellulitis/osteomyelitis, post op d1 * Radiologically proven osteomyelitis, currently on IV antibiotics--changed from 1.5 gm q6 to 3 gm q6h per ID recs, post op d1 * We'll continue IV antibiotics until we get the results from bone biopsy/ culture * Continue to elevate leg, which she is not very compliant as she stays in her recliner most of the time * Adequate pain management. * plan for angiogram on Sunday. Paroxysmal atrial fibrillation Patient has paroxysmal atrial fibrillation, overnight was in sinus rhythm. Rate controlled. IV Heparin drip running, will discuss about correction anticoagulation. Uncontrolled diabetes mellitus * Patientis on diabetic diet, and Accu-Cheks, insulin 3 times a day /AC and at bedtime Proteinuria: Patient is having nephrotic range proteinuria as evident from the protein/ creatinine ratio, workup pending. -urine 24 hour protein -continue ARB -ENDO CONSULT PLACED -hba1c 8.7 -f/u SPEP, C3, C4, PENDING - HEP PANEL NEG -PHOS 4.5 History of hypothyroidism Continue levothyroxine 50 g daily History of hypertension Continue metoprolol tartrate 50 twice a day, and Losartan History of diabetic neuropathy Continue Neurontin 1200 mg 3 times a day History of ?allergy Continue loratidine, will substitute to cetrizine from home meds tomorrow DVT prophylaxis: IV heparin for a fib CODE STATUS: DNR/DNI Diet: Diabetic diet Problem List: 1. Osteomyelitis 2. Paroxysmal atrial fibrillation 3. Cellulitis Pain Ratin Pain Location: left leg Pain Goal: Pain 4 or less Pain Plan: prn Tomorrow's Labs & Rationales: CBC, BEP
--- NOTE | 2017-04-12 09:22 | PN- Student ---
Subjective Subjective: 71 yo F hospital day 6 for cellulits/osteomylelitis of the L leg. POD 1 from surgical debridement and bone biopsy, no complications. 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 Patient presented to ED with CC of erythema and pain that extended from the L heel to the groin, in addition to a chronic ulcer on the left leg. S/p surgery, L foot is packed with wet to dry dressing. Patient states she slept well last night and is tolerating consistent carb diet with no n/v. + flatus. Pain is well controlled, 0/10. Denies headache, dizziness, SOB, chest pain, abdominal pain. Objective Objective: Vital Signs Date Time Temp Pulse Resp B/P B/P Pulse O2 O2 Flow FiO2 Mean Ox Delivery Rate 04/12 0906 140/82 04/12 0905 140/82 04/11 2232 97.7 60 20 140/78 95 Room Air 04/11 2105 64 140/78 04/11 1434 98.2 55 20 160/70 96 Room Air Intake & Output 04/12 1600 04/12 0800 04/12 0000 Intake Total 520 370 Output Total 400 350 Balance 120 20 Intake, IV 400 250 Intake, Oral 120 120 Output, Urine 400 350 Apperance: Alert and oriented. No acute distress. Pulmonary: Clear to auscultation, no adventitious sounds present or accessory muscles of respiration in use Cardiovascular: RRR, systolic murmur (2/6) auscultated. No palpable thrill appreciated. Abdomen: Protuberant abdomen, normoactive bowel sounds. Soft, no TTP of the abdomen or rigidity. Extremities: L foot has a clean, dry, and intact dressing present. No drains currently in place. R leg has 3+ pitting edema. L leg 4+ pitting edema; residual erythema on left leg is diminishing. Current Medications Sig/Vandana Start time Last Medication Dose Route Stop Time Status Admin Acetaminophen 650 MG Q6P PRN 04/07 2129 AC PO Acetaminophen/ 1 TAB Q6P PRN 04/09 1415 AC 04/11 Codeine Phosphate PO 2108 Alprazolam 0.5 MG ONCE ONE 04/11 2314 DC 04/12 PO 01/24 2316 0101 Ampicillin Sodium/ 1,500 MG Q6H 04/11 2330 04/12 Sulbactam Sodium IV 0906 Sodium Chloride 100 ML Ampicillin Sodium/ 1,500 MG Q6H 04/07 2200 DC 04/11 Sulbactam Sodium IV 1553 Sodium Chloride 100 ML Ascorbic Acid 1,000 MG DAILY 04/08 1000 AC 04/12 PO 0904 Atorvastatin Calcium 40 MG DAILY@1700 04/07 1813 AC 04/11 PO 2101 Cholecalciferol 1,000 IU DAILY 04/08 1000 04/12 PO 0905 Fentanyl Citrate 100 MCG .STK-MED ONE 04/11 1652 DC IM 04/11 1653 Gabapentin 1,200 MG Q8 04/07 1757 04/12 PO 0525 Heparin Sodium 8,100 UNIT ONCE ONE 04/11 2100 DC 04/11 (Porcine) IV 04/11 2100 210 Heparin Sodium 10,000 UNIT .STK-MED ONE 04/11 2026 DC (Porcine) IV 04/11 2028 Heparin Sodium/ 25,000 UNIT Q24H 04/11 2000 04/12 Dextrose IV 0527 Dextrose/Water 500 ML Heparin Sodium/ 25,000 UNIT Q24H 04/11 1730 CAN Dextrose IV Dextrose/Water 500 ML Heparin Sodium/ 25,000 UNIT Q24H 04/10 1015 DC 04/11 Dextrose IV 0808 Dextrose/Water 500 ML Hydromorphone HCl 2 MG .STK-MED ONE 04/11 1809 DC IM 04/11 1810 Hydromorphone HCl 2 MG .STK-MED ONE 04/11 1802 DC IM 04/11 1803 Insulin Aspart 0 TIDAC/HS 04/11 2100 04/12 PA 0850 Insulin Detemir 20 UNITS AT BEDTIME 04/07 2200 04/11 PA 2111 Insulin Human Regular 0 Q6 04/11 0600 ME 04/11 PA 1240 Lactobacillus 1 CAP BID 04/08 1107 04/12 Acidophilus PO 0902 Levothyroxine Sodium 0.05 MG DAILY AC 04/07 1635 04/12 PO 0525 Loratadine 10 MG DAILY 04/08 1000 AC 04/11 PO 0952 Losartan Potassium 25 MG DAILY 04/09 1151 04/12 PO 0905 Magnesium Oxide 400 MG DAILY 04/08 1000 AC 04/12 PO 0904 Meperidine HCl 50 MG .STK-MED ONE 04/11 1802 DC IM 04/11 1803 Metoprolol Tartrate 50 MG BID 04/07 2330 AC 04/12 PO 0906 Midazolam HCl 2 MG .STK-MED ONE 04/11 1653 DC IM 04/11 1654 Multivitamins 1 TAB DAILY 04/08 1000 AC 04/12 PO 0904 Omeprazole 40 MG DAILY AC 04/08 0700 AC 04/12 PO 0525 Polyethylene Glycol 17 GM DAILY 04/08 1000 AC 04/12 PO 0905 Sodium Chloride 1,000 ML Q13H 04/11 0030 DC 04/11 IV 0033 Results Results: Laboratory Tests 04/12/17 1030: APTT Pending 04/12/17 0235: APTT 113 *H 04/11/17 1903: APTT 35 04/11/17 0615: Anion Gap 15, Estimated GFR 49 L, BUN/Creatinine Ratio 37.3 H, CBC w Diff NO MAN DIFF REQ, RBC 3.67 L, MCV 87.8, MCH 28.5, RDW 16.7 H, MPV 8.9, Gran % 81.6 H, Lymphocytes % 9.4 L, Monocytes % 7.0, Eosinophils % 2.0, Basophils % 0, Absolute Granulocytes 11.0 H, Absolute Lymphocytes 1.3, Absolute Monocytes 0.9 H, Absolute Eosinophils 0.3, Absolute Basophils 0, PUBS MCHC 32.5 L 04/10/17 2253: Ur Random Creatinine 66.0, Urine Total Volume 1750 H, Urine Creatinine 1.2, Ur Total Protein 24 Hr 2362.5 H 04/10/17 0720: Anion Gap 15, Estimated GFR 37 L, BUN/Creatinine Ratio 31.4 H, CBC w Diff NO MAN DIFF REQ, RBC 3.65 L, MCV 87.9, MCH 28.7, RDW 16.9 H, MPV 9.1, Gran % 75.2 , Lymphocytes % 11.5 L, Monocytes % 10.0 H, Eosinophils % 3.0, Basophils % 0.3 , Absolute Granulocytes 9.0 H, Absolute Lymphocytes 1.4, Absolute Monocytes 1.2 H, Absolute Eosinophils 0.4, Absolute Basophils 0, PUBS MCHC 32.6 L 04/09/17 1506: Hepatitis A IgM Ab NONREACTIVE, Hep Bs Antigen NONREACTIVE, Hep B Core IgM Ab Conf NONREACTIVE, Hepatitis C Antibody NONREACTIVE Microbiology 04/11 1719 EXTREMITIE: Gross Specimen Examination - RECD 04/11 1719 EXTREMITIE: Gram Stain - RECD Assessment/Plan Assessment: 71 yo F hospital day 6 for cellulits/osteomylelitis of the L leg. POD 1 from surgical debridement and bone biopsy, no complications. 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 Patient presented to ED with CC of erythema and pain that extended from the L heel to the groin, in addition to a chronic ulcer on the left leg. Plan: Plan: Acute conditions 1. Celluliutis/osteomyelitis * Dx: radiologically proven osteomyelitis of left foot * Abx: Unasyn 1.5g q6h IV (day 6) * Patient is tentatively on the OR schedule for L leg angiogram on Sunday if medically cleared * Pain Management: Acetominophen + Codeine (1 tab q 6hr PRN PO) and Acetominophen (650 mg q6h PRN PO) 2. DVT prophylaxis/Afib * Heparin 25,000 units daily (based on APTT) restarted after surgery 3. Diet: Consistent Carbohydrates restarted last night for dinner s/p surgery Chronic conditions 4. Uncontrolled DM2 (HbA1c = 8.7%) * Novolog TIDAC/HS sc (sliding scale) * Levemir 20 u qHS * Diabetic neuropathy: Gabapentin 1200 mg q8 PO 5. Hypothyroidism: Synthroid 50 g daily 6. HTN: * Metoprolol 50 mg BID PO * Losartan 25 mg daily PO 7. GERD: Omeprazole 40 mg PO daily 8. HLD: Atorvastatin 40 mg daily PO 9. Code Status: DNR/DNI
--- NOTE | 2017-04-12 10:30 | PN- Diabetes ---
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 At home, she was on Levemir 20 units daily, metformin 500 mg twice a day, starlix on some occasions and Humulin NPH according to the scale. Metformin was held due to elevated Cr of 1.4. She is on Levemir 20 units daily, Novolog coverage before meals and Novolog coverage at bedtime. Her FSGs were 99, 153 and 128. Plan: continue the current insulin regimen for now. monitor FSGs. will follow. Subjective Subjective: She feels okay this morning. Objective Last 24 Hrs of Vital Signs/I&O Vital Signs Date Time Temp Pulse Resp B/P B/P Pulse O2 O2 Flow FiO2 Mean Ox Delivery Rate 04/12 0906 140/82 04/12 0905 140/82 04/11 2232 97.7 60 20 140/78 95 Room Air 04/11 2105 64 140/78 04/11 1434 98.2 55 20 160/70 96 Room Air Intake & Output 04/12 1600 04/12 0800 04/12 0000 Intake Total 520 370 Output Total 400 350 Balance 120 20 Intake, IV 400 250 Intake, Oral 120 120 Output, Urine 400 350 Findings Pertinent Lab/Ammon Results: Laboratory Tests 04/12 04/11 0235 1903 Coagulation APTT (25 - 37 SEC) 113 *H 35
[2017-04-12 11:26] LABS: PTT 48 SEC (25-37)
--- NOTE | 2017-04-12 11:44 | ECHOCARDIOGRAM REPORT ---
PHANI MESSINA Age: 71 : 1945 Gender: F Exam Date: 04/11/2017 19:53 Exam Location: [place] Ht (in): 62 Wt (lb): 250 BSA: 2.30 BP: 122 / 82 Ordering Physician: Sriram Christianson MD Referring Physician: Myah Isaac MD Technologist: Linda العراقي [facility] Room Number: [id number] Indications: AFIB/FLUTTER Rhythm: Sinus Technical Quality: Fair, Technically difficult study FINDINGS Left Ventricle Normal size left ventricle. No obvious regional wall motion abnormalities. Left ventricular wall thickness increased. Normal left ventricular ejection fraction estimated at 55-60%. Abnormal relaxation filling pattern of the left ventricle for age (stage 1 diastolic dysfunction). Right Ventricle Right ventricular dilatation. Right Atrium Mild right atrial dilatation. Left Atrium Mild to moderate left atrial dilatation. Mitral Valve Mitral valve thickened. Severe mitral annular calcification. Mild- to-moderate mitral regurgitation. Aortic Valve Trileaflet aortic valve. Diffuse thickening (sclerosis) of the aortic valve cusps without reduced excursion. No aortic stenosis. No aortic regurgitation. Tricuspid Valve Tricuspid valve not well visualized, grossly normal. Mild tricuspid regurgitation. Right ventricular systolic pressure estimated to be elevated at 58 mmHg. Pulmonic Valve Pulmonic valve not well visualized, grossly normal. Pericardium No pericardial effusion. Great Vessels Aortic root and proximal ascending aorta not well visualized, grossly normal. CONCLUSIONS 1. This was a technically difficult examination. 2. Mild to moderate aortic sclerosis is present with no valvular stenosis or insufficiency. 3. Mitral leaflet thickening is present with moderate to severe anular calcification and fibrosis of the subvalvular chordal structures with mild mitral insufficiency with mild to moderate left atrial enlargement. 4. There is no pericardial fluid detected on this examination. 5. The left ventricualr chamber size and systolic function appear normal. Mild concentric LVH is present with mild diastolic dysfunction. 6. Mild enlargement of the right heart chambers is present with mild tricuspid isnufficiency and significant pulmonary hypertension with an estimated RV systolic pressure of 58 mmHg. Myah Isaac M.D. (Electronically Signed) Final Date: 12 April 2017 11:43 MEASUREMENTS (Male / Female) Normal Values 2D ECHO LV Diastolic Diameter PLAX 4.7 cm 4.2 - 5.9 / 3.9 - 5.3 cm LV Systolic Diameter PLAX 2.7 cm 2.1 - 4.0 cm LV Fractional Shortening PLAX 42.6 % 25 - 46 % LV Ejection Fraction 2D Teich 73.6 % IVS Diastolic Thickness 1.5 cm LVPW Diastolic Thickness 1.3 cm LV Relative Wall Thickness 0.6 RV Internal Dim ED PLAX 3.2 cm 1.9 - 3.8 cm LVOT Diameter 1.8 cm Aortic Root Diameter 2.5 cm LA Systolic Diameter LX 3.9 cm 3.0 - 4.0 / 2.7 - 3.8 cm Ascending Aorta Diameter 3.1 cm DOPPLER AV Peak Velocity 161.0 cm/s AV Peak Gradient 10.4 mmHg AV Mean Velocity 103.0 cm/s AV Mean Gradient 5.0 mmHg AV Velocity Time Integral 36.8 cm LVOT Peak Velocity 109.0 cm/s LVOT Peak Gradient 4.8 mmHg LVOT Mean Velocity 72.8 cm/s LVOT Mean Gradient 3.0 mmHg LVOT Velocity Time Integral 25.5 cm LVOT Stroke Volume 64.9 cm AV Area Cont Eq vti 1.8 cm AV Area Cont Eq pk 1.7 cm MV Peak Velocity 136.0 cm/s MV Peak Gradient 7.4 mmHg MV Mean Velocity 81.2 cm/s MV Mean Gradient 3.0 mmHg Mitral E Point Velocity 149.0 cm/s Mitral A Point Velocity 125.0 cm/s Mitral E to A Ratio 1.2 MV PHT Velocity 144.0 cm/s MV Deceleration [place] 453.0 cm/s MV Pressure Half Time 95.4 ms MV Area PHT 2.3 cm MV Deceleration Time 257.0 ms TR Peak Velocity 371.0 cm/s TR Peak Gradient 55.1 mmHg Right Atrial Pressure 5.0 mmHg Pulmonary Artery Systolic Pressu 60.1 mmHg Right Ventricular Systolic Press 60.1 mmHg PV Peak Velocity 116.0 cm/s PV Peak Gradient 5.4 mmHg PV Mean Velocity 77.2 cm/s PV Mean Gradient 3.0 mmHg PV Velocity Time Integral 28.2 cm LV E' Lateral Velocity 11.9 cm/s Mitral E to LV E' Lateral Ratio 12.5 LV E' Septal Velocity 7.5 cm/s Mitral E to LV E' Septal Ratio 19.8
--- NOTE | 2017-04-12 11:46 | PN- Infect Dx ---
Subjective Subjective: Afebrile. She notes some discomfort in the left heel and ankle. Objective Last 24 Hrs of Vital Signs/I&O Vital Signs Date Time Temp Pulse Resp B/P B/P Pulse O2 O2 Flow FiO2 Mean Ox Delivery Rate 04/12 0906 140/82 04/12 0905 140/82 04/11 2232 97.7 60 20 140/78 95 Room Air 04/11 2105 64 140/78 04/11 1434 98.2 55 20 160/70 96 Room Air Intake & Output 04/12 1600 04/12 0800 04/12 0000 Intake Total 520 370 Output Total 400 350 Balance 120 20 Intake, IV 400 250 Intake, Oral 120 120 Output, Urine 400 350 Physical Exam Other Physical Findings: She appears comfortable in no acute distress Extremities decreased erythema of the left leg; bilateral lower extremity edema, left greater than right, with left foot dressing intact Results Last 24 Hours of Lab Results: Laboratory Tests 04/12 04/12 04/11 1030 0235 1903 Coagulation APTT (25 - 37 SEC) 48 H 113 *H 35 Last 24 Hours of Ammon Results: OR culture April 11 labeled left foot bone pending Recent Imaging Studies: Arterial Doppler left lower extremity April 10 reveals improvement in the popliteal velocities, indicating a decrease in the stenosis, compared to her previous study Renal ultrasound April 10 negative Assessment/Plan Impression: Stable, with temperatures remaining normal though her white blood cell count is still mildly elevated on Unasyn now Day 5 of treatment for a left leg cellulitis secondary to a nonhealing ulcer on the left heel, status post bone biopsy and debridement yesterday. Her wound has not healed despite several courses of antibiotics for osteomyelitis, and a left BKA has been recommended on several occasions in the past; therefore am not inclined to commit her to another course of antibiotics unless her vascular status can be improved. She is apparently scheduled for an angiogram on April 16. Suggestion: 1. Await possible angiogram on April 16 2. Follow-up bone biopsy and culture 3. Elevation of the left leg 4. Increase Unasyn to 3 g IV every 6 hours pending above
--- NOTE | 2017-04-12 12:42 | PN- Att Addend ---
Attending Addendum Attending Brief Note Patient had debridement of the foot which is sitting in the chair with the elevated leg. The cellulitis is slowly improving. Patient is afebrile vital signs are stable no other new changes. Continue present treatment await biopsy culture reports. Vascular surgeon in evaluating patient will be going for an angiographic study in the next few days. Depending on the results continue management. Intake & Output 04/12 1600 04/12 0400 04/11 1600 04/11 0400 04/10 1600 04/10 0400 Intake Total 223 449 7237 200 200 Output Total 400 350 600 400 845 300 Balance 475 57 7119 -200 -645 -300 Intake, IV 784 131 6379 200 Intake, Oral 120 120 300 200 Number 1 Bowel Movements Output, Urine 400 350 600 400 845 300 Patient 237 lb 250 lb Weight Weight Chair scale Bed scale Measurement Method Current Medications Sig/Vandana Start time Last Medication Dose Route Stop Time Status Admin Acetaminophen 650 MG Q6P PRN 04/07 2130 AC PO Acetaminophen/ 1 TAB Q6P PRN 04/09 1415 AC 04/11 Codeine Phosphate PO 2108 Alprazolam 0.5 MG ONCE ONE 04/11 2315 DC 04/12 PO 04/11 231 0101 Ampicillin Sodium/ 1,500 MG Q6H 04/11 2330 AC 04/12 Sulbactam Sodium IV 0906 Sodium Chloride 100 ML Ampicillin Sodium/ 1,500 MG Q6H 04/07 2200 DC 04/11 Sulbactam Sodium IV 1553 Sodium Chloride 100 ML Ascorbic Acid 1,000 MG DAILY 04/08 1000 AC 04/12 PO 0904 Atorvastatin Calcium 40 MG DAILY@1700 04/07 1813 AC 04/11 PO 210 Cholecalciferol 1,000 IU DAILY 04/08 1000 AC 04/12 PO 0905 Fentanyl Citrate 100 MCG .STK-MED ONE 04/11 1652 DC IM 04/11 165 Gabapentin 1,200 MG Q8 04/07 1757 AC 04/12 PO 0525 Heparin Sodium 8,100 UNIT ONCE ONE 04/11 2100 DC 04/11 (Porcine) IV 04/11 Heparin Sodium 10,000 UNIT .STK-MED ONE 04/11 2026 DC (Porcine) IV 04/11 2027 Heparin Sodium/ 25,000 UNIT Q24H 04/11 2000 AC 04/12 Dextrose IV 0527 Dextrose/Water 500 ML Heparin Sodium/ 25,000 UNIT Q24H 04/11 1730 CAN Dextrose IV Dextrose/Water 500 ML Heparin Sodium/ 25,000 UNIT Q24H 04/10 1015 DC 04/11 Dextrose IV 0808 Dextrose/Water 500 ML Hydromorphone HCl 2 MG .STK-MED ONE 04/11 1809 DC IM 04/11 1810 Hydromorphone HCl 2 MG .STK-MED ONE 04/11 1802 DC IM 04/11 1803 Insulin Aspart 0 TIDAC/HS 04/11 2100 AC 04/12 SC 1230 Insulin Detemir 20 UNITS AT BEDTIME 04/07 2200 04/11 SC 2111 Insulin Human Regular 0 Q6 04/11 0600 DC 04/11 SC 1240 Lactobacillus 1 CAP BID 04/08 1107 AC 04/12 Acidophilus PO 0902 Levothyroxine Sodium 0.05 MG DAILY AC 04/07 1635 AC 04/12 PO 0525 Loratadine 10 MG DAILY 04/08 1000 AC 04/11 PO 0952 Losartan Potassium 25 MG DAILY 04/09 1151 AC 04/12 PO 0905 Magnesium Oxide 400 MG DAILY 04/08 1000 04/12 PO 0904 Meperidine HCl 50 MG .K-MED ONE 04/11 1802 DC IM 04/11 1803 Metoprolol Tartrate 50 MG BID 04/07 2330 AC 04/12 PO 0906 Midazolam HCl 2 MG .[facility]-MED ONE 04/11 1653 DC IM 04/11 1654 Multivitamins 1 TAB DAILY 04/08 1000 AC 04/12 PO 0904 Omeprazole 40 MG DAILY AC 04/08 0700 AC 04/12 PO 0525 Polyethylene Glycol 17 GM DAILY 04/08 1000 04/12 PO 0905 Sodium Chloride 1,000 ML Q13H 04/11 0030 DC 04/11 IV 0033 Laboratory Tests 04/12/17 1215: Sodium Pending, Potassium Pending, Chloride Pending, Carbon Dioxide Pending, Anion Gap Pending, BUN Pending, Creatinine Pending, BUN/Creatinine Ratio Pending , CBC w Diff Pending, WBC Pending, RBC Pending, Hgb Pending, Hct Pending, MCV Pending, MCH Pending, MCHC Pending, RDW Pending, Plt Count Pending, MPV Pending 04/12/17 1030: APTT 48 H 04/12/17 0235: APTT 113 *H 04/11/17 1903: APTT 35 04/11/17 0615: Anion Gap 15, Estimated GFR 49 L, BUN/Creatinine Ratio 37.3 H, CBC w Diff NO MAN DIFF REQ, RBC 3.67 L, MCV 87.8, MCH 28.5, RDW 16.7 H, MPV 8.9, Gran % 81.6 H, Lymphocytes % 9.4 L, Monocytes % 7.0, Eosinophils % 2.0, Basophils % 0, Absolute Granulocytes 11.0 H, Absolute Lymphocytes 1.3, Absolute Monocytes 0.9 H, Absolute Eosinophils 0.3, Absolute Basophils 0, PUBS MCHC 32.5 L 04/10/17 2253: Ur Random Creatinine 66.0, Urine Total Volume 1750 H, Urine Creatinine 1.2, Ur Total Protein 24 Hr 2362.5 H 04/10/17 0720: Anion Gap 15, Estimated GFR 37 L, BUN/Creatinine Ratio 31.4 H, CBC w Diff NO MAN DIFF REQ, RBC 3.65 L, MCV 87.9, MCH 28.7, RDW 16.9 H, MPV 9.1, Gran % 75.2 , Lymphocytes % 11.5 L, Monocytes % 10.0 H, Eosinophils % 3.0, Basophils % 0.3 , Absolute Granulocytes 9.0 H, Absolute Lymphocytes 1.4, Absolute Monocytes 1.2 H, Absolute Eosinophils 0.4, Absolute Basophils 0, PUBS MCHC 32.6 L 04/09/17 1506: Hepatitis A IgM Ab NONREACTIVE, Hep Bs Antigen NONREACTIVE, Hep B Core IgM Ab Conf NONREACTIVE, Hepatitis C Antibody NONREACTIVE Microbiology 04/11 1719 EXTREMITIE: Gross Specimen Examination - RECD 04/11 1719 EXTREMITIE: Gram Stain - RECD Microbiology 04/11 1719 EXTREMITIE: Gross Specimen Examination - RECD 04/11 1719 EXTREMITIE: Gram Stain - RECD Vital Signs Date Time Temp Pulse Resp B/P B/P Pulse O2 O2 Flow FiO2 Mean Ox Delivery Rate 04/12 0906 140/82 04/12 0905 140/82 04/11 2232 97.7 60 20 140/78 95 Room Air 04/11 2105 64 140/78 04/11 1434 98.2 55 20 160/70 96 Room Air
[2017-04-12 14:28] VITALS: BP 132/78
[2017-04-12 15:13] LABS: ABSOLUTE BASOPHIL COUNT 0.1 /CUMM (0.0-0.2); ABSOLUTE EOSINOPHIL COUNT 0.4 /CUMM (0.0-0.7); ABSOLUTE GRANULOCYTE CT 10.2 /CUMM (1.4-6.5); ABSOLUTE LYMPH COUNT 1.7 /CUMM (1.2-3.4); ABSOLUTE MONOCYTE COUNT 1.1 /CUMM (0.10-0.60); BASOPHIL % 0.5 % (0.0-2.0); EOSINOPHIL % 2.8 % (0-5); GRANULOCYTE % 75.5 % (42.2-75.2); HEMATOCRIT 32.2 % (37-47); MEAN CORPUSCULAR HGB 27.6 PG (27.0-31.0); MEAN CORPUSCULAR HGB CONC 31.4 G/DL (33.0-37.0); MEAN PLATELET VOLUME 8.7 FL (7.4-10.4); PLATELET COUNT 338 /CUMM (130-400); RBC DISTRIBUTION WIDTH 16.6 % (11.5-14.5); RED BLOOD CELL CT 3.66 /CUMM (4.20-5.40); WHITE BLOOD CELL COUNT 13.6 /CUMM (4.8-10.8)
--- NOTE | 2017-04-12 18:10 | PN- Cardiology ---
Subjective Subjective: The patient reports that she is feeling well. No chest pain. No shortness of breath. No palpitations. She is status post surgery. She remains in sinus rhythm on telemetry. Objective Vital Signs and I&Os Vital Signs Date Time Temp Pulse Resp B/P B/P Pulse O2 O2 Flow FiO2 Mean Ox Delivery Rate 04/12 1428 97.8 57 16 132/78 96 04/12 0906 140/82 04/12 0905 140/82 04/11 2232 97.7 60 20 140/78 95 Room Air 04/11 2105 64 140/78 Intake & Output 04/12 1600 04/12 0800 04/12 0000 04/11 1600 04/11 0800 04/11 0000 Intake Total 750 500 409 0820 700 200 Output Total 550 400 350 600 400 Balance 200 120 20 400 700 -200 Intake, IV 350 400 250 800 600 Intake, Oral 400 120 120 200 100 200 Number 1 Bowel Movements Output, Urine 550 400 350 600 400 Patient 237 lb 237 lb Weight Weight Chair scale Measurement Method Physical Exam: Gen: The patient is in no acute distress HEENT: Normal nose, ears, and oropharynx. Pupils equal bilaterally. Conjunctiva normal. Neck: Supple with no JVD, no masses, and no thyromegaly Lungs: Clear to auscultation with normal respiratory effort Heart: RRR, S1, S2, 2/6 systolic murmur at the apex. 1-2+ peripheral edema, 1+ pulses in the lower extremities bilaterally Abdomen: Soft, nontender, no masses. No hepatomegaly. No splenomegaly Extremities: No clubbing or cyanosis. Normal muscle strength in the upper and lower extremities Skin: Cellulitis of the left lower extremity as noted. Normal skin turgor. Neuro: Cranial nerves intact. Sensation intact Current Medications: Current Medications Sig/Vandana Start time Last Medication Dose Route Stop Time Status Admin Acetaminophen 650 MG Q6P PRN 04/07 2130 AC PO Acetaminophen/ 1 TAB Q6P PRN 04/09 1415 AC 04/12 Codeine Phosphate PO 1758 Alprazolam 0.5 MG ONCE ONE 04/11 2315 DC 04/12 PO 04/11 231 0101 Ampicillin Sodium/ 3,000 MG Q6H 04/12 1730 AC Sulbactam Sodium IV Sodium Chloride 100 ML Ampicillin Sodium/ 1,500 MG Q6H 04/11 2330 DC 04/12 Sulbactam Sodium IV 04/12 1729 1605 Sodium Chloride 100 ML Ampicillin Sodium/ 1,500 MG Q6H 04/07 2200 DC 04/11 Sulbactam Sodium IV 1553 Sodium Chloride 100 ML Ascorbic Acid 1,000 MG DAILY 04/08 1000 04/12 PO 0904 Atorvastatin Calcium 40 MG DAILY@1700 04/07 1813 AC 04/12 PO 1606 Cholecalciferol 1,000 IU DAILY 04/08 1000 04/12 PO 0905 Gabapentin 1,200 MG Q8 04/07 1757 04/12 PO 1331 Heparin Sodium 8,100 UNIT ONCE ONE 04/11 2100 DC 04/11 (Porcine) IV 04/11 2100 210 Heparin Sodium 10,000 UNIT .STK-MED ONE 04/11 2026 DC (Porcine) IV 04/11 202 Heparin Sodium/ 25,000 UNIT Q24H 04/11 2000 04/12 Dextrose IV 0527 Dextrose/Water 500 ML Heparin Sodium/ 25,000 UNIT Q24H 04/11 1730 CAN Dextrose IV Dextrose/Water 500 ML Hydromorphone HCl 2 MG .STK-MED ONE 04/11 1809 DC IM 04/11 1810 Insulin Aspart 0 TIDAC/HS 04/11 2100 04/12 IN 1632 Insulin Detemir 20 UNITS AT BEDTIME 04/07 2200 04/11 IN 2111 Insulin Human Regular 0 Q6 04/11 0600 UT 04/11 IN 1240 Lactobacillus 1 CAP BID 04/08 1107 04/12 Acidophilus PO 0902 Levothyroxine Sodium 0.05 MG DAILY AC 04/07 1635 04/12 PO 0525 Loratadine 10 MG DAILY 04/13 1000 PO Loratadine 10 MG DAILY 04/08 1000 UT 04/11 PO 0952 Losartan Potassium 25 MG DAILY 04/09 1151 04/12 PO 0905 Magnesium Oxide 400 MG DAILY 04/08 1000 AC 04/12 PO 0904 Metoprolol Tartrate 50 MG BID 04/07 2330 04/12 PO 0906 Multivitamins 1 TAB DAILY 04/08 1000 04/12 PO 0904 Non-Formulary 0 SEE ADMIN CRITERIA 04/12 1345 DC Medication ANY Omeprazole 40 MG DAILY AC 04/08 0700 AC 04/12 PO 0525 Polyethylene Glycol 17 GM DAILY 04/08 1000 04/12 PO 0905 Results Last 48 Hrs of Labs/Mics: Laboratory Tests 04/12/17 1215: Anion Gap 12, Estimated GFR 49 L, BUN/Creatinine Ratio 26.4 H, CBC w Diff NO MAN DIFF REQ, RBC 3.66 L, MCV 88.0, MCH 27.6, MCHC 31.4 L, RDW 16.6 H, MPV 8.7, Gran % 75.5 H, Lymphocytes % 12.8 L, Monocytes % 8.4, Eosinophils % 2.8, Basophils % 0.5, Absolute Granulocytes 10.2 H, Absolute Lymphocytes 1.7, Absolute Monocytes 1.1 H, Absolute Eosinophils 0.4, Absolute Basophils 0.1 04/12/17 1030: APTT 48 H 04/12/17 0235: APTT 113 *H 04/11/17 1903: APTT 35 04/11/17 0615: Anion Gap 15, Estimated GFR 49 L, BUN/Creatinine Ratio 37.3 H, CBC w Diff NO MAN DIFF REQ, RBC 3.67 L, MCV 87.8, MCH 28.5, RDW 16.7 H, MPV 8.9, Gran % 81.6 H, Lymphocytes % 9.4 L, Monocytes % 7.0, Eosinophils % 2.0, Basophils % 0, Absolute Granulocytes 11.0 H, Absolute Lymphocytes 1.3, Absolute Monocytes 0.9 H, Absolute Eosinophils 0.3, Absolute Basophils 0, PUBS MCHC 32.5 L 04/10/17 2253: Ur Random Creatinine 66.0, Urine Total Volume 1750 H, Urine Creatinine 1.2, Ur Total Protein 24 Hr 2362.5 H Assessment/Plan Assessment/Plan Assessment: 1. Paroxysmal atrial fibrillation 2. Hypertension 3. Osteomyelitis/lower extremity cellulitis 4. 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 Yes
[2017-04-12 20:04] LABS: PTT 58 SEC (25-37)
[2017-04-12 22:42] VITALS: BP 142/70
[2017-04-13 03:12] LABS: PTT 88 SEC (25-37)
[2017-04-13 06:00] VITALS: BP 132/70
--- NOTE | 2017-04-13 07:36 | PN- Housestaff ---
Subjective Follow-up For: OM of L foot Complaints: no complaints Tele-Events Since Last Visit: sinus rhythm overnight Subjective: pt followed up today. post op d2. no complaints other than mild left foot discomfort. no cardiac events overnight. Review of Systems Constitutional: Reports: no symptoms. Objective Last 24 Hrs of Vital Signs/I&O Vital Signs Date Time Temp Pulse Resp B/P B/P Pulse O2 O2 Flow FiO2 Mean Ox Delivery Rate 04/13 2301 98.0 62 18 130/74 95 Room Air 04/13 2239 62 132/74 04/13 1512 98.1 56 20 130/70 96 04/13 0907 58 132/70 04/13 0902 58 132/70 04/13 0600 98.2 60 20 132/70 93 Room Air Intake & Output 04/14 0800 04/14 0000 04/13 1600 Intake Total 260 470 Output Total 250 400 Balance 10 70 Intake, IV 60 450 Intake, Oral 200 20 Output, Urine 250 400 Physical Exam General Appearance: Alert, Oriented X3, Cooperative, No Acute Distress, morbidly obese Other Physical Findings: Skin: No Rashes, left leg has dressing in situ- no discharge/drainage/soakage Cardiovascular: Regular Rate, Normal S1, Normal S2, No Murmurs Lungs: Clear to Auscultation, Normal Air Movement Abdomen: Normal Bowel Sounds, Soft, No Tenderness Neuro: grossly intact Current Medications: Current Medications Sig/Vandana Start time Last Medication Dose Route Stop Time Status Admin Acetaminophen 650 MG Q6P PRN 04/07 2130 AC PO Acetaminophen/ 1 TAB Q6P PRN 04/09 1415 AC 04/12 Codeine Phosphate PO 1758 Alprazolam 0.5 MG ONCE ONE 04/13 0330 DC 04/13 PO 04/13 0331 0333 Ampicillin Sodium/ 3,000 MG Q6H 04/12 1730 AC 04/13 Sulbactam Sodium IV 0608 Sodium Chloride 100 ML Ampicillin Sodium/ 1,500 MG Q6H 04/11 2330 DC 04/12 Sulbactam Sodium IV 04/12 1729 1605 Sodium Chloride 100 ML Ascorbic Acid 1,000 MG DAILY 04/08 1000 AC 04/12 PO 0904 Atorvastatin Calcium 40 MG DAILY@1700 04/07 1813 AC 04/12 PO 1606 Cetirizine HCl 10 MG DAILY 04/13 1000 AC PO Cholecalciferol 1,000 IU DAILY 04/08 1000 AC 04/12 PO 0905 Gabapentin 1,200 MG Q8 04/07 1757 AC 04/13 PO 0608 Heparin Sodium 5,000 UNIT .STK-MED ONE 04/12 2148 DC (Porcine) IV 04/12 2149 Heparin Sodium 4,308 UNIT ONCE ONE 04/12 2045 DC 04/12 (Porcine) IV 04/12 2046 2156 Heparin Sodium 5,000 UNIT .STK-MED ONE 04/12 1229 DC (Porcine) IV 04/12 1230 Heparin Sodium 5,000 UNIT .STK-MED ONE 04/12 1205 DC (Porcine) IV 04/12 1206 Heparin Sodium/ 25,000 UNIT Q24H 04/11 2000 AC 04/12 Dextrose IV 2312 Dextrose/Water 500 ML Heparin Sodium/ 25,000 UNIT Q24H 04/11 1730 CAN Dextrose IV Dextrose/Water 500 ML Insulin Aspart 0 TIDAC/HS 04/11 2100 DC 04/12 SC 1632 Insulin Detemir 20 UNITS AT BEDTIME 04/07 2200 AC 04/12 SC 2155 Insulin Human Regular 0 Q6 04/13 0600 AC 04/13 SC 0608 Lactobacillus 1 CAP BID 04/08 1107 AC 04/12 Acidophilus PO 2156 Levothyroxine Sodium 0.05 MG DAILY AC 04/07 1635 AC 04/13 PO 0608 Loratadine 10 MG DAILY 04/13 1000 AC PO Loratadine 10 MG DAILY 04/08 1000 DC 04/11 PO 0952 Losartan Potassium 25 MG DAILY 04/09 1151 AC 04/12 PO 0905 Magnesium Oxide 400 MG DAILY 04/08 1000 AC 04/12 PO 0904 Metoprolol Tartrate 50 MG BID 04/07 2330 AC 04/12 PO 2200 Multivitamins 1 TAB DAILY 04/08 1000 AC 04/12 PO 0904 Non-Formulary 0 SEE ADMIN CRITERIA 04/12 1930 CAN Medication ANY Non-Formulary 0 SEE ADMIN CRITERIA 04/12 1345 DC Medication ANY Omeprazole 40 MG DAILY AC 04/08 0700 AC 04/13 PO 0608 Polyethylene Glycol 17 GM DAILY 04/08 1000 AC 04/12 PO 0905 Last 24 Hrs of Lab/Ammon Results Last 24 Hrs of Labs/Mics: Laboratory Tests 04/14/17 0330: APTT 66 H 04/13/17 1530: APTT Cancelled 04/13/17 0625: Anion Gap 13, Estimated GFR 49 L, BUN/Creatinine Ratio 27.3 H, CBC w Diff NO MAN DIFF REQ, RBC 3.63 L, MCV 88.2, MCH 28.3, MCHC 32.1 L, RDW 16.8 H, MPV 8.5, Gran % 73.3, Lymphocytes % 14.8 L, Monocytes % 8.2, Eosinophils % 3.4, Basophils % 0.3, Absolute Granulocytes 10.8 H, Absolute Lymphocytes 2.2, Absolute Monocytes 1.2 H, Absolute Eosinophils 0.5, Absolute Basophils 0 Microbiology 04/13 1729 EXTREMITIE: Gross Specimen Examination - RECD 04/13 1729 EXTREMITIE: Gram Stain - RECD Assessment/Plan Assessment: Assessment: Patient is a 71-year-old noncompliant diabetic female with previous history of group G strep, MRSA osteomyelitis presented with sudden onset left leg erythema, fever, increased tiredness. Vital signs at admission are unremarkable, physical examination is significant for erythema extending from left heel till the left groin with swelling. Left lower extremity ulcer measuri ng 3.5 X 1 cm open area with surrounding chronic inflammation 4.5 and 3.5 cm. Labs are significant for white count of 17.3, ESR 76, CRP 9, lactic acid 1.7. Foot x-ray did show osteopenia with stable radiographic findings. Venous Doppler ruled out DVT. Arterial Doppler demonstrated mild peripheral vascular disease. Patient was initially admitted to the general medical floor and was transferred to telemetry floor on 04/10/2017 for the management of following issues: Left lower extremity edema with swelling -cellulitis/osteomyelitis, post op d2 * Radiologically proven osteomyelitis, currently on IV antibiotics--changed from 1.5 gm q6 to 3 gm q6h per ID recs, post op d2 * Initial culture is growing Pseudomonas, thus we'll change her antibiotics from Unasyn to meropenem according to ID. * Continue to elevate leg, which she is not very compliant as she stays in her recliner most of the time * Adequate pain management. * plan for angiogram on Sunday. Paroxysmal atrial fibrillation Patient has paroxysmal atrial fibrillation, overnight was in sinus rhythm. Rate controlled. IV Heparin drip running, will discuss about long-term anticoagulation. Uncontrolled diabetes mellitus * Patientis on diabetic diet, and Accu-Cheks, insulin 3 times a day /AC and at bedtime * following endo recs Proteinuria: Patient is having nephrotic range proteinuria as evident from the protein/ creatinine ratio, workup pending. -urine 24 hour protein -continue ARB -ENDO CONSULT PLACED -hba1c 8.7 -f/u SPEP, C3, C4, PENDING - HEP PANEL NEG -PHOS 4.5 History of hypothyroidism Continue levothyroxine 50 g daily History of hypertension Continue metoprolol tartrate 50 twice a day, and Losartan History of diabetic neuropathy Continue Neurontin 1200 mg 3 times a day History of ?allergy Continue loratidine, will substitute to cetrizine from home meds tomorrow DVT prophylaxis: IV heparin for a fib CODE STATUS: DNR/DNI Diet: Diabetic diet Problem List: 1. Osteomyelitis 2. Cellulitis Pain Ratin Pain Location: leg L Pain Goal: Pain 4 or less Pain Plan: prn Tomorrow's Labs & Rationales: CBC, BEP
[2017-04-13 08:03] LABS: ABSOLUTE BASOPHIL COUNT 0 /CUMM (0.0-0.2); ABSOLUTE EOSINOPHIL COUNT 0.5 /CUMM (0.0-0.7); ABSOLUTE GRANULOCYTE CT 10.8 /CUMM (1.4-6.5); ABSOLUTE LYMPH COUNT 2.2 /CUMM (1.2-3.4); ABSOLUTE MONOCYTE COUNT 1.2 /CUMM (0.10-0.60); BASOPHIL % 0.3 % (0.0-2.0); EOSINOPHIL % 3.4 % (0-5); GRANULOCYTE % 73.3 % (42.2-75.2); MEAN CORPUSCULAR HGB 28.3 PG (27.0-31.0); MEAN CORPUSCULAR HGB CONC 32.1 G/DL (33.0-37.0); MEAN CORPUSCULAR VOLUME 88.2 FL (81.0-99.0); MEAN PLATELET VOLUME 8.5 FL (7.4-10.4); PLATELET COUNT 372 /CUMM (130-400); RBC DISTRIBUTION WIDTH 16.8 % (11.5-14.5); RED BLOOD CELL CT 3.63 /CUMM (4.20-5.40); WHITE BLOOD CELL COUNT 14.7 /CUMM (4.8-10.8)
--- NOTE | 2017-04-13 11:43 | PN- Infect Dx ---
Subjective Subjective: Afebrile. She feels improved, with decreased pain in the left foot and leg. Objective Last 24 Hrs of Vital Signs/I&O Vital Signs Date Time Temp Pulse Resp B/P B/P Pulse O2 O2 Flow FiO2 Mean Ox Delivery Rate 04/13 0907 58 132/70 04/13 0902 58 132/70 04/13 0600 98.2 60 20 132/70 93 Room Air 04/12 2242 98.6 62 18 142/70 94 Room Air 04/12 2200 64 142/70 04/12 1428 97.8 57 16 132/78 96 Intake & Output 04/13 1600 04/13 0800 04/13 0000 Intake Total 412 228.2 Output Total Balance 412 228.2 Intake, IV 412 108.2 Intake, Oral 0 120 Physical Exam Other Physical Findings: She appears comfortable in no acute distress Lungs are clear Heart regular rhythm with no murmur Extremities decreased erythema of the left leg; 1+ edema of the left leg, with minimal tenderness to palpation; left foot dressing intact Results Last 24 Hours of Lab Results: Laboratory Tests 04/13 04/13 04/12 0625 0240 1910 Chemistry Sodium (137 - 145 mmol/L) 143 Potassium (3.5 - 5.1 mmol/L) 5.0 Chloride (98 - 107 mmol/L) 106 Carbon Dioxide (22 - 30 mmol/L) 25 Anion Gap (5 - 16) 13 BUN (7 - 17 mg/dL) 30 H Creatinine (0.5 - 1.0 mg/dL) 1.1 H Estimated GFR (>60 ml/min) 49 L BUN/Creatinine Ratio (7 - 25 %) 27.3 H Coagulation APTT (25 - 37 SEC) 88 H 58 H Hematology CBC w Diff NO MAN DIFF REQ WBC (4.8 - 10.8 /CUMM) 14.7 H RBC (4.20 - 5.40 /CUMM) 3.63 L Hgb (12.0 - 16.0 G/DL) 10.3 L Hct (37 - 47 %) 32.0 L MCV (81.0 - 99.0 FL) 88.2 MCH (27.0 - 31.0 PG) 28.3 MCHC (33.0 - 37.0 G/DL) 32.1 L RDW (11.5 - 14.5 %) 16.8 H Plt Count (130 - 400 /CUMM) 372 MPV (7.4 - 10.4 FL) 8.5 Gran % (42.2 - 75.2 %) 73.3 Lymphocytes % (20.5 - 51.1 %) 14.8 L Monocytes % (1.7 - 9.3 %) 8.2 Eosinophils % (0 - 5 %) 3.4 Basophils % (0.0 - 2.0 %) 0.3 Absolute Granulocytes (1.4 - 6.5 /CUMM) 10.8 H Absolute Lymphocytes (1.2 - 3.4 /CUMM) 2.2 Absolute Monocytes (0.10 - 0.60 /CUMM) 1.2 H Absolute Eosinophils (0.0 - 0.7 /CUMM) 0.5 Absolute Basophils (0.0 - 0.2 /CUMM) 0 04/12 1215 Chemistry Sodium (137 - 145 mmol/L) 145 Potassium (3.5 - 5.1 mmol/L) 4.9 Chloride (98 - 107 mmol/L) 107 Carbon Dioxide (22 - 30 mmol/L) 26 Anion Gap (5 - 16) 12 BUN (7 - 17 mg/dL) 29 H Creatinine (0.5 - 1.0 mg/dL) 1.1 H Estimated GFR (>60 ml/min) 49 L BUN/Creatinine Ratio (7 - 25 %) 26.4 H Hematology CBC w Diff NO MAN DIFF REQ WBC (4.8 - 10.8 /CUMM) 13.6 H RBC (4.20 - 5.40 /CUMM) 3.66 L Hgb (12.0 - 16.0 G/DL) 10.1 L Hct (37 - 47 %) 32.2 L MCV (81.0 - 99.0 FL) 88.0 MCH (27.0 - 31.0 PG) 27.6 MCHC (33.0 - 37.0 G/DL) 31.4 L RDW (11.5 - 14.5 %) 16.6 H Plt Count (130 - 400 /CUMM) 338 MPV (7.4 - 10.4 FL) 8.7 Gran % (42.2 - 75.2 %) 75.5 H Lymphocytes % (20.5 - 51.1 %) 12.8 L Monocytes % (1.7 - 9.3 %) 8.4 Eosinophils % (0 - 5 %) 2.8 Basophils % (0.0 - 2.0 %) 0.5 Absolute Granulocytes (1.4 - 6.5 /CUMM) 10.2 H Absolute Lymphocytes (1.2 - 3.4 /CUMM) 1.7 Absolute Monocytes (0.10 - 0.60 /CUMM) 1.1 H Absolute Eosinophils (0.0 - 0.7 /CUMM) 0.4 Absolute Basophils (0.0 - 0.2 /CUMM) 0.1 Last 24 Hours of Ammon Results: OR culture labeled left foot bone April 11 positive for Pseudomonas Assessment/Plan Impression: Stable, with temperatures remaining normal but with her white blood cell count increasing, on Unasyn now Day 6 of treatment for a left leg cellulitis secondary to a nonhealing ulcer on the left heel, status post bone biopsy and debridement 2 days ago. Her bone culture is growing Pseudomonas, confirming the clinical and MRI suspicion of osteomyelitis, and her antibiotics can be adjusted. Am reluctant to commit her to another course of antibiotics, however, as she has received several courses for osteomyelitis in the past without healing, and BKA has been recommended on several occasions. She is scheduled for an angiogram on April 16 and can await these results before making a decision regarding this. She is apparently scheduled for a return to the OR today for further debridement of the left heel. Suggestion: 1. Await return to the OR today for further debridement of the left heel 2. Await angiogram on April 16 3. Follow-up final bone culture 4. Elevation of the left leg 5. Discontinue Unasyn 6. Begin Meropenem 1 g IV every 8 hours pending above After Yanick is covering over the weekend
--- NOTE | 2017-04-13 12:17 | PN- Cardiology ---
Subjective Subjective: Doing well. He remains in sinus rhythm with occasional atrial ectopy. Somewhat concerned about going back to the operating room later today. Objective Vital Signs and I&Os Vital Signs Date Time Temp Pulse Resp B/P B/P Pulse O2 O2 Flow FiO2 Mean Ox Delivery Rate 04/13 0907 58 132/70 04/13 0902 58 132/70 04/13 0600 98.2 60 20 132/70 93 Room Air 04/12 2242 98.6 62 18 142/70 94 Room Air 04/12 2200 64 142/70 04/12 1428 97.8 57 16 132/78 96 Intake & Output 04/13 1600 04/13 0800 04/13 0000 04/12 1600 04/12 0800 04/12 0000 Intake Total 412 228.2 750 520 370 Output Total 550 400 350 Balance 412 228.2 200 120 20 Intake, IV 412 108.2 350 400 250 Intake, Oral 0 120 400 120 120 Output, Urine 550 400 350 Current Medications: Current Medications Sig/Vandana Start time Last Medication Dose Route Stop Time Status Admin Acetaminophen 650 MG Q6P PRN 04/07 2130 AC PO Acetaminophen/ 1 TAB Q6P PRN 04/09 1415 AC 04/12 Codeine Phosphate PO 1758 Alprazolam 0.5 MG ONCE ONE 04/13 0330 DC 04/13 PO 04/13 0331 0333 Ampicillin Sodium/ 3,000 MG Q6H 04/12 1730 AC 04/13 Sulbactam Sodium IV 0608 Sodium Chloride 100 ML Ampicillin Sodium/ 1,500 MG Q6H 04/11 2330 [place] 04/12 Sulbactam Sodium IV 04/12 1729 1605 Sodium Chloride 100 ML Ascorbic Acid 1,000 MG DAILY 04/08 1000 AC 04/13 PO 0902 Atorvastatin Calcium 40 MG DAILY@1700 04/07 1813 AC 04/12 PO 1606 Cetirizine HCl 10 MG DAILY 04/13 1000 AC 04/13 PO 0901 Cholecalciferol 1,000 IU DAILY 04/08 1000 AC 04/13 PO 0902 Gabapentin 1,200 MG Q8 04/07 1757 AC 04/13 PO 0608 Heparin Sodium 5,000 UNIT .STK-MED ONE 04/12 2147 DC (Porcine) IV 04/12 2148 Heparin Sodium 4,308 UNIT ONCE ONE 04/12 2044 DC 04/12 (Porcine) IV 01/25 2046 2156 Heparin Sodium 5,000 UNIT .STK-MED ONE 04/12 1229 DC (Porcine) IV 04/12 1230 Heparin Sodium/ 25,000 UNIT Q24H 04/11 1999 AC 04/12 Dextrose IV 2312 Dextrose/Water 500 ML Insulin Aspart 0 TIDAC/HS 04/11 2100 DC 04/12 SC 1632 Insulin Detemir 20 UNITS AT BEDTIME 04/07 2200 AC 04/12 SC 2155 Insulin Human Regular 0 Q6 04/13 0600 AC 04/13 SC 0608 Lactobacillus 1 CAP BID 04/08 1107 AC 04/13 Acidophilus PO 0902 Levothyroxine Sodium 0.05 MG DAILY AC 04/07 1635 AC 04/13 PO 0608 Loratadine 10 MG DAILY 04/13 1000 AC PO Loratadine 10 MG DAILY 04/08 1000 DC 04/11 PO 0952 Losartan Potassium 25 MG DAILY 04/09 1151 AC 04/13 PO 0907 Magnesium Oxide 400 MG DAILY 04/08 1000 AC 04/13 PO 0902 Metoprolol Tartrate 50 MG BID 04/07 2330 AC 04/13 PO 0902 Multivitamins 1 TAB DAILY 04/08 1000 AC 04/13 PO 0902 Non-Formulary 0 SEE ADMIN CRITERIA 04/12 1930 CAN Medication ANY Non-Formulary 0 SEE ADMIN CRITERIA 04/12 1345 DC Medication ANY Omeprazole 40 MG DAILY AC 04/08 0700 AC 04/13 PO 0608 Polyethylene Glycol 17 GM DAILY 04/08 1000 AC 04/13 PO 0902 Results Last 48 Hrs of Labs/Mics: Laboratory Tests 04/13/17 0625: Anion Gap 13, Estimated GFR 49 L, BUN/Creatinine Ratio 27.3 H, CBC w Diff NO MAN DIFF REQ, RBC 3.63 L, MCV 88.2, MCH 28.3, MCHC 32.1 L, RDW 16.8 H, MPV 8.5, Gran % 73.3, Lymphocytes % 14.8 L, Monocytes % 8.2, Eosinophils % 3.4, Basophils % 0.3, Absolute Granulocytes 10.8 H, Absolute Lymphocytes 2.2, Absolute Monocytes 1.2 H, Absolute Eosinophils 0.5, Absolute Basophils 0 04/13/17 0240: APTT 88 H 04/12/17 1910: APTT 58 H 04/12/17 1215: Anion Gap 12, Estimated GFR 49 L, BUN/Creatinine Ratio 26.4 H, CBC w Diff NO MAN DIFF REQ, RBC 3.66 L, MCV 88.0, MCH 27.6, MCHC 31.4 L, RDW 16.6 H, MPV 8.7, Gran % 75.5 H, Lymphocytes % 12.8 L, Monocytes % 8.4, Eosinophils % 2.8, Basophils % 0.5, Absolute Granulocytes 10.2 H, Absolute Lymphocytes 1.7, Absolute Monocytes 1.1 H, Absolute Eosinophils 0.4, Absolute Basophils 0.1 04/12/17 1030: APTT 48 H 04/12/17 0235: APTT 113 *H 04/11/17 1903: APTT 35 Assessment/Plan Assessment/Plan Assessment: 1. Paroxysmal atrial fibrillation 2. Hypertension 3. Osteomyelitis/lower extremity cellulitis 4. 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 Once cleared by podiatry, start Eliquis 5 mg twice a day. Continue other cardiac medications. * Echocardiogram noted. No significant change from previously * Continue current dose of metoprolol. If atrial fibrillation with rapid ventricular rate develops, then the metoprolol dose may be increased. * The patient will need to follow-up with me 2-4 weeks post discharge. Continue telemetry? Yes
--- NOTE | 2017-04-13 13:21 | PN- Att Addend ---
Attending Addendum Attending Brief Note Patient sitting in the chair again getting ready for the procedure to reassess foot and probably have a Vac positioned. Patient is afebrile white count is 14,700 and no other changes continue antibiotic treatment as per infectious diseases recommendations, and check the culture and biopsy reports from the previous procedure Intake & Output 04/13 1600 04/13 0400 04/12 1600 04/12 0400 04/11 1600 04/11 0400 Intake Total 412 228.2 6400 302 3895 200 Output Total 950 350 600 400 Balance 412 228.2 740 06 0268 -200 Intake, IV 412 108.2 811 320 3656 Intake, Oral 0 120 520 120 300 200 Number 1 Bowel Movements Output, Urine 950 350 600 400 Patient 237 lb Weight Weight Chair scale Measurement Method Current Medications Sig/Vandana Start time Last Medication Dose Route Stop Time Status Admin Acetaminophen 650 MG Q6P PRN 04/07 2130 AC PO Acetaminophen/ 1 TAB Q6P PRN 04/09 1415 AC 04/12 Codeine Phosphate PO 1758 Alprazolam 0.5 MG ONCE ONE 04/13 0330 DC 04/13 PO 04/13 0331 0333 Ampicillin Sodium/ 3,000 MG Q6H 04/12 1730 AC 04/13 Sulbactam Sodium IV 1226 Sodium Chloride 100 ML Ampicillin Sodium/ 1,500 MG Q6H 04/11 2330 MA 04/12 Sulbactam Sodium IV 04/12 1729 1605 Sodium Chloride 100 ML Ascorbic Acid 1,000 MG DAILY 04/08 1000 AC 04/13 PO 0902 Atorvastatin Calcium 40 MG DAILY@1700 04/07 1813 04/12 PO 1606 Cetirizine HCl 10 MG DAILY 04/13 1000 04/13 PO 0901 Cholecalciferol 1,000 IU DAILY 04/08 1000 AC 04/13 PO 0902 Gabapentin 1,200 MG Q8 04/07 1757 AC 04/13 PO 1226 Heparin Sodium 5,000 UNIT .STK-MED ONE 04/12 2147 DC (Porcine) IV 04/12 2148 Heparin Sodium 4,308 UNIT ONCE ONE 04/12 2044 MA 04/12 (Porcine) IV 04/12 2045 2156 Heparin Sodium/ 25,000 UNIT Q24H 04/11 2000 04/12 Dextrose IV 2312 Dextrose/Water 500 ML Insulin Aspart 0 TIDAC/HS 04/11 2100 DC 04/12 SC 1632 Insulin Detemir 20 UNITS AT BEDTIME 04/07 2200 04/12 SD 2155 Insulin Human Regular 0 Q6 04/13 0600 04/13 SD 1226 Lactobacillus 1 CAP BID 04/08 1107 AC 04/13 Acidophilus PO 0902 Levothyroxine Sodium 0.05 MG DAILY AC 04/07 1635 AC 04/13 PO 0608 Loratadine 10 MG DAILY 04/13 1000 PO Loratadine 10 MG DAILY 04/08 1000 DC 04/11 PO 0952 Losartan Potassium 25 MG DAILY 04/09 1151 AC 04/13 PO 0907 Magnesium Oxide 400 MG DAILY 04/08 1000 AC 04/13 PO 0902 Metoprolol Tartrate 50 MG BID 04/07 2330 AC 04/13 PO 0902 Multivitamins 1 TAB DAILY 04/08 1000 AC 04/13 PO 0902 Non-Formulary 0 SEE ADMIN CRITERIA 04/12 1930 CAN Medication ANY Non-Formulary 0 SEE ADMIN CRITERIA 04/12 1345 DC Medication ANY Omeprazole 40 MG DAILY AC 04/08 0700 AC 04/13 PO 0608 Polyethylene Glycol 17 GM DAILY 04/08 1000 AC 04/13 PO 0902 Laboratory Tests 04/13/17 0625: Anion Gap 13, Estimated GFR 49 L, BUN/Creatinine Ratio 27.3 H, CBC w Diff NO MAN DIFF REQ, RBC 3.63 L, MCV 88.2, MCH 28.3, MCHC 32.1 L, RDW 16.8 H, MPV 8.5, Gran % 73.3, Lymphocytes % 14.8 L, Monocytes % 8.2, Eosinophils % 3.4, Basophils % 0.3, Absolute Granulocytes 10.8 H, Absolute Lymphocytes 2.2, Absolute Monocytes 1.2 H, Absolute Eosinophils 0.5, Absolute Basophils 0 04/13/17 0240: APTT 88 H 04/12/17 1910: APTT 58 H 04/12/17 1215: Anion Gap 12, Estimated GFR 49 L, BUN/Creatinine Ratio 26.4 H, CBC w Diff NO MAN DIFF REQ, RBC 3.66 L, MCV 88.0, MCH 27.6, MCHC 31.4 L, RDW 16.6 H, MPV 8.7, Gran % 75.5 H, Lymphocytes % 12.8 L, Monocytes % 8.4, Eosinophils % 2.8, Basophils % 0.5, Absolute Granulocytes 10.2 H, Absolute Lymphocytes 1.7, Absolute Monocytes 1.1 H, Absolute Eosinophils 0.4, Absolute Basophils 0.1 04/12/17 1030: APTT 48 H 04/12/17 0235: APTT 113 *H 04/11/17 1903: APTT 35 04/11/17 0615: Anion Gap 15, Estimated GFR 49 L, BUN/Creatinine Ratio 37.3 H, CBC w Diff NO MAN DIFF REQ, RBC 3.67 L, MCV 87.8, MCH 28.5, RDW 16.7 H, MPV 8.9, Gran % 81.6 H, Lymphocytes % 9.4 L, Monocytes % 7.0, Eosinophils % 2.0, Basophils % 0, Absolute Granulocytes 11.0 H, Absolute Lymphocytes 1.3, Absolute Monocytes 0.9 H, Absolute Eosinophils 0.3, Absolute Basophils 0, PUBS MCHC 32.5 L 04/10/17 2253: Ur Random Creatinine 66.0, Urine Total Volume 1750 H, Urine Creatinine 1.2, Ur Total Protein 24 Hr 2362.5 H Microbiology 04/11 1719 EXTREMITIE: Gross Specimen Examination - RES PSEUDOMONAS SPECIES 04/11 172 EXTREMITIE: Gram Stain - RES Microbiology 04/11 1719 EXTREMITIE: Gross Specimen Examination - RES PSEUDOMONAS SPECIES 04/11 1719 EXTREMITIE: Gram Stain - RES
--- NOTE | 2017-04-13 14:32 | PN- Diabetes ---
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 At home, she was on Levemir 20 units daily, metformin 500 mg twice a day, starlix on some occasions and Humulin NPH according to the scale. Metformin was held due to elevated Cr of 1.4. She is on Levemir 20 units daily, Novolog coverage before meals and Novolog coverage at bedtime. She has been kept NPO again for procedure today. Her FSGs were 128, 171, 202, 157 and 130. Currently she is on RISS every 6 hours. Plan: 1. while she is NPO, she will be on RISS every 6 hours ( patient will receive insulin only when her FSG is above 150 mg/dl); 2. after she is back from procedure and ready to eat, RISS every 6 hours will be discontinued. She will be on previous Novolog coverage before meals and Novolog coverage at bedtime; 3. monitor FSGs. will follow. Subjective Subjective: She is kept NPO for procedure today. Objective Last 24 Hrs of Vital Signs/I&O Vital Signs Date Time Temp Pulse Resp B/P B/P Pulse O2 O2 Flow FiO2 Mean Ox Delivery Rate 04/13 0907 58 132/70 04/13 0902 58 132/70 04/13 0600 98.2 60 20 132/70 93 Room Air 04/12 2242 98.6 62 18 142/70 94 Room Air 04/12 2200 64 142/70 Intake & Output 04/13 1600 04/13 0800 04/13 0000 Intake Total 470 412 228.2 Output Total 400 Balance 70 412 228.2 Intake, IV 450 412 108.2 Intake, Oral 20 0 120 Output, Urine 400 Findings Pertinent Lab/Ammon Results: Laboratory Tests 04/13 04/13 04/12 0625 0240 1910 Chemistry Sodium (137 - 145 mmol/L) 143 Potassium (3.5 - 5.1 mmol/L) 5.0 Chloride (98 - 107 mmol/L) 106 Carbon Dioxide (22 - 30 mmol/L) 25 Anion Gap (5 - 16) 13 BUN (7 - 17 mg/dL) 30 H Creatinine (0.5 - 1.0 mg/dL) 1.1 H Estimated GFR (>60 ml/min) 49 L BUN/Creatinine Ratio (7 - 25 %) 27.3 H Coagulation APTT (25 - 37 SEC) 88 H 58 H Hematology CBC w Diff NO MAN DIFF REQ WBC (4.8 - 10.8 /CUMM) 14.7 H RBC (4.20 - 5.40 /CUMM) 3.63 L Hgb (12.0 - 16.0 G/DL) 10.3 L Hct (37 - 47 %) 32.0 L MCV (81.0 - 99.0 FL) 88.2 MCH (27.0 - 31.0 PG) 28.3 MCHC (33.0 - 37.0 G/DL) 32.1 L RDW (11.5 - 14.5 %) 16.8 H Plt Count (130 - 400 /CUMM) 372 MPV (7.4 - 10.4 FL) 8.5 Gran % (42.2 - 75.2 %) 73.3 Lymphocytes % (20.5 - 51.1 %) 14.8 L Monocytes % (1.7 - 9.3 %) 8.2 Eosinophils % (0 - 5 %) 3.4 Basophils % (0.0 - 2.0 %) 0.3 Absolute Granulocytes (1.4 - 6.5 /CUMM) 10.8 H Absolute Lymphocytes (1.2 - 3.4 /CUMM) 2.2 Absolute Monocytes (0.10 - 0.60 /CUMM) 1.2 H Absolute Eosinophils (0.0 - 0.7 /CUMM) 0.5 Absolute Basophils (0.0 - 0.2 /CUMM) 0
[2017-04-13 15:12] VITALS: BP 130/70
--- NOTE | 2017-04-13 17:51 | Operative Report ---
Operative/Inv Procedure Report Surgery Date: 04/13/17 Name of Procedure: 1 open incision and drainage deep to the deep fascia with exposure of the flexor tendon and tendon sheath multiple sites left foot 2 debridement of necrotic, infected bone left calcaneus 3 intraoperative application of negative pressure wound therapy 4 intraoperative administration of ankle block anesthesia 5 excisional debridement Pre-Operative Diagnosis: 1 open necrotic wound left heel 2 osteomyelitis left heel 3 diabetic peripheral neuropathy Post-Operative Diagnosis: The same Estimated Blood Loss: less than 50ml Surgeon/De Alcholizer: ALLIE CALLE DPM Anesthesia: moderate sedation, block Operative/Procedure Note Note: After obtaining informed consent the patient was brought to the operating room and placed on the operating table in the supine position. The patient isn't securely fastened to the operating table utilizing safety belt. After administration of IV sedation, 10 mL of 0.5% Marcaine plain was infiltrated about the patient's left ankle. 11 scrubbed prepped and draped in usual aseptic manner. Attention directed the plantar aspect the left heel, where a large full -thickness chronic was identified. The lesion was noted to measure 7 cm x 6 cm x 2 cm. 50 blade visualized sharply revised skin margins. Dissection was then carried down to the deep fascia with exposure of the flexor tendon and tendon sheath multiple sites, both proximally and distally. All necrotic, nonviable infected tissue sharply evacuated wound bed. Centrally, there was exposed bone identified, which was harvested for microbiologic inspection. The open wound was irrigated with 3 L of normal sterile saline fissure 50,000 units of bacitracin utilizing the pulse lavage device. Following this, the foot was redraped and surgeon's top gloves were exchanged for clean gloves. Any bleeding vessels identified were cauterized or ligated as encountered. Next, negative pressure wound therapy was placed about the plantar heel followed by the application of Kerlix and Buzz wrap. The patient noted tolerate both procedure and anesthesia well patient was transported from the operating room to recovery with vital signs stable.
[2017-04-13 23:01] VITALS: BP 130/74
[2017-04-14 04:22] LABS: PTT 66 SEC (25-37)
[2017-04-14 06:03] VITALS: BP 152/64
--- NOTE | 2017-04-14 07:57 | PN- Housestaff ---
See Addendum Subjective Follow-up For: OM of L foot Complaints: no complaints Tele-Events Since Last Visit: sinus overnight Subjective: pt followed up today. post op d3. no complaints. no cardiac events overnight. she is reluctant to consider amputation as an option if there is poor circulation of her limb, based on her experience with her brother. wound vac collection 20 ml so far, serosanguinous Review of Systems Constitutional: Reports: no symptoms. Objective Last 24 Hrs of Vital Signs/I&O Vital Signs Date Time Temp Pulse Resp B/P B/P Pulse O2 O2 Flow FiO2 Mean Ox Delivery Rate 04/14 0848 69 156/78 04/14 0847 69 156/78 04/14 0603 99.8 63 18 152/64 92 Room Air 04/13 2301 98.0 62 18 130/74 95 Room Air 04/13 2239 62 132/74 04/13 1512 98.1 56 20 130/70 96 Intake & Output 04/14 1600 04/14 0800 04/14 0000 Intake Total 300 260 Output Total 600 250 Balance -300 10 Intake, IV 60 Intake, Oral 300 200 Output, Urine 600 250 Physical Exam General Appearance: Alert, Oriented X3, Cooperative, No Acute Distress, morbidly obese Other Physical Findings: Skin: No Rashes, left leg has dressing in situ- no discharge/drainage/soakage Cardiovascular: Regular Rate, Normal S1, Normal S2, No Murmurs Lungs: Clear to Auscultation, Normal Air Movement Abdomen: Normal Bowel Sounds, Soft, No Tenderness Neuro: grossly intact Current Medications: Current Medications Sig/Vandana Start time Last Medication Dose Route Stop Time Status Admin Acetaminophen 650 MG Q6P PRN 04/07 2130 AC PO Acetaminophen/ 1 TAB Q6P PRN 04/09 1415 AC 04/13 Codeine Phosphate PO 1951 Ampicillin Sodium/ 3,000 MG Q6H 04/12 1730 DC 04/13 Sulbactam Sodium IV 1226 Sodium Chloride 100 ML Ascorbic Acid 1,000 MG DAILY 04/08 1000 AC 04/14 PO 0848 Atorvastatin Calcium 40 MG DAILY@1700 04/07 1813 AC 04/13 PO 1546 Cetirizine HCl 10 MG DAILY 04/13 1000 AC 04/14 PO 0848 Cholecalciferol 1,000 IU DAILY 04/08 1000 AC 04/14 PO 0848 Gabapentin 1,200 MG Q8 04/07 1757 AC 04/14 PO 0547 Heparin Sodium/ 25,000 UNIT Q24H 04/11 2000 AC 04/13 Dextrose IV 1419 Dextrose/Water 500 ML Insulin Aspart 0 TIDAC/HS 04/14 0800 AC 04/14 SC 0846 Insulin Detemir 20 UNITS AT BEDTIME 04/07 2200 AC 04/13 LA 2237 Insulin Human Regular 0 Q6 04/13 0600 DC 04/13 LA 1226 Lactobacillus 1 CAP BID 04/08 1107 AC 04/14 Acidophilus PO 0848 Levothyroxine Sodium 0.05 MG DAILY AC 04/07 1635 AC 04/14 PO 0547 Loratadine 10 MG DAILY 04/13 1000 AC PO Losartan Potassium 25 MG DAILY 04/09 1151 AC 04/14 PO 0848 Magnesium Oxide 400 MG DAILY 04/08 1000 AC 04/14 PO 0848 Meropenem 1 GM IQ8 04/13 1600 AC 04/14 IV 0816 Metoprolol Tartrate 50 MG BID 04/07 2330 AC 04/14 PO 0847 Multivitamins 1 TAB DAILY 04/08 1000 AC 04/14 PO 0848 Omeprazole 40 MG DAILY AC 04/08 0700 AC 04/14 PO 0547 Polyethylene Glycol 17 GM DAILY 04/08 1000 AC 04/14 PO 0848 Last 24 Hrs of Lab/Ammon Results Last 24 Hrs of Labs/Mics: Laboratory Tests 04/14/17 0626: Anion Gap 13, Estimated GFR 55 L, BUN/Creatinine Ratio 24.0, CBC w Diff NO MAN DIFF REQ, RBC 3.58 L, MCV 88.4, MCH 28.6, MCHC 32.4 L, RDW 16.9 H, MPV 8.5, Gran % 77.5 H, Lymphocytes % 12.4 L, Monocytes % 7.6, Eosinophils % 2.4, Basophils % 0.1, Absolute Granulocytes 10.2 H, Absolute Lymphocytes 1.6, Absolute Monocytes 1.0 H, Absolute Eosinophils 0.3, Absolute Basophils 0 04/14/17 0330: APTT 66 H 04/13/17 1530: APTT Cancelled Microbiology 04/13 1730 EXTREMITIE: Gross Specimen Examination - RECD 04/13 1729 EXTREMITIE: Gram Stain - RECD Assessment/Plan Assessment: Assessment: Patient is a 71-year-old noncompliant diabetic female with previous history of group G strep, MRSA osteomyelitis presented with sudden onset left leg erythema, fever, increased tiredness. Vital signs at admission are unremarkable, physical examination is significant for erythema extending from left heel till the left groin with swelling. Left lower extremity ulcer measuri ng 3.5 X 1 cm open area with surrounding chronic inflammation 4.5 and 3.5 cm. Labs are significant for white count of 17.3, ESR 76, CRP 9, lactic acid 1.7. Foot x-ray did show osteopenia with stable radiographic findings. Venous Doppler ruled out DVT. Arterial Doppler demonstrated mild peripheral vascular disease. Patient was initially admitted to the general medical floor and was transferred to telemetry floor on 04/10/2017 for the management of following issues: Left lower extremity edema with swelling -cellulitis/osteomyelitis, post op d3 * Radiologically proven osteomyelitis, currently on IV antibiotics--changed from unasyn to meropenem 1gm q8h per ID recs, post op d3 * Initial culture is growing Pseudomonas, thus we'll change her antibiotics from Unasyn to meropenem according to ID. * Continue to elevate leg, which she is not very compliant as she stays in her recliner most of the time * Adequate pain management. * plan for angiogram on Sunday. NPO from Sunday night for procedure on Sunday. Ordered meal accordingly. Need to order insulin/accuchecks accordingly. Paroxysmal atrial fibrillation Patient has paroxysmal atrial fibrillation, overnight was in sinus rhythm. Rate controlled. 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 Uncontrolled diabetes mellitus * Patientis on diabetic diet, and Accu-Cheks, insulin 3 times a day /AC and at bedtime * following endo recs Proteinuria: Patient is having nephrotic range proteinuria as evident from the protein/ creatinine ratio, workup pending. -urine 24 hour protein -continue ARB -ENDO CONSULT PLACED -hba1c 8.7 -f/u SPEP, C3, C4, PENDING - HEP PANEL NEG -PHOS 4.5 History of hypothyroidism Continue levothyroxine 50 g daily History of hypertension Continue metoprolol tartrate 50 twice a day, and Losartan History of diabetic neuropathy Continue Neurontin 1200 mg 3 times a day History of ?allergy Continue loratidine, will substitute to cetrizine from home meds tomorrow DVT prophylaxis: IV heparin for a fib CODE STATUS: DNR/DNI Diet: Diabetic diet Problem List: 1. Osteomyelitis 2. Cellulitis Pain Ratin Pain Location: leg Left Pain Goal: Pain 4 or less Pain Plan: prn Tomorrow's Labs & Rationales: CBC, BEP (check K)
[2017-04-14 08:18] LABS: ABSOLUTE BASOPHIL COUNT 0 /CUMM (0.0-0.2); ABSOLUTE EOSINOPHIL COUNT 0.3 /CUMM (0.0-0.7); ABSOLUTE GRANULOCYTE CT 10.2 /CUMM (1.4-6.5); ABSOLUTE LYMPH COUNT 1.6 /CUMM (1.2-3.4); BASOPHIL % 0.1 % (0.0-2.0); EOSINOPHIL % 2.4 % (0-5); GRANULOCYTE % 77.5 % (42.2-75.2); HEMATOCRIT 31.6 % (37-47); MEAN CORPUSCULAR HGB 28.6 PG (27.0-31.0); MEAN CORPUSCULAR HGB CONC 32.4 G/DL (33.0-37.0); MEAN CORPUSCULAR VOLUME 88.4 FL (81.0-99.0); MEAN PLATELET VOLUME 8.5 FL (7.4-10.4); PLATELET COUNT 391 /CUMM (130-400); RBC DISTRIBUTION WIDTH 16.9 % (11.5-14.5); RED BLOOD CELL CT 3.58 /CUMM (4.20-5.40); WHITE BLOOD CELL COUNT 13.1 /CUMM (4.8-10.8)
--- NOTE | 2017-04-14 10:34 | PN- Infect Dx ---
Subjective Subjective: No fever. Decreased pain/redness L foot. C/o constipation (at home taking Miralax and senna). Review of Systems Comments: 12 points reviewed as noted, otherwise negative. Objective Last 24 Hrs of Vital Signs/I&O Vital Signs Date Time Temp Pulse Resp B/P B/P Pulse O2 O2 Flow FiO2 Mean Ox Delivery Rate 04/14 0848 69 156/78 04/14 0847 69 156/78 04/14 0603 99.8 63 18 152/64 92 Room Air 04/13 2301 98.0 62 18 130/74 95 Room Air 04/13 2239 62 132/74 04/13 1512 98.1 56 20 130/70 96 Intake & Output 04/14 1600 04/14 0800 04/14 0000 Intake Total 300 260 Output Total 600 250 Balance -300 10 Intake, IV 60 Intake, Oral 300 200 Output, Urine 600 250 Physical Exam Other Physical Findings: She appears comfortable in no acute distress HREENT AT, sclera non icteric Neck NO KLEVER Lungs are clear Heart regular rhythm with no murmur Abdomen Soft, NT, + BS Extremities decreased erythema of the left leg; 1+ edema of the left leg; left foot dressing intact Results Last 24 Hours of Lab Results: Laboratory Tests 04/14 04/14 04/13 0626 0330 1530 Chemistry Sodium (137 - 145 mmol/L) 145 Potassium (3.5 - 5.1 mmol/L) 5.3 H Chloride (98 - 107 mmol/L) 107 Carbon Dioxide (22 - 30 mmol/L) 25 Anion Gap (5 - 16) 13 BUN (7 - 17 mg/dL) 24 H Creatinine (0.5 - 1.0 mg/dL) 1.0 Estimated GFR (>60 ml/min) 55 L BUN/Creatinine Ratio (7 - 25 %) 24.0 Coagulation APTT (25 - 37 SEC) 66 H Cancelled Hematology CBC w Diff NO MAN DIFF REQ WBC (4.8 - 10.8 /CUMM) 13.1 H RBC (4.20 - 5.40 /CUMM) 3.58 L Hgb (12.0 - 16.0 G/DL) 10.2 L Hct (37 - 47 %) 31.6 L MCV (81.0 - 99.0 FL) 88.4 MCH (27.0 - 31.0 PG) 28.6 MCHC (33.0 - 37.0 G/DL) 32.4 L RDW (11.5 - 14.5 %) 16.9 H Plt Count (130 - 400 /CUMM) 391 MPV (7.4 - 10.4 FL) 8.5 Gran % (42.2 - 75.2 %) 77.5 H Lymphocytes % (20.5 - 51.1 %) 12.4 L Monocytes % (1.7 - 9.3 %) 7.6 Eosinophils % (0 - 5 %) 2.4 Basophils % (0.0 - 2.0 %) 0.1 Absolute Granulocytes (1.4 - 6.5 /CUMM) 10.2 H Absolute Lymphocytes (1.2 - 3.4 /CUMM) 1.6 Absolute Monocytes (0.10 - 0.60 /CUMM) 1.0 H Absolute Eosinophils (0.0 - 0.7 /CUMM) 0.3 Absolute Basophils (0.0 - 0.2 /CUMM) 0 Last 24 Hours of Ammon Results: SPEC #: [id number] MALINA: 04/11/17 STATUS: RES RECD: 04/11/[address]: Bob Altamirano DPM SOURCE: EXTREMITIE ENTR: 04/11/17 [facility] DR: Luigi Mary MD [facility]: FOOT LEFT ORDERED: XTRMOR COMMENT: ADDITIONAL INFORMATION: BONE LEFT FOOT FOR CULTURE Procedure Result > GRAM STAIN Final 04/12/17-1429 WHITE BLOOD CELLS FEW IN THIO BROTH GRAM NEGATIVE RODS SEEN IN THIO BROTH > EXTREMITIES OR SPECIMEN Preliminary 04/14/17-09 GROWTH IN THIO BROTH: PSEUDOMONAS AERUGINOSA REPORTED TO AND READ BACK BY: RUI ELIZABETH AT 0914 04/13/17 LAB.SVCY Recent Imaging Studies: CONCLUSIONS 1. This was a technically difficult examination. 2. Mild to moderate aortic sclerosis is present with no valvular stenosis or insufficiency. 3. Mitral leaflet thickening is present with moderate to severe anular calcification and fibrosis of the subvalvular chordal structures with mild mitral insufficiency with mild to moderate left atrial enlargement. 4. There is no pericardial fluid detected on this examination. 5. The left ventricualr chamber size and systolic function appear normal. Mild concentric LVH is present with mild diastolic dysfunction. 6. Mild enlargement of the right heart chambers is present with mild tricuspid isnufficiency and significant pulmonary hypertension with an estimated RV systolic pressure of 58 mmHg. Myah Isaac M.D. (Electronically Signed) Final Date: 12 April 2017 11:43 MRI IMPRESSION: Soft tissue defect overlying the plantar aspect of the hindfoot. Underlying erosion of the calcaneus with additional bone marrow signal changes, consistent with osteomyelitis. No fluid collection. Small intra-articular body at the anterior joint line of the ankle, similar to prior. 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 DATE/TIME TRANSCRIBED:04/09/171707 Assessment/Plan Impression: 71-year-old woman with hypertension, CHF, diabetes, with a peripheral neuropathy and peripheral vascular disease, with a chronic, nonhealing left heel ulcer for nearly 2 years, treated with several courses of antibiotics for osteomyelitis, most recently 8 months prior to admission, with left BKA recommended several times by Podiatry but refused by patient, begun on Ciprofloxacin 2 days prior to admission for a fever, admitted on April 07 with a one-week history of fatigue and a 2 day history of left foot and leg swelling and erythema, found to be afebrile with a leukocytosis and with an x-ray/MRI of the left heel suggestive of osteomyelitis. Low grade temp; persistent modest leukocytois, status post bone biopsy and debridement. Her bone culture is growing Pseudomonas (sensitivity pnd), confirming the clinical and MRI suspicion of osteomyelitis, and her antibiotics adjusted 04/13. She is scheduled for an angiogram on April 16. Suggestion: 1. Awaits angiogram on April 16 2. Trend CBC, BMP. Bowel regimen. 3. Follow-up final bone culture 4. Elevation of the left leg 5. Cont D #2 Meropenem 1 g IV every 8 hours pending above
[2017-04-14 14:21] VITALS: BP 142/60
--- NOTE | 2017-04-14 14:54 | PN- Cardiology ---
Subjective Subjective: Feeling well. No chest pain. No shortness of breath. No palpitations. She is status post surgery. She remains in sinus rhythm on telemetry. Objective Vital Signs and I&Os Vital Signs Date Time Temp Pulse Resp B/P B/P Pulse O2 O2 Flow FiO2 Mean Ox Delivery Rate 04/14 1600 Room Air 04/14 1421 98.0 68 20 142/60 95 Room Air 04/14 0848 69 156/78 04/14 0847 69 156/78 04/14 0603 99.8 63 18 152/64 92 Room Air 04/13 2301 98.0 62 18 130/74 95 Room Air 04/13 2239 62 132/74 Intake & Output 04/14 1600 04/14 0800 04/14 0000 04/13 1600 04/13 0800 04/13 0000 Intake Total 850 300 260 470 412 228.2 Output Total 1020 600 250 400 Balance -170 -300 10 70 412 228.2 Intake, IV 50 60 450 412 108.2 Intake, Oral 800 300 200 20 0 120 Number 0 Bowel Movements Output, 20 Drainage Output, Urine 1000 600 250 400 Physical Exam: Gen: The patient is in no acute distress HEENT: Normal nose, ears, and oropharynx. Pupils equal bilaterally. Conjunctiva normal. Neck: Supple with no JVD, no masses, and no thyromegaly Lungs: Clear to auscultation with normal respiratory effort Heart: RRR, S1, S2, 2/6 systolic murmur at the apex. 1-2+ peripheral edema, 1+ pulses in the lower extremities bilaterally Abdomen: Soft, nontender, no masses. No hepatomegaly. No splenomegaly Extremities: No clubbing or cyanosis. Normal muscle strength in the upper and lower extremities Skin: Cellulitis of the left lower extremity as noted. Normal skin turgor. Neuro: Cranial nerves intact. Sensation intact Current Medications: Current Medications Sig/Vandana Start time Last Medication Dose Route Stop Time Status Admin Acetaminophen 650 MG Q6P PRN 04/07 2130 AC PO Acetaminophen/ 1 TAB Q6P PRN 04/09 1415 AC 04/14 Codeine Phosphate PO 1637 Ascorbic Acid 1,000 MG DAILY 04/08 1000 AC 04/14 PO 0848 Atorvastatin Calcium 40 MG DAILY@1700 04/07 1813 AC 04/14 PO 1621 Cetirizine HCl 10 MG DAILY 04/13 1000 AC 04/14 PO 0848 Cholecalciferol 1,000 IU DAILY 04/08 1000 AC 04/14 PO 0848 Gabapentin 1,200 MG Q8 04/07 1757 AC 04/14 PO 1302 Heparin Sodium/ 25,000 UNIT Q24H 04/11 2000 AC 04/13 Dextrose IV 1419 Dextrose/Water 500 ML Insulin Aspart 0 TIDAC/HS 04/14 0800 AC 04/14 NH 1728 Insulin Detemir 20 UNITS AT BEDTIME 04/07 2200 AC 04/13 NH 2237 Insulin Human Regular 0 Q6 04/13 0600 DC 04/13 NH 1226 Lactobacillus 1 CAP BID 04/08 1107 AC 04/14 Acidophilus PO 0848 Levothyroxine Sodium 0.05 MG DAILY AC 04/07 1635 AC 04/14 PO 0547 Loratadine 10 MG DAILY 04/13 1000 AC PO Losartan Potassium 25 MG DAILY 04/09 1151 AC 04/14 PO 0848 Magnesium Oxide 400 MG DAILY 04/08 1000 AC 04/14 PO 0848 Meropenem 1 GM IQ8 04/13 1600 AC 04/14 IV 1622 Metoprolol Tartrate 50 MG BID 04/07 2330 AC 04/14 PO 0847 Multivitamins 1 TAB DAILY 04/08 1000 AC 04/14 PO 0848 Omeprazole 40 MG DAILY AC 04/08 0700 AC 04/14 PO 0547 Polyethylene Glycol 17 GM DAILY 04/08 1000 AC 04/14 PO 0848 Results Last 48 Hrs of Labs/Mics: Laboratory Tests 04/14/17 1550: APTT 64 H 04/14/17 0626: Anion Gap 13, Estimated GFR 55 L, BUN/Creatinine Ratio 24.0, CBC w Diff NO MAN DIFF REQ, RBC 3.58 L, MCV 88.4, MCH 28.6, MCHC 32.4 L, RDW 16.9 H, MPV 8.5, Gran % 77.5 H, Lymphocytes % 12.4 L, Monocytes % 7.6, Eosinophils % 2.4, Basophils % 0.1, Absolute Granulocytes 10.2 H, Absolute Lymphocytes 1.6, Absolute Monocytes 1.0 H, Absolute Eosinophils 0.3, Absolute Basophils 0 04/14/17 0330: APTT 66 H 04/13/17 1530: APTT Cancelled 04/13/17 0625: Anion Gap 13, Estimated GFR 49 L, BUN/Creatinine Ratio 27.3 H, CBC w Diff NO MAN DIFF REQ, RBC 3.63 L, MCV 88.2, MCH 28.3, MCHC 32.1 L, RDW 16.8 H, MPV 8.5, Gran % 73.3, Lymphocytes % 14.8 L, Monocytes % 8.2, Eosinophils % 3.4, Basophils % 0.3, Absolute Granulocytes 10.8 H, Absolute Lymphocytes 2.2, Absolute Monocytes 1.2 H, Absolute Eosinophils 0.5, Absolute Basophils 0 04/13/17 0240: APTT 88 H 04/12/17 1910: APTT 58 H Assessment/Plan Assessment/Plan Assessment: 1. Paroxysmal atrial fibrillation 2. Hypertension 3. Osteomyelitis/lower extremity cellulitis 4. History of prior mitral valve endocarditis with residual mitral insufficiency Plan: Continue IV heparin, with plan to change to Eliquis prior to discharge Continue other cardiac medications Continue telemetry? Yes
--- NOTE | 2017-04-14 15:55 | PN- Diabetes ---
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 At home, she was on Levemir 20 units daily, metformin 500 mg twice a day, starlix on some occasions and Humulin NPH according to the scale. She is on Levemir 20 units daily, Novolog coverage before meals and Novolog coverage at bedtime. Her FSGs were 91, 176, 142 and 134. Plan: continue the current insulin regimen for now; monitor FSGs. will follow. Subjective Subjective: She feels okay; her glucose level has been better controlled. Objective Last 24 Hrs of Vital Signs/I&O Vital Signs Date Time Temp Pulse Resp B/P B/P Pulse O2 O2 Flow FiO2 Mean Ox Delivery Rate 04/14 1421 98.0 68 20 142/60 95 Room Air 04/14 0848 69 156/78 04/14 0847 69 156/78 04/14 0603 99.8 63 18 152/64 92 Room Air 04/13 2301 98.0 62 18 130/74 95 Room Air 04/13 2239 62 132/74 Intake & Output 04/14 1600 04/14 0800 04/14 0000 Intake Total 850 300 260 Output Total 1020 600 250 Balance -170 -300 10 Intake, IV 50 60 Intake, Oral 800 300 200 Number 0 Bowel Movements Output, 20 Drainage Output, Urine 1000 600 250 Findings Pertinent Lab/Ammon Results: Laboratory Tests 04/14 04/14 0626 0330 Chemistry Sodium (137 - 145 mmol/L) 145 Potassium (3.5 - 5.1 mmol/L) 5.3 H Chloride (98 - 107 mmol/L) 107 Carbon Dioxide (22 - 30 mmol/L) 25 Anion Gap (5 - 16) 13 BUN (7 - 17 mg/dL) 24 H Creatinine (0.5 - 1.0 mg/dL) 1.0 Estimated GFR (>60 ml/min) 55 L BUN/Creatinine Ratio (7 - 25 %) 24.0 Coagulation APTT (25 - 37 SEC) 66 H Hematology CBC w Diff NO MAN DIFF REQ WBC (4.8 - 10.8 /CUMM) 13.1 H RBC (4.20 - 5.40 /CUMM) 3.58 L Hgb (12.0 - 16.0 G/DL) 10.2 L Hct (37 - 47 %) 31.6 L MCV (81.0 - 99.0 FL) 88.4 MCH (27.0 - 31.0 PG) 28.6 MCHC (33.0 - 37.0 G/DL) 32.4 L RDW (11.5 - 14.5 %) 16.9 H Plt Count (130 - 400 /CUMM) 391 MPV (7.4 - 10.4 FL) 8.5 Gran % (42.2 - 75.2 %) 77.5 H Lymphocytes % (20.5 - 51.1 %) 12.4 L Monocytes % (1.7 - 9.3 %) 7.6 Eosinophils % (0 - 5 %) 2.4 Basophils % (0.0 - 2.0 %) 0.1 Absolute Granulocytes (1.4 - 6.5 /CUMM) 10.2 H Absolute Lymphocytes (1.2 - 3.4 /CUMM) 1.6 Absolute Monocytes (0.10 - 0.60 /CUMM) 1.0 H Absolute Eosinophils (0.0 - 0.7 /CUMM) 0.3 Absolute Basophils (0.0 - 0.2 /CUMM) 0
[2017-04-14 17:00] LABS: PTT 64 SEC (25-37)
[2017-04-14 22:13] VITALS: BP 152/70
[2017-04-15 04:22] LABS: ABSOLUTE BASOPHIL COUNT 0.1 /CUMM (0.0-0.2); ABSOLUTE EOSINOPHIL COUNT 0.2 /CUMM (0.0-0.7); ABSOLUTE GRANULOCYTE CT 11.8 /CUMM (1.4-6.5); ABSOLUTE LYMPH COUNT 2.3 /CUMM (1.2-3.4); ABSOLUTE MONOCYTE COUNT 1.2 /CUMM (0.10-0.60); BASOPHIL % 0.4 % (0.0-2.0); EOSINOPHIL % 1.4 % (0-5); HEMATOCRIT 31.7 % (37-47); MEAN CORPUSCULAR HGB 28.1 PG (27.0-31.0); MEAN CORPUSCULAR HGB CONC 31.9 G/DL (33.0-37.0); PLATELET COUNT 395 /CUMM (130-400); RBC DISTRIBUTION WIDTH 16.8 % (11.5-14.5); WHITE BLOOD CELL COUNT 15.5 /CUMM (4.8-10.8)
[2017-04-15 04:39] LABS: PTT 78 SEC (25-37)
--- NOTE | 2017-04-15 08:49 | PN- Housestaff ---
Jason LAZARO,Brianda 04/15/17 0848: Subjective Follow-up For: Osteomyelitis left lower extremity Complaints: constipation Tele-Events Since Last Visit: sinus rhythm heart rate 60 Subjective: Patient was seen and examined by me at bedside today. No overnight events. She complains of constipation. Last bowel movement yesterday. She denies chest pain, chest pressure, nausea, vomiting, left leg pain. Review of Systems Constitutional: Reports: no symptoms. Cardiovascular: Reports: no symptoms. Respiratory: Reports: no symptoms. Gastrointestinal: Reports: constipation. Genitourinary: Reports: no symptoms. Musculoskeletal: Reports: no symptoms. Objective Last 24 Hrs of Vital Signs/I&O Vital Signs Date Time Temp Pulse Resp B/P B/P Pulse O2 O2 Flow FiO2 Mean Ox Delivery Rate 04/15 0851 60 152/70 04/15 0849 60 152/70 04/14 2213 97.9 60 18 152/70 94 Room Air 04/14 2116 62 152/78 04/14 1600 Room Air 04/14 1421 98.0 68 20 142/60 95 Room Air Intake & Output 04/15 1600 04/15 0800 04/15 0000 Intake Total 300 1112 Output Total 500 440 Balance -200 672 Intake, IV 312 Intake, Oral 300 800 Number 1 Bowel Movements Output, 40 Drainage Output, Urine 500 400 Physical Exam General Appearance: Alert, Oriented X3, Cooperative, No Acute Distress HEENT: Atraumatic, PERRLA, EOMI Cardiovascular: Regular Rate, Normal S1, Normal S2, No Murmurs Lungs: Normal Air Movement Abdomen: Soft, No Tenderness, No Hepatospenomegaly Neurological: Normal Speech, Strength at 5/5 X4 Ext, Normal Tone Extremities: left foot osteomyelitis status post debridement Current Medications: Current Medications Sig/Vandana Start time Last Medication Dose Route Stop Time Status Admin Acetaminophen 650 MG Q6P PRN 04/07 2130 AC PO Acetaminophen/ 1 TAB Q6P PRN 04/09 1415 AC 04/14 Codeine Phosphate PO 1637 Ascorbic Acid 1,000 MG DAILY 04/08 1000 AC 04/15 PO 0850 Atorvastatin Calcium 40 MG DAILY@1700 04/07 1813 AC 04/14 PO 1621 Cetirizine HCl 10 MG DAILY 04/13 1000 AC 04/15 PO 0917 Cholecalciferol 1,000 IU DAILY 04/08 1000 AC 04/15 PO 0850 Gabapentin 1,200 MG Q8 04/07 1757 AC 04/15 PO 0552 Heparin Sodium/ 25,000 UNIT Q24H 04/11 2000 AC 04/14 Dextrose IV 2335 Dextrose/Water 500 ML Insulin Aspart 0 TIDAC/HS 04/14 0800 AC 04/15 SC 0911 Insulin Detemir 20 UNITS AT BEDTIME 04/07 2200 AC 04/14 SC 2122 Lactobacillus 1 CAP BID 04/08 1107 AC 04/15 Acidophilus PO 0850 Levothyroxine Sodium 0.05 MG DAILY AC 04/07 1635 AC 04/15 PO 0552 Loratadine 10 MG DAILY 04/13 1000 AC PO Losartan Potassium 25 MG DAILY 04/09 1151 AC 04/15 PO 0849 Magnesium Oxide 400 MG DAILY 04/08 1000 AC 04/15 PO 0850 Meropenem 1 GM IQ8 04/13 1600 AC 04/15 IV 0852 Metoprolol Tartrate 50 MG BID 04/07 2330 AC 04/15 PO 0851 Multivitamins 1 TAB DAILY 04/08 1000 AC 04/15 PO 0850 Omeprazole 40 MG DAILY AC 04/08 0700 AC 04/15 PO 0552 Polyethylene Glycol 17 GM DAILY 04/08 1000 AC 04/15 PO 0850 Last 24 Hrs of Lab/Ammon Results Last 24 Hrs of Labs/Mics: Laboratory Tests 04/15/17 0405: Anion Gap 11, Estimated GFR 55 L, BUN/Creatinine Ratio 25.0, APTT 78 H, CBC w Diff NO MAN DIFF REQ, RBC 3.60 L, MCV 88.0, MCH 28.1, MCHC 31.9 L, RDW 16.8 H , MPV 8.0, Gran % 76.0 H, Lymphocytes % 14.7 L, Monocytes % 7.5, Eosinophils % 1.4, Basophils % 0.4, Absolute Granulocytes 11.8 H, Absolute Lymphocytes 2.3, Absolute Monocytes 1.2 H, Absolute Eosinophils 0.2, Absolute Basophils 0.1 04/14/17 1550: APTT 64 H Assessment/Plan Assessment: Assessment: Patient is a 71-year-old noncompliant diabetic female with previous history of group G strep, MRSA osteomyelitis presented with sudden onset left leg erythema, fever, increased tiredness. Vital signs at admission are unremarkable, physical examination is significant for erythema extending from left heel till the left groin with swelling. Left lower extremity ulcer measuri ng 3.5 X 1 cm open area with surrounding chronic inflammation 4.5 and 3.5 cm. Labs are significant for white count of 17.3, ESR 76, CRP 9, lactic acid 1.7. Foot x-ray did show osteopenia with stable radiographic findings. Venous Doppler ruled out DVT. Arterial Doppler demonstrated mild peripheral vascular disease. Patient was initially admitted to the general medical floor and was transferred to telemetry floor on 04/10/2017 for the management of following issues: Left lower extremity edema with swelling -cellulitis/osteomyelitis, post op d4 * Radiologically proven osteomyelitis, currently on IV antibiotics--changed from unasyn to meropenem 1gm q8h per ID recs, post op d3 * Initial culture is growing Pseudomonas, thus we'll change her antibiotics from Unasyn to meropenem according to ID. * Continue to elevate leg, which she is not very compliant as she stays in her recliner most of the time * Adequate pain management. * plan for angiogram on Sunday. NPO from Sunday night for procedure on Sunday. Ordered meal accordingly. Need to order insulin/accuchecks accordingly. Paroxysmal atrial fibrillation Patient has paroxysmal atrial fibrillation, overnight was in sinus rhythm. Rate controlled. IV Heparin drip running, will discuss about buttermaker continuous churn anticoagulation. Uncontrolled diabetes mellitus * Patientis on diabetic diet, and Accu-Cheks, insulin 3 times a day /AC and at bedtime * following endo recs Proteinuria: Patient is having nephrotic range proteinuria as evident from the protein/ creatinine ratio, workup pending. -urine 24 hour protein-2362.5 -continue ARB -ENDO CONSULT PLACED -hba1c 8.7 -SPEP, C3-184, C4-48, PENDING - HEP PANEL NEG -PHOS 4.5 History of hypothyroidism Continue levothyroxine 50 g daily History of hypertension Continue metoprolol tartrate 50 twice a day, and Losartan History of diabetic neuropathy Continue Neurontin 1200 mg 3 times a day History of ?allergy Continue loratidine, will substitute to cetrizine from home meds tomorrow Constipation Patient is on MiraLAX. We will add Colace, senna. DVT prophylaxis: IV heparin for a fib CODE STATUS: DNR/DNI Diet: Diabetic diet Problem List: 1. Hypertension 2. Hypothyroidism Pain Ratin Pain Location: NONE Pain Goal: Remain pain free Pain Plan: NONE Tomorrow's Labs & Rationales: CBC,BEP Shakir Nunez MD 04/15/17 1348: Attending MD Review Statement Attending Statement Attending MD Statement: examined this patient, discuss w/resident/PA/CAPONIZER, agreed w/resident/PA/CAPONIZER, reviewed EMR data (avail), amended to note Attending Assessment/Plan: Ms. Shafer was interviewed and examined and her EMR was reviewed. She denies fever, chills, and extremity pain. She also denies chest pain, SOB, nausea, vomiting, and diarrhea. She is afebrile with stable vital signs. She is in no acute distress. Pulmonary exam and cardiac exams are benign. WBC is slightly increased today but her chemistries are stable. A second culture is now growing Pseudomonas. We are continuing to treat her osteomyelitis with meropenem. Analgesia is adequate. We have achieved adequate glycemic control with long-acting and sliding scale insulin. She is scheduled for lower extremity angiography in the a.m.
--- NOTE | 2017-04-15 11:26 | PN- Infect Dx ---
Subjective Subjective: No fever. L LE discomfort minimal; increased swelling L LE. Denies diarrhea. Review of Systems Comments: 12 points reviewed as noted, otherwise negative. Objective Last 24 Hrs of Vital Signs/I&O Vital Signs Date Time Temp Pulse Resp B/P B/P Pulse O2 O2 Flow FiO2 Mean Ox Delivery Rate 04/15 0851 60 152/70 04/15 0849 60 152/70 04/14 2213 97.9 60 18 152/70 94 Room Air 04/14 2116 62 152/78 04/14 1600 Room Air 04/14 1421 98.0 68 20 142/60 95 Room Air Intake & Output 04/15 1600 04/15 0800 04/15 0000 Intake Total 300 1112 Output Total 500 440 Balance -200 672 Intake, IV 312 Intake, Oral 300 800 Number 1 Bowel Movements Output, 40 Drainage Output, Urine 500 400 Physical Exam Other Physical Findings: She appears comfortable in no acute distress HREENT AT, sclera non icteric Neck NO KLEVER Lungs are clear Heart regular rhythm with no murmur Abdomen Soft, NT, + BS Extremities persistent erythema/increased edema of the left leg; left foot dressing intact Results Last 24 Hours of Lab Results: Laboratory Tests 04/15 04/14 0405 1550 Chemistry Sodium (137 - 145 mmol/L) 143 Potassium (3.5 - 5.1 mmol/L) 4.6 Chloride (98 - 107 mmol/L) 104 Carbon Dioxide (22 - 30 mmol/L) 28 Anion Gap (5 - 16) 11 BUN (7 - 17 mg/dL) 25 H Creatinine (0.5 - 1.0 mg/dL) 1.0 Estimated GFR (>60 ml/min) 55 L BUN/Creatinine Ratio (7 - 25 %) 25.0 Coagulation APTT (25 - 37 SEC) 78 H 64 H Hematology CBC w Diff NO MAN DIFF REQ WBC (4.8 - 10.8 /CUMM) 15.5 H RBC (4.20 - 5.40 /CUMM) 3.60 L Hgb (12.0 - 16.0 G/DL) 10.1 L Hct (37 - 47 %) 31.7 L MCV (81.0 - 99.0 FL) 88.0 MCH (27.0 - 31.0 PG) 28.1 MCHC (33.0 - 37.0 G/DL) 31.9 L RDW (11.5 - 14.5 %) 16.8 H Plt Count (130 - 400 /CUMM) 395 MPV (7.4 - 10.4 FL) 8.0 Gran % (42.2 - 75.2 %) 76.0 H Lymphocytes % (20.5 - 51.1 %) 14.7 L Monocytes % (1.7 - 9.3 %) 7.5 Eosinophils % (0 - 5 %) 1.4 Basophils % (0.0 - 2.0 %) 0.4 Absolute Granulocytes (1.4 - 6.5 /CUMM) 11.8 H Absolute Lymphocytes (1.2 - 3.4 /CUMM) 2.3 Absolute Monocytes (0.10 - 0.60 /CUMM) 1.2 H Absolute Eosinophils (0.0 - 0.7 /CUMM) 0.2 Absolute Basophils (0.0 - 0.2 /CUMM) 0.1 Last 24 Hours of Ammon Results: Patient : PHANI MESSINA Acct: [id number] DR: Luigi Mary MD Birthdate: [birth year] Age/Sex: 71/F Unit: [id number] Loc: 1NO 183- 01 Status : ADM IN SPEC #: [id number] MALINA: 04/11/17 STATUS: COMP RECD: 04/11/[address]: Bob Altamirano DPM SOURCE: EXTREMITIE ENTR: 04/11/17-[address]: Luigi Mary MD SPDESC: FOOT LEFT ORDERED: XTRMOR COMMENT: ADDITIONAL INFORMATION: BONE LEFT FOOT FOR CULTURE Procedure Result > GRAM STAIN Final 04/12/17-1429 WHITE BLOOD CELLS FEW IN THIO BROTH GRAM NEGATIVE RODS SEEN IN THIO BROTH > EXTREMITIES OR SPECIMEN Final 04/15/17-927 GROWTH IN THIO BROTH: PSEUDOMONAS AERUGINOSA REPORTED TO AND READ BACK BY: RUI ELIZABETH AT 0914 04/13/17 LAB.SVCY 1. PSEUDOMONAS AERUGINOSA RX AB ------ -- CEFTAZIDIME S CIPROFLOXACIN S GENTAMICIN S MEROPENEM S Recent Imaging Studies: Reviewed Assessment/Plan Impression: 71-year-old woman with hypertension, CHF, diabetes, with a peripheral neuropathy and peripheral vascular disease, with a chronic, nonhealing left heel ulcer for nearly 2 years, treated with several courses of antibiotics for osteomyelitis, most recently 8 months prior to admission, with left BKA recommended several times by Podiatry but refused by patient, begun on Ciprofloxacin 2 days prior to admission for a fever, admitted on April 07 with a one-week history of fatigue and a 2 day history of left foot and leg swelling and erythema, found to be afebrile with a leukocytosis and with an x-ray/MRI of the left heel suggestive of osteomyelitis. Afebrile, worsening leukocytois, status post bone biopsy and debridement. Her bone culture is growing Pseudomonas (pansensitive cx form 04/11), confirming the clinical and MRI suspicion of osteomyelitis, and her antibiotics adjusted 04/13. She is scheduled for an angiogram on April 16. Suggestion: 1. Awaits angiogram on April 16 2. CBC, BMP, ESR in am. 3. Bowel regimen. 4. Elevation of the left leg 5. Treated w/ D #3 Meropenem 1 g IV every 8 hours pending Ps. aeruginosa sensitivity from 04/13 culture (plan to deescalate abx if feasible).
--- NOTE | 2017-04-15 12:20 | PN- Diabetes ---
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 At home, she was on Levemir 20 units daily, metformin 500 mg twice a day, starlix on some occasions and Humulin NPH according to the scale. She is on Levemir 20 units daily, Novolog coverage before meals and Novolog coverage at bedtime. Her FSGs were 134, 122, 178, 143 and 154. Plan: continue the current insulin regimen for now; monitor FSGs. will follow. Subjective Subjective: Her glucose level has been stable. Objective Last 24 Hrs of Vital Signs/I&O Vital Signs Date Time Temp Pulse Resp B/P B/P Pulse O2 O2 Flow FiO2 Mean Ox Delivery Rate 04/15 0851 60 152/70 04/15 0849 60 152/70 04/14 2213 97.9 60 18 152/70 94 Room Air 04/14 2116 62 152/78 04/14 1600 Room Air 04/14 1421 98.0 68 20 142/60 95 Room Air Intake & Output 04/15 1600 04/15 0800 04/15 0000 Intake Total 300 1112 Output Total 500 440 Balance -200 672 Intake, IV 312 Intake, Oral 300 800 Number 1 Bowel Movements Output, 40 Drainage Output, Urine 500 400 Findings Pertinent Lab/Ammon Results: Laboratory Tests 04/15 04/14 0405 1550 Chemistry Sodium (137 - 145 mmol/L) 143 Potassium (3.5 - 5.1 mmol/L) 4.6 Chloride (98 - 107 mmol/L) 104 Carbon Dioxide (22 - 30 mmol/L) 28 Anion Gap (5 - 16) 11 BUN (7 - 17 mg/dL) 25 H Creatinine (0.5 - 1.0 mg/dL) 1.0 Estimated GFR (>60 ml/min) 55 L BUN/Creatinine Ratio (7 - 25 %) 25.0 Coagulation APTT (25 - 37 SEC) 78 H 64 H Hematology CBC w Diff NO MAN DIFF REQ WBC (4.8 - 10.8 /CUMM) 15.5 H RBC (4.20 - 5.40 /CUMM) 3.60 L Hgb (12.0 - 16.0 G/DL) 10.1 L Hct (37 - 47 %) 31.7 L MCV (81.0 - 99.0 FL) 88.0 MCH (27.0 - 31.0 PG) 28.1 MCHC (33.0 - 37.0 G/DL) 31.9 L RDW (11.5 - 14.5 %) 16.8 H Plt Count (130 - 400 /CUMM) 395 MPV (7.4 - 10.4 FL) 8.0 Gran % (42.2 - 75.2 %) 76.0 H Lymphocytes % (20.5 - 51.1 %) 14.7 L Monocytes % (1.7 - 9.3 %) 7.5 Eosinophils % (0 - 5 %) 1.4 Basophils % (0.0 - 2.0 %) 0.4 Absolute Granulocytes (1.4 - 6.5 /CUMM) 11.8 H Absolute Lymphocytes (1.2 - 3.4 /CUMM) 2.3 Absolute Monocytes (0.10 - 0.60 /CUMM) 1.2 H Absolute Eosinophils (0.0 - 0.7 /CUMM) 0.2 Absolute Basophils (0.0 - 0.2 /CUMM) 0.1
[2017-04-15 14:31] VITALS: BP 110/56
--- NOTE | 2017-04-15 14:44 | PN- Cardiology ---
Subjective Subjective: Feeling well. No chest pain. No palpitations. patient monitor reveals sinus rhythm. No shortness of breath. No diaphoresis. Objective Vital Signs and I&Os Vital Signs Date Time Temp Pulse Resp B/P B/P Pulse O2 O2 Flow FiO2 Mean Ox Delivery Rate 04/15 0851 60 152/70 04/15 0849 60 152/70 04/14 2213 97.9 60 18 152/70 94 Room Air 04/14 2116 62 152/78 04/14 1600 Room Air Intake & Output 04/15 1600 04/15 0800 04/15 0000 04/14 1600 04/14 0800 04/14 0000 Intake Total 300 1112 850 300 260 Output Total 1100 002 972 9442 600 250 Balance -1100 -200 672 -170 -300 10 Intake, IV 312 50 60 Intake, Oral 300 800 800 300 200 Number 1 0 Bowel Movements Output, 40 20 Drainage Output, Urine 1100 689 955 9816 600 250 Physical Exam: Gen: The patient is in no acute distress HEENT: Normal nose, ears, and oropharynx. Pupils equal bilaterally. Conjunctiva normal. Neck: Supple with no JVD, no masses, and no thyromegaly Lungs: Clear to auscultation with normal respiratory effort Heart: RRR, S1, S2, 2/6 systolic murmur at the apex. 1-2+ peripheral edema, 1+ pulses in the lower extremities bilaterally Abdomen: Soft, nontender, no masses. No hepatomegaly. No splenomegaly Extremities: No clubbing or cyanosis. Normal muscle strength in the upper and lower extremities Skin: Cellulitis of the left lower extremity as noted. Normal skin turgor. Neuro: Cranial nerves intact. Sensation intact Current Medications: Current Medications Sig/Vandana Start time Last Medication Dose Route Stop Time Status Admin Acetaminophen 650 MG Q6P PRN 04/07 2130 AC PO Acetaminophen/ 1 TAB Q6P PRN 04/09 1415 AC 04/14 Codeine Phosphate PO 1637 Ascorbic Acid 1,000 MG DAILY 04/08 1000 AC 04/15 PO 0850 Atorvastatin Calcium 40 MG DAILY@1700 04/07 1813 AC 04/14 PO 1621 Cetirizine HCl 10 MG DAILY 04/13 1000 AC 04/15 PO 0917 Cholecalciferol 1,000 IU DAILY 04/08 1000 AC 04/15 PO 0850 Docusate Sodium 100 MG DAILY 04/15 1251 AC PO Gabapentin 1,200 MG Q8 04/07 1757 AC 04/15 PO 1314 Heparin Sodium/ 25,000 UNIT Q24H 04/11 2000 AC 04/15 Dextrose IV 1246 Dextrose/Water 500 ML Insulin Aspart 0 TIDAC/HS 04/14 0800 AC 04/15 SC 1247 Insulin Detemir 20 UNITS AT BEDTIME 04/07 2200 AC 04/14 SC 2122 Lactobacillus 1 CAP BID 04/08 1107 AC 04/15 Acidophilus PO 0850 Levothyroxine Sodium 0.05 MG DAILY AC 04/07 1635 AC 04/15 PO 0552 Loratadine 10 MG DAILY 04/13 1000 AC PO Losartan Potassium 25 MG DAILY 04/09 1151 AC 04/15 PO 0849 Magnesium Oxide 400 MG DAILY 04/08 1000 AC 04/15 PO 0850 Meropenem 1 GM IQ8 04/13 1600 AC 04/15 IV 0852 Metoprolol Tartrate 50 MG BID 04/07 2330 AC 04/15 PO 0851 Multivitamins 1 TAB DAILY 04/08 1000 AC 04/15 PO 0850 Omeprazole 40 MG DAILY AC 04/08 0700 AC 04/15 PO 0552 Polyethylene Glycol 17 GM DAILY 04/08 1000 AC 04/15 PO 0850 Senna/Docusate Sodium 1 TAB BID 04/15 1252 AC PO Results Last 48 Hrs of Labs/Mics: Laboratory Tests 04/15/17 0405: Anion Gap 11, Estimated GFR 55 L, BUN/Creatinine Ratio 25.0, APTT 78 H, CBC w Diff NO MAN DIFF REQ, RBC 3.60 L, MCV 88.0, MCH 28.1, MCHC 31.9 L, RDW 16.8 H , MPV 8.0, Gran % 76.0 H, Lymphocytes % 14.7 L, Monocytes % 7.5, Eosinophils % 1.4, Basophils % 0.4, Absolute Granulocytes 11.8 H, Absolute Lymphocytes 2.3, Absolute Monocytes 1.2 H, Absolute Eosinophils 0.2, Absolute Basophils 0.1 04/14/17 1550: APTT 64 H 04/14/17 0626: Anion Gap 13, Estimated GFR 55 L, BUN/Creatinine Ratio 24.0, CBC w Diff NO MAN DIFF REQ, RBC 3.58 L, MCV 88.4, MCH 28.6, MCHC 32.4 L, RDW 16.9 H, MPV 8.5, Gran % 77.5 H, Lymphocytes % 12.4 L, Monocytes % 7.6, Eosinophils % 2.4, Basophils % 0.1, Absolute Granulocytes 10.2 H, Absolute Lymphocytes 1.6, Absolute Monocytes 1.0 H, Absolute Eosinophils 0.3, Absolute Basophils 0 04/14/17 0330: APTT 66 H 04/13/17 1530: APTT Cancelled Assessment/Plan Assessment/Plan Assessment: 1. Paroxysmal atrial fibrillation 2. Hypertension 3. Osteomyelitis/lower extremity cellulitis 4. History of prior mitral valve endocarditis with residual mitral insufficiency Plan: * Continue IV heparin, with plan to change to Eliquis prior to discharge * Continue other cardiac medications * Angiogram planned for tomorrow Continue telemetry? Yes
[2017-04-15 14:48] VITALS: BP 122/72
[2017-04-15 17:02] LABS: PTT 67 SEC (25-37)
[2017-04-15 23:02] VITALS: BP 128/70
[2017-04-16 04:33] LABS: ABSOLUTE BASOPHIL COUNT 0.1 /CUMM (0.0-0.2); ABSOLUTE EOSINOPHIL COUNT 0.2 /CUMM (0.0-0.7); ABSOLUTE GRANULOCYTE CT 13.6 /CUMM (1.4-6.5); ABSOLUTE LYMPH COUNT 2.2 /CUMM (1.2-3.4); ABSOLUTE MONOCYTE COUNT 1.1 /CUMM (0.10-0.60); BASOPHIL % 0.4 % (0.0-2.0); EOSINOPHIL % 1.1 % (0-5); GRANULOCYTE % 79.4 % (42.2-75.2); HEMATOCRIT 32.7 % (37-47); MEAN CORPUSCULAR HGB 28.8 PG (27.0-31.0); MEAN CORPUSCULAR HGB CONC 32.9 G/DL (33.0-37.0); MEAN CORPUSCULAR VOLUME 87.7 FL (81.0-99.0); MEAN PLATELET VOLUME 7.9 FL (7.4-10.4); PLATELET COUNT 404 /CUMM (130-400); RBC DISTRIBUTION WIDTH 16.7 % (11.5-14.5); RED BLOOD CELL CT 3.73 /CUMM (4.20-5.40); WHITE BLOOD CELL COUNT 17.1 /CUMM (4.8-10.8)
[2017-04-16 04:51] LABS: PTT 103 SEC (25-37)
[2017-04-16 06:35] VITALS: BP 122/76
--- NOTE | 2017-04-16 08:31 | PN- Diabetes ---
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 At home, she was on Levemir 20 units daily, metformin 500 mg twice a day, starlix on some occasions and Humulin NPH according to the scale. She is on Levemir 20 units daily, Novolog coverage before meals and Novolog coverage at bedtime. However, she is going to have another procedure done and she has been kept NPO. She is on NS 75 ml/hour. Her FSGs were 160, 158 and 145. Plan: After she is back from procedure and when she is ready to eat, she will be on previous insulin regimen: --- Levemir 20 units at bedtime daily; --- Previous Novolog coverage before meals; ---previous Novolog coverage at bedtime; monitor FSGs. will follow. Subjective Subjective: She is waiting for going to OR for the procedure. Objective Last 24 Hrs of Vital Signs/I&O Vital Signs Date Time Temp Pulse Resp B/P B/P Pulse O2 O2 Flow FiO2 Mean Ox Delivery Rate 04/16 0635 98.5 61 18 122/76 92 Room Air 04/16 0000 Room Air 04/15 2302 98.9 75 20 128/70 94 04/15 2127 68 150/78 04/15 1448 99.7 62 18 122/72 94 Room Air 04/15 0851 60 152/70 04/15 0849 60 152/70 Intake & Output 04/16 1600 04/16 0800 04/16 0000 Intake Total 432 880 Output Total 650 55 Balance -218 825 Intake, IV 312 Intake, Oral 120 880 Number 1 2 Bowel Movements Output, 55 Drainage Output, Urine 650 Patient 233 lb Weight Weight Chair scale Measurement Method Findings Pertinent Lab/Ammon Results: Laboratory Tests 04/16 04/15 0400 1615 Chemistry Sodium (137 - 145 mmol/L) 147 H Potassium (3.5 - 5.1 mmol/L) 4.5 Chloride (98 - 107 mmol/L) 103 Carbon Dioxide (22 - 30 mmol/L) 30 Anion Gap (5 - 16) 13 BUN (7 - 17 mg/dL) 24 H Creatinine (0.5 - 1.0 mg/dL) 1.1 H Estimated GFR (>60 ml/min) 49 L BUN/Creatinine Ratio (7 - 25 %) 21.8 Coagulation APTT (25 - 37 SEC) 103 *H 67 H Hematology CBC w Diff NO MAN DIFF REQ WBC (4.8 - 10.8 /CUMM) 17.1 H RBC (4.20 - 5.40 /CUMM) 3.73 L Hgb (12.0 - 16.0 G/DL) 10.8 L Hct (37 - 47 %) 32.7 L MCV (81.0 - 99.0 FL) 87.7 MCH (27.0 - 31.0 PG) 28.8 MCHC (33.0 - 37.0 G/DL) 32.9 L RDW (11.5 - 14.5 %) 16.7 H Plt Count (130 - 400 /CUMM) 404 H MPV (7.4 - 10.4 FL) 7.9 Gran % (42.2 - 75.2 %) 79.4 H Lymphocytes % (20.5 - 51.1 %) 12.6 L Monocytes % (1.7 - 9.3 %) 6.5 Eosinophils % (0 - 5 %) 1.1 Basophils % (0.0 - 2.0 %) 0.4 Absolute Granulocytes (1.4 - 6.5 /CUMM) 13.6 H Absolute Lymphocytes (1.2 - 3.4 /CUMM) 2.2 Absolute Monocytes (0.10 - 0.60 /CUMM) 1.1 H Absolute Eosinophils (0.0 - 0.7 /CUMM) 0.2 Absolute Basophils (0.0 - 0.2 /CUMM) 0.1
--- NOTE | 2017-04-16 10:16 | PN- Housestaff ---
Subjective Follow-up For: Left foot osteomyelitis Complaints: no complaints Tele-Events Since Last Visit: Sinus rhythm overnight Subjective: I examined the patient today. She is eagerly waiting for her angiogram later today, is currently nothing by mouth, IV drip running, no overnight issues, vital signs stable. There is blood mixed 55 ml drainage from the wound VAC, wound well dressed, not soaked. Review of Systems Constitutional: Reports: no symptoms. Objective Last 24 Hrs of Vital Signs/I&O Vital Signs Date Time Temp Pulse Resp B/P B/P Pulse O2 O2 Flow FiO2 Mean Ox Delivery Rate 04/16 0635 98.5 61 18 122/76 92 Room Air 04/16 0000 Room Air 04/15 2302 98.9 75 20 128/70 94 04/15 2127 68 150/78 04/15 1448 99.7 62 18 122/72 94 Room Air Intake & Output 04/16 1600 04/16 0800 04/16 0000 Intake Total 432 880 Output Total 650 55 Balance -218 825 Intake, IV 312 Intake, Oral 120 880 Number 1 2 Bowel Movements Output, 55 Drainage Output, Urine 650 Patient 105.687 kg Weight Weight Chair scale Measurement Method Physical Exam General Appearance: Alert, Oriented X3, Cooperative, No Acute Distress, MORBIDLY OBESE Other Physical Findings: Skin: No Rashes, left leg has dressing in situ- no discharge/drainage/soakage Cardiovascular: Regular Rate, Normal S1, Normal S2, No Murmurs Lungs: Clear to Auscultation, Normal Air Movement Abdomen: Normal Bowel Sounds, Soft, No Tenderness Neuro: grossly intact Current Medications: Current Medications Sig/Vandana Start time Last Medication Dose Route Stop Time Status Admin Acetaminophen 650 MG Q6P PRN 04/07 2130 AC PO Acetaminophen/ 1 TAB Q6P PRN 04/09 1415 AC 04/14 Codeine Phosphate PO 1637 Alprazolam 0.5 MG ONCE ONE 04/16 0200 DC 04/16 PO 04/16 020 0208 Ascorbic Acid 1,000 MG DAILY 04/08 1000 AC 04/15 PO 0850 Atorvastatin Calcium 40 MG DAILY@1700 04/07 1813 AC 04/15 PO 1657 Cetirizine HCl 10 MG DAILY 04/13 1000 AC 04/15 PO 0917 Cholecalciferol 1,000 IU DAILY 04/08 1000 AC 04/15 PO 0850 Docusate Sodium 100 MG DAILY 04/15 1251 AC 04/15 PO 1657 Gabapentin 1,200 MG Q8 04/07 1757 AC 04/16 PO 0614 Heparin Sodium/ 25,000 UNIT .STK-MED ONE 04/15 1241 DC Dextrose IV 04/15 1242 Heparin Sodium/ 25,000 UNIT Q24H 04/11 2000 AC 04/16 Dextrose IV 0057 Dextrose/Water 500 ML Insulin Aspart 0 TIDAC/HS 04/14 0800 DC 04/15 SC 1738 Insulin Detemir 20 UNITS AT BEDTIME 04/07 2200 AC 04/15 SC 2124 Insulin Human Regular 2 UNITS .STK-MED ONE 04/16 0012 DC IV 04/16 0013 Insulin Human Regular 0 Q6 04/15 2359 04/16 SC 0026 Lactobacillus 1 CAP BID 04/08 1107 AC 04/15 Acidophilus PO 2125 Levothyroxine Sodium 0.05 MG DAILY AC 04/07 1635 AC 04/16 PO 0614 Loratadine 10 MG DAILY 04/13 1000 AC PO Losartan Potassium 25 MG DAILY 04/09 1151 AC 04/15 PO 0849 Magnesium Oxide 400 MG DAILY 04/08 1000 AC 04/15 PO 0850 Meropenem 1 GM IQ8 04/13 1600 AC 04/16 IV 0846 Metoprolol Tartrate 50 MG BID 04/07 2330 AC 04/15 PO 2127 Multivitamins 1 TAB DAILY 04/08 1000 AC 04/15 PO 0850 Nystatin 1 AURELIA BID 04/15 1547 AC 04/15 TOP 2127 Omeprazole 40 MG DAILY AC 04/08 0700 AC 04/16 PO 0614 Polyethylene Glycol 17 GM DAILY 04/08 1000 AC 04/15 PO 0850 Senna/Docusate Sodium 1 TAB BID 04/15 1252 AC 04/15 PO 2125 Sodium Chloride 1,000 ML Q13H 04/15 2345 AC 04/16 IV 0026 Last 24 Hrs of Lab/Ammon Results Last 24 Hrs of Labs/Mics: Laboratory Tests 04/16/17 0400: Anion Gap 13, Estimated GFR 49 L, BUN/Creatinine Ratio 21.8, APTT 103 *H, CBC w Diff NO MAN DIFF REQ, RBC 3.73 L, MCV 87.7, MCH 28.8, MCHC 32.9 L, RDW 16.7 H , MPV 7.9, Gran % 79.4 H, Lymphocytes % 12.6 L, Monocytes % 6.5, Eosinophils % 1.1, Basophils % 0.4, Absolute Granulocytes 13.6 H, Absolute Lymphocytes 2.2, Absolute Monocytes 1.1 H, Absolute Eosinophils 0.2, Absolute Basophils 0.1 04/15/17 1615: APTT 67 H Assessment/Plan Assessment: Assessment: Patient is a 71-year-old noncompliant diabetic female with previous history of group G strep, MRSA osteomyelitis presented with sudden onset left leg erythema, fever, increased tiredness. Vital signs at admission are unremarkable, physical examination is significant for erythema extending from left heel till the left groin with swelling. Left lower extremity ulcer measuri ng 3.5 X 1 cm open area with surrounding chronic inflammation 4.5 and 3.5 cm. Labs are significant for white count of 17.3, ESR 76, CRP 9, lactic acid 1.7. Foot x-ray did show osteopenia with stable radiographic findings. Venous Doppler ruled out DVT. Arterial Doppler demonstrated mild peripheral vascular disease. Patient was initially admitted to the general medical floor and was transferred to telemetry floor on 04/10/2017 for the management of following issues: Left lower extremity edema with swelling -cellulitis/osteomyelitis, post op d4 * Radiologically proven osteomyelitis, currently on IV antibiotics--changed from unasyn to meropenem 1gm q8h per ID recs, post op d5 * Culture grew Pseudomonas, thus continuing meropenem according to ID. * Continue to elevate leg, which she is not very compliant as she stays in her recliner most of the time * Adequate pain management. * Plan for angiogram today canceled due to "equipment failure" as notified to me at 3:35 pm today. Vascular surgeon will plan it for later. Of note, the patient received CT angiogram today. Paroxysmal atrial fibrillation Patient has paroxysmal atrial fibrillation, overnight was in sinus rhythm. Rate controlled. 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 Uncontrolled diabetes mellitus * Patientis on diabetic diet, and Accu-Cheks, insulin 3 times a day /AC and at bedtime * following endo recs Proteinuria: Patient is having nephrotic range proteinuria as evident from the protein/ creatinine ratio, workup pending. -urine 24 hour protein-2362.5 -continue ARB -ENDO CONSULT PLACED -hba1c 8.7 -SPEP, C3-184, C4-48, PENDING - HEP PANEL NEG -PHOS 4.5 History of hypothyroidism Continue levothyroxine 50 g daily History of hypertension Continue metoprolol tartrate 50 twice a day, and Losartan History of diabetic neuropathy Continue Neurontin 1200 mg 3 times a day History of ?allergy Continue cetrizine from home meds Constipation Patient is on MiraLAX, Colace, senna. DVT prophylaxis: IV heparin for a fib CODE STATUS: DNR/DNI Diet: Diabetic diet Problem List: 1. Osteomyelitis 2. Cellulitis Pain Ratin Pain Location: left leg Pain Goal: Pain 4 or less Pain Plan: prn Tomorrow's Labs & Rationales: CBC, BEP
--- NOTE | 2017-04-16 11:16 | PN- Att Addend ---
Attending Addendum Attending Brief Note Patient in bed going for an arteriogram today Vital signs are stable no fever white count is 17,000. No major changes on physical continue present treatment for now and depending on the arteriogram will decide what other needs the patient has. Intake & Output 04/16 1600 04/16 0400 04/15 1600 04/15 0400 04/14 1600 04/14 0400 Intake Total 206 512 6087 1112 1150 260 Output Total 440 16 [id number] 573 7501 250 Balance -218 825 -800 672 -470 10 Intake, IV 312 400 312 50 60 Intake, Oral 120 880 942 222 1554 200 Number 1 2 1 0 Bowel Movements Output, 55 0 40 20 Drainage Output, Urine 650 4884 615 9877 250 Patient 233 lb Weight Weight Chair scale Measurement Method Current Medications Sig/Vandana Start time Last Medication Dose Route Stop Time Status Admin Acetaminophen 650 MG Q6P PRN 04/07 2130 AC PO Acetaminophen/ 1 TAB Q6P PRN 04/09 1415 AC 04/14 Codeine Phosphate PO 1637 Alprazolam 0.5 MG ONCE ONE 04/16 0200 DC 04/16 PO 04/16 0201 0208 Ascorbic Acid 1,000 MG DAILY 04/08 1000 AC 04/15 PO 0850 Atorvastatin Calcium 40 MG DAILY@1700 04/07 1813 AC 04/15 PO 1657 Cetirizine HCl 10 MG DAILY 04/13 1000 AC 04/15 PO 0917 Cholecalciferol 1,000 IU DAILY 04/08 1000 AC 04/15 PO 0850 Docusate Sodium 100 MG DAILY 04/15 1251 AC 04/15 PO 1657 Gabapentin 1,200 MG Q8 04/07 1757 04/16 PO 0614 Heparin Sodium/ 25,000 UNIT .STK-MED ONE 04/15 1241 DC Dextrose IV 04/15 1242 Heparin Sodium/ 25,000 UNIT Q24H 04/11 2000 04/16 Dextrose IV 0057 Dextrose/Water 500 ML Insulin Aspart 0 TIDAC/HS 04/14 0800 MD 04/15 MT 1738 Insulin Detemir 20 UNITS AT BEDTIME 04/07 2200 04/15 MT 2124 Insulin Human Regular 2 UNITS .STK-MED ONE 04/16 0012 DC IV 04/16 0013 Insulin Human Regular 0 Q6 04/15 2359 04/16 MT 0026 Lactobacillus 1 CAP BID 04/08 1107 AC 04/15 Acidophilus PO 2125 Levothyroxine Sodium 0.05 MG DAILY AC 04/07 1635 AC 04/16 PO 0614 Loratadine 10 MG DAILY 04/13 1000 AC PO Losartan Potassium 25 MG DAILY 04/09 1151 AC 04/15 PO 0849 Magnesium Oxide 400 MG DAILY 04/08 1000 AC 04/15 PO 0850 Meropenem 1 GM IQ8 04/13 1600 AC 04/16 IV 0846 Metoprolol Tartrate 50 MG BID 04/07 2330 AC 04/15 PO 2127 Multivitamins 1 TAB DAILY 04/08 1000 AC 04/15 PO 0850 Nystatin 1 AURELIA BID 04/15 1547 AC 04/15 TOP 2127 Omeprazole 40 MG DAILY AC 04/08 0700 AC 04/16 PO 0614 Polyethylene Glycol 17 GM DAILY 04/08 1000 AC 04/15 PO 0850 Senna/Docusate Sodium 1 TAB BID 04/15 1252 AC 04/15 PO 2125 Sodium Chloride 1,000 ML Q13H 04/15 2345 AC 04/16 IV 0026 Laboratory Tests 04/16/17 0400: Anion Gap 13, Estimated GFR 49 L, BUN/Creatinine Ratio 21.8, APTT 103 *H, CBC w Diff NO MAN DIFF REQ, RBC 3.73 L, MCV 87.7, MCH 28.8, MCHC 32.9 L, RDW 16.7 H , MPV 7.9, Gran % 79.4 H, Lymphocytes % 12.6 L, Monocytes % 6.5, Eosinophils % 1.1, Basophils % 0.4, Absolute Granulocytes 13.6 H, Absolute Lymphocytes 2.2, Absolute Monocytes 1.1 H, Absolute Eosinophils 0.2, Absolute Basophils 0.1 04/15/17 1615: APTT 67 H 04/15/17 0405: Anion Gap 11, Estimated GFR 55 L, BUN/Creatinine Ratio 25.0, APTT 78 H, CBC w Diff NO MAN DIFF REQ, RBC 3.60 L, MCV 88.0, MCH 28.1, MCHC 31.9 L, RDW 16.8 H , MPV 8.0, Gran % 76.0 H, Lymphocytes % 14.7 L, Monocytes % 7.5, Eosinophils % 1.4, Basophils % 0.4, Absolute Granulocytes 11.8 H, Absolute Lymphocytes 2.3, Absolute Monocytes 1.2 H, Absolute Eosinophils 0.2, Absolute Basophils 0.1 04/14/17 1550: APTT 64 H 04/14/17 0626: Anion Gap 13, Estimated GFR 55 L, BUN/Creatinine Ratio 24.0, CBC w Diff NO MAN DIFF REQ, RBC 3.58 L, MCV 88.4, MCH 28.6, MCHC 32.4 L, RDW 16.9 H, MPV 8.5, Gran % 77.5 H, Lymphocytes % 12.4 L, Monocytes % 7.6, Eosinophils % 2.4, Basophils % 0.1, Absolute Granulocytes 10.2 H, Absolute Lymphocytes 1.6, Absolute Monocytes 1.0 H, Absolute Eosinophils 0.3, Absolute Basophils 0 04/14/17 0330: APTT 66 H 04/13/17 1530: APTT Cancelled Microbiology 04/13 173 EXTREMITIE: Gross Specimen Examination - COMP PSEUDOMONAS AERUGINOSA 04/13 1729 EXTREMITIE: Gram Stain - COMP Microbiology 04/13 1729 EXTREMITIE: Gross Specimen Examination - COMP PSEUDOMONAS AERUGINOSA 04/13 1729 EXTREMITIE: Gram Stain - COMP Vital Signs Date Time Temp Pulse Resp B/P B/P Pulse O2 O2 Flow FiO2 Mean Ox Delivery Rate 04/16 0635 98.5 61 18 122/76 92 Room Air 04/16 0000 Room Air 04/15 2302 98.9 75 20 128/70 94 04/15 2127 68 150/78 04/15 1448 99.7 62 18 122/72 94 Room Air
--- NOTE | 2017-04-16 12:20 | PN- Infect Dx ---
Subjective Subjective: Afebrile. She does not offer any complaints. Objective Last 24 Hrs of Vital Signs/I&O Vital Signs Date Time Temp Pulse Resp B/P B/P Pulse O2 O2 Flow FiO2 Mean Ox Delivery Rate 04/16 0635 98.5 61 18 122/76 92 Room Air 04/16 0000 Room Air 04/15 2302 98.9 75 20 128/70 94 04/15 2127 68 150/78 04/15 1448 99.7 62 18 122/72 94 Room Air Intake & Output 04/16 1600 04/16 0800 04/16 0000 Intake Total 432 880 Output Total 650 55 Balance -218 825 Intake, IV 312 Intake, Oral 120 880 Number 1 2 Bowel Movements Output, 55 Drainage Output, Urine 650 Patient 233 lb Weight Weight Chair scale Measurement Method Physical Exam Other Physical Findings: She appears comfortable in no acute distress Extremities residual erythema above the left ankle, nontender to palpation, with overall improvement in her left leg erythema; left foot dressing intact Results Last 24 Hours of Lab Results: Laboratory Tests 04/16 04/15 0400 1615 Chemistry Sodium (137 - 145 mmol/L) 147 H Potassium (3.5 - 5.1 mmol/L) 4.5 Chloride (98 - 107 mmol/L) 103 Carbon Dioxide (22 - 30 mmol/L) 30 Anion Gap (5 - 16) 13 BUN (7 - 17 mg/dL) 24 H Creatinine (0.5 - 1.0 mg/dL) 1.1 H Estimated GFR (>60 ml/min) 49 L BUN/Creatinine Ratio (7 - 25 %) 21.8 Coagulation APTT (25 - 37 SEC) 103 *H 67 H Hematology CBC w Diff NO MAN DIFF REQ WBC (4.8 - 10.8 /CUMM) 17.1 H RBC (4.20 - 5.40 /CUMM) 3.73 L Hgb (12.0 - 16.0 G/DL) 10.8 L Hct (37 - 47 %) 32.7 L MCV (81.0 - 99.0 FL) 87.7 MCH (27.0 - 31.0 PG) 28.8 MCHC (33.0 - 37.0 G/DL) 32.9 L RDW (11.5 - 14.5 %) 16.7 H Plt Count (130 - 400 /CUMM) 404 H MPV (7.4 - 10.4 FL) 7.9 Gran % (42.2 - 75.2 %) 79.4 H Lymphocytes % (20.5 - 51.1 %) 12.6 L Monocytes % (1.7 - 9.3 %) 6.5 Eosinophils % (0 - 5 %) 1.1 Basophils % (0.0 - 2.0 %) 0.4 Absolute Granulocytes (1.4 - 6.5 /CUMM) 13.6 H Absolute Lymphocytes (1.2 - 3.4 /CUMM) 2.2 Absolute Monocytes (0.10 - 0.60 /CUMM) 1.1 H Absolute Eosinophils (0.0 - 0.7 /CUMM) 0.2 Absolute Basophils (0.0 - 0.2 /CUMM) 0.1 Last 24 Hours of Ammon Results: OR culture April 13 labeled left heel bone positive for Pseudomonas sensitive to all antibiotics tested Assessment/Plan Impression: Stable with temperatures remaining normal but with her white blood cell count continuing to increase, now on Meropenem Day 3 for Pseudomonas isolated from the left heel bone culture (after 6 days of Unasyn for a left leg cellulitis), status post debridement of necrotic/infected bone from the left calcaneus 3 days ago. She is scheduled for a CT angiogram of the left lower extremity today and will make further recommendations regarding long-term antibiotics based on the findings of this test and Vascular surgery follow-up. Of note a left BKA has been recommended several times in the past, but she has refused. Suggestion: 1. Await CT angiogram later today 2. Continue Meropenem pending above
[2017-04-16 14:19] VITALS: BP 144/80
--- NOTE | 2017-04-16 16:22 | CT SCAN REPORT ---
STUDY: Abdominal, pelvic, and bilateral lower extremity CT angiogram CLINICAL INDICATION: 71-year-old female with left leg wound. Evaluation of arterial structures requested. TECHNIQUE: Following the administration of a bolus infusion of 125cc of Optiray 350, images of the abdomen, pelvis and bilateral lower extremities were obtained with multidetector helical acquisition. These contrast-enhanced images will be processed on an independent workstation into extensive multiplanar and 3D renditions for interpretation. Artifact from right hip prostheses limits pelvic evaluation. COMPARISON: Left lower extremity arterial Doppler imaging 04/10/[address] abdomen pelvis 11/05/2015 DLP: 863 mGy-cm FINDINGS: VASCULATURE- Visualized portions of the infrarenal abdominal aorta are normal in caliber and demonstrates only mild atherosclerotic disease. The left common iliac artery is ectatic but patent. Left internal iliac artery is patent. Left external iliac artery is ectatic but patent. Left profundus femoris artery is patent. Left common femoral artery appears widely patent. Scattered moderate atherosclerotic disease throughout the left superficial femoral artery with a few scattered regions of mild to moderate stenosis. Focal moderate to severe stenosis within the left popliteal artery. Severe atherosclerotic disease of the runoff arteries significantly limits evaluation. The right common and external iliac arteries are ectatic but patent. Patent right internal iliac artery. Evaluation of the right common femoral artery is limited secondary to streak artifact from hip prosthesis, however, it appears widely patent. The right profundus femoris artery is patent. Scattered mild atherosclerotic disease throughout the right superficial femoral artery resulting in only minimal stenoses. The right popliteal artery is patent. Severe atherosclerotic disease of the runoff arteries significantly limits evaluation. NON-VASCULAR- Visualized inferior portions of both kidneys demonstrate no gross hydronephrosis. Visualized loops of small bowel are normal in caliber. Visualized loops of colon demonstrate a moderate stool burden. Evaluation of the bladder is significantly limited secondary to streak artifact from hip prosthesis. No gross pelvic fluid collection or lymphadenopathy. Severe degenerative changes of the lower lumbar spine. Patient is status post right total hip arthroplasty. Diffuse subcutaneous edema of both lower extremities, most severe within the inferior calves. There is a focal region of soft tissue stranding and air within the subcutaneous tissues of the left heel suggesting an open wound. IMPRESSION: 1. Focal moderate to severe stenosis within the left popliteal artery. Severe atherosclerotic disease of the runoff arteries significantly limits evaluation. This case is being submitted for extensive 3-D reformatted images in an attempt to improve evaluation of the calf arteries. An addendum will be placed at that time. 2. Similarly, severe atherosclerotic disease of the right calf runoff artery significantly limits evaluation. There is no hemodynamically significant stenosis within the right iliac, femoral or popliteal arteries. An addendum will be placed further evaluating the right calf arteries once 3-D reformatted images are processed. 3. Focal region of soft tissue stranding and air within the subcutaneous tissues of the left heel suggesting an open wound. Direct inspection recommended.
[2017-04-16 22:19] VITALS: BP 144/66
[2017-04-16 22:20] LABS: PTT 61 SEC (25-37)
[2017-04-17 06:06] VITALS: BP 142/67
--- NOTE | 2017-04-17 07:18 | PN- Housestaff ---
Subjective Follow-up For: Left foot OM Complaints: no complaints Tele-Events Since Last Visit: sinus rhythm Subjective: I followed up and examined the patient today. She is resting comfortably in her bed, having breakfast, is seems to be uncomfortable about the fact that her planned angiogram was canceled yesterday. She is awaiting vascular surgeon's consultation today. VSS normal. No other issues noted. Review of Systems Constitutional: Reports: see HPI. Objective Last 24 Hrs of Vital Signs/I&O Vital Signs Date Time Temp Pulse Resp B/P B/P Pulse O2 O2 Flow FiO2 Mean Ox Delivery Rate 04/17 0606 98.3 58 20 142/67 94 04/16 2219 98.5 58 18 144/66 94 Room Air 04/16 2143 63 18 144/80 04/16 1708 63 144/80 04/16 1419 97.7 63 18 144/80 95 Room Air Intake & Output 04/17 0800 04/17 0000 04/16 1600 Intake Total 947 Output Total 400 Balance 547 Intake, IV 872 Intake, Oral 75 Number 0 1 Bowel Movements Output, Urine 400 Physical Exam General Appearance: Alert, Oriented X3, Cooperative, No Acute Distress, morbidly obese Other Physical Findings: Skin: No Rashes, left leg has dressing in situ- no discharge/drainage/soakage Cardiovascular: Regular Rate, Normal S1, Normal S2, No Murmurs Lungs: Clear to Auscultation, Normal Air Movement Abdomen: Normal Bowel Sounds, Soft, No Tenderness Neuro: grossly intact Current Medications: Current Medications Sig/Vandana Start time Last Medication Dose Route Stop Time Status Admin Acetaminophen 650 MG Q6P PRN 04/07 2130 AC PO Acetaminophen/ 1 TAB Q6P PRN 04/09 1415 AC 04/17 Codeine Phosphate PO 0325 Alprazolam 0.5 MG ONCE ONE 04/17 0330 DC 04/17 PO 04/17 033 0336 Ascorbic Acid 1,000 MG DAILY 04/08 1000 AC 04/16 PO 171 Atorvastatin Calcium 40 MG DAILY@1700 04/07 1813 AC 04/16 PO 170 Cetirizine HCl 10 MG DAILY 04/13 1000 AC 04/16 PO 171 Cholecalciferol 1,000 IU DAILY 04/08 1000 AC 04/16 PO 1708 Docusate Sodium 100 MG DAILY 04/15 1251 AC 04/16 PO 1709 Gabapentin 1,200 MG Q8 04/07 1757 AC 04/17 PO 0616 Heparin Sodium/ 25,000 UNIT Q24H 04/11 2000 AC 04/17 Dextrose IV 0140 Dextrose/Water 500 ML Insulin Aspart 0 TIDAC/HS 04/16 1700 AC SC Insulin Detemir 20 UNITS AT BEDTIME 04/07 2200 AC 04/16 SC 2141 Insulin Human Regular 0 Q6 04/15 2359 DC 04/16 SC 0026 Lactobacillus 1 CAP BID 04/08 1107 AC 04/16 Acidophilus PO 1710 Levothyroxine Sodium 0.05 MG DAILY AC 04/07 1635 AC 04/17 PO 0615 Loratadine 10 MG DAILY 04/13 1000 DC PO Losartan Potassium 25 MG DAILY 04/09 1151 AC 04/16 PO 1708 Magnesium Oxide 400 MG DAILY 04/08 1000 AC 04/16 PO 1709 Meropenem 1 GM IQ8 04/13 1600 AC 04/17 IV 0015 Metoprolol Tartrate 50 MG BID 04/07 2330 AC 04/16 PO 2143 Multivitamins 1 TAB DAILY 04/08 1000 AC 04/16 PO 1710 Nystatin 1 AURELIA BID 04/15 1547 AC 04/16 TOP 2142 Omeprazole 40 MG DAILY AC 04/08 0700 AC 04/17 PO 0615 Polyethylene Glycol 17 GM DAILY 04/08 1000 AC 04/16 PO 1710 Senna/Docusate Sodium 1 TAB BID 04/15 1252 AC 04/16 PO 1709 Sodium Chloride 1,000 ML Q13H 04/15 2345 AC 04/17 IV 0617 Last 24 Hrs of Lab/Ammon Results Last 24 Hrs of Labs/Mics: Laboratory Tests 04/17/17 0955: APTT 70 H 04/17/17 0654: Anion Gap 12, Estimated GFR 55 L, BUN/Creatinine Ratio 23.0, CBC w Diff NO MAN DIFF REQ, RBC 3.41 L, MCV 88.6, MCH 29.0, MCHC 32.7 L, RDW 16.5 H, MPV 8.2, Gran % 81.3 H, Lymphocytes % 11.7 L, Monocytes % 5.0, Eosinophils % 1.7, Basophils % 0.3, Absolute Granulocytes 12.3 H, Absolute Lymphocytes 1.8, Absolute Monocytes 0.8 H, Absolute Eosinophils 0.3, Absolute Basophils 0 04/16/171: APTT 61 H Assessment/Plan Assessment: Assessment: Patient is a 71-year-old noncompliant diabetic female with previous history of group G strep, MRSA osteomyelitis presented with sudden onset left leg erythema, fever, increased tiredness. Vital signs at admission are unremarkable, physical examination is significant for erythema extending from left heel till the left groin with swelling. Left lower extremity ulcer measuri ng 3.5 X 1 cm open area with surrounding chronic inflammation 4.5 and 3.5 cm. Labs are significant for white count of 17.3, ESR 76, CRP 9, lactic acid 1.7. Foot x-ray did show osteopenia with stable radiographic findings. Venous Doppler ruled out DVT. Arterial Doppler demonstrated mild peripheral vascular disease. Patient was initially admitted to the general medical floor and was transferred to telemetry floor on 04/10/2017 for the management of following issues: Left lower extremity edema with swelling -cellulitis/osteomyelitis, post op d4 * Radiologically proven osteomyelitis, currently on IV antibiotics--changed from unasyn to meropenem 1gm q8h per ID recs, post op d5 * Culture grew Pseudomonas, thus continuing meropenem according to ID. * Continue to elevate leg, which she is not very compliant as she stays in her recliner most of the time * Adequate pain management. * Plan for angiogram per Vascular surgeon awaited. Spoke with Abstract Searcher Dr Altamirano today, who suggested waiting for vascular procedure, else she could be discharged with PO Ciprofloxacin as an alternative while she awaits Vascular surgery. Will wait for Vascular Surgery recs. Paroxysmal atrial fibrillation Patient has paroxysmal atrial fibrillation, overnight was in sinus rhythm. Rate controlled. IV Heparin drip running, will discuss about [facility] anticoagulation. Uncontrolled diabetes mellitus * Patientis on diabetic diet, and Accu-Cheks, insulin 3 times a day /AC and at bedtime * following endo recs. * Sugar levels are better controlled now. Proteinuria: Patient is having nephrotic range proteinuria as evident from the protein/ creatinine ratio, workup pending. -urine 24 hour protein-2362.5 -continue ARB -SPEP, C3-184, C4-48, PENDING - HEP PANEL NEG History of hypothyroidism Continue levothyroxine 50 g daily History of hypertension Continue metoprolol tartrate 50 twice a day, and Losartan History of diabetic neuropathy Continue Neurontin 1200 mg 3 times a day History of ?allergy Continue cetrizine from home meds Constipation Patient is on MiraLAX, Colace, senna. DVT prophylaxis: IV heparin for a fib CODE STATUS: DNR/DNI Diet: Diabetic diet Problem List: 1. Osteomyelitis 2. Cellulitis Pain Ratin Pain Location: left leg/foot Pain Goal: Pain 4 or less Pain Plan: prn Tomorrow's Labs & Rationales: CBC, BEP
[2017-04-17 08:01] LABS: ABSOLUTE BASOPHIL COUNT 0 /CUMM (0.0-0.2); ABSOLUTE EOSINOPHIL COUNT 0.3 /CUMM (0.0-0.7); ABSOLUTE GRANULOCYTE CT 12.3 /CUMM (1.4-6.5); ABSOLUTE LYMPH COUNT 1.8 /CUMM (1.2-3.4); ABSOLUTE MONOCYTE COUNT 0.8 /CUMM (0.10-0.60); BASOPHIL % 0.3 % (0.0-2.0); EOSINOPHIL % 1.7 % (0-5); GRANULOCYTE % 81.3 % (42.2-75.2); HEMATOCRIT 30.2 % (37-47); MEAN CORPUSCULAR HGB CONC 32.7 G/DL (33.0-37.0); MEAN CORPUSCULAR VOLUME 88.6 FL (81.0-99.0); MEAN PLATELET VOLUME 8.2 FL (7.4-10.4); PLATELET COUNT 380 /CUMM (130-400); RBC DISTRIBUTION WIDTH 16.5 % (11.5-14.5); RED BLOOD CELL CT 3.41 /CUMM (4.20-5.40); WHITE BLOOD CELL COUNT 15.2 /CUMM (4.8-10.8)
--- NOTE | 2017-04-17 09:44 | PN- Att Addend ---
Attending Addendum Attending Brief Note Patient in bed in no acute distress. Blood sugars under control following endocrine recommendations. Vital signs are stable and no fever no new changes on physical patient had a CAT scan, still needs an angiogram and vascular follow -up, also continue treatments on her foot as per podiatry antibiotics as per infectious diseases Intake & Output 04/17 1600 04/17 0400 04/16 1600 04/16 0400 04/15 1600 04/15 0400 Intake Total 947 775 137 0502 1112 Output Total 400 089 02 1950 440 Balance 547 -218 825 -800 672 Intake, IV 872 312 400 312 Intake, Oral 75 120 880 750 800 Number 0 1 1 2 1 Bowel Movements Output, 55 0 40 Drainage Output, Urine 710 745 8697 400 Patient 240 lb 233 lb Weight Weight Bed scale Chair scale Measurement Method Current Medications Sig/Vandana Start time Last Medication Dose Route Stop Time Status Admin Acetaminophen 650 MG Q6P PRN 04/07 2130 AC PO Acetaminophen/ 1 TAB Q4P PRN 04/17 0845 AC Codeine Phosphate PO Acetaminophen/ 1 TAB Q6P PRN 04/09 1415 DC 04/17 Codeine Phosphate PO 0325 Alprazolam 0.5 MG AT BEDTIME NEED.. 04/17 0845 AC PO 04/24 0844 Alprazolam 0.5 MG ONCE ONE 04/17 0330 DC 04/17 PO 04/17 0331 0336 Ascorbic Acid 1,000 MG DAILY 04/08 1000 AC 04/16 PO 1710 Atorvastatin Calcium 40 MG DAILY@1700 04/07 1813 AC 04/16 PO 1706 Cetirizine HCl 10 MG DAILY 04/13 1000 AC 04/16 PO 1711 Cholecalciferol 1,000 IU DAILY 04/08 1000 AC 04/16 PO 1708 Docusate Sodium 100 MG DAILY 04/15 1251 AC 04/16 PO 1709 Gabapentin 1,200 MG Q8 04/07 1757 AC 04/17 PO 0616 Heparin Sodium/ 25,000 UNIT Q24H 04/11 2000 AC 04/17 Dextrose IV 0140 Dextrose/Water 500 ML Insulin Aspart 0 TIDAC/HS 04/16 1700 AC 04/17 SC 0833 Insulin Detemir 20 UNITS AT BEDTIME 04/07 2200 AC 04/16 SC 2141 Insulin Human Regular 0 Q6 04/15 2359 IN 04/16 SD 0026 Lactobacillus 1 CAP BID 04/08 1107 AC 04/16 Acidophilus PO 1710 Levothyroxine Sodium 0.05 MG DAILY AC 04/07 1635 AC 04/17 PO 0615 Loratadine 10 MG DAILY 04/13 1000 DC PO Losartan Potassium 25 MG DAILY 04/09 1151 AC 04/16 PO 1708 Magnesium Oxide 400 MG DAILY 04/08 1000 AC 04/16 PO 1709 Meropenem 1 GM IQ8 04/13 1600 AC 04/17 IV 0831 Metoprolol Tartrate 50 MG BID 04/07 2330 AC 04/16 PO 2143 Multivitamins 1 TAB DAILY 04/08 1000 AC 04/16 PO 1710 Nystatin 1 AURELIA BID 04/15 1547 AC 04/16 TOP 2142 Omeprazole 40 MG DAILY AC 04/08 0700 AC 04/17 PO 0615 Polyethylene Glycol 17 GM DAILY 04/08 1000 AC 04/16 PO 1710 Senna/Docusate Sodium 1 TAB BID 04/15 1252 AC 04/16 PO 1709 Sodium Chloride 1,000 ML Q13H 04/15 2345 AC 04/17 IV 0617 Laboratory Tests 04/17/17 0654: Anion Gap 12, Estimated GFR 55 L, BUN/Creatinine Ratio 23.0, CBC w Diff NO MAN DIFF REQ, RBC 3.41 L, MCV 88.6, MCH 29.0, MCHC 32.7 L, RDW 16.5 H, MPV 8.2, Gran % 81.3 H, Lymphocytes % 11.7 L, Monocytes % 5.0, Eosinophils % 1.7, Basophils % 0.3, Absolute Granulocytes 12.3 H, Absolute Lymphocytes 1.8, Absolute Monocytes 0.8 H, Absolute Eosinophils 0.3, Absolute Basophils 0 04/16/17 2111: APTT 61 H 04/16/17 0400: Anion Gap 13, Estimated GFR 49 L, BUN/Creatinine Ratio 21.8, APTT 103 *H, CBC w Diff NO MAN DIFF REQ, RBC 3.73 L, MCV 87.7, MCH 28.8, MCHC 32.9 L, RDW 16.7 H , MPV 7.9, Gran % 79.4 H, Lymphocytes % 12.6 L, Monocytes % 6.5, Eosinophils % 1.1, Basophils % 0.4, Absolute Granulocytes 13.6 H, Absolute Lymphocytes 2.2, Absolute Monocytes 1.1 H, Absolute Eosinophils 0.2, Absolute Basophils 0.1 04/15/17 1615: APTT 67 H 04/15/17 0405: Anion Gap 11, Estimated GFR 55 L, BUN/Creatinine Ratio 25.0, APTT 78 H, CBC w Diff NO MAN DIFF REQ, RBC 3.60 L, MCV 88.0, MCH 28.1, MCHC 31.9 L, RDW 16.8 H , MPV 8.0, Gran % 76.0 H, Lymphocytes % 14.7 L, Monocytes % 7.5, Eosinophils % 1.4, Basophils % 0.4, Absolute Granulocytes 11.8 H, Absolute Lymphocytes 2.3, Absolute Monocytes 1.2 H, Absolute Eosinophils 0.2, Absolute Basophils 0.1 04/14/17 1550: APTT 64 H Vital Signs Date Time Temp Pulse Resp B/P B/P Pulse O2 O2 Flow FiO2 Mean Ox Delivery Rate 04/17 0606 98.3 58 20 142/67 94 04/16 2219 98.5 58 18 144/66 94 Room Air 04/16 2143 63 18 144/80 04/16 1708 63 144/80 04/16 1419 97.7 63 18 144/80 95 Room Air
--- NOTE | 2017-04-17 10:31 | PN- Infect Dx ---
Subjective Subjective: Afebrile without complaints Objective Last 24 Hrs of Vital Signs/I&O Vital Signs Date Time Temp Pulse Resp B/P B/P Pulse O2 O2 Flow FiO2 Mean Ox Delivery Rate 04/17 928 61 142/67 04/17 0928 61 142/64 04/17 0606 98.3 58 20 142/67 94 04/16 2219 98.5 58 18 144/66 94 Room Air 04/16 2143 63 18 144/80 04/16 1708 63 144/80 04/16 1419 97.7 63 18 144/80 95 Room Air Intake & Output 04/17 1600 04/17 0800 04/17 0000 Intake Total 947 Output Total 400 Balance 547 Intake, IV 872 Intake, Oral 75 Number 0 1 Bowel Movements Output, Urine 400 Patient 240 lb Weight Weight Bed scale Measurement Method Physical Exam Other Physical Findings: She appears comfortable in no acute distress Extremities left foot dressing intact with wound VAC in place; bilateral lower extremity edema, left greater than right, with patches of erythema around the ankle of both feet, minimally tender to palpation Results Last 24 Hours of Lab Results: Laboratory Tests 04/17 04/17 04/16 0955 0654 2111 Chemistry Sodium (137 - 145 mmol/L) 144 Potassium (3.5 - 5.1 mmol/L) 4.8 Chloride (98 - 107 mmol/L) 104 Carbon Dioxide (22 - 30 mmol/L) 28 Anion Gap (5 - 16) 12 BUN (7 - 17 mg/dL) 23 H Creatinine (0.5 - 1.0 mg/dL) 1.0 Estimated GFR (>60 ml/min) 55 L BUN/Creatinine Ratio (7 - 25 %) 23.0 Coagulation APTT (25 - 37 SEC) Pending 61 H Hematology CBC w Diff NO MAN DIFF REQ WBC (4.8 - 10.8 /CUMM) 15.2 H RBC (4.20 - 5.40 /CUMM) 3.41 L Hgb (12.0 - 16.0 G/DL) 9.9 L Hct (37 - 47 %) 30.2 L MCV (81.0 - 99.0 FL) 88.6 MCH (27.0 - 31.0 PG) 29.0 MCHC (33.0 - 37.0 G/DL) 32.7 L RDW (11.5 - 14.5 %) 16.5 H Plt Count (130 - 400 /CUMM) 380 MPV (7.4 - 10.4 FL) 8.2 Gran % (42.2 - 75.2 %) 81.3 H Lymphocytes % (20.5 - 51.1 %) 11.7 L Monocytes % (1.7 - 9.3 %) 5.0 Eosinophils % (0 - 5 %) 1.7 Basophils % (0.0 - 2.0 %) 0.3 Absolute Granulocytes (1.4 - 6.5 /CUMM) 12.3 H Absolute Lymphocytes (1.2 - 3.4 /CUMM) 1.8 Absolute Monocytes (0.10 - 0.60 /CUMM) 0.8 H Absolute Eosinophils (0.0 - 0.7 /CUMM) 0.3 Absolute Basophils (0.0 - 0.2 /CUMM) 0 Last 24 Hours of Ammon Results: No new cultures Recent Imaging Studies: CT lower extremity angiogram April 16 reveals focal moderate to severe stenosis within the left popliteal artery Assessment/Plan Impression: Stable, with temperatures remaining normal but with a persistent leukocytosis, of unclear etiology, though her white count has decreased from yesterday, on Meropenem Day 4 for Pseudomonas isolated from the left heel bone culture (after 6 days of Unasyn for a left leg cellulitis), status post debridement of necrotic /infected bone from the left calcaneus 4 days ago. The results of her lower extremity CT angiogram are noted and she will need Vascular surgery follow-up for possible angiogram/angioplasty in the OR. The decision regarding long-term antibiotics may be based on the findings of this test. Of note a left BKA has been recommended several times in the past, but she has refused. Suggestion: 1. Vascular surgery follow-up 2. Continue Meropenem pending above
[2017-04-17 11:02] LABS: PTT 70 SEC (25-37)
--- NOTE | 2017-04-17 11:43 | PN- Diabetes ---
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 At home, she was on Levemir 20 units daily, metformin 500 mg twice a day, starlix on some occasions and Humulin NPH according to the scale. She is on Levemir 20 units daily, Novolog coverage before meals and Novolog coverage at bedtime. Her FSGs were 145, 104, 157 and 160. Plan: continue the current insulin regimen for now; monitor FSGs. will follow. Subjective Subjective: Her glucose level has been stable. Objective Last 24 Hrs of Vital Signs/I&O Vital Signs Date Time Temp Pulse Resp B/P B/P Pulse O2 O2 Flow FiO2 Mean Ox Delivery Rate 04/17 0929 61 142/67 04/17 0928 61 142/64 04/17 0800 94 Room Air 04/17 0606 98.3 58 20 142/67 94 04/16 2219 98.5 58 18 144/66 94 Room Air 04/16 2143 63 18 144/80 04/16 1708 63 144/80 04/16 1419 97.7 63 18 144/80 95 Room Air Intake & Output 04/17 1600 04/17 0800 04/17 0000 Intake Total 947 Output Total 400 Balance 547 Intake, IV 872 Intake, Oral 75 Number 0 1 Bowel Movements Output, Urine 400 Patient 240 lb Weight Weight Bed scale Measurement Method Findings Pertinent Lab/Ammon Results: Laboratory Tests 04/17 04/17 04/16 0955 0654 2111 Chemistry Sodium (137 - 145 mmol/L) 144 Potassium (3.5 - 5.1 mmol/L) 4.8 Chloride (98 - 107 mmol/L) 104 Carbon Dioxide (22 - 30 mmol/L) 28 Anion Gap (5 - 16) 12 BUN (7 - 17 mg/dL) 23 H Creatinine (0.5 - 1.0 mg/dL) 1.0 Estimated GFR (>60 ml/min) 55 L BUN/Creatinine Ratio (7 - 25 %) 23.0 Coagulation APTT (25 - 37 SEC) 70 H 61 H Hematology CBC w Diff NO MAN DIFF REQ WBC (4.8 - 10.8 /CUMM) 15.2 H RBC (4.20 - 5.40 /CUMM) 3.41 L Hgb (12.0 - 16.0 G/DL) 9.9 L Hct (37 - 47 %) 30.2 L MCV (81.0 - 99.0 FL) 88.6 MCH (27.0 - 31.0 PG) 29.0 MCHC (33.0 - 37.0 G/DL) 32.7 L RDW (11.5 - 14.5 %) 16.5 H Plt Count (130 - 400 /CUMM) 380 MPV (7.4 - 10.4 FL) 8.2 Gran % (42.2 - 75.2 %) 81.3 H Lymphocytes % (20.5 - 51.1 %) 11.7 L Monocytes % (1.7 - 9.3 %) 5.0 Eosinophils % (0 - 5 %) 1.7 Basophils % (0.0 - 2.0 %) 0.3 Absolute Granulocytes (1.4 - 6.5 /CUMM) 12.3 H Absolute Lymphocytes (1.2 - 3.4 /CUMM) 1.8 Absolute Monocytes (0.10 - 0.60 /CUMM) 0.8 H Absolute Eosinophils (0.0 - 0.7 /CUMM) 0.3 Absolute Basophils (0.0 - 0.2 /CUMM) 0
--- NOTE | 2017-04-17 13:39 | PN- Cardiology ---
Subjective Subjective: Feeling well. No chest pain. No palpitations. night monitor reveals sinus rhythm. No shortness of breath. No diaphoresis. Objective Vital Signs and I&Os Vital Signs Date Time Temp Pulse Resp B/P B/P Pulse O2 O2 Flow FiO2 Mean Ox Delivery Rate 04/17 0929 61 142/67 04/17 0928 61 142/64 04/17 0800 94 Room Air 04/17 0606 98.3 58 20 142/67 94 04/16 2219 98.5 58 18 144/66 94 Room Air 04/16 2143 63 18 144/80 04/16 1708 63 144/80 04/16 1419 97.7 63 18 144/80 95 Room Air Intake & Output 04/17 1600 04/17 0800 04/17 0000 04/16 1600 04/16 0804/16 0000 Intake Total 947 432 880 Output Total 400 650 55 Balance 547 -218 825 Intake, IV 872 312 Intake, Oral 75 120 880 Number 0 1 1 2 Bowel Movements Output, 55 Drainage Output, Urine 400 650 Patient 240 lb 233 lb Weight Weight Bed scale Chair scale Measurement Method Physical Exam: Gen: The patient is in no acute distress HEENT: Normal nose, ears, and oropharynx. Pupils equal bilaterally. Conjunctiva normal. Neck: Supple with no JVD, no masses, and no thyromegaly Lungs: Clear to auscultation with normal respiratory effort Heart: RRR, S1, S2, 2/6 systolic murmur at the apex. 1-2+ peripheral edema, 1+ pulses in the lower extremities bilaterally Abdomen: Soft, nontender, no masses. No hepatomegaly. No splenomegaly Extremities: No clubbing or cyanosis. Normal muscle strength in the upper and lower extremities Skin: Cellulitis of the left lower extremity as noted. Normal skin turgor. Neuro: Cranial nerves intact. Sensation intact Current Medications: Current Medications Sig/Vandana Start time Last Medication Dose Route Stop Time Status Admin Acetaminophen 650 MG Q6P PRN 04/07 2130 AC PO Acetaminophen/ 1 TAB Q4P PRN 04/17 844 AC Codeine Phosphate PO Acetaminophen/ 1 TAB Q6P PRN 04/09 1415 DC 04/17 Codeine Phosphate PO 0325 Alprazolam 0.5 MG AT BEDTIME NEED.. 04/17 844 AC PO 04/24 0844 Alprazolam 0.5 MG ONCE ONE 04/17 0330 DC 04/17 PO 04/17 0331 0336 Ascorbic Acid 1,000 MG DAILY 04/08 1000 AC 04/17 PO 0930 Atorvastatin Calcium 40 MG DAILY@1700 04/07 1813 AC 04/16 PO 1706 Cetirizine HCl 10 MG DAILY 04/13 1000 AC 04/17 PO 0930 Cholecalciferol 1,000 IU DAILY 04/08 1000 AC 04/17 PO 0930 Docusate Sodium 100 MG DAILY 04/15 1251 AC 04/17 PO 0927 Gabapentin 1,200 MG Q8 04/07 1757 AC 04/17 PO 0616 Heparin Sodium/ 25,000 UNIT Q24H 04/11 2000 AC 04/17 Dextrose IV 0140 Dextrose/Water 500 ML Insulin Aspart 0 TIDAC/HS 04/16 1700 AC 04/17 SC 1230 Insulin Detemir 20 UNITS AT BEDTIME 04/07 2200 AC 04/16 TN 2141 Insulin Human Regular 0 Q6 04/15 2359 DC 04/16 TN 0026 Lactobacillus 1 CAP BID 04/08 1107 AC 04/17 Acidophilus PO 0929 Levothyroxine Sodium 0.05 MG DAILY AC 04/07 1635 AC 04/17 PO 0615 Loratadine 10 MG DAILY 04/13 1000 DC PO Losartan Potassium 25 MG DAILY 04/09 1151 AC 04/17 PO 0928 Magnesium Oxide 400 MG DAILY 04/08 1000 AC 04/17 PO 0929 Meropenem 1 GM IQ8 04/13 1600 AC 04/17 IV 0831 Metoprolol Tartrate 50 MG BID 04/07 2330 AC 04/17 PO 0929 Multivitamins 1 TAB DAILY 04/08 1000 AC 04/17 PO 0929 Nystatin 1 AURELIA BID 04/15 1547 AC 04/17 TOP 0943 Omeprazole 40 MG DAILY AC 04/08 0700 AC 04/17 PO 0615 Polyethylene Glycol 17 GM DAILY 04/08 1000 AC 04/17 PO 0929 Senna/Docusate Sodium 1 TAB BID 04/15 1252 AC 04/17 PO 0929 Sodium Chloride 1,000 ML Q13H 04/15 2345 AC 04/17 IV 0617 Results Last 48 Hrs of Labs/Mics: Laboratory Tests 04/17/17 0955: APTT 70 H 04/17/17 0654: Anion Gap 12, Estimated GFR 55 L, BUN/Creatinine Ratio 23.0, CBC w Diff NO MAN DIFF REQ, RBC 3.41 L, MCV 88.6, MCH 29.0, MCHC 32.7 L, RDW 16.5 H, MPV 8.2, Gran % 81.3 H, Lymphocytes % 11.7 L, Monocytes % 5.0, Eosinophils % 1.7, Basophils % 0.3, Absolute Granulocytes 12.3 H, Absolute Lymphocytes 1.8, Absolute Monocytes 0.8 H, Absolute Eosinophils 0.3, Absolute Basophils 0 04/16/17 2111: APTT 61 H 04/16/17 0400: Anion Gap 13, Estimated GFR 49 L, BUN/Creatinine Ratio 21.8, APTT 103 *H, CBC w Diff NO MAN DIFF REQ, RBC 3.73 L, MCV 87.7, MCH 28.8, MCHC 32.9 L, RDW 16.7 H , MPV 7.9, Gran % 79.4 H, Lymphocytes % 12.6 L, Monocytes % 6.5, Eosinophils % 1.1, Basophils % 0.4, Absolute Granulocytes 13.6 H, Absolute Lymphocytes 2.2, Absolute Monocytes 1.1 H, Absolute Eosinophils 0.2, Absolute Basophils 0.1 04/15/17 1615: APTT 67 H Recent Imaging Studies: CT scan of the lower extremities: 1. Focal moderate to severe stenosis within the left popliteal artery. Severe atherosclerotic disease of the runoff arteries significantly limits evaluation. This case is being submitted for extensive 3-D reformatted images in an attempt to improve evaluation of the calf arteries. An addendum will be placed at that time. 2. Similarly, severe atherosclerotic disease of the right calf runoff artery significantly limits evaluation. There is no hemodynamically significant stenosis within the right iliac, femoral or popliteal arteries. An addendum will be placed further evaluating the right calf arteries once 3-D reformatted images are processed. 3. Focal region of soft tissue stranding and air within the subcutaneous tissues of the left heel suggesting an open wound. Direct inspection recommended. ATTENDING 3-D POSTPROCESSING ADDENDUM: 1. Reformatted 3-D images confirm a moderate to severe stenosis within the left popliteal artery. 2. Severe calcifications within the left LANETTE, [employer] INSTRUCTOR and peroneal arteries. The proximal left LANETTE appears patent with scattered occlusions within the mid and distal calf. There is minimal flow into the ankle. The left posterior tibial artery also demonstrates segmental occlusions with only trace opacification. The left peroneal artery demonstrates scattered occlusions. 3. Severe calcifications within the right LANETTE, [employer] IN[employer]CTOR and peroneal arteries. The right LANETTE demonstrates minimal flow proximally with occlusion within the mid to distal calf. There is minimal flow at the level of the ankle, likely secondary to collaterals. The right posterior tibial artery is occluded. The right peroneal artery is occluded proximally with reconstitution at the level of the ankle. Assessment/Plan Assessment/Plan Assessment: 1. Paroxysmal atrial fibrillation 2. Hypertension 3. Osteomyelitis/lower extremity cellulitis 4. 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 Yes
[2017-04-17 14:13] VITALS: BP 134/62
--- NOTE | 2017-04-17 16:47 | PN- Vascular Surgery ---
Surgical Brief Attending Note Brief Attending Note: Dayan is doing well. She underwent incision and drainage of the left heel by Dr. Altamirano. Unfortunately, I was not able to perform her left leg angiogram yesterday. She is on the OR schedule tomorrow at 4 PM. She will be nothing by mouth after 8 AM tomorrow morning Please stop the heparin at noon tomorrow
[2017-04-17 21:46] VITALS: BP 130/60
[2017-04-17 22:48] LABS: PTT 86 SEC (25-37)
[2017-04-18 07:08] VITALS: BP 124/72
--- NOTE | 2017-04-18 07:11 | PN- Housestaff ---
Subjective Follow-up For: Left foot OM Complaints: no complaints Tele-Events Since Last Visit: sinus rhythm overnight, no events noted otherwise. Subjective: I followed up and examined the patient today. She is resting comfortably in her bed, awaiting her breakfast, after which she will kept NPO for the surgery later today. No other issues noted. Wound Vac in place with minimal sanguinous drainage. Review of Systems Constitutional: Reports: see HPI. Objective Last 24 Hrs of Vital Signs/I&O Vital Signs Date Time Temp Pulse Resp B/P B/P Pulse O2 O2 Flow FiO2 Mean Ox Delivery Rate 04/18 2147 70 178/72 04/18 2133 97.5 67 20 138/80 98 Nasal 3.0L Cannula 04/18 1515 97.3 57 18 120/70 94 04/18 0708 97.8 58 20 124/72 94 Room Air Intake & Output 04/18 1600 04/18 0800 04/18 0000 Intake Total 1100 990 556 Output Total 500 500 600 Balance 600 490 -44 Intake, IV 750 870 436 Intake, Oral 350 120 120 Number 1 1 Bowel Movements Output, Urine 500 500 600 Physical Exam General Appearance: Alert, Oriented X3, Cooperative, No Acute Distress, morbidly obese Other Physical Findings: Skin: erythematous rashes over left leg (not new), left leg has dressing in situ - no discharge/drainage/soakage Cardiovascular: Regular Rate, Normal S1, Normal S2, No Murmurs Lungs: Clear to Auscultation, Normal Air Movement Abdomen: Normal Bowel Sounds, Soft, No Tenderness Neuro: grossly intact Current Medications: Current Medications Sig/Vandana Start time Last Medication Dose Route Stop Time Status Admin Acetaminophen 650 MG Q6P PRN 04/07 2129 AC PO Acetaminophen/ 1 TAB Q4P PRN 04/17 08 AC 04/17 Codeine Phosphate PO 2208 Alprazolam 0.5 MG AT BEDTIME NEED.. 04/17 844 AC 04/17 PO 04/24 0844 2208 Ascorbic Acid 1,000 MG DAILY 04/08 1000 AC 04/18 PO 0829 Atorvastatin Calcium 40 MG DAILY@1700 04/07 1813 AC 04/18 PO 2148 Cetirizine HCl 10 MG DAILY 04/13 1000 AC 04/18 PO 0831 Cholecalciferol 1,000 IU DAILY 04/08 1000 AC 04/18 PO 0821 Docusate Sodium 100 MG DAILY 04/15 1251 AC 04/18 PO 0830 Gabapentin 1,200 MG Q8 04/07 1757 AC 04/18 PO 2148 Heparin Sodium/ 25,000 UNIT Q24H 04/18 2100 AC Dextrose IV Dextrose/Water 500 ML Heparin Sodium/ 25,000 UNIT Q24H 04/11 2000 DC 04/17 Dextrose IV 04/18 1200 1705 Dextrose/Water 500 ML Insulin Aspart 0 TIDAC/HS 04/18 2100 AC SC Insulin Aspart 5 UNITS .STK-MED ONE 04/18 0804 DC SC 04/18 0805 Insulin Aspart 0 TIDAC/HS 04/16 1700 DC 04/18 SC 04/18 0800 1004 Insulin Detemir 20 UNITS AT BEDTIME 04/07 2200 AC 04/18 SC 2146 Insulin Human Regular 0 Q6 04/18 1200 NE 04/18 MI 1337 Lactobacillus 1 CAP BID 04/08 1107 AC 04/18 Acidophilus PO 2148 Levothyroxine Sodium 0.05 MG DAILY AC 04/07 1635 AC 04/18 PO 0634 Losartan Potassium 25 MG DAILY 04/09 1151 AC 04/18 PO 0816 Magnesium Oxide 400 MG DAILY 04/08 1000 AC 04/18 PO 0821 Meropenem 1 GM IQ8 04/13 1600 AC 04/18 IV 2147 Metoprolol Tartrate 50 MG BID 04/07 2330 AC 04/18 PO 2148 Multivitamins 1 TAB DAILY 04/08 1000 AC 04/18 PO 0821 Nystatin 1 AURELIA BID 04/15 1547 AC 04/18 TOP 2149 Omeprazole 40 MG DAILY AC 04/08 0700 AC 04/18 PO 0634 Polyethylene Glycol 17 GM DAILY 04/08 1000 AC 04/17 PO 0929 Senna/Docusate Sodium 1 TAB BID 04/15 1252 AC 04/18 PO 0829 Sodium Chloride 1,000 ML Q13H 04/15 2345 AC 04/18 IV 1930 Last 24 Hrs of Lab/Ammon Results Last 24 Hrs of Labs/Mics: Laboratory Tests 04/18/17 1000: Anion Gap 13, Estimated GFR 49 L, BUN/Creatinine Ratio 22.7, APTT 66 H 04/18/17 0700: Anion Gap 16, Estimated GFR > 60, BUN/Creatinine Ratio 30.0 H, CBC w Diff NO MAN DIFF REQ, RBC 3.49 L, MCV 88.1, MCH 28.7, MCHC 32.5 L, RDW 16.4 H, MPV 8.2, Gran % 75.4 H, Lymphocytes % 15.3 L, Monocytes % 6.4, Eosinophils % 2.3, Basophils % 0.6, Absolute Granulocytes 10.0 H, Absolute Lymphocytes 2.0, Absolute Monocytes 0.9 H, Absolute Eosinophils 0.3, Absolute Basophils 0.1 Assessment/Plan Assessment: Patient is a 71-year-old noncompliant diabetic female with previous history of group G strep, MRSA osteomyelitis presented with sudden onset left leg erythema, fever, increased tiredness. Vital signs at admission are unremarkable, physical examination is significant for erythema extending from left heel till the left groin with swelling. Left lower extremity had an ulcer. Labs were significant for white count of 17.3, ESR 76, CRP 9, lactic acid 1.7. Arterial Doppler demonstrated mild peripheral vascular disease. MRI foot showed features suggestive of osteomyelitis. Patient was initially admitted to the general medical floor and was transferred to telemetry floor on 04/10/2017 for the management of following issues: Left lower extremity edema with swelling -cellulitis/osteomyelitis * Radiologically proven osteomyelitis, currently on IV antibiotics- meropenem 1gm q8h per ID recs * Culture grew Pseudomonas, thus continuing meropenem according to ID. * Continue to elevate leg, which she is not very compliant as she stays in her recliner most of the time * Adequate pain management. * Awaiting angiogram to be done by Vascular surgeon later today. Pt will be NPO from 8 am and IV Heparin will be held from noon until the procedure is over per vascular surgeon. Will wait for Vascular Surgery recs post procedure. Paroxysmal atrial fibrillation Patient has paroxysmal atrial fibrillation, overnight was in sinus rhythm. Rate controlled. IV Heparin drip running, will discuss about retirement anticoagulation. Uncontrolled diabetes mellitus * Patientis on diabetic diet, and Accu-Cheks, insulin 3 times a day /AC and at bedtime * following endo recs. * Sugar levels are better controlled now. Proteinuria: Patient is having nephrotic range proteinuria as evident from the protein/ creatinine ratio, workup pending. -urine 24 hour protein-2362.5 -continue ARB -SPEP, C3-184, C4-48, high - HEP PANEL NEG History of hypothyroidism Continue levothyroxine 50 g daily History of hypertension Continue metoprolol tartrate 50 twice a day, and Losartan History of diabetic neuropathy Continue Neurontin 1200 mg 3 times a day History of ?allergy Continue cetrizine from home meds Constipation Patient is on MiraLAX, Colace, senna. DVT prophylaxis: IV heparin for a fib CODE STATUS: DNR/DNI Diet: Diabetic diet Problem List: 1. Osteomyelitis 2. Cellulitis Pain Ratin Pain Location: left foot Pain Goal: Pain 4 or less Pain Plan: prn Tomorrow's Labs & Rationales: CBC, BEP
[2017-04-18 08:11] LABS: ABSOLUTE BASOPHIL COUNT 0.1 /CUMM (0.0-0.2); ABSOLUTE EOSINOPHIL COUNT 0.3 /CUMM (0.0-0.7); ABSOLUTE MONOCYTE COUNT 0.9 /CUMM (0.10-0.60); BASOPHIL % 0.6 % (0.0-2.0); EOSINOPHIL % 2.3 % (0-5); GRANULOCYTE % 75.4 % (42.2-75.2); HEMATOCRIT 30.7 % (37-47); MEAN CORPUSCULAR HGB 28.7 PG (27.0-31.0); MEAN CORPUSCULAR HGB CONC 32.5 G/DL (33.0-37.0); MEAN CORPUSCULAR VOLUME 88.1 FL (81.0-99.0); MEAN PLATELET VOLUME 8.2 FL (7.4-10.4); PLATELET COUNT 373 /CUMM (130-400); RBC DISTRIBUTION WIDTH 16.4 % (11.5-14.5); RED BLOOD CELL CT 3.49 /CUMM (4.20-5.40); WHITE BLOOD CELL COUNT 13.2 /CUMM (4.8-10.8)
--- NOTE | 2017-04-18 08:42 | PN- Diabetes ---
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 At home, she was on Levemir 20 units daily, metformin 500 mg twice a day, starlix on some occasions and Humulin NPH according to the scale. She is on Levemir 20 units daily, Novolog coverage before meals and Novolog coverage at bedtime. Her FSGs were 116, 146 and 160. However, she is kept NPO for procedure at ? 4 pm today. Novolog coverage before meals will be held and she is on RISS every 6 hours ( the coverage starts when FSG is > 150) Plan: 1. continue the current insulin order for now; 2. after she is back from OR and ready to eat, she will be on previous insulin regimen--- Levemir 20 units daily at bedtime previous Novolog coverage before meals and Novolog coverage at bedtime; 3. monitor FSGs. 4. her K is only 2.7 this morning; please double check her K level. However, if low K is confirmed, K should be repleted before she goes to OR. will follow. Subjective Subjective: She doesn't have special complaints at this point. Objective Last 24 Hrs of Vital Signs/I&O Vital Signs Date Time Temp Pulse Resp B/P B/P Pulse O2 O2 Flow FiO2 Mean Ox Delivery Rate 04/18 0608 97.8 58 20 124/72 94 Room Air 04/17 2210 64 130/60 04/17 2146 98.4 60 20 130/60 095 Room Air 04/17 1600 94 Room Air 04/17 1413 98.8 56 20 134/62 94 Room Air 04/17 0929 61 142/67 04/17 0928 61 142/64 Intake & Output 04/18 1600 04/18 0800 04/18 0000 Intake Total 990 556 Output Total 500 600 Balance 490 -44 Intake, IV 870 436 Intake, Oral 120 120 Number 1 1 Bowel Movements Output, Urine 500 600 Findings Pertinent Lab/Ammon Results: Laboratory Tests 04/18 04/17 04/17 0700 2214 0955 Chemistry Sodium (137 - 145 mmol/L) 134 L Potassium (3.5 - 5.1 mmol/L) 2.7 *L Chloride (98 - 107 mmol/L) 104 Carbon Dioxide (22 - 30 mmol/L) 14 L Anion Gap (5 - 16) 16 BUN (7 - 17 mg/dL) 15 Creatinine (0.5 - 1.0 mg/dL) 0.5 Estimated GFR (>60 ml/min) > 60 BUN/Creatinine Ratio (7 - 25 %) 30.0 H Coagulation APTT (25 - 37 SEC) 86 H 70 H Hematology CBC w Diff NO MAN DIFF REQ WBC (4.8 - 10.8 /CUMM) 13.2 H RBC (4.20 - 5.40 /CUMM) 3.49 L Hgb (12.0 - 16.0 G/DL) 10.0 L Hct (37 - 47 %) 30.7 L MCV (81.0 - 99.0 FL) 88.1 MCH (27.0 - 31.0 PG) 28.7 MCHC (33.0 - 37.0 G/DL) 32.5 L RDW (11.5 - 14.5 %) 16.4 H Plt Count (130 - 400 /CUMM) 373 MPV (7.4 - 10.4 FL) 8.2 Gran % (42.2 - 75.2 %) 75.4 H Lymphocytes % (20.5 - 51.1 %) 15.3 L Monocytes % (1.7 - 9.3 %) 6.4 Eosinophils % (0 - 5 %) 2.3 Basophils % (0.0 - 2.0 %) 0.6 Absolute Granulocytes (1.4 - 6.5 /CUMM) 10.0 H Absolute Lymphocytes (1.2 - 3.4 /CUMM) 2.0 Absolute Monocytes (0.10 - 0.60 /CUMM) 0.9 H Absolute Eosinophils (0.0 - 0.7 /CUMM) 0.3 Absolute Basophils (0.0 - 0.2 /CUMM) 0.1
--- NOTE | 2017-04-18 09:37 | PN- Cardiology ---
See Addendum Subjective Subjective: Patient was seen and examined today. Patient alert, awake, oriented. She states she is doing fine no active complaint. She is scheduled to have her angiogram today afternoon. telemetry monitoring reveals she is in sinus rhythm. She deny chest pain, difficulty breathing, heart racing. Objective Vital Signs and I&Os Vital Signs Date Time Temp Pulse Resp B/P B/P Pulse O2 O2 Flow FiO2 Mean Ox Delivery Rate 04/18 0708 97.8 58 20 124/72 94 Room Air 04/17 2210 64 130/60 04/17 2146 98.4 60 20 130/60 095 Room Air 04/17 1600 94 Room Air 04/17 1413 98.8 56 20 134/62 94 Room Air Intake & Output 04/18 1600 04/18 0800 04/18 0000 04/17 1600 04/17 0800 04/17 0000 Intake Total 023 590 3775 947 Output Total 500 600 300 400 Balance 490 -44 1370 547 Intake, IV 870 436 875 872 Intake, Oral 120 120 720 75 Intake, Other 75 Number 1 1 0 1 Bowel Movements Output, Urine 500 600 300 400 Patient 240 lb Weight Weight Bed scale Measurement Method Physical Exam: Gen: The patient is in no acute distress HEENT: Normal nose, ears, and oropharynx. Pupils equal bilaterally. Conjunctiva normal. Neck: Supple with no JVD, no masses, and no thyromegaly Lungs: Clear to auscultation with normal respiratory effort Heart: RRR, S1, S2, 2/6 systolic murmur at the apex. 2+ peripheral edema Abdomen: Soft, nontender, no masses. No hepatomegaly. No splenomegaly Extremities: No clubbing or cyanosis. Normal muscle strength in the upper and lower extremities. wound VAC noted. Skin: Cellulitis of the left lower extremity as noted Normal skin turgor. Neuro: Cranial nerves intact. Sensation intact Current Medications: Current Medications Sig/Vandana Start time Last Medication Dose Route Stop Time Status Admin Acetaminophen 650 MG Q6P PRN 04/070 AC PO Acetaminophen/ 1 TAB Q4P PRN 04/17 0845 AC 04/17 Codeine Phosphate PO 2208 Alprazolam 0.5 MG AT BEDTIME NEED.. 04/17 844 AC 04/17 PO 04/24 0844 220 Ascorbic Acid 1,000 MG DAILY 04/08 1000 AC 04/18 PO 0829 Atorvastatin Calcium 40 MG DAILY@1700 04/07 1813 AC 04/17 PO 1704 Cetirizine HCl 10 MG DAILY 04/13 1000 AC 04/18 PO 0831 Cholecalciferol 1,000 IU DAILY 04/08 1000 AC 04/18 PO 0821 Docusate Sodium 100 MG DAILY 04/15 1251 AC 04/18 PO 0830 Gabapentin 1,200 MG Q8 04/07 1757 AC 04/18 PO 0634 Heparin Sodium/ 25,000 UNIT Q24H 04/11 2000 AC 04/17 Dextrose IV 04/18 1200 1705 Dextrose/Water 500 ML Insulin Aspart 0 TIDAC/HS 04/16 1700 DC 04/18 SC 04/18 0800 1004 Insulin Detemir 20 UNITS AT BEDTIME 04/07 2200 AC 04/17 SC 2209 Insulin Human Regular 0 Q6 04/18 1200 AC SC Lactobacillus 1 CAP BID 04/08 1107 AC 04/18 Acidophilus PO 0829 Levothyroxine Sodium 0.05 MG DAILY AC 04/07 1635 AC 04/18 PO 0634 Losartan Potassium 25 MG DAILY 04/09 1151 AC 04/18 PO 0816 Magnesium Oxide 400 MG DAILY 04/08 1000 AC 04/18 PO 0821 Meropenem 1 GM IQ8 04/13 1600 AC 04/18 IV 0830 Metoprolol Tartrate 50 MG BID 04/07 2330 AC 04/18 PO 0827 Multivitamins 1 TAB DAILY 04/08 1000 AC 04/18 PO 0821 Nystatin 1 AURELIA BID 04/15 1547 AC 04/18 TOP 0830 Omeprazole 40 MG DAILY AC 04/08 0700 AC 04/18 PO 0634 Polyethylene Glycol 17 GM DAILY 04/08 1000 AC 04/17 PO 0929 Senna/Docusate Sodium 1 TAB BID 04/15 1252 AC 04/18 PO 0829 Sodium Chloride 1,000 ML Q13H 04/15 2345 AC 04/18 IV 1004 Results Last 48 Hrs of Labs/Mics: Laboratory Tests 04/18/17 1000: Sodium Pending, Potassium Pending, Chloride Pending, Carbon Dioxide Pending, Anion Gap Pending, BUN Pending, Creatinine Pending, BUN/Creatinine Ratio Pending , APTT Pending 04/18/17 0700: Anion Gap 16, Estimated GFR > 60, BUN/Creatinine Ratio 30.0 H, CBC w Diff NO MAN DIFF REQ, RBC 3.49 L, MCV 88.1, MCH 28.7, MCHC 32.5 L, RDW 16.4 H, MPV 8.2, Gran % 75.4 H, Lymphocytes % 15.3 L, Monocytes % 6.4, Eosinophils % 2.3, Basophils % 0.6, Absolute Granulocytes 10.0 H, Absolute Lymphocytes 2.0, Absolute Monocytes 0.9 H, Absolute Eosinophils 0.3, Absolute Basophils 0.1 04/17/17 2214: APTT 86 H 04/17/17 0955: APTT 70 H 04/17/17 0654: Anion Gap 12, Estimated GFR 55 L, BUN/Creatinine Ratio 23.0, CBC w Diff NO MAN DIFF REQ, RBC 3.41 L, MCV 88.6, MCH 29.0, MCHC 32.7 L, RDW 16.5 H, MPV 8.2, Gran % 81.3 H, Lymphocytes % 11.7 L, Monocytes % 5.0, Eosinophils % 1.7, Basophils % 0.3, Absolute Granulocytes 12.3 H, Absolute Lymphocytes 1.8, Absolute Monocytes 0.8 H, Absolute Eosinophils 0.3, Absolute Basophils 0 04/16/171: APTT 61 H Assessment/Plan Assessment/Plan Assessment: 1. Paroxysmal atrial fibrillation 2. Hypertension 3. Osteomyelitis/lower extremity cellulitis 4. 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 * Continue IV heparin, with plan to change to Eliquis prior to discharge. * Continue other cardiac medications * Awaiting angiogram that will be done today afternoon. Continue telemetry? Yes
--- NOTE | 2017-04-18 09:43 | PN- Att Addend ---
Attending Addendum Attending Brief Note Patient sitting in the chair having breakfast, after that she will be nothing by mouth for her echocardiogram later on today. Depending on the results vascular will decide what else is necessary. Otherwise continue present treatment Intake & Output 04/18 1600 04/18 0400 04/17 1600 04/17 0400 04/16 1600 04/16 0400 Intake Total 849 498 3026 432 880 Output Total 500 600 700 650 55 Balance 490 -44 1917 -218 825 Intake, IV 204 826 5038 312 Intake, Oral 120 120 795 120 880 Intake, Other 75 Number 1 1 0 1 1 2 Bowel Movements Output, 55 Drainage Output, Urine 500 600 700 650 Patient 240 lb 233 lb Weight Weight Bed scale Chair scale Measurement Method Current Medications Sig/Vandana Start time Last Medication Dose Route Stop Time Status Admin Acetaminophen 650 MG Q6P PRN 04/07 2130 AC PO Acetaminophen/ 1 TAB Q4P PRN 04/17 0845 AC 04/17 Codeine Phosphate PO 2209 Alprazolam 0.5 MG AT BEDTIME NEED.. 04/17 0845 AC 04/17 PO 04/24 0844 2208 Ascorbic Acid 1,000 MG DAILY 04/08 1000 AC 04/18 PO 0829 Atorvastatin Calcium 40 MG DAILY@1700 04/07 1813 AC 04/17 PO 1704 Cetirizine HCl 10 MG DAILY 04/13 1000 AC 04/18 PO 0831 Cholecalciferol 1,000 IU DAILY 04/08 1000 AC 04/18 PO 0821 Docusate Sodium 100 MG DAILY 04/15 1251 AC 04/18 PO 0830 Gabapentin 1,200 MG Q8 04/07 1757 AC 04/18 PO 0634 Heparin Sodium/ 25,000 UNIT Q24H 04/11 2000 AC 04/17 Dextrose IV 04/18 1200 1705 Dextrose/Water 500 ML Insulin Aspart 0 TIDAC/HS 04/16 1700 DC 04/17 SC 04/18 0800 1717 Insulin Detemir 20 UNITS AT BEDTIME 04/07 2200 AC 04/17 SC 2209 Insulin Human Regular 0 Q6 04/18 1200 AC SC Lactobacillus 1 CAP BID 04/08 1107 AC 04/18 Acidophilus PO 0829 Levothyroxine Sodium 0.05 MG DAILY AC 04/07 1635 AC 04/18 PO 0634 Losartan Potassium 25 MG DAILY 04/09 1151 AC 04/18 PO 0816 Magnesium Oxide 400 MG DAILY 04/08 1000 AC 04/18 PO 0821 Meropenem 1 GM IQ8 04/13 1600 AC 04/18 IV 0830 Metoprolol Tartrate 50 MG BID 04/07 2330 AC 04/18 PO 0827 Multivitamins 1 TAB DAILY 04/08 1000 AC 04/18 PO 0821 Nystatin 1 AURELIA BID 04/15 1547 AC 04/18 TOP 0830 Omeprazole 40 MG DAILY AC 04/08 0700 AC 04/18 PO 0634 Polyethylene Glycol 17 GM DAILY 04/08 1000 AC 04/17 PO 0929 Senna/Docusate Sodium 1 TAB BID 04/15 1252 AC 04/18 PO 0829 Sodium Chloride 1,000 ML Q13H 04/15 2345 AC 04/17 IV 2014 Laboratory Tests 04/18/17 0700: Anion Gap 16, Estimated GFR > 60, BUN/Creatinine Ratio 30.0 H, CBC w Diff NO MAN DIFF REQ, RBC 3.49 L, MCV 88.1, MCH 28.7, MCHC 32.5 L, RDW 16.4 H, MPV 8.2, Gran % 75.4 H, Lymphocytes % 15.3 L, Monocytes % 6.4, Eosinophils % 2.3, Basophils % 0.6, Absolute Granulocytes 10.0 H, Absolute Lymphocytes 2.0, Absolute Monocytes 0.9 H, Absolute Eosinophils 0.3, Absolute Basophils 0.1 04/17/17 2214: APTT 86 H 04/17/17 0955: APTT 70 H 04/17/17 0654: Anion Gap 12, Estimated GFR 55 L, BUN/Creatinine Ratio 23.0, CBC w Diff NO MAN DIFF REQ, RBC 3.41 L, MCV 88.6, MCH 29.0, MCHC 32.7 L, RDW 16.5 H, MPV 8.2, Gran % 81.3 H, Lymphocytes % 11.7 L, Monocytes % 5.0, Eosinophils % 1.7, Basophils % 0.3, Absolute Granulocytes 12.3 H, Absolute Lymphocytes 1.8, Absolute Monocytes 0.8 H, Absolute Eosinophils 0.3, Absolute Basophils 0 04/16/17 2111: APTT 61 H 04/16/17 0400: Anion Gap 13, Estimated GFR 49 L, BUN/Creatinine Ratio 21.8, APTT 103 *H, CBC w Diff NO MAN DIFF REQ, RBC 3.73 L, MCV 87.7, MCH 28.8, MCHC 32.9 L, RDW 16.7 H , MPV 7.9, Gran % 79.4 H, Lymphocytes % 12.6 L, Monocytes % 6.5, Eosinophils % 1.1, Basophils % 0.4, Absolute Granulocytes 13.6 H, Absolute Lymphocytes 2.2, Absolute Monocytes 1.1 H, Absolute Eosinophils 0.2, Absolute Basophils 0.1 04/15/17 1615: APTT 67 H Vital Signs Date Time Temp Pulse Resp B/P B/P Pulse O2 O2 Flow FiO2 Mean Ox Delivery Rate 04/18 0708 97.8 58 20 124/72 94 Room Air 04/17 2210 64 130/60 04/17 2146 98.4 60 20 130/60 095 Room Air 04/17 1600 94 Room Air 04/17 1413 98.8 56 20 134/62 94 Room Air
[2017-04-18 11:26] LABS: PTT 66 SEC (25-37)
[2017-04-18 15:15] VITALS: BP 120/70
--- NOTE | 2017-04-18 19:38 | Operative Report ---
Operative/Inv Procedure Report Surgery Date: 04/18/17 Name of Procedure: -Ultrasound-guided right common femoral artery access - Aortogram - Second order left leg angiogram - Angioplasty of left popliteal artery Pre-Operative Diagnosis: Nonhealing left heel wound Post-Operative Diagnosis: Same Estimated Blood Loss: scant Surgeon/Pattern Marker: MARY ANN PABLO MD Anesthesia: general endotracheal tube Operative/Procedure Note Note: 71-year-old lady with chronic nonhealing left heel wound with nonpalpable pedal pulses. CTA of abdomen and pelvis with runoffs showed stenosis at the left popliteal artery. The patient was scheduled for left leg angiogram with possible interventions. The nature of the procedure including its possible complications including but not limited to bleeding, infection, blood clots, injury to vessels, and need for re-interventions were discussed. An informed consent was obtained. She was taken to the operating room and placed supine on the table. A timeout was called to protocol. After satisfactory induction of anesthesia, the patient was prepped and draped in standard surgical fashion. Using an ultrasound, right common femoral artery was accessed using micropuncture technique. A Bentson wire was advanced into the aorta under direct fluoroscopic guidance. The micropuncture sheath was exchanged with a 5 [place] sheath. An Omni Flush catheter was advanced over the wire and placed into the abdominal aorta. From this position, an aortogram was performed which showed patent aorta , bilateral common iliac, external iliac, and internal iliac arteries been no significant disease. Left common iliac artery is tortuous. With the aid of Omni Flush catheter and Bentson wire, left iliac artery system was selected. The Omni Flush catheter was exchanged with a 5 [place] glide catheter which was advanced over the wire and placed into the left common femoral artery. From this position, left leg angiogram was performed which showed patent common femoral, profunda femoris and SFA with no significant disease. Popliteal artery is patent with moderate stenosis in the mid section. Anterior tibial artery, peroneal, and posterior tibial arteries are patent with mild disease. The palmar arch is intact. There are multiple laterals in the foot especially around the heel. 6000 units of heparin was given. A stiff Glidewire was advanced into the mid SFA. Then the 5 [place] sheath was exchanged with a 45 cm 6 [place] Ansell sheath. Then a Bentson wire was advanced into the distal popliteal artery with aid of a glide catheter. Then a 4 x 60 mm balloon was advanced over the wire and angioplasty of the popliteal artery was performed successfully. Post angioplasty angiogram showed patent vessels with 3 vessel runoff to the foot. The Ansell sheath was then exchanged with a short 6 [place] sheath. The puncture site was closed using Star closure device. 5 minutes of manual pressure was applied. The patient was then taken to the PACU in stable condition.
[2017-04-18 21:34] VITALS: BP 138/80
--- NOTE | 2017-04-18 23:29 | PN- Vascular Surgery ---
Subjective Subjective: poc left leg angio no complaints at this time Objective Vital Signs and I&Os Vital Signs Date Time Temp Pulse Resp B/P B/P Pulse O2 O2 Flow FiO2 Mean Ox Delivery Rate 04/18 2148 70 178/72 04/18 2134 97.5 67 20 138/80 98 Nasal 3.0L Cannula 04/18 1515 97.3 57 18 120/70 94 04/18 0708 97.8 58 20 124/72 94 Room Air Intake & Output 04/18 1600 04/18 0800 04/18 0000 04/17 1600 04/17 0800 04/17 0000 Intake Total 1100 130 190 9958 947 Output Total 500 500 600 300 400 Balance 600 490 -44 1370 547 Intake, IV 750 870 436 875 872 Intake, Oral 350 120 120 720 75 Intake, Other 75 Number 1 1 0 1 Bowel Movements Output, Urine 500 500 600 300 400 Patient 240 lb Weight Weight Bed scale Measurement Method Physical Exam: right groin: drsg c/d/i no hematoma left leg: foot warm dsital cms grossly intact Assessment/Plan Assessment/Plan vascular stable plan resume prior care will sign off from vascualr stabdpoint f/u dr linda Core Measures Venous Thromboembolism VTE Risk Factors Acute Medical Illness No Mechanical VTE Prophylaxis d/t N/A MechProphylax Ordered No VTE Pharm Prophylaxis d/t NA PharmProphylax ordered
[2017-04-19 06:38] VITALS: BP 146/76
--- NOTE | 2017-04-19 07:34 | PN- Housestaff ---
Subjective Follow-up For: Left foot OM Complaints: no complaints Tele-Events Since Last Visit: Sinus rhythm, heart rate ranging from 58-80. Subjective: I followed up and examined the patient today. She is resting comfortably in her recliner, does not offer any complaints. Her left foot has Wound VAC in place, and dressing is in situ. No fever or chills overnight, vital signs stable. Review of Systems Constitutional: Reports: see HPI. Objective Last 24 Hrs of Vital Signs/I&O Vital Signs Date Time Temp Pulse Resp B/P B/P Pulse O2 O2 Flow FiO2 Mean Ox Delivery Rate 04/19 1410 98.6 63 20 152/78 93 Room Air 04/19 0816 61 146/76 04/19 0815 61 146/76 04/19 0800 98 Nasal 2.0L Cannula 04/19 0638 97.6 61 20 146/76 95 Nasal Cannula 04/19 0000 Nasal 3.5L Cannula 04/18 2148 70 178/72 04/18 2134 97.5 67 20 138/80 98 Nasal 3.0L Cannula Intake & Output 04/19 1600 04/19 0800 04/19 0000 Intake Total 1250 883 350 Output Total 680 300 100 Balance 570 583 250 Intake, IV 600 733 150 Intake, Oral 650 150 200 Number 1 Bowel Movements Output, 100 Drainage Output, Urine 680 300 Physical Exam General Appearance: Alert, Oriented X3, Cooperative, No Acute Distress, morbidly obese Other Physical Findings: Skin: erythematous rashes over left leg (no change from yesterday), left leg has dressing in situ- no discharge/drainage/soakage Cardiovascular: Regular Rate, Normal S1, Normal S2, No Murmurs Lungs: Clear to Auscultation, Normal Air Movement Abdomen: Normal Bowel Sounds, Soft, No Tenderness Neuro: grossly intact Current Medications: Current Medications Sig/Vandana Start time Last Medication Dose Route Stop Time Status Admin Acetaminophen 650 MG Q6P PRN 04/07 2130 AC PO Acetaminophen/ 1 TAB Q4P PRN 04/17 08 AC 04/17 Codeine Phosphate PO 220 Alprazolam 0.5 MG AT BEDTIME NEED.. 04/17 0745 AC 04/17 PO 04/24 0844 2208 Ascorbic Acid 1,000 MG DAILY 04/08 1000 AC 04/18 PO 0829 Atorvastatin Calcium 40 MG DAILY@1700 04/07 1813 AC 04/18 PO 2148 Cetirizine HCl 10 MG DAILY 04/13 1000 AC 04/18 PO 0831 Cholecalciferol 1,000 IU DAILY 04/08 1000 AC 04/18 PO 0821 Docusate Sodium 100 MG DAILY 04/15 1251 AC 04/18 PO 0830 Fentanyl Citrate 200 MCG .STK-MED ONE 04/18 1553 DC IM 04/18 1554 Gabapentin 1,200 MG Q8 04/07 1757 AC 04/19 PO 0627 Heparin Sodium/ 25,000 UNIT Q24H 04/18 2100 AC 04/19 Dextrose IV 0115 Dextrose/Water 500 ML Heparin Sodium/ 25,000 UNIT Q24H 04/11 2000 DC 04/17 Dextrose IV 04/18 1200 1705 Dextrose/Water 500 ML Hydromorphone HCl 2 MG .STK-MED ONE 04/18 1957 DC IM 04/18 1958 Insulin Aspart 0 TIDAC/HS 04/18 2100 [facility] Insulin Aspart 5 UNITS .STK-MED ONE 04/18 0804 DC AR 04/18 0805 Insulin Aspart 0 TIDAC/HS 04/16 1700 OR 04/18 SC 04/18 0800 1004 Insulin Detemir 20 UNITS AT BEDTIME 04/07 2200 04/18 SC 2146 Insulin Human Regular 0 Q6 04/18 1200 OR 04/18 AR 1337 Lactobacillus 1 CAP BID 04/08 1107 AC 04/18 Acidophilus PO 2148 Levothyroxine Sodium 0.05 MG DAILY AC 04/07 1635 AC 04/19 PO 0627 Losartan Potassium 25 MG DAILY 04/09 1151 AC 04/18 PO 0816 Magnesium Oxide 400 MG DAILY 04/08 1000 AC 04/18 PO 0821 Meropenem 1 GM IQ8 04/13 1600 AC 04/19 IV 0114 Metoprolol Tartrate 50 MG BID 04/07 2330 AC 04/18 PO 2148 Midazolam HCl 2 MG .STK-MED ONE 04/18 1554 DC IM 04/18 1555 Multivitamins 1 TAB DAILY 04/08 1000 AC 04/18 PO 0821 Nystatin 1 AURELIA BID 04/15 1547 AC 04/18 TOP 2149 Omeprazole 40 MG DAILY AC 04/08 0700 AC 04/19 PO 0627 Polyethylene Glycol 17 GM DAILY 04/08 1000 AC 04/17 PO 0929 Senna/Docusate Sodium 1 TAB BID 04/15 1252 AC 04/18 PO 0829 Sodium Chloride 1,000 ML Q13H 04/15 2345 AC 04/18 IV 1930 Last 24 Hrs of Lab/Ammon Results Last 24 Hrs of Labs/Mics: Laboratory Tests 04/19/17 0700: Sodium Pending, Potassium Pending, Chloride Pending, Carbon Dioxide Pending, Anion Gap Pending, BUN Pending, Creatinine Pending, BUN/Creatinine Ratio Pending , APTT Pending, CBC w Diff Pending, WBC Pending, RBC Pending, Hgb Pending, Hct Pending, MCV Pending, MCH Pending, MCHC Pending, RDW Pending, Plt Count Pending, MPV Pending 04/18/17 1000: Anion Gap 13, Estimated GFR 49 L, BUN/Creatinine Ratio 22.7, APTT 66 H Assessment/Plan Assessment: Patient is a 71-year-old noncompliant diabetic female with previous history of group G strep, MRSA osteomyelitis presented with sudden onset left leg erythema, fever, increased tiredness. Vital signs at admission are unremarkable, physical examination is significant for erythema extending from left heel till the left groin with swelling. Left lower extremity had an ulcer. Labs were significant for white count of 17.3, ESR 76, CRP 9, lactic acid 1.7. Arterial Doppler demonstrated mild peripheral vascular disease. MRI foot showed features suggestive of osteomyelitis. Patient was initially admitted to the general medical floor and was transferred to telemetry floor on 04/10/2017 for the management of following issues: Left lower extremity edema with swelling -cellulitis/osteomyelitis * Radiologically proven osteomyelitis, currently on IV antibiotics- meropenem 1gm q8h per ID recs * Culture grew Pseudomonas, thus continuing meropenem according to ID. * Continue to elevate leg, which she is not very compliant as she stays in her recliner most of the time * Adequate pain management. * Patient underwent angiogram of left lower extremity yesterday, and received angioplasty of left popliteal artery. Discussed with the stressors over phone for that C can be followed up as an outpatient from [facility]'s perspective. Awaiting laborer demolition and ID recommendations regarding further goals of treatment. Paroxysmal atrial fibrillation Patient has paroxysmal atrial fibrillation, overnight was in sinus rhythm. Rate controlled. IV Heparin drip running, will discuss about long lines operator anticoagulation. Uncontrolled diabetes mellitus * Patientis on diabetic diet, and Accu-Cheks, insulin 3 times a day /AC and at bedtime * following endo recs. * Sugar levels are better controlled now. Proteinuria: Patient is having nephrotic range proteinuria as evident from the protein/ creatinine ratio, workup pending. -urine 24 hour protein-2362.5 -continue ARB -SPEP, C3-184, C4-48, high - HEP PANEL NEG History of hypothyroidism Continue levothyroxine 50 g daily History of hypertension Continue metoprolol tartrate 50 twice a day, and Losartan History of diabetic neuropathy Continue Neurontin 1200 mg 3 times a day History of ?allergy Continue cetrizine from home meds Constipation Patient is on MiraLAX, Colace, senna. DVT prophylaxis: IV heparin for a fib CODE STATUS: DNR/DNI Diet: Diabetic diet Problem List: 1. Osteomyelitis 2. Cellulitis Pain Ratin Pain Location: - Pain Goal: Pain 4 or less Pain Plan: prn Tomorrow's Labs & Rationales: CBC, BEP
--- NOTE | 2017-04-19 08:10 | RADIOLOGY REPORT ---
EXAMINATION: XR FEMUR, LEFT CLINICAL INFORMATION: Left leg arteriography and angioplasty. COMPARISON: CT angiography 04/16/2017. TECHNIQUE: Intraoperative fluoroscopic imaging of the left femur and lower extremity required during the arteriography examination performed by Dr. Cain. Number of saved imaging series: 17. Imaging time: 8 minutes, 48 seconds. FINDINGS: Multiple fluoroscopic images from the angiography examination are submitted into the electronic picture archive. Please refer to the operative report from Dr. Cain. IMPRESSION: Fluoroscopic imaging equipment was utilized in the operating room.
[2017-04-19 08:26] LABS: PTT 65 SEC (25-37)
[2017-04-19 08:53] LABS: ABSOLUTE BASOPHIL COUNT 0 /CUMM (0.0-0.2); ABSOLUTE EOSINOPHIL COUNT 0.2 /CUMM (0.0-0.7); ABSOLUTE GRANULOCYTE CT 8.9 /CUMM (1.4-6.5); ABSOLUTE LYMPH COUNT 1.4 /CUMM (1.2-3.4); ABSOLUTE MONOCYTE COUNT 0.8 /CUMM (0.10-0.60); BASOPHIL % 0.4 % (0.0-2.0); EOSINOPHIL % 1.9 % (0-5); GRANULOCYTE % 78.4 % (42.2-75.2); HEMATOCRIT 28.8 % (37-47); MEAN CORPUSCULAR HGB 28.4 PG (27.0-31.0); MEAN CORPUSCULAR HGB CONC 32.1 G/DL (33.0-37.0); MEAN CORPUSCULAR VOLUME 88.5 FL (81.0-99.0); MEAN PLATELET VOLUME 8.1 FL (7.4-10.4); PLATELET COUNT 336 /CUMM (130-400); RBC DISTRIBUTION WIDTH 16.6 % (11.5-14.5); RED BLOOD CELL CT 3.25 /CUMM (4.20-5.40); WHITE BLOOD CELL COUNT 11.3 /CUMM (4.8-10.8)
--- NOTE | 2017-04-19 11:08 | PN- Cardiology ---
See Addendum Subjective Subjective: Patient was seen and examined today. Patient alert, awake, oriented. She states she is doing fine no active complaint. telemetry monitoring reveals she is in sinus rhythm. She underwent angiogram yesterday. She deny chest pain, difficulty breathing, heart racing. Objective Vital Signs and I&Os Vital Signs Date Time Temp Pulse Resp B/P B/P Pulse O2 O2 Flow FiO2 Mean Ox Delivery Rate 04/19 1410 98.6 63 20 152/78 93 Room Air 04/19 0816 61 146/76 04/19 0815 61 146/76 04/19 0800 98 Nasal 2.0L Cannula 04/19 0638 97.6 61 20 146/76 95 Nasal Cannula 04/19 0000 Nasal 3.5L Cannula 04/18 2148 70 178/72 04/18 2133 97.5 67 20 138/80 98 Nasal 3.0L Cannula Intake & Output 04/19 1600 04/19 0800 04/19 0000 04/18 1600 04/18 0800 04/18 0000 Intake Total 1250 435 119 2187 990 556 Output Total 680 300 100 500 500 600 Balance 570 583 250 600 490 -44 Intake, IV 600 733 150 750 870 436 Intake, Oral 650 150 200 350 120 120 Number 1 1 1 Bowel Movements Output, 100 Drainage Output, Urine 680 300 500 500 600 Physical Exam: Gen: The patient is in no acute distress HEENT: Normal nose, ears, and oropharynx. Pupils equal bilaterally. Conjunctiva normal. Neck: Supple with no JVD, no masses, and no thyromegaly Lungs: Clear to auscultation with normal respiratory effort Heart: RRR, S1, S2, 2/6 systolic murmur at the apex. 2+ peripheral edema Abdomen: Soft, nontender, no masses. No hepatomegaly. No splenomegaly Extremities: No clubbing or cyanosis. Normal muscle strength in the upper and lower extremities. wound VAC noted. Skin: Cellulitis of the left lower extremity as noted Normal skin turgor. Neuro: Cranial nerves intact. Sensation intact Current Medications: Current Medications Sig/Vandana Start time Last Medication Dose Route Stop Time Status Admin Acetaminophen 650 MG Q6P PRN 04/07 2129 AC PO Acetaminophen/ 1 TAB Q4P PRN 04/17 0845 AC 04/17 Codeine Phosphate PO 2208 Alprazolam 0.5 MG AT BEDTIME NEED.. 04/17 0845 AC 04/17 PO 04/24 0844 2208 Ascorbic Acid 1,000 MG DAILY 04/08 1000 AC 04/19 PO 0815 Atorvastatin Calcium 40 MG DAILY@1700 04/07 1813 AC 04/19 PO 1605 Cetirizine HCl 10 MG DAILY 04/13 1000 AC 04/19 PO 0817 Cholecalciferol 1,000 IU DAILY 04/08 1000 AC 04/19 PO 0815 Docusate Sodium 100 MG DAILY 04/15 1251 AC 04/19 PO 0816 Gabapentin 1,200 MG Q8 04/07 1757 AC 04/19 PO 1240 Heparin Sodium 5,000 UNIT .STK-MED ONE 04/19 0836 DC (Porcine) OK 04/19 0837 Heparin Sodium/ 25,000 UNIT Q24H 04/18 2100 AC 04/19 Dextrose IV 0115 Dextrose/Water 500 ML Hydromorphone HCl 2 MG .STK-MED ONE 04/18 1956 DC IM 04/18 195 Insulin Aspart 0 TIDAC/HS 04/18 2100 04/19 SC 1240 Insulin Detemir 20 UNITS AT BEDTIME 04/07 2200 AC 04/18 OK 2146 Lactobacillus 1 CAP BID 04/08 1107 AC 04/19 Acidophilus PO 0815 Levothyroxine Sodium 0.05 MG DAILY AC 04/07 1635 AC 04/19 PO 0627 Lidocaine 1 ML .STK-MED ONE 04/19 0836 DC OK 04/19 0837 Losartan Potassium 25 MG DAILY 04/09 1151 AC 04/19 PO 0816 Magnesium Oxide 400 MG DAILY 04/08 1000 AC 04/19 PO 0815 Meropenem 1 GM IQ8 04/13 1600 AC 04/19 IV 1605 Metoprolol Tartrate 50 MG BID 04/07 2330 AC 04/19 PO 0815 Multivitamins 1 TAB DAILY 04/08 1000 AC 04/19 PO 0815 Nystatin 1 AURELIA BID 04/15 1547 DC 04/19 TOP 0816 Omeprazole 40 MG DAILY AC 04/08 0700 AC 04/19 PO 0627 Polyethylene Glycol 17 GM DAILY 04/08 1000 AC 04/19 PO 0816 Senna/Docusate Sodium 1 TAB BID 04/15 1252 AC 04/19 PO 0815 Sodium Chloride 1,000 ML Q13H 04/15 2345 AC 04/19 IV 0837 Results Last 48 Hrs of Labs/Mics: Laboratory Tests 04/19/17 0700: Anion Gap 11, Estimated GFR 49 L, BUN/Creatinine Ratio 20.9, APTT 65 H, CBC w Diff NO MAN DIFF REQ, RBC 3.25 L, MCV 88.5, MCH 28.4, MCHC 32.1 L, RDW 16.6 H , MPV 8.1, Gran % 78.4 H, Lymphocytes % 12.4 L, Monocytes % 6.9, Eosinophils % 1.9, Basophils % 0.4, Absolute Granulocytes 8.9 H, Absolute Lymphocytes 1.4, Absolute Monocytes 0.8 H, Absolute Eosinophils 0.2, Absolute Basophils 0 04/18/17 1000: Anion Gap 13, Estimated GFR 49 L, BUN/Creatinine Ratio 22.7, APTT 66 H 04/18/17 0700: Anion Gap 16, Estimated GFR > 60, BUN/Creatinine Ratio 30.0 H, CBC w Diff NO MAN DIFF REQ, RBC 3.49 L, MCV 88.1, MCH 28.7, MCHC 32.5 L, RDW 16.4 H, MPV 8.2, Gran % 75.4 H, Lymphocytes % 15.3 L, Monocytes % 6.4, Eosinophils % 2.3, Basophils % 0.6, Absolute Granulocytes 10.0 H, Absolute Lymphocytes 2.0, Absolute Monocytes 0.9 H, Absolute Eosinophils 0.3, Absolute Basophils 0.1 04/17/17 2214: APTT 86 H Assessment/Plan Assessment/Plan Assessment: 1. Paroxysmal atrial fibrillation 2. Hypertension 3. Osteomyelitis/lower extremity cellulitis 4. 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 * Continue IV heparin, with plan to change to Eliquis prior to discharge. * Continue other cardiac medications * Contiune antibiotic pre ID recommendations. * Angiogram/Angioplasty done yesterday. Continue telemetry? Yes
--- NOTE | 2017-04-19 11:08 | PN- Att Addend ---
Attending Addendum Attending Brief Note Patient comfortable in the chair. Her cellulitis is looking better than yesterday,. Vital signs are stable as he has no fever yesterday afternoon she had ultrasound-guided right common femoral arterial access, arteriogram, and angioplasty of the left popliteal artery with tolerated the procedure well her white count is 11,300 with no other changes on physical and will continue present treatment Intake & Output 04/19 1600 04/19 0400 04/18 1600 04/18 0400 04/17 1600 04/17 0400 Intake Total 561 730 0392 556 2617 Output Total 398 140 3195 600 700 Balance 056 780 4119 -44 1917 Intake, IV 021 973 6581 436 1747 Intake, Oral 150 200 470 120 795 Intake, Other 75 Number 1 1 1 0 1 Bowel Movements Output, 100 Drainage Output, Urine 300 1000 600 700 Patient 240 lb Weight Weight Bed scale Measurement Method Current Medications Sig/Vandana Start time Last Medication Dose Route Stop Time Status Admin Acetaminophen 650 MG Q6P PRN 04/07 2130 AC PO Acetaminophen/ 1 TAB Q4P PRN 04/17 0845 AC 04/17 Codeine Phosphate PO 2209 Alprazolam 0.5 MG AT BEDTIME NEED.. 04/17 0845 AC 04/17 PO 04/24 0844 2208 Ascorbic Acid 1,000 MG DAILY 04/08 1000 AC 04/19 PO 0815 Atorvastatin Calcium 40 MG DAILY@1700 04/07 1813 AC 04/18 PO 2148 Cetirizine HCl 10 MG DAILY 04/13 1000 AC 04/19 PO 0817 Cholecalciferol 1,000 IU DAILY 04/08 1000 AC 04/19 PO 0815 Docusate Sodium 100 MG DAILY 04/15 1251 AC 04/19 PO 0816 Fentanyl Citrate 200 MCG .STK-MED ONE 04/18 1553 DC IM 04/18 1554 Gabapentin 1,200 MG Q8 04/07 1757 AC 04/19 PO 0627 Heparin Sodium 5,000 UNIT .STK-MED ONE 04/19 0836 DC (Porcine) SC 04/19 0837 Heparin Sodium/ 25,000 UNIT Q24H 04/18 2100 AC 04/19 Dextrose IV 0115 Dextrose/Water 500 ML Heparin Sodium/ 25,000 UNIT Q24H 04/11 2000 DC 04/17 Dextrose IV 04/18 1200 1705 Dextrose/Water 500 ML Hydromorphone HCl 2 MG .STK-MED ONE 04/18 1956 DC IM 04/18 1957 Insulin Aspart 0 TIDAC/HS 04/18 2100 AC 04/19 SC 0837 Insulin Detemir 20 UNITS AT BEDTIME 04/07 2200 AC 04/18 DE 2146 Insulin Human Regular 0 Q6 04/18 1200 DC 04/18 DE 1337 Lactobacillus 1 CAP BID 04/08 1107 AC 04/19 Acidophilus PO 0815 Levothyroxine Sodium 0.05 MG DAILY AC 04/07 1635 AC 04/19 PO 0627 Lidocaine 1 ML .STK-MED ONE 04/19 0836 DC SC 04/19 0837 Losartan Potassium 25 MG DAILY 04/09 1151 AC 04/19 PO 0816 Magnesium Oxide 400 MG DAILY 04/08 1000 AC 04/19 PO 0815 Meropenem 1 GM IQ8 04/13 1600 AC 04/19 IV 0816 Metoprolol Tartrate 50 MG BID 04/07 2330 AC 04/19 PO 0815 Midazolam HCl 2 MG .STK-MED ONE 04/18 1554 DC IM 04/18 1555 Multivitamins 1 TAB DAILY 04/08 1000 AC 04/19 PO 0815 Nystatin 1 AURELIA BID 04/15 1547 AC 04/19 TOP 0816 Omeprazole 40 MG DAILY AC 04/08 0700 AC 04/19 PO 0627 Polyethylene Glycol 17 GM DAILY 04/08 1000 AC 04/19 PO 0816 Senna/Docusate Sodium 1 TAB BID 04/15 1252 AC 04/19 PO 0815 Sodium Chloride 1,000 ML Q13H 04/15 2345 AC 04/19 IV 0837 Laboratory Tests 04/19/17 0700: Anion Gap 11, Estimated GFR 49 L, BUN/Creatinine Ratio 20.9, APTT 65 H, CBC w Diff NO MAN DIFF REQ, RBC 3.25 L, MCV 88.5, MCH 28.4, MCHC 32.1 L, RDW 16.6 H , MPV 8.1, Gran % 78.4 H, Lymphocytes % 12.4 L, Monocytes % 6.9, Eosinophils % 1.9, Basophils % 0.4, Absolute Granulocytes 8.9 H, Absolute Lymphocytes 1.4, Absolute Monocytes 0.8 H, Absolute Eosinophils 0.2, Absolute Basophils 0 04/18/17 1000: Anion Gap 13, Estimated GFR 49 L, BUN/Creatinine Ratio 22.7, APTT 66 H 04/18/17 0700: Anion Gap 16, Estimated GFR > 60, BUN/Creatinine Ratio 30.0 H, CBC w Diff NO MAN DIFF REQ, RBC 3.49 L, MCV 88.1, MCH 28.7, MCHC 32.5 L, RDW 16.4 H, MPV 8.2, Gran % 75.4 H, Lymphocytes % 15.3 L, Monocytes % 6.4, Eosinophils % 2.3, Basophils % 0.6, Absolute Granulocytes 10.0 H, Absolute Lymphocytes 2.0, Absolute Monocytes 0.9 H, Absolute Eosinophils 0.3, Absolute Basophils 0.1 04/17/17 2214: APTT 86 H 04/17/17 0955: APTT 70 H 04/17/17 0654: Anion Gap 12, Estimated GFR 55 L, BUN/Creatinine Ratio 23.0, CBC w Diff NO MAN DIFF REQ, RBC 3.41 L, MCV 88.6, MCH 29.0, MCHC 32.7 L, RDW 16.5 H, MPV 8.2, Gran % 81.3 H, Lymphocytes % 11.7 L, Monocytes % 5.0, Eosinophils % 1.7, Basophils % 0.3, Absolute Granulocytes 12.3 H, Absolute Lymphocytes 1.8, Absolute Monocytes 0.8 H, Absolute Eosinophils 0.3, Absolute Basophils 0 04/16/17 2111: APTT 61 H Vital Signs Date Time Temp Pulse Resp B/P B/P Pulse O2 O2 Flow FiO2 Mean Ox Delivery Rate 04/19 0816 61 146/76 04/19 0815 61 146/76 04/19 0638 97.6 61 20 146/76 95 Nasal Cannula 04/19 0000 Nasal 3.5L Cannula 04/18 2148 70 178/72 04/18 2134 97.5 67 20 138/80 98 Nasal 3.0L Cannula 04/18 1515 97.3 57 18 120/70 94
[2017-04-19 14:10] VITALS: BP 152/78
--- NOTE | 2017-04-19 14:38 | PN- Infect Dx ---
Subjective Subjective: Afebrile without complaints Objective Last 24 Hrs of Vital Signs/I&O Vital Signs Date Time Temp Pulse Resp B/P B/P Pulse O2 O2 Flow FiO2 Mean Ox Delivery Rate 04/19 1410 98.6 63 20 152/78 93 Room Air 04/19 0816 61 146/76 04/19 0815 61 146/76 04/19 0800 98 Nasal 2.0L Cannula 04/19 0638 97.6 61 20 146/76 95 Nasal Cannula 04/19 0000 Nasal 3.5L Cannula 04/18 2148 70 178/72 04/18 2134 97.5 67 20 138/80 98 Nasal 3.0L Cannula 04/18 1515 97.3 57 18 120/70 94 Intake & Output 04/19 1600 04/19 0800 04/19 0000 Intake Total 1250 883 350 Output Total 680 300 100 Balance 570 583 250 Intake, IV 600 733 150 Intake, Oral 650 150 200 Number 1 Bowel Movements Output, 100 Drainage Output, Urine 680 300 Physical Exam Other Physical Findings: She appears comfortable in no acute distress Extremities bilateral lower extremity edema, left slightly greater than right, with erythematous patches above both ankles, nontender to palpation; left foot dressing intact, with wound VAC in place Results Last 24 Hours of Lab Results: Laboratory Tests 04/19 0700 Chemistry Sodium (137 - 145 mmol/L) 146 H Potassium (3.5 - 5.1 mmol/L) 4.7 Chloride (98 - 107 mmol/L) 108 H Carbon Dioxide (22 - 30 mmol/L) 27 Anion Gap (5 - 16) 11 BUN (7 - 17 mg/dL) 23 H Creatinine (0.5 - 1.0 mg/dL) 1.1 H Estimated GFR (>60 ml/min) 49 L BUN/Creatinine Ratio (7 - 25 %) 20.9 Coagulation APTT (25 - 37 SEC) 65 H Hematology CBC w Diff NO MAN DIFF REQ WBC (4.8 - 10.8 /CUMM) 11.3 H RBC (4.20 - 5.40 /CUMM) 3.25 L Hgb (12.0 - 16.0 G/DL) 9.2 L Hct (37 - 47 %) 28.8 L MCV (81.0 - 99.0 FL) 88.5 MCH (27.0 - 31.0 PG) 28.4 MCHC (33.0 - 37.0 G/DL) 32.1 L RDW (11.5 - 14.5 %) 16.6 H Plt Count (130 - 400 /CUMM) 336 MPV (7.4 - 10.4 FL) 8.1 Gran % (42.2 - 75.2 %) 78.4 H Lymphocytes % (20.5 - 51.1 %) 12.4 L Monocytes % (1.7 - 9.3 %) 6.9 Eosinophils % (0 - 5 %) 1.9 Basophils % (0.0 - 2.0 %) 0.4 Absolute Granulocytes (1.4 - 6.5 /CUMM) 8.9 H Absolute Lymphocytes (1.2 - 3.4 /CUMM) 1.4 Absolute Monocytes (0.10 - 0.60 /CUMM) 0.8 H Absolute Eosinophils (0.0 - 0.7 /CUMM) 0.2 Absolute Basophils (0.0 - 0.2 /CUMM) 0 Last 24 Hours of Ammon Results: No new cultures Assessment/Plan Impression: Stable, status post (redo) angioplasty of the left popliteal artery yesterday, with temperatures remaining normal and with her white blood cell count decreasing to nearly normal today. She remains on Meropenem Day 6 for Pseudomonas isolated from the left heel bone culture (after 6 days of Unasyn for a left leg cellulitis), status post debridement of necrotic/infected bone from the left calcaneus 6 days ago. Have discussed with Vascular surgery, who does not feel that the angioplasty will affect her overall perfusion to the left foot. The benefit of another course of antibiotics for osteomyelitis is not clear in this patient, as Podiatry is still recommending a left BKA, which she continues to refuse. Suggestion: 1. Repeat ESR 2. Discontinue Meropenem 3. Begin Ciprofloxacin 750 mg po every 12 hours to plan on a 4 week course of treatment
[2017-04-19 21:33] LABS: PTT 51 SEC (25-37)
[2017-04-19 22:28] VITALS: BP 150/90
[2017-04-20 05:42] LABS: PTT 115 SEC (25-37)
[2017-04-20 06:43] VITALS: BP 138/82
--- NOTE | 2017-04-20 07:13 | PN- Housestaff ---
Subjective Follow-up For: Left foot OM Complaints: no complaints Tele-Events Since Last Visit: Sinus rhythm, no overnight event otherwise. Subjective: I followed up and examined the patient today. She is resting comfortably in her recliner, does not offer any complaints. Her left foot has Wound VAC in place, and dressing is in situ. No fever or chills overnight, vital signs stable. No change since yesterday. Review of Systems Constitutional: Reports: no symptoms. Objective Last 24 Hrs of Vital Signs/I&O Vital Signs Date Time Temp Pulse Resp B/P B/P Pulse O2 O2 Flow FiO2 Mean Ox Delivery Rate 04/20 1508 99.1 62 18 150/80 94 Room Air 04/20 0858 62 138/82 04/20 0858 62 138/82 04/20 0800 94 Room Air 04/20 0643 98.5 76 18 138/82 94 Room Air 04/20 0000 Room Air Room Air 04/19 2228 98.4 67 18 150/90 93 Intake & Output 04/20 1600 04/20 0800 04/20 0000 Intake Total 1612 100 402 Output Total 300 1375 Balance 1612 -200 -973 Intake, IV 772 202 Intake, Oral 840 100 200 Number 1 1 Bowel Movements Output, Urine 300 1375 Physical Exam General Appearance: Alert, Oriented X3, Cooperative, No Acute Distress, morbidly obese Other Physical Findings: Skin: erythematous rashes over lower left leg (decreasing from the marked zone), left leg has dressing in situ- no discharge/drainage/soakage Cardiovascular: Regular Rate, Normal S1, Normal S2, No Murmurs Lungs: Clear to Auscultation, Normal Air Movement Abdomen: Normal Bowel Sounds, Soft, No Tenderness Neuro: grossly intact Current Medications: Current Medications Sig/Vandana Start time Last Medication Dose Route Stop Time Status Admin Acetaminophen 650 MG Q6P PRN 04/07 2130 AC PO Acetaminophen/ 1 TAB Q4P PRN 04/17 0845 AC 04/19 Codeine Phosphate PO 220 Alprazolam 0.5 MG AT BEDTIME NEED.. 04/17 0845 AC 04/19 PO 04/24 0844 2206 Apixaban 5 MG BID 04/20 1130 AC 04/20 PO 1229 Ascorbic Acid 1,000 MG DAILY 04/08 1000 AC 04/20 PO 0858 Atorvastatin Calcium 40 MG DAILY@1700 04/07 1813 AC 04/19 PO 1605 Cetirizine HCl 10 MG DAILY 04/13 1000 AC 04/20 PO 0859 Cholecalciferol 1,000 IU DAILY 04/08 1000 AC 04/20 PO 0858 Ciprofloxacin 750 MG BID 04/19 2359 AC 04/20 PO 04/23 2358 1152 Ciprofloxacin 750 MG BID 04/19 2200 DC PO 04/23 2159 Docusate Sodium 100 MG DAILY 04/15 1251 AC 04/19 PO 0816 Gabapentin 1,200 MG Q8 04/07 1757 04/20 PO 1444 Heparin Sodium 4,356 UNIT BOLUS ONE 04/19 2250 DC 04/19 (Porcine) IV 04/19 225 2250 Heparin Sodium 5,000 UNIT .STK-MED ONE 04/19 2231 DC (Porcine) IV 04/19 2232 Heparin Sodium 25,000 UNIT Q24H 04/19 2045 MO 04/19 (Porcine) IV 2257 Sodium Chloride 500 ML Heparin Sodium/ 25,000 UNIT Q24H 04/18 2100 MO 04/19 Dextrose IV 0115 Dextrose/Water 500 ML Insulin Aspart 0 TIDAC/HS 04/18 2100 04/20 NV 1152 Insulin Detemir 20 UNITS AT BEDTIME 04/07 2200 04/19 NV 2158 Lactobacillus 1 CAP BID 04/08 1107 AC 04/20 Acidophilus PO 0858 Levothyroxine Sodium 0.05 MG DAILY AC 04/07 1635 AC 04/20 PO 0510 Losartan Potassium 25 MG DAILY 04/09 1151 AC 04/20 PO 0858 Magnesium Oxide 400 MG DAILY 04/08 1000 AC 04/20 PO 0858 Meropenem 1 GM IQ8 04/13 1600 DC 04/19 IV 1605 Metoprolol Tartrate 50 MG BID 04/07 2330 AC 04/20 PO 0858 Multivitamins 1 TAB DAILY 04/08 1000 AC 04/20 PO 0858 Omeprazole 40 MG DAILY AC 04/08 0700 AC 04/20 PO 0510 Polyethylene Glycol 17 GM DAILY 04/08 1000 AC 04/20 PO 0859 Senna/Docusate Sodium 1 TAB BID 04/15 1252 AC 04/19 PO 0815 Sodium Chloride 1,000 ML Q13H 04/15 2345 AC 04/20 IV 0355 Last 24 Hrs of Lab/Ammon Results Last 24 Hrs of Labs/Mics: Laboratory Tests 04/20/17 1632: ESR Westergren Pending 04/20/17 1245: APTT Cancelled 04/20/17 0440: APTT 115 *H 04/19/173: APTT 51 H Assessment/Plan Assessment: Patient is a 71-year-old noncompliant diabetic female with previous history of group G strep, MRSA osteomyelitis presented with sudden onset left leg erythema, fever, increased tiredness. Vital signs at admission are unremarkable, physical examination is significant for erythema extending from left heel till the left groin with swelling. Left lower extremity had an ulcer. Labs were significant for white count of 17.3, ESR 76, CRP 9, lactic acid 1.7. Arterial Doppler demonstrated mild peripheral vascular disease. MRI foot showed features suggestive of osteomyelitis. Patient was initially admitted to the general medical floor and was transferred to telemetry floor on 04/10/2017 for the management of following issues: Left lower extremity edema with swelling -cellulitis/osteomyelitis * Radiologically proven osteomyelitis, currently on Cipro per ID recs for Pseudomonas * Continue to elevate leg * Adequate pain management. * Patient underwent angiogram of left lower extremity and left popliteal artery angioplasty. Past surgery consulted, who suggested following up as an outpatient basis. * Podiatry suggested following up as an outpatient. * Until then, for 3 weeks he has to be on oral Ciprofloxacin 750 MG twice a day. Paroxysmal atrial fibrillation Patient has paroxysmal atrial fibrillation, overnight was in sinus rhythm. Rate controlled. IV Heparin drip was stopped and long-term and accommodation was decided to be [facility]. She has been provided with 30 day coupon for [facility], and a 10 USD co-pay card as well. Uncontrolled diabetes mellitus * Patientis on diabetic diet, and Accu-Cheks, insulin 3 times a day /AC and at bedtime * following endo recs. * Sugar levels are better controlled now. * Patient provided with discharge recommendations on Humalog/NovoLog insulin, long-acting insulin. Proteinuria: Patient is having nephrotic range proteinuria as evident from the protein/ creatinine ratio, workup pending. -urine 24 hour protein-2362.5 -continue ARB -SPEP, C3-184, C4-48, high - HEP PANEL NEG History of hypothyroidism Continue levothyroxine 50 g daily History of hypertension Continue metoprolol tartrate 50 twice a day, and Losartan History of diabetic neuropathy Continue Neurontin 1200 mg 3 times a day History of ?allergy Continue cetrizine from home meds Constipation Patient is on MiraLAX, Colace, senna. DC recs: Home with health services. Left foot toe touch weightbearing status only per Podiatry (consulted over phone). DVT prophylaxis: IV heparin for a fib CODE STATUS: DNR/DNI Diet: Diabetic diet Problem List: 1. Osteomyelitis 2. Cellulitis Pain Ratin Pain Location: left foot Pain Goal: Pain 4 or less Pain Plan: prn Tomorrow's Labs & Rationales: -
[2017-04-20] MEDS ORDERED: CIPROFLOXACIN750 M1 PO ×2 (07:15→11:46)
--- NOTE | 2017-04-20 07:18 | Discharge Summary ---
Visit Information Visit Dates Admission Date: 04/07/17 Discharge Date: 04/20/17 Hospital Course Course Attending Physician: Luigi Mary MD Primary Care Physician: Tyra LAZARO,Luigi Hospital Course: Patient is a 71-year-old noncompliant diabetic female with previous history of group G strep and MRSA osteomyelitis presented with sudden onset left leg erythema, fever, increased tiredness. Vital signs at admission are unremarkable , physical examination is significant for erythema extending from left heel till the left groin with swelling. Left lower extremity had an ulcer. Labs were significant for white count of 17.3, ESR 76, CRP 9, lactic acid 1.7. Arterial Doppler demonstrated mild peripheral vascular disease. MRI foot showed features suggestive of osteomyelitis. Patient was initially admitted to the general medical floor and was transferred to telemetry floor on 04/10/2017 for the management of following issues: # Left lower extremity edema with swelling -cellulitis/osteomyelitis Radiologically proven osteomyelitis, debrided and a revision with WoundVAC placed. Patient was discharged to home with health services on PO Ciprofloxacin. Podiatry, vascular surgeon, and ID services were on board. She needs to continue antibiotics for next three weeks, have the wound checked and dressed three times a week (Sunday, Sunday, and Sunday), and keep the leg elevated as much as possible. # She also had cellulitis of the left leg (non-purulent) which was treated with IV Unasyn which was already improving at the time of her discharge. # She underwent angiogram of left lower extremity and left popliteal artery angioplasty. Past surgery consulted, who suggested following up as an outpatient basis. # Paroxysmal atrial fibrillation Patient has a history of paroxysmal atrial fibrillation and during this admission, she was noted to be on atrial flutter/fibrillation. She was then transferred to telemetry floor for rest of her stay and was found to be in sinus rhythm then onwards. Due to repeated episodes of paroxysmal atrial fibrillation, she was placed on anticoagulation after consulting cardiology. She was on IV heparin until the day of discharge which was then changed to oral anticoagulat. #Uncontrolled diabetes mellitus Her blood sugar levels were not under control, thus endocrinology service was consulted and recommendations followed. She was discharged on insulin novolog flexpen and long acting insulin. She has significant proteinuria as well. She is supposed to follow up with podiatry, wound care center, vascular surgeon, cardiology, endocrinology and her PCP after her discharge. At the time of her discharge, her vitals were stable and the woundVAC was in place over her left foot. She was in sinus rhythm in front desk monitor. Discharge recommendations: Home with health services. Left foot toe touch weightbearing status only per Podiatry. Allergies: Coded Allergies: enalapril (Intermediate, PERSITENT COUGH. 06/28/15) Disposition Summary Disposition Principal Diagnosis: Left foot osteomyelitis Additional Diagnosis: noncompliant diabetic female with previous history of group G strep and MRSA osteomyelitis Discharge Disposition: home health services Discharge Instructions General Discharge Information Code Status: Do Not Resucitate/Intubat Patient's Diet: Diabetic diet (CC1) Patient's Activity: Left foot toe touch only, as weight bearing status. WoundVAC is in place. Follow-Up Instructions/Appts: Please follow up with your PCP, Bombsight Specialist, and Vascular surgeon after your discharge. Medications at Discharge Discharge Medications: Stop taking the following medications: Metformin Hydochloride (Glucophage) 500 MG TABLET ORAL TWICE DAILY Insulin NPH Human Isophane (Humulin N Kwikpen) 100 UNIT/ML (3 ML) INSULN.PEN Inject into fatty tissue BEFORE MEALS AND AT BEDTIME Qty = 15 Nateglinide (Starlix) 120 MG TABLET ORAL DAILY Continue taking these medications: Atorvastatin Calcium (Lipitor) 40 MG TABLET 1 Tablet ORAL DAILY Comments: Last Taken: 04/20/17 Time: 5:30 PM Gabapentin (Gabapentin) 600 MG TABLET 2 Tablet ORAL THREE TIMES DAILY Comments: Last Taken: 04/20/17 Time: 2:00 PM Cetirizine HCl (Zyrtec) 10 MG TABLET 1 Tablet ORAL DAILY Comments: Last Taken: 04/20/17 Time: 8:15 AM Levothyroxine Sodium (Synthroid) 50 MCG TABLET 1 Tablet ORAL DAILY BEFORE BREAKFAST Comments: Last Taken: 04/20/17 Time: 5:10 AM Sennosides/Docusate Sodium (Senna S Tablet) 1 EACH TABLET 1 Tablet ORAL TWICE DAILY Qty = 30 Comments: Last Taken: 04/19/17 Time: 8:15 AM Multivitamin (Multivitamins) 1 EACH CAPSULE 1 Tablet ORAL DAILY Comments: Last Taken: 04/20/17 Time: 8:15 AM Metoprolol Tartrate (Metoprolol Tartrate) 50 MG TABLET 50 Milligram ORAL TWICE DAILY Qty = 60 Comments: Last Taken: 04/20/17 Time: 8:15 AM Omeprazole (Omeprazole) 20 MG CAPSULE.DR 40 Milligram ORAL DAILY BEFORE BREAKFAST Qty = 30 Comments: Last Taken: 04/20/17 Time: 5:10 AM Tylenol With Codeine (Tylenol With Codeine #3 Tablet) 300 MG-30 MG TABLET 1-2 Tablet ORAL EVERY 4-6 HOURS NEEDED as needed for pain control Qty = 30 Instructions: take as directed. do not combine with tylenol. Comments: Last Taken: 04/19/17 Time: 10:05 PM Polyethylene Glycol 3350 (Miralax) 17 GRAM POWD.PACK 1 Packet ORAL DAILY Instructions: dissolve in water Comments: Last Taken: 04/20/17 Time: 8:15 AM Alprazolam (Alprazolam) 0.5 MG TABLET 1 Tablet ORAL as needed for ANXIETY Qty = 20 Comments: Last Taken: 04/19/17 Time: 10:05 PM Insulin Detemir (Levemir Flextouch) 100 UNIT/ML (3 ML) INSULN.PEN 20 Unit Inject into fatty tissue TAKE AT BEDTIME Qty = 15 Comments: Last Taken: 04/19/17 Time: 10:00 PM Vitamin B Complex (Vitamin B Complex) 1 EACH CAPSULE 1 Capsule ORAL DAILY Comments: Last Taken: NOT GIVEN IN HOSPITAL Time: Cholecalciferol (Vitamin D3) (Vitamin D) (Unknown Strength) TABLET Unknown Dose ORAL DAILY Comments: Last Taken: 04/20/17 Time: 8:15 AM Ascorbic Acid (Vitamin C) 1,000 MG TABLET 1 Tablet ORAL DAILY Comments: Last Taken: 04/20/17 Time: 8:15 AM ZINC (ZINC) 50 MG TABLET 1 Tablet ORAL DAILY Comments: Last Taken: NOT GIVEN IN HOSPITAL Time: Magnesium Oxide (Magnesium) 500 MG CAPSULE 1 Capsule ORAL DAILY Comments: Last Taken: 04/20/17 Time: 8:15 AM Start taking the following new medications: Ciprofloxacin HCl (Ciprofloxacin HCl) 750 MG TABLET 1 Tablet ORAL TWICE DAILY Qty = 21 No Refills Instructions: . Comments: Last Taken: 04/20/17 Time: 12:00 PM Lactobac Cmb #3/Fos/Pantethine (Probiotic & Acidophilus Cap) 300MM-250 CAPSULE 1 Capsule ORAL TWICE DAILY Qty = 60 No Refills Instructions: . Comments: Last Taken: 04/20/17 Time: 8:15 AM Insulin Aspart, Recombinant (Novolog Flexpen) 100 UNIT/ML INSULN.PEN 0 Inject into fatty tissue SEE INSTRUCTIONS Qty = 4 No Refills Instructions: BEFORE MEALS. Blood Insulin Sugar Units <80 0 81-150 4 151-200 5 201-250 6 251-300 7 301-350 8 351-400 9 >400 GIVE 10 UNITS AND Call Doctor Comments: BEFORE MEALS Blood Insulin Sugar Units <80 0 81-150 4 151-200 5 201-250 6 251-300 7 301-350 8 351-400 9 >400 GIVE 10 UNITS AND Call Doctor Last Taken: 04/20/17 Time: 5:30 PM Apixaban (Eliquis) 5 MG TABLET 5 Milligram ORAL TWICE DAILY Qty = 60 Refills = 1 Comments: Last Taken: 04/20/17 Time: 12:30 PM Copies To: Bob Altamirano DPM; Luigi Mary MD; Kang Cain MD; Yuri LAZARO,Sarahi <80 0 81-150 4 151-200 5 201-250 6 251-300 7 301-350 8 351-400 9 >400 GIVE 10 UNITS AND Call Doctor Last Taken: 04/20/17 Time: 5:30 PM Apixaban (Eliquis) 5 MG TABLET 5 Milligram ORAL TWICE DAILY Qty = 60 Refills = 1 Comments: Last Taken: 04/20/17 Time: 12:30 PM Copies To: Bob Altamirano DPM; Luigi Mary MD; Kang Cain MD
--- NOTE | 2017-04-20 09:59 | PN- Diabetes ---
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 At home, she was on Levemir 20 units daily, metformin 500 mg twice a day, starlix on some occasions and Humulin NPH according to the scale. She is on Levemir 20 units daily, Novolog coverage before meals and Novolog coverage at bedtime. Her FSGs were 116, 146 and 160. Her FSGs were 110, 149, 153 and 128. Plan: continue the current insulin regimen for now; discharge plan for DM: ---Levemir 20 units daily; ---current Novolog or Humalog coverage before meals-- same scale as inpatient; ---no Novolog or Humalog coverage at bedtime; ---monitor FSGs x 4 times a day; ---f/u in office after discharge. ---I will send in Rx of Novolog pen or Humalog pen to her pharmacy electronically. Subjective Subjective: She feels well and she is going home today Objective Last 24 Hrs of Vital Signs/I&O Vital Signs Date Time Temp Pulse Resp B/P B/P Pulse O2 O2 Flow FiO2 Mean Ox Delivery Rate 04/20 0858 62 138/82 04/20 0858 62 138/82 04/20 0800 94 Room Air 04/20 0643 98.5 76 18 138/82 94 Room Air 04/20 0000 Room Air Room Air 04/19 2228 98.4 67 18 150/90 93 04/19 1410 98.6 63 20 152/78 93 Room Air Intake & Output 04/20 1600 04/20 0800 04/20 0000 Intake Total 100 402 Output Total 300 1375 Balance -200 -973 Intake, IV 202 Intake, Oral 100 200 Number 1 Bowel Movements Output, Urine 300 1375 Findings Pertinent Lab/Ammon Results: Laboratory Tests 04/20 04/19 0440 2043 Coagulation APTT (25 - 37 SEC) 115 *H 51 H
--- NOTE | 2017-04-20 11:06 | PN- Att Addend ---
Attending Addendum Attending Brief Note Patient was admitted with cellulitis and her chronic open area in the foot. The cellulitis has improved. Patient has a VAC to the wound. He should also have vascular intervention and had the leg with vascularized. Physical therapy so the patient today, patient can put a little pressure on that foot. Will be going home with home care visiting nurses to follow with the wound center for her back she would be on 3 weeks antibiotic therapy by mouth patient to follow with the wound center, vascular, endocrine, podiatry and myself prescriptions were called into the pharmacy see the CMR and W 10 Intake & Output 04/20 1600 04/20 0400 04/19 1600 04/19 0400 04/18 1600 04/18 0400 Intake Total 019 435 3667 350 2090 556 Output Total 300 1375 108 055 4537 600 Balance -200 -973 5974 220 7664 -44 Intake, IV 202 1777 291 4381 436 Intake, Oral 100 200 800 200 470 120 Number 1 1 1 1 Bowel Movements Output, 100 Drainage Output, Urine 300 6050 467 1497 600 Current Medications Sig/Vandana Start time Last Medication Dose Route Stop Time Status Admin Acetaminophen 650 MG Q6P PRN 04/07 2130 AC PO Acetaminophen/ 1 TAB Q4P PRN 04/17 0845 AC 04/19 Codeine Phosphate PO 2206 Alprazolam 0.5 MG AT BEDTIME NEED.. 04/17 0845 AC 04/19 PO 04/24 0844 2206 Ascorbic Acid 1,000 MG DAILY 04/08 1000 AC 04/20 PO 0858 Atorvastatin Calcium 40 MG DAILY@1700 04/07 1813 AC 04/19 PO 1605 Cetirizine HCl 10 MG DAILY 04/13 1000 AC 04/20 PO 0859 Cholecalciferol 1,000 IU DAILY 04/08 1000 AC 04/20 PO 0858 Ciprofloxacin 750 MG BID 04/19 2359 AC 04/20 PO 04/23 2358 0248 Ciprofloxacin 750 MG BID 04/19 2200 DC PO 04/23 2159 Docusate Sodium 100 MG DAILY 04/15 1251 AC 04/19 PO 0816 Gabapentin 1,200 MG Q8 04/07 1757 AC 04/20 PO 0510 Heparin Sodium 4,356 UNIT BOLUS ONE 04/19 225 DC 04/19 (Porcine) IV 04/19 2250 225 Heparin Sodium 5,000 UNIT .STK-MED ONE 02/01 2231 DC (Porcine) IV 04/19 2232 Heparin Sodium 25,000 UNIT Q24H 04/19 2045 04/19 (Porcine) IV 2257 Sodium Chloride 500 ML Heparin Sodium/ 25,000 UNIT Q24H 04/18 2100 DC 04/19 Dextrose IV 0115 Dextrose/Water 500 ML Insulin Aspart 0 TIDAC/HS 04/18 2100 AC 04/20 SC 0816 Insulin Detemir 20 UNITS AT BEDTIME 04/07 2200 04/19 SC 2158 Lactobacillus 1 CAP BID 04/08 1107 AC 04/20 Acidophilus PO 0858 Levothyroxine Sodium 0.05 MG DAILY AC 04/07 1635 AC 04/20 PO 0510 Losartan Potassium 25 MG DAILY 04/09 1151 AC 04/20 PO 0858 Magnesium Oxide 400 MG DAILY 04/08 1000 AC 04/20 PO 0858 Meropenem 1 GM IQ8 04/13 1600 DC 04/19 IV 1605 Metoprolol Tartrate 50 MG BID 04/07 2330 AC 04/20 PO 0858 Multivitamins 1 TAB DAILY 04/08 1000 AC 04/20 PO 0858 Nystatin 1 AURELIA BID 04/15 1547 DC 04/19 TOP 0816 Omeprazole 40 MG DAILY AC 04/08 0700 AC 04/20 PO 0510 Polyethylene Glycol 17 GM DAILY 04/08 1000 AC 04/20 PO 0859 Senna/Docusate Sodium 1 TAB BID 04/15 1252 AC 04/19 PO 0815 Sodium Chloride 1,000 ML Q13H 04/15 2345 AC 04/20 IV 0355 Laboratory Tests 04/20/17 0440: APTT 115 *H 04/19/172042: APTT 51 H 04/19/17 0700: Anion Gap 11, Estimated GFR 49 L, BUN/Creatinine Ratio 20.9, APTT 65 H, CBC w Diff NO MAN DIFF REQ, RBC 3.25 L, MCV 88.5, MCH 28.4, MCHC 32.1 L, RDW 16.6 H , MPV 8.1, Gran % 78.4 H, Lymphocytes % 12.4 L, Monocytes % 6.9, Eosinophils % 1.9, Basophils % 0.4, Absolute Granulocytes 8.9 H, Absolute Lymphocytes 1.4, Absolute Monocytes 0.8 H, Absolute Eosinophils 0.2, Absolute Basophils 0 04/18/17 1000: Anion Gap 13, Estimated GFR 49 L, BUN/Creatinine Ratio 22.7, APTT 66 H 04/18/17 0700: Anion Gap 16, Estimated GFR > 60, BUN/Creatinine Ratio 30.0 H, CBC w Diff NO MAN DIFF REQ, RBC 3.49 L, MCV 88.1, MCH 28.7, MCHC 32.5 L, RDW 16.4 H, MPV 8.2, Gran % 75.4 H, Lymphocytes % 15.3 L, Monocytes % 6.4, Eosinophils % 2.3, Basophils % 0.6, Absolute Granulocytes 10.0 H, Absolute Lymphocytes 2.0, Absolute Monocytes 0.9 H, Absolute Eosinophils 0.3, Absolute Basophils 0.1 04/17/17 2214: APTT 86 H Vital Signs Date Time Temp Pulse Resp B/P B/P Pulse O2 O2 Flow FiO2 Mean Ox Delivery Rate 04/20 0858 62 138/82 04/20 0858 62 138/82 04/20 0800 94 Room Air 04/20 0643 98.5 76 18 138/82 94 Room Air 04/20 0000 Room Air Room Air 04/19 2228 98.4 67 18 150/90 93 04/19 1410 98.6 63 20 152/78 93 Room Air
[2017-04-20] MEDS ORDERED: PROBIOTIC & AC1 EACH PO ×2 (11:30→11:46)
[2017-04-20] MEDS ORDERED: ELIQUIS5 M1 PO (11:45)
--- NOTE | 2017-04-20 14:35 | PN- Cardiology ---
Subjective Subjective: Stable and remains in NSR. PRobable discharge today. Objective Vital Signs and I&Os Vital Signs Date Time Temp Pulse Resp B/P B/P Pulse O2 O2 Flow FiO2 Mean Ox Delivery Rate 04/20 0858 62 138/82 04/20 0858 62 138/82 04/20 0800 94 Room Air 04/20 0643 98.5 76 18 138/82 94 Room Air 04/20 0000 Room Air Room Air 04/19 2228 98.4 67 18 150/90 93 Intake & Output 04/20 1600 04/20 0804/20 0000 04/19 1600 04/19 0804/19 0000 Intake Total 849 612 9131 883 350 Output Total 300 1375 680 300 100 Balance -200 -973 570 583 250 Intake, IV 202 600 733 150 Intake, Oral 100 200 650 150 200 Number 1 1 Bowel Movements Output, 100 Drainage Output, Urine 300 1375 680 300 Current Medications: Current Medications Sig/Vandana Start time Last Medication Dose Route Stop Time Status Admin Acetaminophen 650 MG Q6P PRN 04/07 2130 AC PO Acetaminophen/ 1 TAB Q4P PRN 04/17 0845 AC 04/19 Codeine Phosphate PO 2206 Alprazolam 0.5 MG AT BEDTIME NEED.. 04/17 0845 AC 04/19 PO 04/24 0844 2206 Apixaban 5 MG BID 04/20 1130 AC 04/20 PO 1229 Ascorbic Acid 1,000 MG DAILY 04/08 1000 AC 04/20 PO 0858 Atorvastatin Calcium 40 MG DAILY@1700 04/07 1813 AC 04/19 PO 1605 Cetirizine HCl 10 MG DAILY 04/13 1000 AC 04/20 PO 0859 Cholecalciferol 1,000 IU DAILY 04/08 1000 AC 04/20 PO 0858 Ciprofloxacin 750 MG BID 04/19 2359 AC 04/20 PO 04/23 2358 1152 Ciprofloxacin 750 MG BID 04/19 2200 DC PO 04/23 2159 Docusate Sodium 100 MG DAILY 04/15 1251 AC 04/19 PO 0816 Gabapentin 1,200 MG Q8 04/07 1757 AC 04/20 PO 0510 Heparin Sodium 4,356 UNIT BOLUS ONE 04/19 225 DC 04/19 (Porcine) IV 04/19 2250 225 Heparin Sodium 5,000 UNIT .STK-MED ONE 04/19 2230 DC (Porcine) IV 02/01 2232 Heparin Sodium 25,000 UNIT Q24H 04/19 2045 DC 04/19 (Porcine) IV 2257 Sodium Chloride 500 ML Heparin Sodium/ 25,000 UNIT Q24H 04/18 2100 DC 04/19 Dextrose IV 0115 Dextrose/Water 500 ML Insulin Aspart 0 TIDAC/HS 04/18 2100 AC 04/20 SC 1152 Insulin Detemir 20 UNITS AT BEDTIME 04/07 2200 AC 04/19 SC 2158 Lactobacillus 1 CAP BID 04/08 1107 AC 04/20 Acidophilus PO 0858 Levothyroxine Sodium 0.05 MG DAILY AC 04/07 1635 AC 04/20 PO 0510 Losartan Potassium 25 MG DAILY 04/09 1151 AC 04/20 PO 0858 Magnesium Oxide 400 MG DAILY 04/08 1000 AC 04/20 PO 0858 Meropenem 1 GM IQ8 04/13 1600 DC 04/19 IV 1605 Metoprolol Tartrate 50 MG BID 04/07 2330 AC 04/20 PO 0858 Multivitamins 1 TAB DAILY 04/08 1000 AC 04/20 PO 0858 Nystatin 1 AURELIA BID 04/15 1547 DC 04/19 TOP 0816 Omeprazole 40 MG DAILY AC 04/08 0700 AC 04/20 PO 0510 Polyethylene Glycol 17 GM DAILY 04/08 1000 AC 04/20 PO 0859 Senna/Docusate Sodium 1 TAB BID 04/15 1252 AC 04/19 PO 0815 Sodium Chloride 1,000 ML Q13H 04/15 2345 AC 04/20 IV 0355 Results Last 48 Hrs of Labs/Mics: Laboratory Tests 04/20/17 1245: APTT Cancelled 04/20/17 0440: APTT 115 *H 04/19/173: APTT 51 H 04/19/17 0700: Anion Gap 11, Estimated GFR 49 L, BUN/Creatinine Ratio 20.9, APTT 65 H, CBC w Diff NO MAN DIFF REQ, RBC 3.25 L, MCV 88.5, MCH 28.4, MCHC 32.1 L, RDW 16.6 H , MPV 8.1, Gran % 78.4 H, Lymphocytes % 12.4 L, Monocytes % 6.9, Eosinophils % 1.9, Basophils % 0.4, Absolute Granulocytes 8.9 H, Absolute Lymphocytes 1.4, Absolute Monocytes 0.8 H, Absolute Eosinophils 0.2, Absolute Basophils 0 Assessment/Plan Assessment/Plan Assessment: 1. Paroxysmal atrial fibrillation 2. Hypertension 3. Osteomyelitis/lower extremity cellulitis 4. 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 * Continue current dose of metoprolol. If atrial fibrillation with rapid ventricular rate develops, then the metoprolol dose may be increased. * The patient will need to follow-up with me 4 weeks post discharge. Continue telemetry? No
[2017-04-20 15:08] VITALS: BP 150/80
[2017-04-20] MEDS ORDERED: NOVOLOG FL100 UNIT/1 SC ×2 (16:13→17:13)
== END 2017-04-20 18:50 | disposition home health service (06) | DRG 253 ==
LOC: ERH 11:26 → ERHI 15:11 → 2NB 15:11 → 1NO 15:11 → ENRESERV 16:08 → EDBEDREQ 16:13 → ENTRNSPT 16:39 → EDTRNSPT 16:42 → EDTRNSPTSTS 16:42 → 2NB 16:50 → CMPTRNSPT 17:08 → ENTRNSPT 04-10 11:56 → EDTRNSPTSTS 04-10 12:06 → EDTRNSPT 04-10 12:06 → 1NO 04-10 12:11 → CMPTRNSPT 04-10 12:29 → ENTRNSPT 04-11 18:29 → EDTRNSPT 04-11 19:03 → CMPTRNSPT 04-11 20:00 → 1NO 04-12 12:28 → ENPENDDIS 04-20 15:33 → 1NO 04-20 18:50
PROVIDERS: Dermatology; Internal Medicine; Physician Assistant Medical; Student in an Organized Health Care Education/Training Program
PROC: 0QBM0ZX Excision of Left Tarsal, Open Approach, Diagnostic (ICD-10-PCS; 2017-04-11)
PROC: 0QBM0ZZ Excision of Left Tarsal, Open Approach (ICD-10-PCS; 2017-04-13)
PROC: 047N3ZZ Dilation of Left Popliteal Artery, Percutaneous Approach (ICD-10-PCS; principal; 2017-04-18)
PROC: 3E05317 Introduction of Other Thrombolytic into Peripheral Artery, Percutaneous Approach (ICD-10-PCS; 2017-04-18)
PROC: B41GYZZ Fluoroscopy of Left Lower Extremity Arteries using Other Contrast (ICD-10-PCS; 2017-04-18)
DX: E11.52 Type 2 diabetes mellitus with diabetic peripheral angiopathy with gangrene (principal); I96 Gangrene, not elsewhere classified; E11.21 Type 2 diabetes mellitus with diabetic nephropathy; I13.0 Hypertensive heart and chronic kidney disease with heart failure and stage 1 through stage 4 chronic kidney disease, or unspecified chronic kidney disease; E11.42 Type 2 diabetes mellitus with diabetic polyneuropathy; L03.116 Cellulitis of left lower limb; E66.01 Morbid (severe) obesity due to excess calories; I50.22 Chronic systolic (congestive) heart failure; M86.672 Other chronic osteomyelitis, left ankle and foot; Z68.41 Body mass index [BMI] 40.0-44.9, adult; L97.424 Non-pressure chronic ulcer of left heel and midfoot with necrosis of bone; E11.69 Type 2 diabetes mellitus with other specified complication; E11.621 Type 2 diabetes mellitus with foot ulcer; E11.65 Type 2 diabetes mellitus with hyperglycemia; I48.0 Paroxysmal atrial fibrillation; N18.9 Chronic kidney disease, unspecified; B96.5 Pseudomonas (aeruginosa) (mallei) (pseudomallei) as the cause of diseases classified elsewhere; R80.9 Proteinuria, unspecified; H91.90 Unspecified hearing loss, unspecified ear; E78.5 Hyperlipidemia, unspecified; R32 Unspecified urinary incontinence; G89.29 Other chronic pain; M54.9 Dorsalgia, unspecified; E03.9 Hypothyroidism, unspecified; K21.9 Gastro-esophageal reflux disease without esophagitis; I34.0 Nonrheumatic mitral (valve) insufficiency
CPT/HCPCS: 1NP; 2NBP; 75657; 86160; 87070; 87075; 36415; 71045; 73552; 73630-LT; 76775; 81001; 82436; 82570; 84165; 87040; 93005; 93010; 93306; 96374; 97110-GO; 97116-GO; 97161-GP; C1725; C1760; C9399; J1644; J1815; J2001; J2185; J7060; Q9967

== ENCOUNTER 2017-05-30 11:43 | Inpatient (IN) | payer OTHER ==
[~2017-05-30] VITALS: Ht 157.5 cm; Wt 54.0 kg
[~2017-05-30 11:43] MED LIST changes: +ALPRAZOLAM0.5 M4 PO; +CIPROFLOXACIN500 M2 PO; +CIPROFLOXACIN750 M1 PO; +ELIQUIS5 M1 PO; +HUMULIN N100 UNIT/2 SC; +LEVEMIR FL100 UNIT/1 SC; +MAGNESIUM500 M2 PO; +NOVOLOG FL100 UNIT/1 SC; +PROBIOTIC & AC1 EACH PO; +STARLIX120 M1 PO; +VITAMIN B COMP1 EACH PO; +VITAMIN C1000 M4 PO; +VITAMIN D1000 UNIT PO; +ZINC50 M2 PO
--- NOTE | 2017-05-30 14:30 | RADIOLOGY REPORT ---
EXAMINATION: XR CHEST CLINICAL INFORMATION: Fever. COMPARISON: CXR from 07/17/2016 and 04/09/2017 TECHNIQUE: 2 views of the chest were obtained. FINDINGS: Lungs are symmetrically expanded and clear. No edema, consolidation or pleural effusion. Mild cardiomegaly. Stable prominence of hilar vessels. Diffuse idiopathic skeletal hyperostosis as manifest by flowing anterior ligament ossification of the thoracic spine. Old vertebral compression fracture within the upper thoracic spine. IMPRESSION: 1. No evidence of pneumonia. 2. Cardiomegaly and stable prominence of hilar vessels compared to 04/09/2017.
[2017-05-30 14:36] LABS: ABSOLUTE BASOPHIL COUNT 0 /CUMM (0.0-0.2); ABSOLUTE EOSINOPHIL COUNT 0 /CUMM (0.0-0.7); ABSOLUTE GRANULOCYTE CT 15.7 /CUMM (1.4-6.5); ABSOLUTE MONOCYTE COUNT 0.5 /CUMM (0.10-0.60); BASOPHIL % 0.1 % (0.0-2.0); EOSINOPHIL % 0 % (0-5); GRANULOCYTE % 91.4 % (42.2-75.2); HEMATOCRIT 37.8 % (37-47); MEAN CORPUSCULAR HGB 27.6 PG (27.0-31.0); MEAN CORPUSCULAR HGB CONC 32.8 G/DL (33.0-37.0); MEAN PLATELET VOLUME 8.3 FL (7.4-10.4); PLATELET COUNT 297 /CUMM (130-400); RBC DISTRIBUTION WIDTH 16.1 % (11.5-14.5); RED BLOOD CELL CT 4.49 /CUMM (4.20-5.40); WHITE BLOOD CELL COUNT 17.2 /CUMM (4.8-10.8)
--- NOTE | 2017-05-30 16:54 | ED ANKLE/FOOT INJURY COMPLAINT ---
History of Present Illness General Chief Complaint: General Adult Stated Complaint: FEVER AND CELLULITIS PER PT Source: patient Exam Limitations: no limitations Vital Signs & Intake/Output Vital Signs & Intake/Output Vital Signs Date Time Temp Pulse Resp B/P B/P Pulse O2 O2 Flow FiO2 Mean Ox Delivery Rate 05/30 2221 101.5 05/30 2121 101.5 81 20 139/63 94 Room Air 05/30 2105 100.3 05/30 2008 Room Air 05/30 1911 102.2 95 20 168/77 94 Room Air 05/30 1500 101.9 94 16 155/65 95 Room Air 05/30 1209 99.6 88 18 149/84 94 Room Air Allergies Coded Allergies: enalapril (Intermediate, PERSITENT COUGH. 06/28/15) Triage Note: PT TO ER FROM DR. BERNAL OFFICE FOR ADMISSION FOR LLE CELLULITIS. HX OF CHRONIC WOUNDS TO SITE, NOW DRAINING YELLOW. REDDNESS NOTED TO EXTREMITY. HX OF IDDM. TEMP 99.6 Triage Nurses Notes Reviewed? yes Duration: day(s):, constant, getting worse Timing: recent history Severity: moderate, severe Pain/Injury Location: Left: Foot, Ankle. No Modifying Factors: none HPI: 71-year-old female comes into emergency room with redness and swelling to the left lower leg. She has increased redness. She's been running fever chills at home. She has a history of osteomyelitis in that foot. She's been going to the wound care center and her symptoms got progressively worse . Last night she fell and was unable to get off the ground in the bathroom. She denies any pain anywhere else currently. Comes in for further evaluation. (Pj Santoyo) Reconcile Medications Alprazolam 0.5 MG TABLET 1 TAB PO PRN ANXIETY (Reported) Apixaban (Eliquis) 5 MG TABLET 5 MG PO BID ATRIAL FLUTTER Ascorbic Acid (Vitamin C) 1,000 MG TABLET 1 TAB PO DAILY SUPPLEMENT (Reported ) Atorvastatin Calcium (Lipitor) 40 MG TABLET 1 TAB PO DAILY CHOLESTEROL ( Reported) Cetirizine HCl (Zyrtec) 10 MG TABLET 1 TAB PO DAILY ALLERGIES (Reported) Cholecalciferol (Vitamin D3) (Vitamin D) (Unknown Strength) TABLET (Unknown Dose) PO DAILY SUPPLEMENT (Reported) Gabapentin 600 MG TABLET 2 TAB PO TID NEUROPATHY (Reported) Insulin Aspart, Recombinant (Novolog Flexpen) 100 UNIT/ML INSULN.PEN 0 SC SEE ADMIN CRITERIA DIABETES MELLITUS BEFORE MEALS. Blood Insulin Sugar Units <80 0 81-150 4 151-200 5 201-250 6 251-300 7 301-350 8 351-400 9 >400 GIVE 10 UNITS AND Call Doctor Insulin Detemir (Levemir Flextouch) 100 UNIT/ML (3 ML) INSULN.PEN 20 UNIT SC QHS DM (Reported) Lactobacillus Acidophilus (Probiotic) (Unknown Strength) CAPSULE (Unknown Dose ) PO DAILY PROBIOTIC (Reported) Levothyroxine Sodium (Synthroid) 50 MCG TABLET 1 TAB PO DAILY AC THYROID HEALTH (Reported) Magnesium Oxide (Magnesium) 500 MG CAPSULE 1 CAP PO DAILY SUPPLEMENT ( Reported) Metoprolol Tartrate 50 MG TABLET 50 MG PO BID afib Multivitamin (Multivitamins) 1 EACH CAPSULE 1 TAB PO DAILY SUPPLEMENT ( Reported) Omeprazole 20 MG CAPSULE.DR 40 MG PO DAILY AC GERD Polyethylene Glycol 3350 (Miralax) 17 GRAM POWD.PACK 1 PAC PO DAILY OPIOD CONSTIPATION (Reported) dissolve in water Sennosides/Docusate Sodium (Senna S Tablet) 8.6 MG-50 MG TABLET 1 TAB PO PRN CONSTIPATION (Reported) Tylenol With Codeine (Tylenol With Codeine #3 Tablet) 300 MG-30 MG TABLET 1-2 TAB PO Q4-6 PRN PRN pain control take as directed. do not combine with tylenol. Vitamin B Complex 1 EACH CAPSULE 1 CAP PO DAILY SUPPLEMENT (Reported) ZINC 50 MG TABLET 1 TAB PO DAILY SUPPLEMENT (Reported) (Hugh Cunha DO) Past History Travel History Traveled to [place] past 21 day No Medical History Any Pertinent Medical History? 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 Respiratory: NONE Gastrointestinal: constipation, SLOW PERISTALSIS Hepatic: cholecystitis Renal: chronic kidney disease, urinary incontinence Musculoskeletal: chronic back pain, decubitis ulcer, falls, osteoarthritis, spinal stenosis, OSTEOMYELITIS left heel Psychiatric: NONE Endocrine: diabetes, hypothyroidism, obesity Blood Disorders: NONE Cancer(s): NONE 911 TELECOMMUNICATOR/Reproductive: endometriosis Other Medical Hx: diabetic foot nonhealing ulcers History of MRSA: Yes History of VRE: No History of CDIFF: No Pneumonia Vaccine: 10/09/14 Influenza Vaccine: 02/16/17 Surgical History Surgical History: cholecystectomy, hernia repair-incisional, hip replacement ( right ), hysterectomy, 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 , Age 56; Cause: Acute leukemia. Leukemia BROTHER, ; Cause: Heart attack. FATHER (hx colon polyps). , Age 70; Cause: CHF (congestive heart failure ). Hx Contributory? No (Pj Santoyo) Review of Systems Review of Systems Constitutional: Reports: see HPI. EENTM: Reports: no symptoms. Respiratory: Reports: no symptoms. Cardiovascular: Reports: no symptoms. GI: Reports: no symptoms. Genitourinary: Reports: no symptoms. Musculoskeletal: Reports: no symptoms. Skin: Reports: see HPI. Neurological/Psychological: Reports: no symptoms. Hematologic/Endocrine: Reports: no symptoms. Immunologic/Allergic: Reports: no symptoms. All Other Systems: Reviewed and Negative (Pj Santoyo) Physical Exam Physical Exam General Appearance: well developed/nourished, mild distress Head: atraumatic Eyes: Bilateral: PERRL, EOMI. Ears, Nose, Throat: normal pharynx, normal ENT inspection, hearing grossly normal Neck: normal inspection, supple Cardiovascular/Respiratory: regular rate/rhythm Back: normal inspection Leg/Knee/Thigh Left: eRYTHEMA TO LEFT LOWER LEG, WARMTH, OPEN WOUND Foot Left: LARGE OPEN WOUND TO BASE OF LEFT HEEL, SOME DRAINAGE, ERYTHEMA, APPROXIMATELY 2-3 CM IN DIAMETER AND 2 CM AT LEAST DEEP Neuro/Vascular: normal motor function Psychiatric: awake, alert, oriented x 3 Skin: intact, normal color, warm/dry (Pj Santoyo) Progress Differential Diagnosis: DVT, arterial insufficiency, cellulitis, septic arthritis, gout, fracture, dislocation, sprain, contusion, OSTEOMYELITIS Plan of Care: Orders Procedure Date/time Status Consistent Carbohydrate 1 05/31 B Active Consistent Carbohydrate 2 05/30 D Complete Pathway - chart 05/30 1112 Active House Staff 05/30 223 Active Patient Data 05/30 2234 Active Code Status 05/30 2234 Active Patient Data 05/30 2049 Active ED Holding Orders 05/31 2039 Active Admit to inpatient 05/31 2039 Active Vital Signs 05/31 2039 Active Code Status 05/31 2039 Complete EKG 05/30 191 Active Add-on Test (ER Only) 05/30 191 Active Intake & Output 05/30 1756 Active WESTERGREN SED RATE 05/30 1654 Complete LACTIC ACID 05/30 1605 Complete CREATINE PHOSPHOKINASE 05/30 1428 Complete BLOOD CULTURE 05/30 1329 Active RAPID VIRAL INFLUENZA A 05/30 1305 Complete CULTURE,URINE 05/30 1305 Active BLOOD CULTURE 05/30 1305 Active URINALYSIS 05/30 1305 Complete LACTIC ACID 05/30 1305 Complete COMPREHENSIVE METABOLIC PANEL 05/30 1305 Complete CBC WITHOUT DIFFERENTIAL 05/30 1305 Complete VTE Mechanical Prophylaxis 05/30 UNK Active Current Medications Sig/Vandana Start time Last Medication Dose Stop Time Status Admin Ascorbic Acid 500 MG DAILY 05/31 1000 UNVr (Vitamin C) Atorvastatin Calcium 40 MG DAILY 05/31 1000 UNVr (Lipitor) Loratadine 10 MG DAILY 05/31 1000 UNVr (Claritin) Ampicillin Sodium/ 3,000 MG Q6 05/30 2359 AC Sulbactam Sodium (Unasyn) Sodium Chloride 100 ML (Normal Saline 0.9%) Alprazolam 0.5 MG AT BEDTIME NEED.. 05/30 2245 UNVr (Xanax) 06/06 224 Apixaban 5 MG BID 05/30 223 UNVr (Eliquis) Sodium Chloride 1,000 ML Q20H 05/30 2215 AC (Normal Saline 0.9%) 05/31 1814 Laboratory Tests 05/30/178: Urinalysis LIGHT H, Urine Color YEL, Urine Clarity CLEAR, Urine pH 6.0, Ur Specific [place] >= 1.030, Urine Protein >=300 H, Urine Ketones NEG, Urine Nitrite NEG, Urine Bilirubin NEG, Urine Urobilinogen 0.2, Ur Leukocyte Esterase NEG, Ur Microscopic SEDIMENT EXAMINED, Urine RBC 1-3, Urine WBC RARE, Ur Epithelial Cells RARE, Urine Bacteria FEW H, Urine Mucus RARE, Urine Hemoglobin MOD H, Urine Glucose NEG 05/30/17 1720: Lactic Acid 1.5, ESR Westergren 71 H 05/30/17 1428: Anion Gap 16, Estimated GFR 30 L, BUN/Creatinine Ratio 28.8 H, Glucose 202 H, Lactic Acid 1.4, Calcium 9.4, Total Bilirubin 0.6, AST 98 H, ALT 35, Alkaline Phosphatase 152 H, Creatine Kinase 2648 H, Total Protein 7.4, Albumin 3.7, Globulin 3.7, Albumin/Globulin Ratio 1.0 L, CBC w Diff MAN DIFF ORDERED, RBC 4.49, MCV 84.0, MCH 27.6, MCHC 32.8 L, RDW 16.1 H, MPV 8.3, Gran % 91.4 H, Lymphocytes % 5.7 L, Monocytes % 2.8, Eosinophils % 0, Basophils % 0.1, Absolute Granulocytes 15.7 H, Segmented Neutrophils 80 H, Band Neutrophils 9 H, Absolute Lymphocytes 1.0 L, Lymphocytes 6 L, Monocytes 5, Absolute Monocytes 0.5, Absolute Eosinophils 0, Absolute Basophils 0, Platelet Estimate VERIFIED BY SMEAR, Normocytic RBCs VERIFIED, Normochromic RBCs VERIFIED Microbiology 05/30 1957 URINE ROUT: Urine Culture - RECD 05/30 172 NASOPHARYN: Influenza Virus A & B Rapid Smear - COMP 05/30 1720 BLOOD: Blood Culture - RECD 05/30 1654 BLOOD: Blood Culture - CAN Cancelled: Cancelled via OE: Per MD Decision 05/30 1654 BLOOD: Blood Culture - CAN Cancelled: Cancelled via OE: Per MD Decision 05/30 1428 BLOOD: Blood Culture - RECD 05/30 1305 BLOOD: Blood Culture - CAN Cancelled: Cancelled via OE: Per MD Decision Diagnostic Imaging: Viewed by Me: Radiology Read. Discussed w/RAD: Radiology Read. Radiology Impression: PATIENT: PHANI MESSINA PRESENT AGE: 71 PATIENT ACCOUNT NO: [id number] : 47 LOCATION: [facility] ORDERING PHYSICIAN: Chang Alvarez MD SERVICE DATE: 05/30/171305 EXAM TYPE: RAD - XRY-CHEST XRAY, TWO VIEWS EXAMINATION: XR CHEST CLINICAL INFORMATION : Fever. COMPARISON: CXR from 07/17/2016 and 04/09/2017 TECHNIQUE: 2 views of the chest were obtained. FINDINGS: Lungs are symmetrically expanded and clear. No edema, consolidation or pleural effusion. Mild cardiomegaly. Stable prominence of hilar vessels. Diffuse idiopathic skeletal hyperostosis as manifest by flowing anterior ligament ossification of the thoracic spine. Old vertebral compression fracture within the upper thoracic spine. IMPRESSION: 1. No evidence of pneumonia. 2. Cardiomegaly and stable prominence of hilar vessels compared to 04/09/2017. DICTATED BY: Philip Moore MD DATE/TIME DICTATED:05/30 GAME AGENT:YESSENIA DATE/TIME TRANSCRIBED:05/30/171344 CONFIDENTIAL, DO NOT COPY WITHOUT APPROPRIATE AUTHORIZATION. <Electronically signed in Other Vendor System> SIGNED BY: Philip Moore MD 05/30/17 1430 (Pj Santoyo) Departure Departure Disposition: STILL A PATIENT Condition: Stable Clinical Impression Primary Impression: Osteomyelitis of left foot Secondary Impressions: Cellulitis of left lower extremity, Rhabdomyolysis Referrals: Luigi Mary MD (PCP/Family) Departure Forms: Customer Survey General Discharge Information Admission Note Spoke With: Luigi Mary MD Documentation of Exam: Documentation of any treatments & extenuating circumstances including Concerns Regarding Discharge (functional status, medication knowledge or non-compliance, living conditions, etc.) that warrant an admission rather than observation: Patient will require IV antibiotics. IV fluids. Spoke with Dr. Altamirano. Patient will require surgery. High risk. Medically not safe for discharge. Febrile. Elevated white blood cell count. (Pj Santoyo) PA/DRUPAL DEVELOPER Co-Sign Statement Statement: ED Attending supervision documentation- [x] I saw and evaluated the patient. I have also reviewed all the pertinent lab results and diagnostic results. I agree with the findings and the plan of care as documented in the PA's/DRUPAL DEVELOPER's documentation. [] I have reviewed the ED Record and agree with the PA's/DRUPAL DEVELOPER's documentation. [] Additions or exceptions (if any) to the PAs/DRUPAL DEVELOPER's note and plan are summarized below: [] Hugh Farias DO
--- NOTE | 2017-05-30 18:45 | RADIOLOGY REPORT ---
3 VIEWS OF THE LEFT TIBIA/FIBULA AND 3 VIEWS OF THE LEFT FOOT CLINICAL INFORMATION: Open wound. COMPARISON: Left foot radiographs 06/12/2016. Left foot MRI 04/09/2017 FINDINGS: Left tibia/fibula: No acute fractures. Chronic well-corticated ossific fragment distal to the fibular tip. No bony erosions. There is soft tissue swelling. Arterial atherosclerotic calcification. Left foot: No acute fractures. There is progressed erosion along the plantar and dorsal aspect of the calcaneus in comparison to the previous foot radiographs. There are also erosions along the posterior aspect of the talus that are new in comparison to the prior study. There is also a large soft tissue defect along the plantar aspect of the foot at the level of the calcaneus with an associated retained surgical staple within the soft tissues in this area. No additional bone erosions. Arterial atherosclerotic calcification. IMPRESSION: Progressive erosion along the posterior and plantar surface of the calcaneus and along the posterior aspect of the talus, highly concerning for the sequela of osteomyelitis. Chronicity of these findings is indeterminate and can be correlated with nuclear medicine imaging if indicated. Progressive large soft tissue defect along the plantar aspect of the foot at the level of the calcaneus with a stable appearing retained surgical staple within these soft tissues. Extensive arterial atherosclerotic calcification
--- NOTE | 2017-05-30 20:51 | Admission Certification ---
Admission Certification Certification Statement - As attending physician, I certify that at the time of - admission, based on clinical presentation, severity of - symptoms, need for further diagnostic testing and - therapeutic interventions, and risk of adverse outcomes - without in-hospital treatment, in my clinical assessment, - this patient requires an acute hospital stay for a minimum - of two nights or longer. I have also considered psychsocial - factors such as support system, advanced age, financial - issues, cognitive issues, and failed out-patient treatments, - past re-admission history, safety of patient, and lack of - compliance as applicable. Specific rationale supporting this admission is: Fever, leukocytosis recurrent foot infection possible rhabdo with mild acute kidney insufficiency
--- NOTE | 2017-05-30 20:59 | PN- Att Addend ---
Attending Addendum Attending Brief Note 71-year-old white female with many comorbidities still dealing with infection in the foot history of chronic osteomyelitis in a patient with diabetes. Saw the bark scaler today for last 2 or 3 days again the visiting nurse noticed some yellow secretions out of the wound. General Foundry Worker sent the patient to the emergency room for evaluation in the emergency room her temperature was first 99.6 then went up to 102.2 her white count was 17,208 BUN 49 creatinine 1.7, glucose 202, CK 2648. Patient will be admitted or cultures were obtained was given a dose of Unasyn in the ER. Will keep nothing by mouth after midnight in case podiatry want to do some debridement in the morning also will get infectious diseases input, Gary Blanca MDa patient from previous admission when monitor her CPK did some gentle hydration follow-up kidney function closely Laboratory Tests 05/30 172 Chemistry Lactic Acid (0.7 - 2.1 mmol/L) 1.5 Hematology ESR Westergren (0 - 20 MM) 71 H Urines Urinalysis LIGHT H Urine Color (YEL,AMB,STR) YEL Urine Clarity (CLEAR) CLEAR Urine pH (5.0 - 8.0) 6.0 Ur Specific [place] (1.001 - 1.035) >= 1.030 Urine Protein (NEG,<30 MG/DL) >=300 H Urine Ketones (NEG) NEG Urine Nitrite (NEG) NEG Urine Bilirubin (NEG) NEG Urine Urobilinogen (0.1 - 1.0 EU/dl) 0.2 Ur Leukocyte Esterase (NEG) NEG Ur Microscopic SEDIMENT EXAMINED Urine RBC (0 - 5 /HPF) 1-3 Urine WBC (0 - 2 /HPF) RARE Ur Epithelial Cells (NONE,FEW) RARE Urine Bacteria (NEG/NONE) FEW H Urine Mucus (FEW,NONE) RARE Urine Hemoglobin (NEG) MOD H Urine Glucose (N MG/DL) NEG 05/30 1428 Chemistry Sodium (137 - 145 mmol/L) 139 Potassium (3.5 - 5.1 mmol/L) 4.1 Chloride (98 - 107 mmol/L) 98 Carbon Dioxide (22 - 30 mmol/L) 25 Anion Gap (5 - 16) 16 BUN (7 - 17 mg/dL) 49 H Creatinine (0.5 - 1.0 mg/dL) 1.7 H Estimated GFR (>60 ml/min) 30 L BUN/Creatinine Ratio (7 - 25 %) 28.8 H Glucose (65 - 99 mg/dL) 202 H Lactic Acid (0.7 - 2.1 mmol/L) 1.4 Calcium (8.4 - 10.2 mg/dL) 9.4 Total Bilirubin (0.2 - 1.3 mg/dL) 0.6 AST (14 - 36 U/L) 98 H ALT (9 - 52 U/L) 35 Alkaline Phosphatase (<127 U/L) 152 H Creatine Kinase (30 - 135 U/L) 2648 H Total Protein (6.3 - 8.2 g/dL) 7.4 Albumin (3.5 - 5.0 g/dL) 3.7 Globulin (1.9 - 4.2 gm/dL) 3.7 Albumin/Globulin Ratio (1.1 - 2.2 %) 1.0 L Hematology CBC w Diff MAN DIFF ORDERED WBC (4.8 - 10.8 /CUMM) 17.2 H RBC (4.20 - 5.40 /CUMM) 4.49 Hgb (12.0 - 16.0 G/DL) 12.4 Hct (37 - 47 %) 37.8 MCV (81.0 - 99.0 FL) 84.0 MCH (27.0 - 31.0 PG) 27.6 MCHC (33.0 - 37.0 G/DL) 32.8 L RDW (11.5 - 14.5 %) 16.1 H Plt Count (130 - 400 /CUMM) 297 MPV (7.4 - 10.4 FL) 8.3 Gran % (42.2 - 75.2 %) 91.4 H Lymphocytes % (20.5 - 51.1 %) 5.7 L Monocytes % (1.7 - 9.3 %) 2.8 Eosinophils % (0 - 5 %) 0 Basophils % (0.0 - 2.0 %) 0.1 Absolute Granulocytes (1.4 - 6.5 /CUMM) 15.7 H Segmented Neutrophils (42.2 - 75.2 %) 80 H Band Neutrophils (0.0 - 5.0 %) 9 H Absolute Lymphocytes (1.2 - 3.4 /CUMM) 1.0 L Lymphocytes (20.5 - 51.1 %) 6 L Monocytes (1.7 - 9.3 %) 5 Absolute Monocytes (0.10 - 0.60 /CUMM) 0.5 Absolute Eosinophils (0.0 - 0.7 /CUMM) 0 Absolute Basophils (0.0 - 0.2 /CUMM) 0 Platelet Estimate (ADEQUATE) VERIFIED BY SMEAR Normocytic RBCs VERIFIED Normochromic RBCs VERIFIED Vital Signs Date Time Temp Pulse Resp B/P B/P Pulse O2 O2 Flow FiO2 Mean Ox Delivery Rate 05/30 2008 Room Air 05/30 1910 102.2 95 20 168/77 94 Room Air 05/30 1209 99.6 88 18 149/84 94 Room Air Intake & Output 05/30 1600 05/30 0800 05/30 0000 Intake Total Output Total Balance Patient 225 lb Weight Weight Reported by Patient Measurement Method Vital Signs Date Time Temp Pulse Resp B/P B/P Pulse O2 O2 Flow FiO2 Mean Ox Delivery Rate 05/30 2008 Room Air 05/30 1910 102.2 95 20 168/77 94 Room Air 05/30 1209 99.6 88 18 149/84 94 Room Air X-ray of the left foot showed progressive erosion along the posterior and plantar surface of the calcaneus and along the posterior aspect of the talus highly concerning for the sequela of osteomyelitis also changes in the soft tissue from previous surgeries
[2017-05-30] MEDS ORDERED: PROBIOTIC1 EACH PO (21:00)
[2017-05-30] MEDS ORDERED: SENNA S TABLET1 EACH PO (21:01)
--- NOTE | 2017-05-30 22:07 | History & Physical ---
See Addendum Nikunj Hudson 05/30/17 2206: General Information and HPI MD Statement: I have seen and personally examined PHANI MESSINA and documented this H&P. The patient is a 71 year old F who presented with a patient stated chief complaint of left leg swelling with redness and having chronic and diabetic wound on left heel []. Source of Information: patient, old records Exam Limitations: no limitations History of Present Illness: 71 YO F with PMH of HTN, HLD, DM, CHF with preserved EF, mitral valve prolapse, previous endocarditis secondary to group G streptococcal infection, phripheral neuropathy and vascular disease, paroxysmal A.fib on eliquis, previous cholecystitis, chronic kidney disease, osteoarthritis, spinal stenosis, hypothyroidism, group G strep and MRSA osteomyelitis and left heel necrotic diabetic wound managed with wound vac presented to ED with chief complaint of left leg redness and swelling for last 2 days. Patient reported that she went to see her loan documents closer today for left heel chronic wound/chronic osteomyelitis that was managed with wound VAC and antibiotics for last 2yrs. Patient was sent to ED for further evaluation considering patient's left leg swelling and redness that developed in last 2-3 days. Patient also reported having chills for last 2 days but she didn't develop any fever according to the patient. Patient denied any chest pain, palpitation, nausea, vomiting, fever, cough, sputum, trauma to the left leg, tic bite, abdominal pain, lightheadedness, headache, loss of consciousness, change in vision and dysuria. Patient was admitted last him in [facility] in March 2017 when she presented with left leg cellulitis/left heel osteomyelitis with paroxysmal A. fib. Patient was treated at that point with debridement and tissue was sent for culture and sensitivity that was positive for Pseudomonas and she was discharged on ciprofloxacin for 3 weeks. Her last echocardiogram was done in 2018 was showing ejection fraction 5560 percent with stage I diastolic filling. 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 Patient is following Dr. Isaac for her heart problem. And she is following her primary care physician regularly. ED course: Vitals: Temperature 99.6, 102.2, pulse 88, respiratory rate 18, blood pressure 149/84, oxygen saturation 94% on room air Labs: WBC count 17.2, hemoglobin 12.4, hematocrit 37.8, platelet count 297, sodium 139, potassium 4.1, BUN 49, creatinine 1.7, BUN/creatinine ratio 28.8, glucose 22, lactic acid 1.4, calcium 9.4, total bilirubin 0.6, AST 98, ALT 35, alkaline phosphatase 152, creatinine kinase 2648, total protein 7.4 Blood and urine cultures were obtained Urinalysis showing urine protein more than 300 possibly due to diabetic nephropathy. Allergies/Medications Allergies: Coded Allergies: enalapril (Intermediate, PERSITENT COUGH. 06/28/15) Home Med list Alprazolam 0.5 MG TABLET 1 TAB PO PRN ANXIETY (Reported) Apixaban (Eliquis) 5 MG TABLET 5 MG PO BID ATRIAL FLUTTER Ascorbic Acid (Vitamin C) 1,000 MG TABLET 1 TAB PO DAILY SUPPLEMENT (Reported ) Atorvastatin Calcium (Lipitor) 40 MG TABLET 1 TAB PO DAILY CHOLESTEROL ( Reported) Cetirizine HCl (Zyrtec) 10 MG TABLET 1 TAB PO DAILY ALLERGIES (Reported) Cholecalciferol (Vitamin D3) (Vitamin D) (Unknown Strength) TABLET (Unknown Dose) PO DAILY SUPPLEMENT (Reported) Gabapentin 600 MG TABLET 2 TAB PO TID NEUROPATHY (Reported) Insulin Aspart, Recombinant (Novolog Flexpen) 100 UNIT/ML INSULN.PEN 0 SC SEE ADMIN CRITERIA DIABETES MELLITUS BEFORE MEALS. Blood Insulin Sugar Units <80 0 81-150 4 151-200 5 201-250 6 251-300 7 301-350 8 351-400 9 >400 GIVE 10 UNITS AND Call Doctor Insulin Detemir (Levemir Flextouch) 100 UNIT/ML (3 ML) INSULN.PEN 20 UNIT SC QHS DM (Reported) Lactobacillus Acidophilus (Probiotic) (Unknown Strength) CAPSULE (Unknown Dose ) PO DAILY PROBIOTIC (Reported) Levothyroxine Sodium (Synthroid) 50 MCG TABLET 1 TAB PO DAILY AC THYROID HEALTH (Reported) Magnesium Oxide (Magnesium) 500 MG CAPSULE 1 CAP PO DAILY SUPPLEMENT ( Reported) Metoprolol Tartrate 50 MG TABLET 50 MG PO BID afib Multivitamin (Multivitamins) 1 EACH CAPSULE 1 TAB PO DAILY SUPPLEMENT ( Reported) Omeprazole 20 MG CAPSULE.DR 40 MG PO DAILY AC GERD Polyethylene Glycol 3350 (Miralax) 17 GRAM POWD.PACK 1 PAC PO DAILY OPIOD CONSTIPATION (Reported) dissolve in water Sennosides/Docusate Sodium (Senna S Tablet) 8.6 MG-50 MG TABLET 1 TAB PO PRN CONSTIPATION (Reported) Tylenol With Codeine (Tylenol With Codeine #3 Tablet) 300 MG-30 MG TABLET 1-2 TAB PO Q4-6 PRN PRN pain control take as directed. do not combine with tylenol. Vitamin B Complex 1 EACH CAPSULE 1 CAP PO DAILY SUPPLEMENT (Reported) ZINC 50 MG TABLET 1 TAB PO DAILY SUPPLEMENT (Reported) Past History Travel History Traveled to [place] past 21 day No Medical History Neurological: peripheral neuropathy EENT: allergies, hearing loss Cardiovascular: CHF, hypertension, hyperlipidemia, systolic CHF, mitral valve prolapse Group G strep mitral valve endocarditis Group G strep endocarditis Respiratory: NONE Gastrointestinal: constipation, SLOW PERISTALSIS Hepatic: cholecystitis Renal: chronic kidney disease, urinary incontinence Musculoskeletal: chronic back pain, decubitis ulcer, falls, osteoarthritis, spinal stenosis, OSTEOMYELITIS left heel Psychiatric: NONE Endocrine: diabetes, hypothyroidism, obesity Blood Disorders: NONE Cancer(s): NONE PLATFORM CONSULTANT/Reproductive: endometriosis Other Medical Hx: diabetic foot nonhealing ulcers History of MRSA: Yes History of VRE: No History of CDIFF: No Pneumonia Vaccine: 10/09/14 Influenza Vaccine: 02/16/17 Surgical History Surgical History: cholecystectomy, hernia repair-incisional, hip replacement ( right ), hysterectomy, status post right second finger amputation s/p right partial 3rd finger amputation s/p left 3rd finger amputation status post left heel calcanectomies Past Family/Social History Family History Relations & Conditions if any MOTHER ([facility] for sx gallstones). , Age 56; Cause: Acute leukemia. Leukemia BROTHER, ; Cause: Heart attack. FATHER (hx colon polyps). , Age 70; Cause: CHF (congestive heart failure ). Psychosocial History Who Do You Live With? self Services at Home: None Primary Language: Georgian Power of Fruit Ii Farmworker/HCP? no Functional Ability ADLs Independent: dressing, eating, toileting, bathing. Ambulation: cane IADLs Independent: shopping, housework, finances, food prep, telephone, transportation , medication admin. Review of Systems Review of Systems Constitutional: Reports: chills. EENTM: Reports: no symptoms. Cardiovascular: Reports: no symptoms. Respiratory: Reports: no symptoms. GI: Reports: no symptoms. Genitourinary: Reports: no symptoms. Musculoskeletal: Reports: see HPI. Skin: Reports: see HPI. Neurological/Psychological: Reports: no symptoms. Exam & Diagnostic Data Last 24 Hrs of Vital Signs/I&O Vital Signs Date Time Temp Pulse Resp B/P B/P Pulse O2 O2 Flow FiO2 Mean Ox Delivery Rate 05/30 2121 101.5 81 20 139/63 94 Room Air 05/30 2105 100.3 05/30 2008 Room Air 05/30 1911 102.2 95 20 168/77 94 Room Air 05/30 1500 101.9 94 16 155/65 95 Room Air 05/30 1209 99.6 88 18 149/84 94 Room Air Intake & Output 05/30 1600 05/30 0800 05/30 0000 Intake Total Output Total Balance Patient 225 lb Weight Weight Reported by Patient Measurement Method Physical Exam General Appearance Alert, Oriented X3, Cooperative, No Acute Distress Skin chronic ulcer on left heel Skin Temp/Moisture Exam: Warm/Dry Sepsis Skin Exam (color): Normal for Ethnicity HEENT Atraumatic, PERRLA, EOMI Neck Supple Cardiovascular Normal S1, Normal S2 Lungs Clear to Auscultation, Normal Air Movement Abdomen Soft, No Tenderness Neurological Normal Speech, Strength at 5/5 X4 Ext, Normal Tone, Sensation Intact Extremities Left leg swelling with redness, Left heel chroic necrotic diabetic ulcer Assessment/Plan Assessment: 71 YO F with PMH of HTN, HLD, DM, CHF with preserved EF, mitral valve prolapse, previous endocarditis secondary to group G streptococcal infection, phripheral neuropathy and vascular disease, paroxysmal A.fib on eliquis, previous cholecystitis, chronic kidney disease, osteoarthritis, spinal stenosis, hypothyroidism, group G strep and MRSA osteomyelitis and left heel necrotic diabetic wound managed with wound vac presented to ED with chief complaint of left leg redness and swelling for last 2 days. We will admit the patient on general medicine floor to treat follow left leg cellulitis with left foot osteomyelitis and developing sepsis. Sepsis secondary to Left leg cellulitis with left foot osteomyelitis: -Patient is meeting the criteria of sepsis considering her temperature 102.2, pulse 95 (on beta buck), respiratory 20 and WBC count 17.2. SIRS 2 out of 4 positive, temperature 102.2 and WBC count 17.2 with source of infection (left foot osteomyelitis and left leg cellulitis). -Gentle IV hydration -Patient needed debridement -Nothing by mouth -IV Protonix -Podiatry and id consults -Left leg elevation -We will follow the blood and wound cultures -Continue unasyn pending debridement and culture reports. History of A. fib: -Continue home meds including eliquis. History of hyperlipidemia: -Continue atorvastatin History of hypertension: -We will continue metoprolol. History of diabetes; -Accu-Cheks -HbA1c -NovoLog According to Sliding Scale -Insulin Levemir History of hypothyroidism: -Continue levothyroxine History of peripheral neuropathy: -Continue gabapentin History of anxiety: -Continue alprazolam Pain management: -Follow pain pathway DVT prophylaxis: Mechanical and subcutaneous heparin CODE STATUS: DNR/DNI As Ranked By This Provider Problem List: 1. Cellulitis of left lower extremity 2. Osteomyelitis of left foot 3. Sepsis Core Measures/Misc (12/03) Acute Coronary Syndrome ACS Diagnosis: No Congestive Heart Failure Congestive Heart Failure Diagnosis No Cerebrovascular Accident CVA/TIA Diagnosis: No VTE (View Protocol) VTE Risk Factors Age>40 No Mechanical VTE Prophylaxis d/t N/A MechProphylax Ordered No VTE Pharm Prophylaxis d/t NA PharmProphylax ordered Sepsis (View protocol) Sepsis Present: Yes Lavern Baron 05/30/17 7535: Resident Review Statement Resident Statement: examined this patient, discussed with information technology intern, agreed with information technology intern Other Findings: Patient is 71-year-old female with past medical history significant for congestive heart failure with preserved ejection fraction, insulin-dependent diabetes, atrial fibrillation on anticoagulation, peripheral vascular disease, peripheral neuropathy, hypertension and chronic nonhealing left heel ulcer for more than 2 years/chronic osteomyelitis with multiple courses of ordered as well as IV antibiotics, recently admitted at [facility] from April 07 to 04/2017 with osteomyelitis and culture positive for Pseudomonas aeruginosa, status post debridement and revision treated with ciprofloxacin for 3 weeks was sent in by Dr. Powell for left lower extremity edema, erythema and radiological evidence of calcaneus chronic osteomyelitis. Her left lower leg swelling and erythema was getting worse for last 2-3 days and patient was also experiencing chills but she did not measure her temperature at home. She used cane/walker at home and was advised to keep her left foot offload. She denied dizziness, palpitations, chest pain, cough, nausea, vomiting, headache, any urinary or bowel complaints. Vital signs on admission were temperature 99.6, pulse 88, respiratory rate 18, blood pressure 149/84 and she was saturating 94% on room air. She spiked 102.2 at 19 00 p.m. Labs were significant for WBC count 17.2 with 9 bands, ESR 71, hemoglobin 12.4, hematocrit 37.8, platelet count 297, sodium 139, potassium 4.1, BUN 49, creatinine 1.7, AST 98, ALT 35, alkaline phosphatase 152, creatinine kinase 2648 , EKG showed no acute ST-T wave changes Chest x-ray is negative for acute pathology X-ray foot showed Progressive erosion along the posterior and plantar surface of the calcaneus and along the posterior aspect of the talus, highly concerning for the sequela of osteomyelitis On examination Alert and oriented 3 Head atraumatic Neck supple Chest clear to auscultate Heart S1-S2 normal, 2 x 6 systolic ejection murmur Abdomen soft with normal bowel movements, no organomegaly Extremities, left middle and index finger amputation and right index finger amputation, Left foot ulcer on mid plantar surface, deep minimally draining around 2 x 2 centimeter. Minimal sensory perception and position sense of bilateral feet. Assessment and plan 71-year-old female with past medical history significant for heart failure with preserved ejection fraction, insulin-dependent diabetes, atrial fibrillation on anticoagulation, peripheral vascular disease and neuropathy, hypertension and chronic nonhealing left heel ulcer came in with chief complaint of left lower extremity edema, erythema and radiology: Evidence of calcaneal osteomyelitis. We will admit patient on general medical floor and will take care for the following problems Problem list 1. Chronic nonhealing left heel wound/chronic osteomyelitis with sepsis 2. Acute kidney injury 3. Insulin-dependent diabetes 4. CHF with preserved ejection fraction 5. History of hypertension 6. History of severe neuropathy and peripheral vascular disease Plan 1. We will admit patient on general medical floor and start her on Unasyn. Dr. Altamirano was consulted and he agreed with continuation of Unasyn. He will assess patient in the morning and will decide when to take 2 operating room for biopsy meanwhile we will continue Unasyn given her cellulitis and leukocytosis.Blood cultures x 2. 2. Keep left leg elevated and daily dressing change. 3. We will monitor WBCs and keep her hemodynamically stable. 4. We will continue gentle IV hydration with close monitoring of her cardiac status. 5. We will request ID consultation and podiatry consultation in a.m. 6. We will continue all her home medications including apixaban, metoprolol, gabapentin. Pharmacological DVT prophylaxis Diabetic diet Patient is DNI DNR
[2017-05-30 23:00] VITALS: BP 132/60
[2017-05-31 07:00] VITALS: BP 152/60
[2017-05-31 09:16] LABS: ABSOLUTE BASOPHIL COUNT 0 /CUMM (0.0-0.2); ABSOLUTE EOSINOPHIL COUNT 0 /CUMM (0.0-0.7); ABSOLUTE GRANULOCYTE CT 9.7 /CUMM (1.4-6.5); ABSOLUTE MONOCYTE COUNT 0.7 /CUMM (0.10-0.60); BASOPHIL % 0.3 % (0.0-2.0); EOSINOPHIL % 0 % (0-5); GRANULOCYTE % 85.4 % (42.2-75.2); HEMATOCRIT 34.2 % (37-47); MEAN CORPUSCULAR HGB 27.3 PG (27.0-31.0); MEAN CORPUSCULAR VOLUME 85.3 FL (81.0-99.0); MEAN PLATELET VOLUME 8.5 FL (7.4-10.4); PLATELET COUNT 249 /CUMM (130-400); RBC DISTRIBUTION WIDTH 16.5 % (11.5-14.5); RED BLOOD CELL CT 4.01 /CUMM (4.20-5.40); WHITE BLOOD CELL COUNT 11.4 /CUMM (4.8-10.8)
--- NOTE | 2017-05-31 11:34 | PN- Att Addend ---
Attending Addendum Attending Brief Note Patient sitting in the chair with leg elevated. wound was examined with resident. Podiatry and infectious diseases aware patient is in, she is on IV antibiotics. No surgical procedures anticipated for today. We'll monitor her temperature white count showed antibiotic coverage is getting is appropriate 24 TOTALS 05/31 0000 05/30 0000 Intake Total Output Total Balance Patient 225 lb Weight Weight Reported by Patient Measurement Method Current Medications Sig/Vandana Start time Last Medication Dose Route Stop Time Status Admin Acetaminophen 650 MG Q4P PRN 05/30 2244 AC PO Acetaminophen 0 .STK-MED ONE 05/30 2008 DC IV Acetaminophen 1,000 MG ONCE ONE 05/30 1914 DC 05/30 N/A 1 UNIT IV 05/30 1922000 Acetaminophen/ 1 TAB Q4-6 PRN PRN 05/30 2244 AC 05/31 Codeine Phosphate PO 0159 Alprazolam 0.5 MG AT BEDTIME NEED.. 05/30 2245 AC 05/31 PO 06/06 224 0056 Ampicillin Sodium/ 3,000 MG Q6 05/31 0100 AC 05/31 Sulbactam Sodium IV 0628 Sodium Chloride 100 ML Ampicillin Sodium/ 3,000 MG Q6 05/309 CAN Sulbactam Sodium IV Sodium Chloride 100 ML Ampicillin Sodium/ 3,000 MG ONCE ONE 05/30 1914 DC 05/30 Sulbactam Sodium IV 05/30 1942000 Sodium Chloride 100 ML Apixaban 5 MG BID 05/30 2359 AC 05/31 PO 0858 Ascorbic Acid 500 MG DAILY 05/31 1000 AC 05/31 PO 0858 Atorvastatin Calcium 40 MG 1700 05/31 1700 AC PO Cholecalciferol 1,000 IU DAILY 05/31 1000 AC 05/31 PO 0858 Gabapentin 1,200 MG Q8 05/30 2300 AC 05/31 PO 0628 Insulin Detemir 15 UNITS AT BEDTIME 05/31 2200 AC SC Levothyroxine Sodium 0.05 MG DAILY AC 05/31 0700 AC 05/31 PO 0628 Loratadine 10 MG DAILY 05/31 1000 AC PO Metoprolol Tartrate 50 MG BID 05/31 1000 AC 05/31 PO 0858 Omeprazole 40 MG DAILY AC 05/31 0700 AC 05/31 PO 0628 Polyethylene Glycol 17 GM DAILY PRN 05/30 2245 AC PO Sodium Chloride 1,000 ML Q20H 05/30 2215 AC 05/30 IV 05/31 1134 2307 Sodium Chloride 1,000 ML BOLUS ONE 05/30 1915 DC 05/30 IV 05/30 Laboratory Tests 05/31/17 0820: Anion Gap 11, Estimated GFR 32 L, BUN/Creatinine Ratio 28.1 H, CBC w Diff MAN DIFF ORDERED, RBC 4.01 L, MCV 85.3, MCH 27.3, MCHC 32.0 L, RDW 16.5 H, MPV 8.5, Gran % 85.4 H, Lymphocytes % 8.5 L, Monocytes % 5.8, Eosinophils % 0, Basophils % 0.3, Absolute Granulocytes 9.7 H, Segmented Neutrophils 75, Band Neutrophils 6 H, Absolute Lymphocytes 1.0 L, Lymphocytes 12 L, Monocytes 7, Absolute Monocytes 0.7 H, Absolute Eosinophils 0, Absolute Basophils 0, Platelet Estimate VERIFIED BY SMEAR, Normocytic RBCs VERIFIED, Normochromic RBCs VERIFIED 05/30/171957: Urinalysis LIGHT H, Urine Color YEL, Urine Clarity CLEAR, Urine pH 6.0, Ur Specific [place] >= 1.030, Urine Protein >=300 H, Urine Ketones NEG, Urine Nitrite NEG, Urine Bilirubin NEG, Urine Urobilinogen 0.2, Ur Leukocyte Esterase NEG, Ur Microscopic SEDIMENT EXAMINED, Urine RBC 1-3, Urine WBC RARE, Ur Epithelial Cells RARE, Urine Bacteria FEW H, Urine Mucus RARE, Urine Hemoglobin MOD H, Urine Glucose NEG 05/30/17 1720: Lactic Acid 1.5, ESR Westergren 71 H 05/30/17 1428: Anion Gap 16, Estimated GFR 30 L, BUN/Creatinine Ratio 28.8 H, Glucose 202 H, Lactic Acid 1.4, Calcium 9.4, Total Bilirubin 0.6, AST 98 H, ALT 35, Alkaline Phosphatase 152 H, Creatine Kinase 2648 H, Total Protein 7.4, Albumin 3.7, Globulin 3.7, Albumin/Globulin Ratio 1.0 L, CBC w Diff MAN DIFF ORDERED, RBC 4.49, MCV 84.0, MCH 27.6, MCHC 32.8 L, RDW 16.1 H, MPV 8.3, Gran % 91.4 H, Lymphocytes % 5.7 L, Monocytes % 2.8, Eosinophils % 0, Basophils % 0.1, Absolute Granulocytes 15.7 H, Segmented Neutrophils 80 H, Band Neutrophils 9 H, Absolute Lymphocytes 1.0 L, Lymphocytes 6 L, Monocytes 5, Absolute Monocytes 0.5, Absolute Eosinophils 0, Absolute Basophils 0, Platelet Estimate VERIFIED BY SMEAR, Normocytic RBCs VERIFIED, Normochromic RBCs VERIFIED Microbiology 05/31 1719 NASOPHARYN: Influenza Virus A & B Rapid Smear - COMP Microbiology Date/Time Procedure - Status Source Growth 05/30 1957 Urine Culture - RES URINE ROUT 05/31 1719 Influenza Virus A & B Rapid Smear - COMP NASOPHARYN 05/31 1719 Blood Culture - RECD BLOOD 05/30 1653 Blood Culture - CAN BLOOD Cancelled: Cancelled via OE: Per MD Decision 05/30 165 Blood Culture - CAN BLOOD Cancelled: Cancelled via OE: Per MD Decision 05/30 1428 Blood Culture - RECD BLOOD 05/30 1305 Blood Culture - CAN BLOOD Cancelled: Cancelled via OE: Per MD Decision Vital Signs Date Time Temp Pulse Resp B/P B/P Pulse O2 O2 Flow FiO2 Mean Ox Delivery Rate 05/31 0858 97.8 66 20 152/60 05/31 0700 97.8 66 20 152/60 97 Room Air 05/30 2300 98.8 78 20 132/60 92 Room Air 05/30 2222 101.5 05/30 2122 101.5 81 20 139/63 94 Room Air 05/30 2105 100.3 05/30 2008 Room Air 05/30 1911 102.2 95 20 168/77 94 Room Air 05/30 1500 101.9 94 16 155/65 95 Room Air 05/30 1209 99.6 88 18 149/84 94 Room Air Patient on oral anticoagulation need to know if any surgical procedure is anticipated so we can hold for at least 1 day.
--- NOTE | 2017-05-31 11:45 | PN- Housestaff ---
Subjective Follow-up For: Osteomyelitis Cellulitis Subjective: Patient was seen and examined bedside. She is resting comfortably. She had no acute events overnight. She states that her pain is currently well controlled on 03/28. She is concerned about the rash on her leg. She has no new complaints. She remains averse to the idea of amputation. Review of Systems Constitutional: Reports: no symptoms. EENTM: Reports: no symptoms. Cardiovascular: Reports: no symptoms. Respiratory: Reports: no symptoms. Gastrointestinal: Reports: no symptoms. Genitourinary: Reports: no symptoms. Musculoskeletal: Reports: see HPI, joint pain. Skin: Reports: see HPI, rash. Objective Last 24 Hrs of Vital Signs/I&O Vital Signs Date Time Temp Pulse Resp B/P B/P Pulse O2 O2 Flow FiO2 Mean Ox Delivery Rate 05/31 0858 97.8 66 20 152/60 05/31 0700 97.8 66 20 152/60 97 Room Air 05/30 2300 98.8 78 20 132/60 92 Room Air 05/30 2222 101.5 05/30 2122 101.5 81 20 139/63 94 Room Air 05/30 2105 100.3 05/30 2008 Room Air 05/30 1911 102.2 95 20 168/77 94 Room Air 05/30 1500 101.9 94 16 155/65 95 Room Air 05/30 1209 99.6 88 18 149/84 94 Room Air Intake & Output 05/31 1600 05/31 0800 05/31 0000 Intake Total 960 Output Total Balance 960 Intake, IV 600 Intake, Oral 360 Patient 119 lb 223 lb Weight Weight Bed scale Bed scale Measurement Method Physical Exam General Appearance: Alert, Oriented X3, Cooperative, No Acute Distress Skin Temp/Moisture Exam: Warm/Dry Cardiovascular: Regular Rate, Normal S1, Normal S2 Lungs: Clear to Auscultation, Normal Air Movement Abdomen: Normal Bowel Sounds, Soft, No Tenderness Neurological: Normal Speech, Normal Tone, Sensation Intact Extremities: large, approximately 3.5 cm ulcer on the plantar L foot, nonblanchable erythmatous patches with irregular boarders on the distal medial LLE Current Medications: Current Medications Sig/Vandana Start time Last Medication Dose Route Stop Time Status Admin Acetaminophen 650 MG Q4P PRN 05/30 2245 AC PO Acetaminophen 0 .STK-MED ONE 05/30 2008 DC IV Acetaminophen 1,000 MG ONCE ONE 05/30 1914 DC 05/30 N/A 1 UNIT IV 05/30 1922000 Acetaminophen/ 1 TAB Q4-6 PRN PRN 05/30 2245 AC 05/31 Codeine Phosphate PO 1129 Alprazolam 0.5 MG AT BEDTIME NEED.. 05/30 2245 AC 05/31 PO 06/06 2244 0056 Ampicillin Sodium/ 3,000 MG Q6 05/31 0100 AC 05/31 Sulbactam Sodium IV 1130 Sodium Chloride 100 ML Ampicillin Sodium/ 3,000 MG Q6 05/30 2359 CAN Sulbactam Sodium IV Sodium Chloride 100 ML Ampicillin Sodium/ 3,000 MG ONCE ONE 05/30 1914 DC 05/30 Sulbactam Sodium IV 05/30 1942000 Sodium Chloride 100 ML Apixaban 5 MG BID 05/30 2359 AC 05/31 PO 0858 Ascorbic Acid 500 MG DAILY 05/31 1000 AC 05/31 PO 0858 Atorvastatin Calcium 40 MG 1700 05/31 1700 AC PO Cholecalciferol 1,000 IU DAILY 05/31 1000 AC 05/31 PO 0858 Gabapentin 1,200 MG Q8 05/30 2300 AC 05/31 PO 0628 Insulin Detemir 15 UNITS AT BEDTIME 05/31 2200 AC SC Levothyroxine Sodium 0.05 MG DAILY AC 05/31 0700 AC 05/31 PO 0628 Loratadine 10 MG DAILY 05/31 1000 AC PO Metoprolol Tartrate 50 MG BID 05/31 1000 AC 05/31 PO 0858 Omeprazole 40 MG DAILY AC 05/31 0700 AC 05/31 PO 0628 Polyethylene Glycol 17 GM DAILY PRN 05/30 224 PO Sodium Chloride 1,000 ML Q20H 05/30 221 DC 05/30 IV 05/31 113 2307 Sodium Chloride 1,000 ML BOLUS ONE 05/30 191 DC 05/30 IV 05/30 Last 24 Hrs of Lab/Ammon Results Last 24 Hrs of Labs/Mics: Laboratory Tests 05/31/17 0820: Anion Gap 11, Estimated GFR 32 L, BUN/Creatinine Ratio 28.1 H, CBC w Diff MAN DIFF ORDERED, RBC 4.01 L, MCV 85.3, MCH 27.3, MCHC 32.0 L, RDW 16.5 H, MPV 8.5, Gran % 85.4 H, Lymphocytes % 8.5 L, Monocytes % 5.8, Eosinophils % 0, Basophils % 0.3, Absolute Granulocytes 9.7 H, Segmented Neutrophils 75, Band Neutrophils 6 H, Absolute Lymphocytes 1.0 L, Lymphocytes 12 L, Monocytes 7, Absolute Monocytes 0.7 H, Absolute Eosinophils 0, Absolute Basophils 0, Platelet Estimate VERIFIED BY SMEAR, Normocytic RBCs VERIFIED, Normochromic RBCs VERIFIED 05/30/171957: Urinalysis LIGHT H, Urine Color YEL, Urine Clarity CLEAR, Urine pH 6.0, Ur Specific [place] >= 1.030, Urine Protein >=300 H, Urine Ketones NEG, Urine Nitrite NEG, Urine Bilirubin NEG, Urine Urobilinogen 0.2, Ur Leukocyte Esterase NEG, Ur Microscopic SEDIMENT EXAMINED, Urine RBC 1-3, Urine WBC RARE, Ur Epithelial Cells RARE, Urine Bacteria FEW H, Urine Mucus RARE, Urine Hemoglobin MOD H, Urine Glucose NEG 05/30/170: Lactic Acid 1.5, ESR Westergren 71 H 05/30/17 1428: Anion Gap 16, Estimated GFR 30 L, BUN/Creatinine Ratio 28.8 H, Glucose 202 H, Lactic Acid 1.4, Calcium 9.4, Total Bilirubin 0.6, AST 98 H, ALT 35, Alkaline Phosphatase 152 H, Creatine Kinase 2648 H, Total Protein 7.4, Albumin 3.7, Globulin 3.7, Albumin/Globulin Ratio 1.0 L, CBC w Diff MAN DIFF ORDERED, RBC 4.49, MCV 84.0, MCH 27.6, MCHC 32.8 L, RDW 16.1 H, MPV 8.3, Gran % 91.4 H, Lymphocytes % 5.7 L, Monocytes % 2.8, Eosinophils % 0, Basophils % 0.1, Absolute Granulocytes 15.7 H, Segmented Neutrophils 80 H, Band Neutrophils 9 H, Absolute Lymphocytes 1.0 L, Lymphocytes 6 L, Monocytes 5, Absolute Monocytes 0.5, Absolute Eosinophils 0, Absolute Basophils 0, Platelet Estimate VERIFIED BY SMEAR, Normocytic RBCs VERIFIED, Normochromic RBCs VERIFIED Microbiology 05/30 1957 URINE ROUT: Urine Culture - RES 05/31 1719 NASOPHARYN: Influenza Virus A & B Rapid Smear - COMP 05/31 1719 BLOOD: Blood Culture - RECD 05/30 1653 BLOOD: Blood Culture - CAN Cancelled: Cancelled via OE: Per MD Decision 05/30 1654 BLOOD: Blood Culture - CAN Cancelled: Cancelled via OE: Per Decision 05/30 1428 BLOOD: Blood Culture - RECD 05/30 1305 BLOOD: Blood Culture - CAN Cancelled: Cancelled via OE: Per Decision Assessment/Plan Assessment: Patient is a 71-year-old female with a PMH significant for HTN, HLD, DM, HFpEF, mitral valve prolapse, endocarditis, peripheral neuropathy, PVD, paroxysmal A. fib on Eliquis, CKD stage 3, and MRSA osteomyelitis who presented to the [facility] ED complaining of left leg swelling and redness in the setting of a chronic diabetic foot ulcer on the plantar left foot. Patient met SIRS criteria with a elevated temperature MAXIMUM TEMPERATURE 102.2 and leukocytosis WBC 17.2. #Sepsis secondary to left foot osteomyelitis Patient has had recurrent osteomyelitis and refuses to consider amputation. X- ray shows evidence of osteomyelitis -Continue IV Unasyn, with decreased dose to 1.5 g every 8 per infectious disease -ID recommendations appreciated -Patient follows Dr. Altamirano who will be seeing the patient later today, will follow up recommendations. #Chronic medical problems including DM, HTN, HLD, A. fib -Continue home medications, will hold Eliquis if plan is to proceed with surgery -NovoLog sliding scale Diet: Diabetic diet DVT PPX: Eliquis CODE STATUS: DNR/DNI Problem List: 1. Sepsis 2. Osteomyelitis of left foot 3. Paroxysmal atrial fibrillation Pain Ratin Pain Location: L foot Pain Goal: Pain 4 or less Pain Plan: pain pathway Tomorrow's Labs & Rationales: cbc, bep
[2017-05-31 14:03] VITALS: BP 148/65
--- NOTE | 2017-05-31 14:29 | Cons- Infect Disease ---
General Information and HPI Consulting Request Date of Consult: 05/31/17 Requested By: Luigi Mary MD Reason for Consult: Cellulitis left leg/chronic osteomyelitis left heel Source of Information: patient, old records History of Present Illness: This is a 71-year-old woman with a history of hypertension, CHF, paroxysmal atrial fibrillation, mitral valve prolapse, status post endocarditis 2 years prior to admission, diabetes, with a peripheral neuropathy and peripheral vascular disease, with a chronic, nonhealing left heel ulcer for 2 years, treated with multiple courses of antibiotics for osteomyelitis, most recently 2 months prior to admission when she underwent a biopsy and debridement of the left calcaneus, which grew Pseudomonas, and left popliteal artery angioplasty, discharged on Ciprofloxacin to complete a 4 week course of antibiotics, admitted on May 30 after she was referred to the emergency room by Podiatry because of several days of increasing swelling, erythema and pain of the left leg, purulent drainage from the left heel wound, chills and confusion. On admission she was febrile to 102.2. Laboratory data revealed a white blood cell count of 17,000, with 80 segs and 9 bands, glucose 202, BUN/creatinine 49 and 1.7, alkaline phosphatase is 152, AST/ALT 98 and 35, CPK 2648. Urinalysis 1-3 RBCs/rare WBCs. Chest x-ray negative. X-ray of the left foot and tibia/fibula revealed progressive erosion along the posterior and plantar surface of the calcaneus and along the posterior aspect of the talus, suspicious for osteomyelitis. She was begun on Unasyn and appears to have defervesced overnight. She feels slightly improved today with no new complaints. Allergies/Medications Allergies: Coded Allergies: enalapril (Intermediate, PERSITENT COUGH. 06/28/15) Home Med List: Alprazolam 0.5 MG TABLET 1 TAB PO PRN ANXIETY (Reported) Apixaban (Eliquis) 5 MG TABLET 5 MG PO BID ATRIAL FLUTTER Ascorbic Acid (Vitamin C) 1,000 MG TABLET 1 TAB PO DAILY SUPPLEMENT (Reported ) Atorvastatin Calcium (Lipitor) 40 MG TABLET 1 TAB PO DAILY CHOLESTEROL ( Reported) Cetirizine HCl (Zyrtec) 10 MG TABLET 1 TAB PO DAILY ALLERGIES (Reported) Cholecalciferol (Vitamin D3) (Vitamin D) (Unknown Strength) TABLET (Unknown Dose) PO DAILY SUPPLEMENT (Reported) Gabapentin 600 MG TABLET 2 TAB PO TID NEUROPATHY (Reported) Insulin Aspart, Recombinant (Novolog Flexpen) 100 UNIT/ML INSULN.PEN 0 SC SEE ADMIN CRITERIA DIABETES MELLITUS BEFORE MEALS. Blood Insulin Sugar Units <80 0 81-150 4 151-200 5 201-250 6 251-300 7 301-350 8 351-400 9 >400 GIVE 10 UNITS AND Call Doctor Insulin Detemir (Levemir Flextouch) 100 UNIT/ML (3 ML) INSULN.PEN 20 UNIT SC QHS DM (Reported) Lactobacillus Acidophilus (Probiotic) (Unknown Strength) CAPSULE (Unknown Dose ) PO DAILY PROBIOTIC (Reported) Levothyroxine Sodium (Synthroid) 50 MCG TABLET 1 TAB PO DAILY AC THYROID HEALTH (Reported) Magnesium Oxide (Magnesium) 500 MG CAPSULE 1 CAP PO DAILY SUPPLEMENT ( Reported) Metoprolol Tartrate 50 MG TABLET 50 MG PO BID afib Multivitamin (Multivitamins) 1 EACH CAPSULE 1 TAB PO DAILY SUPPLEMENT ( Reported) Omeprazole 20 MG CAPSULE.DR 40 MG PO DAILY AC GERD Polyethylene Glycol 3350 (Miralax) 17 GRAM POWD.PACK 1 PAC PO DAILY OPIOD CONSTIPATION (Reported) dissolve in water Sennosides/Docusate Sodium (Senna S Tablet) 8.6 MG-50 MG TABLET 1 TAB PO PRN CONSTIPATION (Reported) Tylenol With Codeine (Tylenol With Codeine #3 Tablet) 300 MG-30 MG TABLET 1-2 TAB PO Q4-6 PRN PRN pain control take as directed. do not combine with tylenol. 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 Respiratory: NONE Gastrointestinal: constipation, SLOW PERISTALSIS Hepatic: cholecystitis Renal: urinary incontinence, CKD Musculoskeletal: chronic back pain, decubitis ulcer, falls, osteoarthritis, spinal stenosis, OSTEOMYELITIS left heel Psychiatric: NONE Endocrine: diabetes, hypothyroidism, obesity Blood Disorders: NONE Cancer(s): NONE 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 , Age 56; Cause: Acute leukemia. Leukemia BROTHER, ; Cause: Heart attack. FATHER (hx colon polyps). , Age 70; Cause: CHF (congestive heart failure ). Psychosocial History Where Do You Live? Home Who Do You Live With? self Services at Home: None Primary Language: Com[place] Smoking Status: Never Smoked Power of Measuring Clerk/HCP? no Functional Ability ADLs Independent: dressing, eating, toileting, bathing. Ambulation: cane IADLs Independent: shopping, housework, finances, food prep, telephone, transportation , medication admin. Review of Systems Review of Systems All Other Systems: Reviewed and Negative Exam & Diagnostic Data Last 24 Hrs of Vital Signs/I&O Vital Signs Date Time Temp Pulse Resp B/P B/P Pulse O2 O2 Flow FiO2 Mean Ox Delivery Rate 05/31 1403 99.3 75 20 148/65 97 05/31 0858 97.8 66 20 152/60 05/31 0700 97.8 66 20 152/60 97 Room Air 05/30 2300 98.8 78 20 132/60 92 Room Air 05/30 2222 101.5 05/30 2122 101.5 81 20 139/63 94 Room Air 05/30 2105 100.3 05/30 2009 Room Air 05/30 1911 102.2 95 20 168/77 94 Room Air 05/30 1500 101.9 94 16 155/65 95 Room Air Intake & Output 05/31 1600 05/31 0800 05/31 0000 Intake Total 960 Output Total Balance 960 Intake, IV 600 Intake, Oral 360 Patient 119 lb 223 lb Weight Weight Bed scale Bed scale Measurement Method Physical Exam Other Physical Findings: MAXIMUM TEMPERATURE 102.2. She is awake and alert in no acute distress. Skin reveals no rash. HEENT negative. Neck is supple with no adenopathy. Lungs are clear. Heart regular rhythm with no murmur. Abdomen is soft, nontender with positive bowel sounds. Back no CVA tenderness. Extremities left leg erythema, tenderness, warmth and edema, with hemorrhagic papules extending up towards the left thigh; left heel deep ulcer with purulent drainage; pulses 1+ and equal. Neuro is without focality. Last 24 Hours of Lab Results: Laboratory Tests 05/31 0820 Chemistry Sodium (137 - 145 mmol/L) 142 Potassium (3.5 - 5.1 mmol/L) 4.0 Chloride (98 - 107 mmol/L) 106 Carbon Dioxide (22 - 30 mmol/L) 25 Anion Gap (5 - 16) 11 BUN (7 - 17 mg/dL) 45 H Creatinine (0.5 - 1.0 mg/dL) 1.6 H Estimated GFR (>60 ml/min) 32 L BUN/Creatinine Ratio (7 - 25 %) 28.1 H Hematology CBC w Diff MAN DIFF ORDERED WBC (4.8 - 10.8 /CUMM) 11.4 H RBC (4.20 - 5.40 /CUMM) 4.01 L Hgb (12.0 - 16.0 G/DL) 10.9 L Hct (37 - 47 %) 34.2 L MCV (81.0 - 99.0 FL) 85.3 MCH (27.0 - 31.0 PG) 27.3 MCHC (33.0 - 37.0 G/DL) 32.0 L RDW (11.5 - 14.5 %) 16.5 H Plt Count (130 - 400 /CUMM) 249 MPV (7.4 - 10.4 FL) 8.5 Gran % (42.2 - 75.2 %) 85.4 H Lymphocytes % (20.5 - 51.1 %) 8.5 L Monocytes % (1.7 - 9.3 %) 5.8 Eosinophils % (0 - 5 %) 0 Basophils % (0.0 - 2.0 %) 0.3 Absolute Granulocytes (1.4 - 6.5 /CUMM) 9.7 H Segmented Neutrophils (42.2 - 75.2 %) 75 Band Neutrophils (0.0 - 5.0 %) 6 H Absolute Lymphocytes (1.2 - 3.4 /CUMM) 1.0 L Lymphocytes (20.5 - 51.1 %) 12 L Monocytes (1.7 - 9.3 %) 7 Absolute Monocytes (0.10 - 0.60 /CUMM) 0.7 H Absolute Eosinophils (0.0 - 0.7 /CUMM) 0 Absolute Basophils (0.0 - 0.2 /CUMM) 0 Platelet Estimate (ADEQUATE) VERIFIED BY SMEAR Normocytic RBCs VERIFIED Normochromic RBCs VERIFIED 05/30 172 Chemistry Lactic Acid (0.7 - 2.1 mmol/L) 1.5 Hematology ESR Westergren (0 - 20 MM) 71 H Urines Urinalysis LIGHT H Urine Color (YEL,AMB,STR) YEL Urine Clarity (CLEAR) CLEAR Urine pH (5.0 - 8.0) 6.0 Ur Specific [place] (1.001 - 1.035) >= 1.030 Urine Protein (NEG,<30 MG/DL) >=300 H Urine Ketones (NEG) NEG Urine Nitrite (NEG) NEG Urine Bilirubin (NEG) NEG Urine Urobilinogen (0.1 - 1.0 EU/dl) 0.2 Ur Leukocyte Esterase (NEG) NEG Ur Microscopic SEDIMENT EXAMINED Urine RBC (0 - 5 /HPF) 1-3 Urine WBC (0 - 2 /HPF) RARE Ur Epithelial Cells (NONE,FEW) RARE Urine Bacteria (NEG/NONE) FEW H Urine Mucus (FEW,NONE) RARE Urine Hemoglobin (NEG) MOD H Urine Glucose (N MG/DL) NEG Last 24 Hours of Ammon Results: Blood cultures 2 May 30 negative Rapid flu swab May 30 negative Urine culture May 30 negative Diagnostic Data Recent Imaging Findings: Chest x-ray negative. X-ray of the left foot and tibia/fibula revealed progressive erosion along the posterior and plantar surface of the calcaneus and along the posterior aspect of the talus, suspicious for osteomyelitis. Assessment/Plan Assessment/Plan Impression: This is a 71-year-old woman with a history of diabetes, peripheral neuropathy and peripheral vascular disease, with a chronic, nonhealing left heel ulcer for 2 years, treated with multiple courses of antibiotics for osteomyelitis, most recently 2 months prior to admission, with a left popliteal artery angioplasty performed at that time, admitted on May 30 because of several days of increasing swelling, erythema and pain of the left leg, purulent drainage from the left heel wound, chills and confusion, found to be febrile with a leukocytosis, renal failure and progressive bone changes on her x-ray. She appears to have a recurrent cellulitis of the left lower extremity, presumably secondary to the chronic, nonhealing left heel ulcer, with evidence of progression of her chronic osteomyelitis on x-ray. A left BKA has been recommended by Podiatry on multiple occasions, and she has consistently refused this, as she continues to do. Have discussed with Podiatry today and, at this time, there are no plans for debridement in the OR. She appears to have defervesced and her white blood cell count has decreased on Unasyn, which can be continued for the cellulitis; however do not feel that further evaluation or treatment for osteomyelitis should be considered as she is unlikely to heal the wound without amputation. Her elevated creatinine may be polymicrobial, with sepsis and dehydration possibly contributing. Her elevated CPK suggests possible trauma or, possibly, progression of her infection to involve the muscle , but it may be difficult to interpret with her renal insufficiency. Suggestion: 1. Further management of her left heel wound per Podiatry 2. Elevate her left leg 3. Would continue attempts to convince patient regarding the need for BKA 4. Continue Unasyn but decrease to 1.5 g IV every 8 hours Consult Acknowledgment - Thank you for your consult request.
[2017-05-31 23:04] VITALS: BP 150/64
[2017-06-01 06:42] VITALS: BP 140/62
--- NOTE | 2017-06-01 07:13 | PN- Housestaff ---
Subjective Follow-up For: Osteomyelitis Subjective: Patient was seen and examined at bedside. She was resting comfortably. She had no acute events overnight. She has mild pain of her L foot and tenderness of her L leg. She states her rash has not improved. She has no new complaints. She continues to be reluctant to consider an amputation. Review of Systems Constitutional: Reports: no symptoms. EENTM: Reports: no symptoms. Cardiovascular: Reports: no symptoms. Respiratory: Reports: no symptoms. Gastrointestinal: Reports: no symptoms. Genitourinary: Reports: no symptoms. Musculoskeletal: Reports: see HPI, joint pain. Skin: Reports: see HPI, rash. Objective Last 24 Hrs of Vital Signs/I&O Vital Signs Date Time Temp Pulse Resp B/P B/P Pulse O2 O2 Flow FiO2 Mean Ox Delivery Rate 06/01 0642 98.8 66 20 140/62 94 Room Air 05/31 2304 98.3 69 20 150/64 95 Room Air 05/31 2146 69 150/64 05/31 1403 99.3 75 20 148/65 97 05/31 0858 97.8 66 20 152/60 Intake & Output 06/01 0800 06/01 0000 05/31 1600 Intake Total 400 460 Output Total Balance 400 460 Intake, IV 100 100 Intake, Oral 300 360 Physical Exam General Appearance: Alert, Oriented X3, Cooperative Skin: No Significant Lesion, erythematous, warm patches on the distal L lower extremity and extending with irregular boarders up the medial thigh this are is tender to palpation Skin Temp/Moisture Exam: Warm/Dry Cardiovascular: Regular Rate, Normal S1, Normal S2 Lungs: Clear to Auscultation, Normal Air Movement Abdomen: Normal Bowel Sounds, Soft, No Tenderness Extremities: see skin exam, L foot wrapped in kerlex with saturation in the area of the wound on the plantar heel Current Medications: Current Medications Sig/Vandana Start time Last Medication Dose Route Stop Time Status Admin Acetaminophen 650 MG Q4P PRN 05/30 2244 AC PO Acetaminophen/ 1 TAB Q4-6 PRN PRN 05/30 2244 AC 05/31 Codeine Phosphate PO 2315 Alprazolam 0.5 MG AT BEDTIME NEED.. 05/30 2244 AC 05/31 PO 06/06 224 0056 Ampicillin Sodium/ 1,500 MG Q8 05/31 2199 AC 05/31 Sulbactam Sodium IV 2147 Sodium Chloride 100 ML Ampicillin Sodium/ 3,000 MG Q6 05/31 0100 DC 05/31 Sulbactam Sodium IV 1130 Sodium Chloride 100 ML Apixaban 5 MG BID 05/30 2359 AC 05/31 PO 2146 Ascorbic Acid 500 MG DAILY 05/31 1000 AC 05/31 PO 0858 Atorvastatin Calcium 40 MG 1700 05/31 1700 AC 05/31 PO 1709 Cetirizine HCl 10 MG DAILY 06/01 1000 AC PO Cholecalciferol 1,000 IU DAILY 05/31 1000 AC 05/31 PO 0858 Gabapentin 1,200 MG Q8 05/30 2300 AC 05/31 PO 2146 Insulin Detemir 15 UNITS AT BEDTIME 05/31 2200 AC 05/31 SC 2149 Levothyroxine Sodium 0.05 MG DAILY AC 05/31 0700 AC 05/31 PO 0628 Loratadine 10 MG DAILY 05/31 1000 DC PO Metoprolol Tartrate 50 MG BID 05/31 1000 AC 05/31 PO 2146 Omeprazole 40 MG DAILY AC 05/31 0700 AC 05/31 PO 0628 Polyethylene Glycol 17 GM DAILY PRN 05/30 2245 AC PO Sodium Chloride 1,000 ML Q20H 05/30 2215 DC 05/30 IV 05/31 1134 2307 Last 24 Hrs of Lab/Ammon Results Last 24 Hrs of Labs/Mics: Laboratory Tests 05/31/17 0820: Anion Gap 11, Estimated GFR 32 L, BUN/Creatinine Ratio 28.1 H, CBC w Diff MAN DIFF ORDERED, RBC 4.01 L, MCV 85.3, MCH 27.3, MCHC 32.0 L, RDW 16.5 H, MPV 8.5, Gran % 85.4 H, Lymphocytes % 8.5 L, Monocytes % 5.8, Eosinophils % 0, Basophils % 0.3, Absolute Granulocytes 9.7 H, Segmented Neutrophils 75, Band Neutrophils 6 H, Absolute Lymphocytes 1.0 L, Lymphocytes 12 L, Monocytes 7, Absolute Monocytes 0.7 H, Absolute Eosinophils 0, Absolute Basophils 0, Platelet Estimate VERIFIED BY SMEAR, Normocytic RBCs VERIFIED, Normochromic RBCs VERIFIED Assessment/Plan Assessment: Patient is a 71-year-old female with a PMH significant for HTN, HLD, DM, HFpEF, mitral valve prolapse, endocarditis, peripheral neuropathy, PVD, paroxysmal A. fib on Eliquis, CKD stage 3, and MRSA osteomyelitis who presented to the [facility] ED complaining of left leg swelling and redness in the setting of a chronic diabetic foot ulcer on the plantar left foot. Patient met SIRS criteria with a elevated temperature MAXIMUM TEMPERATURE 102.2 and leukocytosis WBC 17.2. #Sepsis secondary to left foot osteomyelitis, sepsis has now resolved Patient has had recurrent osteomyelitis and refuses to consider amputation. X- ray shows evidence of osteomyelitis. She was afebrile overnight and WBC has normalized -Continue IV Unasyn -ID recommendations appreciated -per discussion with Dr. Altamirano, will dress the wound with kerlex and DSD #Chronic medical problems including DM, HTN, HLD, A. fib -Continue home medications -NovoLog sliding scale Diet: Diabetic diet DVT PPX: Eliquis CODE STATUS: DNR/DNI Problem List: 1. Osteomyelitis of left foot 2. Paroxysmal atrial fibrillation 3. Cellulitis of left lower extremity Pain Ratin Pain Location: L leg and Pain Goal: Pain 4 or less Pain Plan: Pain pathway Tomorrow's Labs & Rationales: cbc
[2017-06-01 09:32] LABS: ABSOLUTE BASOPHIL COUNT 0 /CUMM (0.0-0.2); ABSOLUTE EOSINOPHIL COUNT 0.3 /CUMM (0.0-0.7); ABSOLUTE GRANULOCYTE CT 7.9 /CUMM (1.4-6.5); ABSOLUTE LYMPH COUNT 0.9 /CUMM (1.2-3.4); BASOPHIL % 0.2 % (0.0-2.0); EOSINOPHIL % 2.6 % (0-5); GRANULOCYTE % 78.7 % (42.2-75.2); HEMATOCRIT 30.7 % (37-47); MEAN CORPUSCULAR HGB 27.7 PG (27.0-31.0); MEAN CORPUSCULAR HGB CONC 32.5 G/DL (33.0-37.0); MEAN CORPUSCULAR VOLUME 85.4 FL (81.0-99.0); MEAN PLATELET VOLUME 8.7 FL (7.4-10.4); PLATELET COUNT 230 /CUMM (130-400); RBC DISTRIBUTION WIDTH 16.4 % (11.5-14.5); RED BLOOD CELL CT 3.59 /CUMM (4.20-5.40)
--- NOTE | 2017-06-01 10:50 | PN- Att Addend ---
Attending Addendum Attending Brief Note Patient sitting in the chair with legs elevated Temp max 99 3 with her other vital signs are stable with no major changes on physical her white count has come down and her blood cultures urine culture and viral swab are negative so far. Appreciate Dr. patel input and recommendations patient still not agreeable to surgical amputation. We'll continue treatment as per infectious diseases and podiatry follow-up labs closely. Kidney function about the same. 24 TOTALS 06/01 0000 05/31 0000 Intake Total 1820 Output Total Balance 1820 Intake, IV 800 Intake, Oral 1020 Patient 119 lb 223 lb Weight Weight Bed scale Bed scale Measurement Method Current Medications Sig/Vandana Start time Last Medication Dose Route Stop Time Status Admin Acetaminophen 650 MG Q4P PRN 05/30 2244 AC PO Acetaminophen/ 1 TAB Q4-6 PRN PRN 05/30 2244 AC 06/01 Codeine Phosphate PO 08 Alprazolam 0.5 MG AT BEDTIME NEED.. 05/30 2245 AC 05/31 PO 06/06 2244 0056 Ampicillin Sodium/ 1,500 MG Q8 05/31 2200 AC 06/01 Sulbactam Sodium IV 0719 Sodium Chloride 100 ML Ampicillin Sodium/ 3,000 MG Q6 05/31 0100 DC 05/31 Sulbactam Sodium IV 1130 Sodium Chloride 100 ML Apixaban 5 MG BID 05/30 2359 AC 06/01 PO 0813 Ascorbic Acid 500 MG DAILY 05/31 1000 AC 06/01 PO 0813 Atorvastatin Calcium 40 MG 1700 05/31 1700 AC 05/31 PO 1709 Cetirizine HCl 10 MG DAILY 06/01 1000 AC 06/01 PO 0812 Cholecalciferol 1,000 IU DAILY 05/31 1000 AC 06/01 PO 0813 Gabapentin 1,200 MG Q8 05/30 2300 AC 06/01 PO 0719 Insulin Detemir 15 UNITS AT BEDTIME 05/31 2200 AC 05/31 SC 2149 Levothyroxine Sodium 0.05 MG DAILY AC 05/31 0700 AC 06/01 PO 0719 Loratadine 10 MG DAILY 05/31 1000 DC PO Metoprolol Tartrate 50 MG BID 05/31 1000 AC 06/01 PO 0813 Omeprazole 40 MG DAILY AC 05/31 0700 AC 06/01 PO 0719 Polyethylene Glycol 17 GM DAILY PRN 05/30 2245 AC 06/01 PO 0908 Sodium Chloride 1,000 ML Q20H 05/30 2215 DC 05/30 IV 05/31 1134 2307 Laboratory Tests 06/01/17 0820: Anion Gap 13, Estimated GFR 30 L, BUN/Creatinine Ratio 28.8 H, CBC w Diff NO MAN DIFF REQ, RBC 3.59 L, MCV 85.4, MCH 27.7, MCHC 32.5 L, RDW 16.4 H, MPV 8.7, Gran % 78.7 H, Lymphocytes % 8.7 L, Monocytes % 9.8 H, Eosinophils % 2.6 , Basophils % 0.2, Absolute Granulocytes 7.9 H, Absolute Lymphocytes 0.9 L, Absolute Monocytes 1.0 H, Absolute Eosinophils 0.3, Absolute Basophils 0 05/31/17 0820: Anion Gap 11, Estimated GFR 32 L, BUN/Creatinine Ratio 28.1 H, CBC w Diff MAN DIFF ORDERED, RBC 4.01 L, MCV 85.3, MCH 27.3, MCHC 32.0 L, RDW 16.5 H, MPV 8.5, Gran % 85.4 H, Lymphocytes % 8.5 L, Monocytes % 5.8, Eosinophils % 0, Basophils % 0.3, Absolute Granulocytes 9.7 H, Segmented Neutrophils 75, Band Neutrophils 6 H, Absolute Lymphocytes 1.0 L, Lymphocytes 12 L, Monocytes 7, Absolute Monocytes 0.7 H, Absolute Eosinophils 0, Absolute Basophils 0, Platelet Estimate VERIFIED BY SMEAR, Normocytic RBCs VERIFIED, Normochromic RBCs VERIFIED 05/30/171957: Urinalysis LIGHT H, Urine Color YEL, Urine Clarity CLEAR, Urine pH 6.0, Ur Specific [place] >= 1.030, Urine Protein >=300 H, Urine Ketones NEG, Urine Nitrite NEG, Urine Bilirubin NEG, Urine Urobilinogen 0.2, Ur Leukocyte Esterase NEG, Ur Microscopic SEDIMENT EXAMINED, Urine RBC 1-3, Urine WBC RARE, Ur Epithelial Cells RARE, Urine Bacteria FEW H, Urine Mucus RARE, Urine Hemoglobin MOD H, Urine Glucose NEG 05/30/17 1720: Lactic Acid 1.5, ESR Westergren 71 H 05/30/17 1428: Anion Gap 16, Estimated GFR 30 L, BUN/Creatinine Ratio 28.8 H, Glucose 202 H, Lactic Acid 1.4, Calcium 9.4, Total Bilirubin 0.6, AST 98 H, ALT 35, Alkaline Phosphatase 152 H, Creatine Kinase 2648 H, Total Protein 7.4, Albumin 3.7, Globulin 3.7, Albumin/Globulin Ratio 1.0 L, CBC w Diff MAN DIFF ORDERED, RBC 4.49, MCV 84.0, MCH 27.6, MCHC 32.8 L, RDW 16.1 H, MPV 8.3, Gran % 91.4 H, Lymphocytes % 5.7 L, Monocytes % 2.8, Eosinophils % 0, Basophils % 0.1, Absolute Granulocytes 15.7 H, Segmented Neutrophils 80 H, Band Neutrophils 9 H, Absolute Lymphocytes 1.0 L, Lymphocytes 6 L, Monocytes 5, Absolute Monocytes 0.5, Absolute Eosinophils 0, Absolute Basophils 0, Platelet Estimate VERIFIED BY SMEAR, Normocytic RBCs VERIFIED, Normochromic RBCs VERIFIED Microbiology 05/30 1720 NASOPHARYN: Influenza Virus A & B Rapid Smear - COMP Vital Signs Date Time Temp Pulse Resp B/P B/P Pulse O2 O2 Flow FiO2 Mean Ox Delivery Rate 06/01 0813 98.8 66 20 140/62 06/01 0642 98.8 66 20 140/62 94 Room Air 05/31 2304 98.3 69 20 150/64 95 Room Air 05/31 2146 69 150/64 05/31 1403 99.3 75 20 148/65 97
--- NOTE | 2017-06-01 14:11 | PN- Infect Dx ---
Subjective Subjective: Afebrile. She continues to complain of pain in the left leg. Objective Last 24 Hrs of Vital Signs/I&O Vital Signs Date Time Temp Pulse Resp B/P B/P Pulse O2 O2 Flow FiO2 Mean Ox Delivery Rate 06/01 0813 98.8 66 20 140/62 06/01 0642 98.8 66 20 140/62 94 Room Air 05/31 2304 98.3 69 20 150/64 95 Room Air 05/31 2146 69 150/64 Intake & Output 06/01 1600 06/01 0800 06/01 0000 Intake Total 470 400 Output Total Balance 470 400 Intake, IV 120 100 Intake, Oral 350 300 Number 0 Bowel Movements Physical Exam Other Physical Findings: She appears comfortable in no acute distress Extremities left foot dressing intact; left leg erythema, edema and tenderness unchanged Results Last 24 Hours of Lab Results: Laboratory Tests 06/01 0820 Chemistry Sodium (137 - 145 mmol/L) 139 Potassium (3.5 - 5.1 mmol/L) 4.4 Chloride (98 - 107 mmol/L) 104 Carbon Dioxide (22 - 30 mmol/L) 22 Anion Gap (5 - 16) 13 BUN (7 - 17 mg/dL) 49 H Creatinine (0.5 - 1.0 mg/dL) 1.7 H Estimated GFR (>60 ml/min) 30 L BUN/Creatinine Ratio (7 - 25 %) 28.8 H Hematology CBC w Diff NO MAN DIFF REQ WBC (4.8 - 10.8 /CUMM) 10.0 RBC (4.20 - 5.40 /CUMM) 3.59 L Hgb (12.0 - 16.0 G/DL) 10.0 L Hct (37 - 47 %) 30.7 L MCV (81.0 - 99.0 FL) 85.4 MCH (27.0 - 31.0 PG) 27.7 MCHC (33.0 - 37.0 G/DL) 32.5 L RDW (11.5 - 14.5 %) 16.4 H Plt Count (130 - 400 /CUMM) 230 MPV (7.4 - 10.4 FL) 8.7 Gran % (42.2 - 75.2 %) 78.7 H Lymphocytes % (20.5 - 51.1 %) 8.7 L Monocytes % (1.7 - 9.3 %) 9.8 H Eosinophils % (0 - 5 %) 2.6 Basophils % (0.0 - 2.0 %) 0.2 Absolute Granulocytes (1.4 - 6.5 /CUMM) 7.9 H Absolute Lymphocytes (1.2 - 3.4 /CUMM) 0.9 L Absolute Monocytes (0.10 - 0.60 /CUMM) 1.0 H Absolute Eosinophils (0.0 - 0.7 /CUMM) 0.3 Absolute Basophils (0.0 - 0.2 /CUMM) 0 Last 24 Hours of Ammon Results: Blood cultures 2 May 30 negative Urine culture May 30 negative Assessment/Plan ID Impression: Improving, with temperatures and white blood cell count now normal, on Unasyn Day 2 of treatment for a left leg cellulitis, presumably secondary to her chronic, nonhealing ulcer of the left heel, which is secondary to chronic osteomyelitis. She continues to refuse a BKA, which has been recommended by Podiatry on multiple occasions. Her renal insufficiency, possibly secondary to sepsis, persists and will need to continue to monitor closely. Suggestion: 1. Elevation of the left leg 2. Further management of her left heel wound per Podiatry 3. Continue Unasyn
[2017-06-01 15:03] VITALS: BP 144/70
[2017-06-01 23:08] VITALS: BP 136/68
--- NOTE | 2017-06-01 23:40 | RADIOLOGY REPORT ---
EXAMINATION: XR PORTABLE CHEST CLINICAL INFORMATION: Desaturation, rule out acute CHF COMPARISON: 05/30/2017 TECHNIQUE: Portable frontal view of the chest was obtained. FINDINGS: The lungs are clear with no focal consolidation. No evidence of pneumothorax, pulmonary edema, or pleural effusions. The cardiac silhouette is mildly enlarged for technique. No acute osseous findings are seen. IMPRESSION: No evidence of edema. Mildly enlarged cardiac silhouette.
[2017-06-02 07:30] VITALS: BP 130/60
[2017-06-02 09:05] LABS: ABSOLUTE BASOPHIL COUNT 0 /CUMM (0.0-0.2); ABSOLUTE EOSINOPHIL COUNT 0.2 /CUMM (0.0-0.7); ABSOLUTE GRANULOCYTE CT 7.6 /CUMM (1.4-6.5); ABSOLUTE LYMPH COUNT 1.1 /CUMM (1.2-3.4); ABSOLUTE MONOCYTE COUNT 1.3 /CUMM (0.10-0.60); BASOPHIL % 0.2 % (0.0-2.0); EOSINOPHIL % 1.8 % (0-5); GRANULOCYTE % 75.1 % (42.2-75.2); HEMATOCRIT 30.4 % (37-47); MEAN CORPUSCULAR HGB 27.8 PG (27.0-31.0); MEAN CORPUSCULAR HGB CONC 32.7 G/DL (33.0-37.0); MEAN CORPUSCULAR VOLUME 85.1 FL (81.0-99.0); MEAN PLATELET VOLUME 8.7 FL (7.4-10.4); PLATELET COUNT 241 /CUMM (130-400); RBC DISTRIBUTION WIDTH 16.5 % (11.5-14.5); RED BLOOD CELL CT 3.57 /CUMM (4.20-5.40); WHITE BLOOD CELL COUNT 10.1 /CUMM (4.8-10.8)
[2017-06-02 14:23] VITALS: BP 106/55
--- NOTE | 2017-06-02 16:06 | PN- Att Addend ---
Attending Addendum Attending Brief Note Patient sitting in the chair with legs elevated, leg not as swollen not as red bottom of the foot is about the same patient not happy with her diet dietitian spoke to the patient to make some adjustments. Vital signs are stable with temperature max 99 8 with no other major changes on physical with white count 10,100 urine culture negative after 2 days nasal swab negative for the flu blood cultures negative after 1 day. Will continue same treatments as recommended by infectious diseases 24 TOTALS 06/02 0000 06/01 0000 Intake Total 1770 1820 Output Total Balance 1770 1820 Intake, IV 440 800 Intake, Oral 1330 1020 Number 0 Bowel Movements Patient 119 lb Weight Weight Bed scale Measurement Method Current Medications Sig/Vandana Start time Last Medication Dose Route Stop Time Status Admin Acetaminophen 650 MG Q4P PRN 05/30 2244 AC PO Acetaminophen/ 1 TAB Q4-6 PRN PRN 05/30 224 AC 06/01 Codeine Phosphate PO 0813 Alprazolam 0.5 MG AT BEDTIME NEED.. 05/30 2245 AC 05/31 PO 06/06 224 0056 Ampicillin Sodium/ 1,500 MG Q8 05/31 2200 AC 06/02 Sulbactam Sodium IV 1433 Sodium Chloride 100 ML Apixaban 5 MG BID 05/30 2359 AC 06/02 PO 1017 Ascorbic Acid 500 MG DAILY 05/31 1000 AC 06/02 PO 1017 Atorvastatin Calcium 40 MG 1700 05/31 1700 AC 06/01 PO 1748 Cetirizine HCl 10 MG DAILY 06/01 1000 AC 06/02 PO 1017 Cholecalciferol 1,000 IU DAILY 05/31 1000 AC 06/02 PO 1017 Gabapentin 1,200 MG Q8 05/30 2300 AC 06/02 PO 1433 Insulin Detemir 15 UNITS AT BEDTIME 05/31 220 AC 06/01 SC 2157 Levothyroxine Sodium 0.05 MG DAILY AC 05/31 0700 AC 06/02 PO 0632 Metoprolol Tartrate 50 MG BID 05/31 1000 AC 06/02 PO 1017 Omeprazole 40 MG DAILY AC 05/31 0700 AC 06/02 PO 0632 Polyethylene Glycol 17 GM DAILY PRN 05/30 2245 AC 06/02 PO 1016 Laboratory Tests 06/02/17 0752: CBC w Diff NO MAN DIFF REQ, RBC 3.57 L, MCV 85.1, MCH 27.8, MCHC 32.7 L, RDW 16.5 H, MPV 8.7, Gran % 75.1, Lymphocytes % 10.5 L, Monocytes % 12.4 H, Eosinophils % 1.8, Basophils % 0.2, Absolute Granulocytes 7.6 H, Absolute Lymphocytes 1.1 L, Absolute Monocytes 1.3 H, Absolute Eosinophils 0.2, Absolute Basophils 0 06/01/17 2228: Pwg-I-Jsoesnggdhf Pept 8890 H 06/01/17 0820: Anion Gap 13, Estimated GFR 30 L, BUN/Creatinine Ratio 28.8 H, CBC w Diff NO MAN DIFF REQ, RBC 3.59 L, MCV 85.4, MCH 27.7, MCHC 32.5 L, RDW 16.4 H, MPV 8.7, Gran % 78.7 H, Lymphocytes % 8.7 L, Monocytes % 9.8 H, Eosinophils % 2.6 , Basophils % 0.2, Absolute Granulocytes 7.9 H, Absolute Lymphocytes 0.9 L, Absolute Monocytes 1.0 H, Absolute Eosinophils 0.3, Absolute Basophils 0 Vital Signs Date Time Temp Pulse Resp B/P B/P Pulse O2 O2 Flow FiO2 Mean Ox Delivery Rate 06/02 1423 98.5 62 18 106/55 94 Room Air 06/02 1017 99.4 62 20 130/60 06/02 0730 99.4 62 20 130/60 98 Room Air 06/02 0000 92 Nasal 1.0L Cannula 06/017 92 Nasal Cannula 06/01 2308 99.8 75 20 136/68 90 06/01 2300 92 Nasal Cannula 06/01 2156 75 136/68
[2017-06-02 22:45] VITALS: BP 144/69
[2017-06-03 06:37] VITALS: BP 150/74
--- NOTE | 2017-06-03 08:45 | PN- Housestaff ---
Subjective Follow-up For: osteomyelitis Subjective: Patient was seen and examined at bedside. She was resting comfortably. She had no acute events overnight. She continues to express frustration that he does not come see her. However it was explained that her case was discussed with Dr. Altamirano and we are treating her based on his recommendations along with recommendations of infectious disease. She states that her pain level is not improved however believes that the rash on her leg is improving. She has no new complaints. Review of Systems Constitutional: Denies: chills, fever. EENTM: Reports: no symptoms. Cardiovascular: Reports: no symptoms. Respiratory: Reports: no symptoms. Gastrointestinal: Reports: no symptoms. Genitourinary: Reports: no symptoms. Musculoskeletal: Reports: no symptoms. Skin: Reports: rash. Objective Last 24 Hrs of Vital Signs/I&O Vital Signs Date Time Temp Pulse Resp B/P B/P Pulse O2 O2 Flow FiO2 Mean Ox Delivery Rate 06/03 0637 99.0 64 20 150/74 91 Room Air 06/02 2245 99.2 68 18 144/69 92 Room Air 06/02 2108 67 140/70 06/02 1423 98.5 62 18 106/55 94 Room Air 06/02 1017 99.4 62 20 130/60 Intake & Output 06/03 1600 06/03 0800 06/03 0000 Intake Total 830 Output Total Balance 830 Intake, IV 130 Intake, Oral 700 Physical Exam General Appearance: Alert, Oriented X3, Cooperative, No Acute Distress Skin: erythamatous patch on the distal LLE, extending up the medal LLE towards the thigh, recreation program coordinator in color today. Skin Temp/Moisture Exam: Warm/Dry HEENT: small abrasion on the upper and lower lip Cardiovascular: Regular Rate, Normal S1, Normal S2 Lungs: Clear to Auscultation, Normal Air Movement Abdomen: Normal Bowel Sounds, Soft, No Tenderness Neurological: Normal Speech, Normal Tone, Sensation Intact Extremities: LLE tender to palpation over the rash, with overlying warmth but decreased from previous evaluation on 06/01/17. ulcer on the left plantar heel is dressed with Xeroform and Kerlix, there is saturation of serosanguineous fluid through the Kerlix dressing currently Current Medications: Current Medications Sig/Vandana Start time Last Medication Dose Route Stop Time Status Admin Acetaminophen 650 MG Q4P PRN 05/30 2245 AC PO Acetaminophen/ 1 TAB Q4-6 PRN PRN 05/30 2245 AC 06/01 Codeine Phosphate PO 0813 Alprazolam 0.5 MG AT BEDTIME NEED.. 05/30 2245 AC 05/31 PO 06/06 2244 0056 Ampicillin Sodium/ 1,500 MG Q8 05/31 2200 AC 06/03 Sulbactam Sodium IV 0627 Sodium Chloride 100 ML Apixaban 5 MG BID 05/30 2359 AC 06/02 PO 2108 Ascorbic Acid 500 MG DAILY 05/31 1000 AC 06/02 PO 1017 Atorvastatin Calcium 40 MG 1700 05/31 1700 AC 06/02 PO 1622 Cetirizine HCl 10 MG DAILY 06/01 1000 AC 06/02 PO 1017 Cholecalciferol 1,000 IU DAILY 05/31 1000 AC 06/02 PO 1017 Gabapentin 1,200 MG Q8 05/30 2300 AC 06/03 PO 0628 Insulin Aspart 0 AT BEDTIME 06/02 2200 AC SC Insulin Aspart 0 TIDAC 06/02 1700 AC SC Insulin Detemir 15 UNITS AT BEDTIME 05/31 2200 AC 06/02 SC 2108 Levothyroxine Sodium 0.05 MG DAILY AC 05/31 0700 AC 06/03 PO 0627 Metoprolol Tartrate 50 MG BID 05/31 1000 AC 06/02 PO 2108 Omeprazole 40 MG DAILY AC 05/31 0700 AC 06/03 PO 0628 Polyethylene Glycol 17 GM DAILY PRN 05/30 2245 AC 06/02 PO 1016 Last 24 Hrs of Lab/Ammon Results Last 24 Hrs of Labs/Mics: Laboratory Tests 06/03/17 0756: Sodium Pending, Potassium Pending, Chloride Pending, Carbon Dioxide Pending, Anion Gap Pending, BUN Pending, Creatinine Pending, BUN/Creatinine Ratio Pending , CBC w Diff Pending, WBC Pending, RBC Pending, Hgb Pending, Hct Pending, MCV Pending, MCH Pending, MCHC Pending, RDW Pending, Plt Count Pending, MPV Pending Assessment/Plan Assessment: Patient is a 71-year-old female with a PMH significant for HTN, HLD, DM, HFpEF, mitral valve prolapse, endocarditis, peripheral neuropathy, PVD, paroxysmal A. fib on Eliquis, CKD stage 3, and MRSA osteomyelitis who presented to the [facility] ED complaining of left leg swelling and redness in the setting of a chronic diabetic foot ulcer on the plantar left foot. Patient met SIRS criteria with a elevated temperature MAXIMUM TEMPERATURE 102.2 and leukocytosis WBC 17.2. #Sepsis secondary to left foot osteomyelitis, sepsis has now resolved Patient has had recurrent osteomyelitis and refuses to consider amputation. X- ray shows evidence of osteomyelitis. She remains afebrile, mild increase in WBC today -Continue IV Unasyn -ID recommendations appreciated -Continue current wound care #Chronic medical problems including DM, HTN, HLD, A. fib -Continue home medications -NovoLog sliding scale Diet: Diabetic diet DVT PPX: Eliquis CODE STATUS: DNR/DNI Problem List: 1. Osteomyelitis of left foot Pain Ratin Pain Location: LLE Pain Goal: Pain 4 or less Pain Plan: pain pathway Tomorrow's Labs & Rationales: cbc, bep
[2017-06-03 09:24] LABS: ABSOLUTE BASOPHIL COUNT 0 /CUMM (0.0-0.2); ABSOLUTE EOSINOPHIL COUNT 0.2 /CUMM (0.0-0.7); ABSOLUTE GRANULOCYTE CT 8.6 /CUMM (1.4-6.5); ABSOLUTE LYMPH COUNT 1.2 /CUMM (1.2-3.4); ABSOLUTE MONOCYTE COUNT 1.1 /CUMM (0.10-0.60); BASOPHIL % 0.2 % (0.0-2.0); EOSINOPHIL % 1.9 % (0-5); GRANULOCYTE % 77.6 % (42.2-75.2); HEMATOCRIT 29.8 % (37-47); MEAN CORPUSCULAR HGB 27.2 PG (27.0-31.0); MEAN CORPUSCULAR HGB CONC 32.1 G/DL (33.0-37.0); MEAN CORPUSCULAR VOLUME 84.7 FL (81.0-99.0); MEAN PLATELET VOLUME 8.7 FL (7.4-10.4); PLATELET COUNT 261 /CUMM (130-400); RBC DISTRIBUTION WIDTH 16.6 % (11.5-14.5); RED BLOOD CELL CT 3.52 /CUMM (4.20-5.40); WHITE BLOOD CELL COUNT 11.1 /CUMM (4.8-10.8)
[2017-06-03 15:00] VITALS: BP 128/75
--- NOTE | 2017-06-03 15:00 | PN- Att Addend ---
Attending Addendum Attending Brief Note Patient sitting in the chair with the legs elevated and the foot covered. Temp max 99 .2. Rest of the vital signs are stable no major changes on physical White count 11,000 kidney function about the same will continue present treatment follow IDs recommendations Intake & Output 06/03 1600 06/03 0400 06/02 1600 06/02 0400 06/01 1600 06/01 0400 Intake Total 370 830 425 798 5966 400 Output Total Balance 370 830 802 843 8189 400 Intake, IV 130 130 120 120 320 100 Intake, Oral 240 700 315 326 7570 300 Number 2 0 0 Bowel Movements Current Medications Sig/Vandana Start time Last Medication Dose Route Stop Time Status Admin Acetaminophen 650 MG Q4P PRN 05/30 2244 AC PO Acetaminophen/ 1 TAB Q4-6 PRN PRN 05/30 2244 AC 06/03 Codeine Phosphate PO 1027 Alprazolam 0.5 MG AT BEDTIME NEED.. 05/30 2245 AC 05/31 PO 06/06 2244 0056 Ampicillin Sodium/ 1,500 MG Q8 05/31 220 AC 06/03 Sulbactam Sodium IV 1344 Sodium Chloride 100 ML Apixaban 5 MG BID 05/30 2359 AC 06/03 PO 0936 Ascorbic Acid 500 MG DAILY 05/31 1000 AC 06/03 PO 0935 Atorvastatin Calcium 40 MG 1700 05/31 1700 AC 06/02 PO 1622 Cetirizine HCl 10 MG DAILY 06/01 1000 AC 06/03 PO 0935 Cholecalciferol 1,000 IU DAILY 05/31 1000 AC 06/03 PO 0935 Gabapentin 1,200 MG Q8 05/30 2300 AC 06/03 PO 1344 Insulin Aspart 0 AT BEDTIME 06/02 2200 AC SC Insulin Aspart 0 TIDAC 06/02 1700 AC SC Insulin Detemir 15 UNITS AT BEDTIME 05/31 2200 AC 06/02 SC 2108 Levothyroxine Sodium 0.05 MG DAILY AC 05/31 0700 AC 06/03 PO 0627 Metoprolol Tartrate 50 MG BID 05/31 1000 AC 06/03 PO 0936 Omeprazole 40 MG DAILY AC 05/31 0700 AC 06/03 PO 0628 Polyethylene Glycol 17 GM DAILY PRN 05/30 2245 AC 06/02 PO 1016 Laboratory Tests 06/03/17 0756: Anion Gap 13, Estimated GFR 34 L, BUN/Creatinine Ratio 33.3 H, CBC w Diff NO MAN DIFF REQ, RBC 3.52 L, MCV 84.7, MCH 27.2, MCHC 32.1 L, RDW 16.6 H, MPV 8.7, Gran % 77.6 H, Lymphocytes % 10.8 L, Monocytes % 9.5 H, Eosinophils % 1.9, Basophils % 0.2, Absolute Granulocytes 8.6 H, Absolute Lymphocytes 1.2, Absolute Monocytes 1.1 H, Absolute Eosinophils 0.2, Absolute Basophils 0 06/02/17 0752: CBC w Diff NO MAN DIFF REQ, RBC 3.57 L, MCV 85.1, MCH 27.8, MCHC 32.7 L, RDW 16.5 H, MPV 8.7, Gran % 75.1, Lymphocytes % 10.5 L, Monocytes % 12.4 H, Eosinophils % 1.8, Basophils % 0.2, Absolute Granulocytes 7.6 H, Absolute Lymphocytes 1.1 L, Absolute Monocytes 1.3 H, Absolute Eosinophils 0.2, Absolute Basophils 0 06/01/17 2228: Yfc-Q-Wvazpbwzpsa Pept 8890 H 06/01/17 0820: Anion Gap 13, Estimated GFR 30 L, BUN/Creatinine Ratio 28.8 H, CBC w Diff NO MAN DIFF REQ, RBC 3.59 L, MCV 85.4, MCH 27.7, MCHC 32.5 L, RDW 16.4 H, MPV 8.7, Gran % 78.7 H, Lymphocytes % 8.7 L, Monocytes % 9.8 H, Eosinophils % 2.6 , Basophils % 0.2, Absolute Granulocytes 7.9 H, Absolute Lymphocytes 0.9 L, Absolute Monocytes 1.0 H, Absolute Eosinophils 0.3, Absolute Basophils 0 Vital Signs Date Time Temp Pulse Resp B/P B/P Pulse O2 O2 Flow FiO2 Mean Ox Delivery Rate 06/03 0936 99.0 150/74 06/03 0637 99.0 64 20 150/74 91 Room Air 06/03 0000 92 Room Air 06/02 2245 99.2 68 18 144/69 92 Room Air 06/02 2108 67 140/70
[2017-06-03 22:24] VITALS: BP 124/60
[2017-06-04 06:34] VITALS: BP 132/68
--- NOTE | 2017-06-04 07:39 | PN- Housestaff ---
Subjective Follow-up For: osteomyelitis, cellulitis KEVIN Subjective: Patient was seen and examined at bedside. She was resting comfortably. She had no acute events overnight. Her pain of her L foot, LLE rash, and LLE tenderness is improving. She reports that she has had cold sores in the past and believes the lesion on her lips is a cold sore, she does not report numbness or tingling in the area. Review of Systems Constitutional: Reports: no symptoms. EENTM: Reports: no symptoms. Cardiovascular: Reports: no symptoms. Respiratory: Reports: no symptoms. Gastrointestinal: Reports: no symptoms. Genitourinary: Reports: no symptoms. Musculoskeletal: Reports: see HPI. Skin: Reports: rash. Objective Last 24 Hrs of Vital Signs/I&O Vital Signs Date Time Temp Pulse Resp B/P B/P Pulse O2 O2 Flow FiO2 Mean Ox Delivery Rate 06/04 0634 97.9 63 18 132/68 95 Room Air 06/03 2224 98.3 56 18 124/60 96 Room Air 06/03 2133 75 125/68 06/03 1500 98.7 64 20 128/75 92 06/03 0936 99.0 150/74 Intake & Output 06/04 0800 06/04 0000 06/03 1600 Intake Total 620 750 860 Output Total Balance 620 750 860 Intake, IV 260 150 Intake, Oral 360 600 860 Number 2 1 Bowel Movements Physical Exam General Appearance: Alert, Oriented X3, Cooperative Skin Temp/Moisture Exam: Warm/Dry Sepsis Skin Exam (color): Normal for Ethnicity Cardiovascular: Regular Rate, Normal S1, Normal S2 Lungs: Clear to Auscultation, Normal Air Movement Abdomen: Normal Bowel Sounds, Soft, No Tenderness Neurological: Normal Speech, decreased sensation of the L toes Extremities: persistent rash on the distal LLE extending to the medial thigh, LLE 1+pitting edema Current Medications: Current Medications Sig/Vnadana Start time Last Medication Dose Route Stop Time Status Admin Acetaminophen 650 MG Q4P PRN 05/30 2244 AC PO Acetaminophen/ 1 TAB Q4-6 PRN PRN 05/30 2244 AC 06/04 Codeine Phosphate PO 0605 Alprazolam 0.5 MG AT BEDTIME NEED.. 05/30 2244 AC 05/31 PO 06/07 2243 0056 Ampicillin Sodium/ 1,500 MG Q8 05/31 2199 AC 06/04 Sulbactam Sodium IV 0603 Sodium Chloride 100 ML Apixaban 5 MG BID 05/30 2359 AC 06/03 PO 2132 Ascorbic Acid 500 MG DAILY 05/31 1000 AC 06/03 PO 0935 Atorvastatin Calcium 40 MG 1700 05/31 1700 AC 06/03 PO 1648 Cetirizine HCl 10 MG DAILY 06/01 1000 AC 06/03 PO 0935 Cholecalciferol 1,000 IU DAILY 05/31 1000 AC 06/03 PO 0935 Gabapentin 1,200 MG Q8 05/30 2300 AC 06/04 PO 0603 Insulin Aspart 0 AT BEDTIME 06/02 2200 AC SC Insulin Aspart 0 TIDAC 06/02 1700 AC 06/03 SC 1739 Insulin Detemir 15 UNITS AT BEDTIME 05/31 2200 AC 06/03 SC 2133 Levothyroxine Sodium 0.05 MG DAILY AC 05/31 0700 AC 06/04 PO 0603 Metoprolol Tartrate 50 MG BID 05/31 1000 AC 06/03 PO 2133 Omeprazole 40 MG DAILY AC 05/31 0700 AC 06/04 PO 0603 Polyethylene Glycol 17 GM DAILY PRN 05/30 2245 AC 06/02 PO 1016 Last 24 Hrs of Lab/Ammon Results Last 24 Hrs of Labs/Mics: Laboratory Tests 06/03/17 0756: Anion Gap 13, Estimated GFR 34 L, BUN/Creatinine Ratio 33.3 H, CBC w Diff NO MAN DIFF REQ, RBC 3.52 L, MCV 84.7, MCH 27.2, MCHC 32.1 L, RDW 16.6 H, MPV 8.7, Gran % 77.6 H, Lymphocytes % 10.8 L, Monocytes % 9.5 H, Eosinophils % 1.9, Basophils % 0.2, Absolute Granulocytes 8.6 H, Absolute Lymphocytes 1.2, Absolute Monocytes 1.1 H, Absolute Eosinophils 0.2, Absolute Basophils 0 Assessment/Plan Assessment: Patient is a 71-year-old female with a PMH significant for HTN, HLD, DM, HFpEF, mitral valve prolapse, endocarditis, peripheral neuropathy, PVD, paroxysmal A. fib on Eliquis, CKD stage 3, and MRSA osteomyelitis who presented to the [facility] ED complaining of left leg swelling and redness in the setting of a chronic diabetic foot ulcer on the plantar left foot. Patient met SIRS criteria with a elevated temperature MAXIMUM TEMPERATURE 102.2 and leukocytosis WBC 17.2. #osteomyelitis of the L foot and L leg cellulitis Patient has had recurrent osteomyelitis and refuses to consider amputation. X- ray shows evidence of osteomyelitis. She remains afebrile -Continue IV Unasyn, will consider transitioning to oral antibiotics -ID recommendations appreciated -Continue current wound care - no plan for podiatric surgery, will get PT evaluation for DC recommendations #Chronic medical problems including DM, HTN, HLD, A. 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 Cellulitis 2. Osteomyelitis of left foot 3. Acute kidney injury Pain Ratin Pain Location: L Plantar foot Pain Goal: Pain 4 or less Pain Plan: pain pathway Tomorrow's Labs & Rationales: cbc
--- NOTE | 2017-06-04 10:41 | PN- Att Addend ---
Attending Addendum Attending Brief Note No new changes, vital signs are stable no fever but no major changes on physical. Will check with infectious diseases probably switched to by mouth antibiotics and then start disposition plans. Apparently this no podiatry procedures anticipated. Current Medications Sig/Vandana Start time Last Medication Dose Route Stop Time Status Admin Acetaminophen 650 MG Q4P PRN 05/30 2245 AC PO Acetaminophen/ 1 TAB Q4-6 PRN PRN 05/30 2245 AC 06/04 Codeine Phosphate PO 0605 Acyclovir 1 AURELIA BID 06/04 1018 AC TOP Alprazolam 0.5 MG AT BEDTIME NEED.. 05/30 2245 AC 05/31 PO 06/06 2244 0056 Ampicillin Sodium/ 1,500 MG Q8 05/31 2200 AC 06/04 Sulbactam Sodium IV 0603 Sodium Chloride 100 ML Apixaban 5 MG BID 05/30 2359 AC 06/04 PO 0928 Ascorbic Acid 500 MG DAILY 05/31 1000 AC 06/04 PO 0928 Atorvastatin Calcium 40 MG 1700 05/31 1700 AC 06/03 PO 1648 Cetirizine HCl 10 MG DAILY 06/01 1000 AC 06/04 PO 0928 Cholecalciferol 1,000 IU DAILY 05/31 1000 AC 06/04 PO 0928 Gabapentin 1,200 MG Q8 05/30 2300 AC 06/04 PO 0603 Insulin Aspart 0 AT BEDTIME 06/02 2200 AC SC Insulin Aspart 0 TIDAC 06/02 1700 AC 06/04 SC 0926 Insulin Detemir 15 UNITS AT BEDTIME 05/31 2200 AC 06/03 SC 2133 Levothyroxine Sodium 0.05 MG DAILY AC 05/31 0700 AC 06/04 PO 0603 Metoprolol Tartrate 50 MG BID 05/31 1000 AC 06/04 PO 0928 Omeprazole 40 MG DAILY AC 05/31 0700 AC 06/04 PO 0603 Polyethylene Glycol 17 GM DAILY PRN 05/30 2245 AC 06/02 PO 1016 Laboratory Tests 06/03/17 0756: Anion Gap 13, Estimated GFR 34 L, BUN/Creatinine Ratio 33.3 H, CBC w Diff NO MAN DIFF REQ, RBC 3.52 L, MCV 84.7, MCH 27.2, MCHC 32.1 L, RDW 16.6 H, MPV 8.7, Gran % 77.6 H, Lymphocytes % 10.8 L, Monocytes % 9.5 H, Eosinophils % 1.9, Basophils % 0.2, Absolute Granulocytes 8.6 H, Absolute Lymphocytes 1.2, Absolute Monocytes 1.1 H, Absolute Eosinophils 0.2, Absolute Basophils 0 06/02/17 0752: CBC w Diff NO MAN DIFF REQ, RBC 3.57 L, MCV 85.1, MCH 27.8, MCHC 32.7 L, RDW 16.5 H, MPV 8.7, Gran % 75.1, Lymphocytes % 10.5 L, Monocytes % 12.4 H, Eosinophils % 1.8, Basophils % 0.2, Absolute Granulocytes 7.6 H, Absolute Lymphocytes 1.1 L, Absolute Monocytes 1.3 H, Absolute Eosinophils 0.2, Absolute Basophils 0 06/01/17 2228: [place]o-V-[place] Pept 8890 H Vital Signs Date Time Temp Pulse Resp B/P B/P Pulse O2 O2 Flow FiO2 Mean Ox Delivery Rate 06/04 0634 97.9 63 18 132/68 95 Room Air 06/03 2224 98.3 56 18 124/60 96 Room Air 06/03 2133 75 125/68 06/03 1500 98.7 64 20 128/75 92
--- NOTE | 2017-06-04 10:51 | Discharge Summary ---
Visit Information Visit Dates Admission Date: 05/30/17 Hospital Course Allergies: Coded Allergies: enalapril (Intermediate, PERSITENT COUGH. 06/28/15) Discharge Instructions Medications at Discharge Discharge Medications: Continue taking these medications: Atorvastatin Calcium (Lipitor) 40 MG TABLET 1 Tablet ORAL DAILY Comments: Last Taken: 06/04/17 Time: 5:35 PM Gabapentin (Gabapentin) 600 MG TABLET 2 Tablet ORAL THREE TIMES DAILY Comments: Last Taken: 06/05/17 Time: 2:00 PM Cetirizine HCl (Zyrtec) 10 MG TABLET 1 Tablet ORAL DAILY Comments: Last Taken: 06/05/17 Time: 10:30 AM Levothyroxine Sodium (Synthroid) 50 MCG TABLET 1 Tablet ORAL DAILY BEFORE BREAKFAST Comments: Last Taken: 04/20/17 Time: 5:10 AM Multivitamin (Multivitamins) 1 EACH CAPSULE 1 Tablet ORAL DAILY Comments: NOT GIVEN Metoprolol Tartrate (Metoprolol Tartrate) 50 MG TABLET 50 Milligram ORAL TWICE DAILY Qty = 60 Comments: Last Taken: 06/05/17 Time: 10:30 AM Omeprazole (Omeprazole) 20 MG CAPSULE.DR 40 Milligram ORAL DAILY BEFORE BREAKFAST Qty = 30 Comments: Last Taken: 06/05/17 Time: 6:00 AM Tylenol With Codeine (Tylenol With Codeine #3 Tablet) 300 MG-30 MG TABLET 1-2 Tablet ORAL EVERY 4-6 HOURS NEEDED as needed for pain control Qty = 30 Instructions: take as directed. do not combine with tylenol. Comments: Last Taken: 06/05/17 Time: 10:48 Polyethylene Glycol 3350 (Miralax) 17 GRAM POWD.PACK 1 Packet ORAL DAILY Instructions: dissolve in water Comments: NOT GIVEN Alprazolam (Alprazolam) 0.5 MG TABLET 1 Tablet ORAL as needed for ANXIETY Qty = 20 Comments: NOT GIVEN Insulin Detemir (Levemir Flextouch) 100 UNIT/ML (3 ML) INSULN.PEN 20 Unit Inject into fatty tissue TAKE AT BEDTIME Qty = 15 Comments: Last Taken: 06/04/17 Time: 9:00 PM Vitamin B Complex (Vitamin B Complex) 1 EACH CAPSULE 1 Capsule ORAL DAILY Comments: Last Taken: NOT GIVEN IN HOSPITAL Time: Cholecalciferol (Vitamin D3) (Vitamin D) (Unknown Strength) TABLET Unknown Dose ORAL DAILY Comments: Last Taken: 06/05/17 Time: 10:30 AM Ascorbic Acid (Vitamin C) 1,000 MG TABLET 1 Tablet ORAL DAILY Comments: Last Taken: 06/05/17 Time: 10:30 AM ZINC (ZINC) 50 MG TABLET 1 Tablet ORAL DAILY Comments: Last Taken: NOT GIVEN IN HOSPITAL Time: Magnesium Oxide (Magnesium) 500 MG CAPSULE 1 Capsule ORAL DAILY Comments: Last Taken: 04/20/17 Time: 8:15 AM Apixaban (Eliquis) 5 MG TABLET 5 Milligram ORAL TWICE DAILY Qty = 60 Comments: Last Taken: 06/05/17 Time: 10:30 A.M. Insulin Aspart, Recombinant (Novolog Flexpen) 100 UNIT/ML INSULN.PEN 0 Inject into fatty tissue SEE INSTRUCTIONS Qty = 4 Instructions: BEFORE MEALS. Blood Insulin Sugar Units <80 0 81-150 4 151-200 5 201-250 6 251-300 7 301-350 8 351-400 9 >400 GIVE 10 UNITS AND Call Doctor Comments: BEFORE MEALS Blood Insulin Sugar Units <80 0 81-150 4 151-200 5 201-250 6 251-300 7 301-350 8 351-400 9 >400 GIVE 10 UNITS AND Call Doctor Last Taken: 04/20/17 Time: 5:30 PM Lactobacillus Acidophilus (Probiotic) (Unknown Strength) CAPSULE Unknown Dose ORAL DAILY Comments: NOT GIVEN Sennosides/Docusate Sodium (Senna S Tablet) 8.6 MG-50 MG TABLET 1 Tablet ORAL as needed for CONSTIPATION Comments: NOT GIVEN Start taking the following new medications: Augmentin (Augmentin 500-125 Tablet) 500 MG-125 MG TABLET 500 Milligram ORAL TWICE DAILY Qty = 9 No Refills Comments: Take one tablet the evening of discharge, then twice daily for 4 days Last Taken: 06/05/17 Time: 10:30 Acyclovir (Zovirax) 5 % OINT...G. 1 Application On the skin TWICE DAILY Qty = 1 No Refills Instructions: Stop using with resolution of cold sore Comments: Last Taken: 06/05/17 Time: 10:30
--- NOTE | 2017-06-04 12:46 | PN- Infect Dx ---
Subjective Subjective: Afebrile. She feels somewhat improved with decreased pain in the left leg. Objective Last 24 Hrs of Vital Signs/I&O Vital Signs Date Time Temp Pulse Resp B/P B/P Pulse O2 O2 Flow FiO2 Mean Ox Delivery Rate 06/04 0634 97.9 63 18 132/68 95 Room Air 06/03 2224 98.3 56 18 124/60 96 Room Air 06/03 2133 75 125/68 06/03 1500 98.7 64 20 128/75 92 Intake & Output 06/04 1600 06/04 0800 06/04 0000 Intake Total 500 620 750 Output Total Balance 500 620 750 Intake, IV 260 150 Intake, Oral 500 360 600 Number 2 Bowel Movements Patient 119 lb Weight Physical Exam Other Physical Findings: She appears comfortable in no acute distress Extremities left leg erythematous patches persist on the medial aspect, towards her knee, mildly tender to palpation; left foot dressing intact Results Last 24 Hours of Lab Results: Laboratory Tests 06/03 0756 Chemistry Sodium (137 - 145 mmol/L) 140 Potassium (3.5 - 5.1 mmol/L) 4.3 Chloride (98 - 107 mmol/L) 104 Carbon Dioxide (22 - 30 mmol/L) 23 Anion Gap (5 - 16) 13 BUN (7 - 17 mg/dL) 50 H Creatinine (0.5 - 1.0 mg/dL) 1.5 H Estimated GFR (>60 ml/min) 34 L BUN/Creatinine Ratio (7 - 25 %) 33.3 H Hematology CBC w Diff NO MAN DIFF REQ WBC (4.8 - 10.8 /CUMM) 11.1 H RBC (4.20 - 5.40 /CUMM) 3.52 L Hgb (12.0 - 16.0 G/DL) 9.6 L Hct (37 - 47 %) 29.8 L MCV (81.0 - 99.0 FL) 84.7 MCH (27.0 - 31.0 PG) 27.2 MCHC (33.0 - 37.0 G/DL) 32.1 L RDW (11.5 - 14.5 %) 16.6 H Plt Count (130 - 400 /CUMM) 261 MPV (7.4 - 10.4 FL) 8.7 Gran % (42.2 - 75.2 %) 77.6 H Lymphocytes % (20.5 - 51.1 %) 10.8 L Monocytes % (1.7 - 9.3 %) 9.5 H Eosinophils % (0 - 5 %) 1.9 Basophils % (0.0 - 2.0 %) 0.2 Absolute Granulocytes (1.4 - 6.5 /CUMM) 8.6 H Absolute Lymphocytes (1.2 - 3.4 /CUMM) 1.2 Absolute Monocytes (0.10 - 0.60 /CUMM) 1.1 H Absolute Eosinophils (0.0 - 0.7 /CUMM) 0.2 Absolute Basophils (0.0 - 0.2 /CUMM) 0 Last 24 Hours of Ammon Results: No new cultures Assessment/Plan ID Impression: Gradual improvement, with temperatures and white blood cell count essentially normal, on Unasyn Day 5 of treatment for a left leg cellulitis, presumably secondary to her chronic, nonhealing ulcer of the left heel/chronic osteomyelitis. She continues to refuse a BKA, which has been recommended by Podiatry on multiple occasions. Her renal insufficiency, of unclear etiology, persists with only mild improvement. Suggestion: 1. Further evaluation of her renal insufficiency per Medicine 2. Further management of her left heel wound per Podiatry 3. Discontinue Unasyn and begin Augmentin 500 mg po every 12 hours for 5 days
[2017-06-04 14:27] VITALS: BP 120/62
[2017-06-04 22:32] VITALS: BP 122/70
[2017-06-05 05:55] VITALS: BP 140/62
--- NOTE | 2017-06-05 07:17 | PN- Housestaff ---
Subjective Follow-up For: Cellulitis Subjective: Patient seen and examined at bedside. She was resting calmly. She had no acute events overnight. She would like to be discharged today, her foot pain is improving, but the leg rash remained stable. She has no new complaints. Review of Systems Constitutional: Reports: no symptoms. EENTM: Reports: no symptoms. Cardiovascular: Reports: no symptoms. Respiratory: Reports: no symptoms. Gastrointestinal: Reports: no symptoms. Genitourinary: Reports: no symptoms. Musculoskeletal: Reports: no symptoms. Skin: Reports: rash. Objective Last 24 Hrs of Vital Signs/I&O Vital Signs Date Time Temp Pulse Resp B/P B/P Pulse O2 O2 Flow FiO2 Mean Ox Delivery Rate 06/05 0555 98.1 58 20 140/62 92 Room Air 06/04 2232 98.4 62 20 122/70 93 Room Air 06/04 2139 62 122/70 06/04 1427 98.5 60 18 120/62 93 Intake & Output 06/05 0800 06/05 0000 06/04 1600 Intake Total 1400 Output Total 1 Balance -1 1400 Intake, IV 100 Intake, Oral 1300 Number 0 Bowel Movements Output, Stool 1 Patient 119 lb Weight Physical Exam General Appearance: Alert, Oriented X3, Cooperative, No Acute Distress Skin Temp/Moisture Exam: Warm/Dry Cardiovascular: Regular Rate, Normal S1, Normal S2 Lungs: Clear to Auscultation, Normal Air Movement Abdomen: Normal Bowel Sounds, Soft, No Tenderness Neurological: Normal Speech, Normal Tone Extremities: L leg with 1-2+ pitting edema, erythematous patch circumfirentially around her distal L leg extending up the medial L thigh Current Medications: Current Medications Sig/Vandana Start time Last Medication Dose Route Stop Time Status Admin Acetaminophen 650 MG Q4P PRN 05/30 2244 AC PO Acetaminophen/ 1 TAB Q4-6 PRN PRN 05/30 224 AC 06/04 Codeine Phosphate PO 0605 Acyclovir 1 AURELIA BID 06/04 1018 AC 06/04 TOP 2140 Alprazolam 0.5 MG AT BEDTIME NEED.. 05/30 224 AC 05/31 PO 06/06 224 0056 Amoxicillin/ 500 MG BID 06/04 2199 AC 06/04 Clavulanate Potassium PO 2138 Ampicillin Sodium/ 1,500 MG Q8 05/31 2199 DC 06/04 Sulbactam Sodium IV 1356 Sodium Chloride 100 ML Apixaban 5 MG BID 05/30 2359 AC 06/04 PO 2138 Ascorbic Acid 500 MG DAILY 05/31 1000 AC 06/04 PO 0928 Atorvastatin Calcium 40 MG 1700 05/31 1700 AC 06/04 PO 1742 Cetirizine HCl 10 MG DAILY 06/01 1000 AC 06/04 PO 0928 Cholecalciferol 1,000 IU DAILY 05/31 1000 AC 06/04 PO 0928 Gabapentin 1,200 MG Q8 05/30 2300 AC 06/05 PO 0638 Insulin Aspart 0 AT BEDTIME 06/02 2200 AC SC Insulin Aspart 0 TIDAC 06/02 1700 AC 06/04 SC 174 Insulin Detemir 15 UNITS AT BEDTIME 05/31 2200 AC 06/04 SC 213 Levothyroxine Sodium 0.05 MG DAILY AC 05/31 0700 AC 06/05 PO 0638 Metoprolol Tartrate 50 MG BID 05/31 1000 AC 06/04 PO 2139 Omeprazole 40 MG DAILY AC 05/31 0700 AC 06/05 PO 0638 Patient Medication 1 ED ONE ONE 06/04 1515 [place] Teaching ED 06/04 1516 Polyethylene Glycol 17 GM DAILY PRN 05/30 2245 AC 06/02 PO 1016 Last 24 Hrs of Lab/Ammon Results Last 24 Hrs of Labs/Mics: Laboratory Tests 06/05/17 1124: CBC w Diff NO MAN DIFF REQ, RBC 3.69 L, MCV 84.1, MCH 27.6, MCHC 32.9 L, RDW 16.4 H, MPV 8.5, Gran % 78.4 H, Lymphocytes % 11.6 L, Monocytes % 7.2, Eosinophils % 2.5, Basophils % 0.3, Absolute Granulocytes 9.8 H, Absolute Lymphocytes 1.5, Absolute Monocytes 0.9 H, Absolute Eosinophils 0.3, Absolute Basophils 0 06/05/17 0857: Anion Gap 15, Estimated GFR 41 L, BUN/Creatinine Ratio 38.5 H, CBC w Diff NO MAN DIFF REQ, RBC 3.73 L, MCV 84.4, MCH 27.0, MCHC 32.0 L, RDW 16.2 H, MPV 8.7, Gran % 76.6 H, Lymphocytes % 12.4 L, Monocytes % 8.1, Eosinophils % 2.8, Basophils % 0.1, Absolute Granulocytes 10.7 H, Absolute Lymphocytes 1.7, Absolute Monocytes 1.1 H, Absolute Eosinophils 0.4, Absolute Basophils 0 Assessment/Plan Assessment: Patient is a 71-year-old female with a PMH significant for HTN, HLD, DM, HFpEF, mitral valve prolapse, endocarditis, peripheral neuropathy, PVD, paroxysmal A. fib on Eliquis, CKD stage 3, and MRSA osteomyelitis who presented to the [facility] ED complaining of left leg swelling and redness in the setting of a chronic diabetic foot ulcer on the plantar left foot. Patient met SIRS criteria with a elevated temperature MAXIMUM TEMPERATURE 102.2 and leukocytosis WBC 17.2. #osteomyelitis of the L foot and L leg cellulitis Patient has had recurrent osteomyelitis and refuses to consider amputation. X- ray shows evidence of osteomyelitis. She remains afebrile, however her white count did increase today, repeat CBC later in the morning showed a down trend and this is elevation could be due to hemoconcentration. Patient will have close follow-up with Dr. Mary as an outpatient -Switched to Augmentin yesterday, will continue for 4 days after discharge -ID recommendations appreciated -Continue current wound care - no plan for podiatric surgery -Patient stable to be discharged home, she is independent with her walker. #Chronic medical problems including DM, HTN, HLD, A. 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 Cellulitis of left lower extremity Pain Ratin Pain Location: L foot Pain Goal: Pain 4 or less Pain Plan: pain pathway Tomorrow's Labs & Rationales: none
[2017-06-05 09:34] LABS: ABSOLUTE BASOPHIL COUNT 0 /CUMM (0.0-0.2); ABSOLUTE EOSINOPHIL COUNT 0.4 /CUMM (0.0-0.7); ABSOLUTE LYMPH COUNT 1.7 /CUMM (1.2-3.4); ABSOLUTE MONOCYTE COUNT 1.1 /CUMM (0.10-0.60)
[2017-06-05 09:50] LABS: ABSOLUTE GRANULOCYTE CT 10.7 /CUMM (1.4-6.5); BASOPHIL % 0.1 % (0.0-2.0); EOSINOPHIL % 2.8 % (0-5); GRANULOCYTE % 76.6 % (42.2-75.2); HEMATOCRIT 31.5 % (37-47); MEAN CORPUSCULAR VOLUME 84.4 FL (81.0-99.0); MEAN PLATELET VOLUME 8.7 FL (7.4-10.4); RBC DISTRIBUTION WIDTH 16.2 % (11.5-14.5); RED BLOOD CELL CT 3.73 /CUMM (4.20-5.40)
[2017-06-05 09:52] LABS: PLATELET COUNT 413 /CUMM (130-400)
--- NOTE | 2017-06-05 10:24 | PN- Att Addend ---
Attending Addendum Attending Brief Note No major issues, patient sitting in the chair with elevated legs and the foot is covered. Her vital signs are stable she has no fever but no major changes on physical her BUN today was 50 and creatinine 1.3 yesterday BUN was 15 creatinine 1.5 will check with infectious diseases to see if we can start disposition plans to send the patient home on oral antibiotics, home care and follow-up with all the specialists and myself. Intake & Output 06/05 1600 06/05 0400 06/04 1600 06/04 0400 06/03 1600 06/03 0400 Intake Total 240 2020 750 1230 830 Output Total 1 Balance 240 -1 2020 750 1230 830 Intake, IV 0 360 150 130 130 Intake, Oral 240 4972 729 9738 700 Number 0 2 2 Bowel Movements Output, Stool 1 Patient 119 lb Weight Current Medications Sig/Vandana Start time Last Medication Dose Route Stop Time Status Admin Acetaminophen 650 MG Q4P PRN 05/30 224 AC PO Acetaminophen/ 1 TAB Q4-6 PRN PRN 05/30 2245 AC 06/04 Codeine Phosphate PO 0605 Acyclovir 1 AURELIA BID 06/04 1018 AC 06/04 TOP 2140 Alprazolam 0.5 MG AT BEDTIME NEED.. 05/30 2245 AC 05/31 PO 06/06 2244 0056 Amoxicillin/ 500 MG BID 06/04 220 AC 06/04 Clavulanate Potassium PO 2138 Ampicillin Sodium/ 1,500 MG Q8 05/31 2200 DC 06/04 Sulbactam Sodium IV 1356 Sodium Chloride 100 ML Apixaban 5 MG BID 05/30 2359 AC 06/04 PO 2138 Ascorbic Acid 500 MG DAILY 05/31 1000 AC 06/04 PO 0928 Atorvastatin Calcium 40 MG 1700 05/31 1700 AC 06/04 PO 1742 Cetirizine HCl 10 MG DAILY 06/01 1000 AC 06/04 PO 0928 Cholecalciferol 1,000 IU DAILY 05/31 1000 AC 06/04 PO 0928 Gabapentin 1,200 MG Q8 05/30 2300 AC 06/05 PO 0638 Insulin Aspart 0 AT BEDTIME 06/02 2200 AC SC Insulin Aspart 0 TIDAC 06/02 1700 AC 06/04 SC 1742 Insulin Detemir 15 UNITS AT BEDTIME 05/31 2200 AC 06/04 SC 2138 Levothyroxine Sodium 0.05 MG DAILY AC 05/31 0700 AC 06/05 PO 0638 Metoprolol Tartrate 50 MG BID 05/31 1000 AC 06/04 PO 2139 Omeprazole 40 MG DAILY AC 05/31 0700 AC 06/05 PO 0638 Patient Medication 1 ED ONE ONE 06/04 1515 [facility] ED 06/04 1516 Polyethylene Glycol 17 GM DAILY PRN 05/30 2245 AC 06/02 PO 1016 Laboratory Tests 06/05/17 0857: Anion Gap 15, Estimated GFR 41 L, BUN/Creatinine Ratio 38.5 H, CBC w Diff NO MAN DIFF REQ, RBC 3.73 L, MCV 84.4, MCH 27.0, MCHC 32.0 L, RDW 16.2 H, MPV 8.7, Gran % 76.6 H, Lymphocytes % 12.4 L, Monocytes % 8.1, Eosinophils % 2.8, Basophils % 0.1, Absolute Granulocytes 10.7 H, Absolute Lymphocytes 1.7, Absolute Monocytes 1.1 H, Absolute Eosinophils 0.4, Absolute Basophils 0 06/03/17 0756: Anion Gap 13, Estimated GFR 34 L, BUN/Creatinine Ratio 33.3 H, CBC w Diff NO MAN DIFF REQ, RBC 3.52 L, MCV 84.7, MCH 27.2, MCHC 32.1 L, RDW 16.6 H, MPV 8.7, Gran % 77.6 H, Lymphocytes % 10.8 L, Monocytes % 9.5 H, Eosinophils % 1.9, Basophils % 0.2, Absolute Granulocytes 8.6 H, Absolute Lymphocytes 1.2, Absolute Monocytes 1.1 H, Absolute Eosinophils 0.2, Absolute Basophils 0 Vital Signs Date Time Temp Pulse Resp B/P B/P Pulse O2 O2 Flow FiO2 Mean Ox Delivery Rate 06/05 0555 98.1 58 20 140/62 92 Room Air 06/04 2232 98.4 62 20 122/70 93 Room Air 06/04 2139 62 122/70 06/04 1427 98.5 60 18 120/62 93
[2017-06-05 12:22] LABS: ABSOLUTE BASOPHIL COUNT 0 /CUMM (0.0-0.2); ABSOLUTE EOSINOPHIL COUNT 0.3 /CUMM (0.0-0.7); ABSOLUTE GRANULOCYTE CT 9.8 /CUMM (1.4-6.5); ABSOLUTE LYMPH COUNT 1.5 /CUMM (1.2-3.4); ABSOLUTE MONOCYTE COUNT 0.9 /CUMM (0.10-0.60); BASOPHIL % 0.3 % (0.0-2.0); EOSINOPHIL % 2.5 % (0-5); GRANULOCYTE % 78.4 % (42.2-75.2); MEAN CORPUSCULAR HGB 27.6 PG (27.0-31.0); MEAN CORPUSCULAR HGB CONC 32.9 G/DL (33.0-37.0); MEAN CORPUSCULAR VOLUME 84.1 FL (81.0-99.0); MEAN PLATELET VOLUME 8.5 FL (7.4-10.4); PLATELET COUNT 399 /CUMM (130-400); RBC DISTRIBUTION WIDTH 16.4 % (11.5-14.5); RED BLOOD CELL CT 3.69 /CUMM (4.20-5.40); WHITE BLOOD CELL COUNT 12.6 /CUMM (4.8-10.8)
--- NOTE | 2017-06-05 13:34 | Patient Discharge Instructions ---
Discharge Instructions General Discharge Information You were seen/treated for: Diabetic foot ulcer cellulitis Special Instructions: Take all medication as directed. Follow-up with Dr. Mary within 1 week of discharge. Follow-up with Dr. Altamirano within 1 week of discharge. Continue to stay hydrated. Call your doctor or return to the ER if you should experience worsening rash, fever, chills, chest pain, shortness of breath. Diet Recommended Diet: Diabetic Acute Coronary Syndrome Inclusion Criteria At DC or during hospital stay patient has or had the following: ACS DIAGNOSIS No Discharge Core Measures Meds if any: Prescribed or Continued at Discharge Meds if any: NOT Prescribed or Continued at Discharge Congestive Heart Failure Inclusion Criteria At DC or during hospital stay patient has or had the following: CHF DIAGNOSIS No Discharge Core Measures Meds if any: Prescribed or Continued at Discharge Meds if any: NOT Prescribed or Continued at Discharge Cerebrovascular accident Inclusion Criteria At DC or during hospital stay patient has or had the following: CVA/TIA Diagnosis No Discharge Core Measures Meds if any: Prescribed or Continued at Discharge Meds if any: NOT Prescribed or Continued at Discharge Venous thromboembolism Inclusion Criteria VTE Diagnosis No VTE Type NONE VTE Confirmed by (Test) NONE Discharge Core Measures - Per Current guidelines, there needs to be overlap - treatment for the first 5 days of Warfarin therapy. - If discharged on Warfarin prior to 5 days of - overlap therapy, the patient will need to be - assessed for post discharge needs including - *Post discharge parental anticoagulation - *Warfarin and/or parental anticoagulation education - *Follow up date to check INR post discharge At least 5 days overlap therapy as Inpatient No Meds if any: Prescribed or Continued at Discharge Note: Overlap Therapy is Warfarin and Anticoagulant Meds if any: NOT Prescribed or Continued at Discharge
[2017-06-05] MEDS ORDERED: AUGMENTIN 500-1 EACH PO (13:47)
[2017-06-05] MEDS ORDERED: ZOVIRAX30 GM TOP (13:47)
[2017-06-05 14:20] VITALS: BP 140/85
== END 2017-06-05 15:43 | disposition home health service (06) | DRG 872 ==
LOC: ERH 11:43 → 2NA 20:40 → ERHI 20:40 → ENRESERV 21:36 → ENTRNSPT 22:23 → EDTRNSPTSTS 22:35 → EDTRNSPT 22:35 → 2NA 22:42 → CMPTRNSPT 05-31 07:43 → 2NA 05-31 08:04 → ENPENDDIS 06-05 13:50 → ENTRNSPT 06-05 15:09 → EDTRNSPT 06-05 15:34 → EDTRNSPTSTS 06-05 15:34 → 2NA 06-05 15:43 → CMPTRNSPT 06-05 15:49
PROVIDERS: Dermatology; Emergency Medicine; Internal Medicine; Student in an Organized Health Care Education/Training Program
DX: A41.9 Sepsis, unspecified organism (principal); N17.9 Acute kidney failure, unspecified; E11.22 Type 2 diabetes mellitus with diabetic chronic kidney disease; E11.42 Type 2 diabetes mellitus with diabetic polyneuropathy; M62.82 Rhabdomyolysis; Z68.41 Body mass index [BMI] 40.0-44.9, adult; I13.0 Hypertensive heart and chronic kidney disease with heart failure and stage 1 through stage 4 chronic kidney disease, or unspecified chronic kidney disease; I50.32 Chronic diastolic (congestive) heart failure; L03.116 Cellulitis of left lower limb; L97.429 Non-pressure chronic ulcer of left heel and midfoot with unspecified severity; M86.672 Other chronic osteomyelitis, left ankle and foot; E11.621 Type 2 diabetes mellitus with foot ulcer; N18.9 Chronic kidney disease, unspecified; W18.30XA Fall on same level, unspecified, initial encounter; Z79.01 Long term (current) use of anticoagulants; Z79.4 Long term (current) use of insulin; I73.9 Peripheral vascular disease, unspecified; E78.5 Hyperlipidemia, unspecified; I34.1 Nonrheumatic mitral (valve) prolapse; E03.9 Hypothyroidism, unspecified; K80.20 Calculus of gallbladder without cholecystitis without obstruction; I48.0 Paroxysmal atrial fibrillation; M48.00 Spinal stenosis, site unspecified; R32 Unspecified urinary incontinence; E66.9 Obesity, unspecified; Z90.49 Acquired absence of other specified parts of digestive tract; Z90.710 Acquired absence of both cervix and uterus; Z89.022 Acquired absence of left finger(s); Z89.021 Acquired absence of right finger(s); F41.9 Anxiety disorder, unspecified; E11.69 Type 2 diabetes mellitus with other specified complication; B00.9 Herpesviral infection, unspecified
CPT/HCPCS: 2NAP; 36592; 71045; 71046; 73590-LT; 73630-LT; 81001; 82436; 87040; 87086; 87804; 87804-59; 93005; 93010; 96374; 96375; J0131; J3490